=== PATIENT | male | born 1980 | race Caucasian/White ===

== ENCOUNTER 2017-06-03 19:50 | Emergency (ER) | payer OTHER ==
[~2017-06-03] VITALS: Ht 160 cm; Wt 61.2 kg
[~2017-06-03 19:50] MED LIST: ABAC300; ACET500; ACET500 PO; AMOCLA875 PO; ANUCORT HC PR; Anucort-Hc25 MG PR; BCOIRO PO; BISA10S; BISA10S PR; CARB100ER PO; CARB200 PO; CARB200ER PO; CARBAMAZEPINE200 MG PO; CHLGLU.12S MT; CHLORHEXIDINE; CHLORHEXIDINE PO; CLIN300 PO; CLON1 PO; CLON2; CLON2 PO; DIASTAT PR; DIAZ10; DIAZ10 PO; DIAZ1KIT4 PR; DIAZ2 PR; DIAZEPAM 20 MG; FAMO40 PO; FYCOMPA4 MG PO; GLYC2; GLYCOLAX; GLYCOLAX PO; GUAI600T33 PO; GUAIFENSIN; GUAPHELA; HYDACE25S PR; HYDACE5 PO; HYDCOR1TO TOP; HYDCOR2.5B TOP; HYDR.5TC TOP; IBUP400 PO; IBUP800 PO; INSLIS75I; Keppra1000 MG PO; LAMICTAL; LAMO100; LAMO100 PO; LEVE500 PO; LEVO750 PO; Lamictal200 MG PO; MINOIL PR; MOM; MOM PO; MUCUS RELIEF200 MG PO; MULVITA; MULVITMIND PO; MULVITMINF PO; MULVITSO PO; OMEP20ER PO; ONDA4 PO; ONDA4ODT MM; OXYB5 PO; PANT40 PO; PHENA100 PO; PHENA200 PO; POLY17UD; PSEU120ER PO; SACC250C PO; SULTRIDS PO; TAMS.4ER PO; TIAG4 PO; TRIA80TC TOP; ZONI100; [UNRECOGNIZED DRUG - OTHER]; [UNRECOGNIZED DRUG - OTHER]; [UNRECOGNIZED DRUG - OTHER] PO; [UNRECOGNIZED DRUG - OTHER] PO
[2017-06-03] MEDS ORDERED: HYDR25SUP PR (20:00)
== END 2017-06-03 20:50 | disposition home or self-care (01) ==
LOC: ER 19:50
DX: K64.8 Other hemorrhoids (principal)
CPT/HCPCS: 46600; 99284

== ENCOUNTER 2017-08-05 08:23 | Emergency (ER) | payer OTHER ==
[~2017-08-05] VITALS: Ht 160 cm; Wt 63.5 kg
[~2017-08-05 08:23] MED LIST changes: +HYDR25SUP PR
[2017-08-05] MEDS ORDERED: Keppra1000 MG PO (08:41)
[2017-08-05] MEDS ORDERED: GAVILAX17 GM PO (08:43)
[2017-08-05] MEDS ORDERED: Banzel400 MG PO (08:46)
[2017-08-05] MEDS ORDERED: VITAMIN D32000 UNI1 PO (08:48)
[2017-08-05] MEDS ORDERED: Miralax17 GM PO (09:11)
== END 2017-08-05 09:47 | disposition home or self-care (01) ==
LOC: ER 08:23
DX: K59.00 Constipation, unspecified (principal); G40.909 Epilepsy, unspecified, not intractable, without status epilepticus; Z88.8 Allergy status to other drugs, medicaments and biological substances; Z79.899 Other long term (current) drug therapy
CPT/HCPCS: 74019; 99283

== ENCOUNTER → 2018-02-01 | Outpatient (CLI) | payer OTHER ==
[~2018-02-01] MED LIST changes: +Banzel400 MG PO; +GAVILAX17 GM PO; +Miralax17 GM PO; +VITAMIN D32000 UNI1 PO
[2018-02-01 15:31] LABS: BASOPHILS ABSOLUTE AUTO 0.07 K/mm3 (0.00-0.23); BASOPHILS PERCENT AUTO 1 % (0-2); EOSINOPHILS ABSOLUTE AUTO 0.53 K/mm3 (0.00-0.68); EOSINOPHILS PERCENT AUTO 6 % (0-6); Hematocrit 45.1 % (37.0-53.0); Hemoglobin 14.5 g/dL (13.5-17.5); IMMATURE GRAN ABSOLUTE AUTO 0.02 K/mm3 (0.00-0.10); IMMATURE GRAN PERCENT AUTO 0 % (0-1); LYMPHOCYTES ABSOLUTE AUTO 2.07 K/mm3 (0.84-5.20); LYMPHOCYTES PERCENT AUTO 24 % (21-46); MONOCYTES ABSOLUTE AUTO 0.82 K/mm3 (0.16-1.47); MONOCYTES PERCENT AUTO 9 % (4-13); Mean Corpuscular HGB 26.9 pg (26.0-34.0); Mean Corpuscular HGB Conc 32.2 g/dL (31.5-36.5); Mean Corpuscular Volume 84 fL (80-100); Mean Platelet Volume 9.2 fL (9.1-12.4); NEUTROPHILS PERCENT AUTO 60 % (41-73); Platelet Count 326 K/mm3 (150-400); RDW Coefficient Variation 13.1 % (11.7-14.2); RDW Standard Deviation 39.3 fL (35.1-46.3); Red Blood Cell Count 5.39 M/mm3 (4.30-5.90); White Blood Cell Count 8.81 K/mm3 (4.00-11.30)
[2018-02-01 15:41] LABS: Alanine Aminotransfer (ALT/SGP 20 U/L (12-78); Alk Phos 137 U/L (40-126); Anion Gap 4 mmol/L (6-16); Aspartate Aminotrans (AST/SGOT 14 U/L (12-37); Bilirubin, Total 0.3 mg/dL (0.1-1.0); Blood Urea Nitrogen 11 mg/dL (8-24); Bun/Creatinine Ratio 12.6 (12.0-20.0); CO2, Blood 35 mmol/L (21-32); Calcium, Blood 9.2 mg/dL (8.5-10.1); Chloride, Blood 101 mmol/L (98-108); Creatinine, Blood 0.87 mg/dL (0.60-1.20); Globulin, Blood 3.9 g/dL (2.2-4.0); Glomerular Filtration Rate >60 (60-); Glucose, Blood 76 mg/dL (70-99); Sodium, Blood 140 mmol/L (136-145); Total Protein, Blood 7.9 g/dL (6.4-8.2)
== END | disposition home or self-care (01) ==
LOC: LAB SHORT 15:26 → LAB EV 15:26
PROVIDERS: General Practice
DX: R05 Cough (principal)
CPT/HCPCS: 80053; 85025

== ENCOUNTER 2018-12-14 12:24 | Emergency (ER) | payer OTHER ==
[~2018-12-14] VITALS: Ht 157.5 cm; Wt 77.1 kg
[~2018-12-14 12:24] MED LIST changes: +Hair, Skin & N1 EACH PO
[2018-12-14 13:22] LABS: BASOPHILS ABSOLUTE AUTO 0.07 K/mm3 (0.00-0.23); BASOPHILS PERCENT AUTO 1 % (0-2); EOSINOPHILS ABSOLUTE AUTO 0.09 K/mm3 (0.00-0.68); EOSINOPHILS PERCENT AUTO 1 % (0-6); Hematocrit 46.7 % (37.0-53.0); Hemoglobin 14.5 g/dL (13.5-17.5); IMMATURE GRAN ABSOLUTE AUTO 0.02 K/mm3 (0.00-0.10); IMMATURE GRAN PERCENT AUTO 0 % (0-1); LYMPHOCYTES ABSOLUTE AUTO 1.54 K/mm3 (0.84-5.20); LYMPHOCYTES PERCENT AUTO 15 % (21-46); MONOCYTES ABSOLUTE AUTO 0.72 K/mm3 (0.16-1.47); MONOCYTES PERCENT AUTO 7 % (4-13); Mean Corpuscular HGB 26.1 pg (26.0-34.0); Mean Corpuscular Volume 84 fL (80-100); NEUTROPHILS ABSOLUTE AUTO 7.85 K/mm3 (1.96-9.15); NEUTROPHILS PERCENT AUTO 76 % (41-73); RDW Standard Deviation 39.6 fL (35.1-46.3); Red Blood Cell Count 5.56 M/mm3 (4.30-5.90); White Blood Cell Count 10.29 K/mm3 (4.00-11.30)
[2018-12-14 13:33] LABS: Mean Platelet Volume 9.5 fL (9.1-12.4); Platelet Count 264 K/mm3 (150-400)
[2018-12-14 13:41] LABS: Alanine Aminotransfer (ALT/SGP 24 U/L (12-78); Albumin, Blood 3.8 g/dL (3.4-5.0); Alk Phos 119 U/L (50-136); Anion Gap 5 mmol/L (6-16); Aspartate Aminotrans (AST/SGOT 16 U/L (12-37); Bilirubin, Total 0.3 mg/dL (0.1-1.0); Blood Urea Nitrogen 10 mg/dL (8-24); Bun/Creatinine Ratio 14.6 (12.0-20.0); CO2, Blood 30 mmol/L (21-32); Calcium, Blood 9.1 mg/dL (8.5-10.1); Chloride, Blood 105 mmol/L (98-108); Creatinine, Blood 0.68 mg/dL (0.60-1.20); Globulin, Blood 3.9 g/dL (2.2-4.0); Glomerular Filtration Rate >60 (60-); Glucose, Blood 100 mg/dL (70-99); Potassium, Blood 3.8 mmol/L (3.5-5.5); Sodium, Blood 140 mmol/L (136-145); Total Protein, Blood 7.7 g/dL (6.4-8.2)
[2018-12-14] MEDS ORDERED: CLON1 PO (15:03)
[2018-12-14] MEDS ORDERED: Vibramycin100 MG PO (15:58)
== END 2018-12-14 17:22 | disposition home or self-care (01) ==
LOC: ER 12:24
PROVIDERS: Physician Assistant
DX: R56.9 Unspecified convulsions (principal); J98.8 Other specified respiratory disorders; R09.89 Other specified symptoms and signs involving the circulatory and respiratory systems; J98.11 Atelectasis; Z88.1 Allergy status to other antibiotic agents; Z88.8 Allergy status to other drugs, medicaments and biological substances; Z79.899 Other long term (current) drug therapy; Z87.01 Personal history of pneumonia (recurrent)
CPT/HCPCS: 36415; 71046; 76705; 80053; 80175; 83690; 85025; 96360; 96361; 99284-25; J7030

== ENCOUNTER → 2019-01-07 | Outpatient (CLI) | payer OTHER ==
[~2019-01-07] MED LIST changes: +EPIDIOLEX100 MG/1 M PO; +Vibramycin100 MG PO
[2019-01-07 13:49] LABS: Source, Urine Clean Catch
[2019-01-07 14:18] LABS: Amorphous Heavy ({null, 0-Heavy}); Appearance, Urine Cloudy (Clear); Bacteria Not Seen /hpf; Bilirubin, Urine Neg (Neg); Blood, Urine Neg (Neg); Color, Urine Yellow (P-Yellow); Glucose Qualitative, Urine Neg (Normal); Ketones, Urine Neg (Neg); Leukocyte Esterase, Urine Neg (Neg); Nitrite, Urine Neg (Neg); Protein, Urine Neg (Neg); Red Blood Cells, Urine Not Seen /hpf (0-2); Squamous Epithelial Cells Rare /hpf (Few); Urobilinogen, Urine NORM (Normal); White Blood Cells, Urine 0-2 /hpf (0-5)
== END | disposition home or self-care (01) ==
LOC: LAB EV 13:00
PROVIDERS: Physician Assistant
DX: G40.909 Epilepsy, unspecified, not intractable, without status epilepticus (principal)
CPT/HCPCS: 81001

== ENCOUNTER 2019-02-14 18:13 | Emergency (ER) | payer OTHER ==
[~2019-02-14] VITALS: Ht 160 cm; Wt 79.4 kg
[~2019-02-14 18:13] MED LIST changes: -EPIDIOLEX100 MG/1 M PO
[2019-02-14] MEDS ORDERED: Keppra1000 MG PO (19:25)
[2019-02-14] MEDS ORDERED: EPIDIOLEX100 MG/1 M PO (19:29)
[2019-02-14 20:10] LABS: Source, Urine Catheter
[2019-02-14 20:16] LABS: Bilirubin, Urine Neg (Neg); Blood, Urine Neg (Neg); Glucose Qualitative, Urine Neg (Neg); Ketones, Urine Neg (Neg); Leukocyte Esterase, Urine Neg (Neg); Nitrite, Urine Neg (Neg); Protein, Urine Neg (Neg); Urobilinogen, Urine NORM (Normal)
[2019-02-14 20:22] LABS: Appearance, Urine Clear (Clear); Color, Urine Yellow (P-Yellow)
== END 2019-02-15 00:18 | disposition home or self-care (01) ==
LOC: ER 18:13
PROVIDERS: Emergency Medicine
DX: R56.9 Unspecified convulsions (principal); Z88.1 Allergy status to other antibiotic agents; Z88.8 Allergy status to other drugs, medicaments and biological substances; Z79.899 Other long term (current) drug therapy
CPT/HCPCS: 51701; 81003; 96365-59; 96375-59; 99284-25; J1953; J2060; J2310

== ENCOUNTER 2019-03-16 11:46 | Emergency (ER) | payer OTHER ==
[~2019-03-16] VITALS: Ht 152.4 cm; Wt 72.6 kg
[~2019-03-16 11:46] MED LIST changes: +EPIDIOLEX100 MG/1 M PO
[2019-03-16 12:39] LABS: BASOPHILS ABSOLUTE AUTO 0.04 K/mm3 (0.00-0.23); BASOPHILS PERCENT AUTO 1 % (0-2); EOSINOPHILS ABSOLUTE AUTO 0.12 K/mm3 (0.00-0.68); EOSINOPHILS PERCENT AUTO 2 % (0-6); Hematocrit 47.6 % (37.0-53.0); IMMATURE GRAN ABSOLUTE AUTO 0.02 K/mm3 (0.00-0.10); IMMATURE GRAN PERCENT AUTO 0 % (0-1); LYMPHOCYTES ABSOLUTE AUTO 1.16 K/mm3 (0.84-5.20); LYMPHOCYTES PERCENT AUTO 17 % (21-46); MONOCYTES ABSOLUTE AUTO 0.48 K/mm3 (0.16-1.47); MONOCYTES PERCENT AUTO 7 % (4-13); Mean Corpuscular HGB 25.8 pg (26.0-34.0); Mean Corpuscular HGB Conc 31.5 g/dL (31.5-36.5); Mean Corpuscular Volume 82 fL (80-100); Mean Platelet Volume 9.7 fL (9.1-12.4); NEUTROPHILS ABSOLUTE AUTO 5.02 K/mm3 (1.96-9.15); NEUTROPHILS PERCENT AUTO 73 % (41-73); Platelet Count 321 K/mm3 (150-400); RDW Standard Deviation 38.5 fL (35.1-46.3); Red Blood Cell Count 5.81 M/mm3 (4.30-5.90); White Blood Cell Count 6.84 K/mm3 (4.00-11.30)
[2019-03-16 12:43] LABS: Alanine Aminotransfer (ALT/SGP 29 U/L (12-78); Albumin, Blood 4.1 g/dL (3.4-5.0); Albumin/Globulin Ratio 1.1 (0.8-1.8); Alk Phos 125 U/L (50-136); Anion Gap 5 mmol/L (6-16); Aspartate Aminotrans (AST/SGOT 17 U/L (12-37); Bilirubin, Total 0.4 mg/dL (0.1-1.0); Blood Urea Nitrogen 11 mg/dL (8-24); Bun/Creatinine Ratio 12.8 (12.0-20.0); CO2, Blood 31 mmol/L (21-32); Calcium, Blood 9.4 mg/dL (8.5-10.1); Chloride, Blood 106 mmol/L (98-108); Creatinine, Blood 0.86 mg/dL (0.60-1.20); Globulin, Blood 3.8 g/dL (2.2-4.0); Glomerular Filtration Rate >60 (60-); Glucose, Blood 153 mg/dL (70-99); Potassium, Blood 3.4 mmol/L (3.5-5.5); Sodium, Blood 142 mmol/L (136-145); Total Protein, Blood 7.9 g/dL (6.4-8.2)
== END 2019-03-16 14:22 | disposition home or self-care (01) ==
LOC: ER 11:46
PROVIDERS: Emergency Medicine
DX: G40.909 Epilepsy, unspecified, not intractable, without status epilepticus (principal); E87.6 Hypokalemia; Z88.1 Allergy status to other antibiotic agents; Z88.8 Allergy status to other drugs, medicaments and biological substances; Z79.899 Other long term (current) drug therapy
CPT/HCPCS: 71045; 80053; 82947; 85025; 93005; 93010; 99284-25

== ENCOUNTER 2019-05-07 12:28 | Emergency (ER) | payer OTHER ==
[~2019-05-07] VITALS: Ht 165.1 cm; Wt 86.2 kg
[2019-05-07 14:26] LABS: BASOPHILS ABSOLUTE AUTO 0.08 K/mm3 (0.00-0.23); BASOPHILS PERCENT AUTO 1 % (0-2); EOSINOPHILS ABSOLUTE AUTO 0.13 K/mm3 (0.00-0.68); EOSINOPHILS PERCENT AUTO 1 % (0-6); Hematocrit 46.3 % (37.0-53.0); Hemoglobin 14.7 g/dL (13.5-17.5); IMMATURE GRAN ABSOLUTE AUTO 0.03 K/mm3 (0.00-0.10); IMMATURE GRAN PERCENT AUTO 0 % (0-1); LYMPHOCYTES ABSOLUTE AUTO 1.91 K/mm3 (0.84-5.20); LYMPHOCYTES PERCENT AUTO 14 % (21-46); MONOCYTES ABSOLUTE AUTO 0.96 K/mm3 (0.16-1.47); MONOCYTES PERCENT AUTO 7 % (4-13); Mean Corpuscular HGB 25.4 pg (26.0-34.0); Mean Corpuscular HGB Conc 31.7 g/dL (31.5-36.5); Mean Corpuscular Volume 80 fL (80-100); Mean Platelet Volume 9.5 fL (9.1-12.4); NEUTROPHILS ABSOLUTE AUTO 10.35 K/mm3 (1.96-9.15); NEUTROPHILS PERCENT AUTO 77 % (41-73); Platelet Count 372 K/mm3 (150-400); RDW Coefficient Variation 13.2 % (11.7-14.2); RDW Standard Deviation 37.7 fL (35.1-46.3); Red Blood Cell Count 5.78 M/mm3 (4.30-5.90); White Blood Cell Count 13.46 K/mm3 (4.00-11.30)
[2019-05-07 14:46] LABS: Alanine Aminotransfer (ALT/SGP 27 U/L (12-78); Albumin, Blood 4.1 g/dL (3.4-5.0); Alk Phos 123 U/L (50-136); Anion Gap 7 mmol/L (6-16); Aspartate Aminotrans (AST/SGOT 17 U/L (12-37); Bilirubin, Total 0.3 mg/dL (0.1-1.0); Blood Urea Nitrogen 9 mg/dL (8-24); Bun/Creatinine Ratio 12.4 (12.0-20.0); CO2, Blood 27 mmol/L (21-32); Calcium, Blood 9.5 mg/dL (8.5-10.1); Chloride, Blood 105 mmol/L (98-108); Creatinine, Blood 0.72 mg/dL (0.60-1.20); Glomerular Filtration Rate >60 (60-); Glucose, Blood 106 mg/dL (70-99); Potassium, Blood 3.4 mmol/L (3.5-5.5); Sodium, Blood 139 mmol/L (136-145); Total Protein, Blood 8.1 g/dL (6.4-8.2)
[2019-05-07 15:39] LABS: Influenza A Negative (NEGATIVE); Influenza B Negative (NEGATIVE)
[2019-05-07 15:52] LABS: Source, Urine Clean Catch
[2019-05-07 16:04] LABS: Bilirubin, Urine Neg (Neg); Blood, Urine 1+ (Neg); Glucose Qualitative, Urine Neg (Neg); Ketones, Urine Neg (Neg); Leukocyte Esterase, Urine Neg (Neg); Nitrite, Urine Neg (Neg); Protein, Urine Neg (Neg); Specific Gravity, Urine 1.015 (1.003-1.022); Urobilinogen, Urine NORM (Normal)
[2019-05-07 16:11] LABS: Appearance, Urine Hazy (Clear); Color, Urine Pale Yellow (P-Yellow)
[2019-05-07 16:12] LABS: White Blood Cells, Urine 0-2 /hpf (0-5)
[2019-05-07 16:13] LABS: Amorphous Light (0-Heavy); Bacteria Few /hpf; Squamous Epithelial Cells Rare /hpf (Few)
== END 2019-05-07 17:08 | disposition home or self-care (01) ==
LOC: ER 12:28
PROVIDERS: Emergency Medicine
DX: R56.9 Unspecified convulsions (principal); Z88.1 Allergy status to other antibiotic agents; Z88.8 Allergy status to other drugs, medicaments and biological substances; Z79.899 Other long term (current) drug therapy
CPT/HCPCS: 51701; 80053; 80175; 81001; 85025; 87804; 96365; 96375; 99284-25; J1953; J2060

== ENCOUNTER 2019-06-06 19:10 | Emergency (ER) | payer OTHER ==
[~2019-06-06] VITALS: Ht 160 cm; Wt 185.0 kg
[2019-06-06 20:14] LABS: BASOPHILS ABSOLUTE AUTO 0.06 K/mm3 (0.00-0.23); BASOPHILS PERCENT AUTO 1 % (0-2); EOSINOPHILS ABSOLUTE AUTO 0.21 K/mm3 (0.00-0.68); EOSINOPHILS PERCENT AUTO 2 % (0-6); Hematocrit 42.1 % (37.0-53.0); Hemoglobin 13.1 g/dL (13.5-17.5); IMMATURE GRAN ABSOLUTE AUTO 0.02 K/mm3 (0.00-0.10); IMMATURE GRAN PERCENT AUTO 0 % (0-1); LYMPHOCYTES ABSOLUTE AUTO 1.58 K/mm3 (0.84-5.20); LYMPHOCYTES PERCENT AUTO 15 % (21-46); MONOCYTES ABSOLUTE AUTO 0.53 K/mm3 (0.16-1.47); MONOCYTES PERCENT AUTO 5 % (4-13); Mean Corpuscular HGB 25.5 pg (26.0-34.0); Mean Corpuscular HGB Conc 31.1 g/dL (31.5-36.5); Mean Corpuscular Volume 82 fL (80-100); Mean Platelet Volume 9.7 fL (9.1-12.4); NEUTROPHILS ABSOLUTE AUTO 8.02 K/mm3 (1.96-9.15); NEUTROPHILS PERCENT AUTO 77 % (41-73); Platelet Count 325 K/mm3 (150-400); RDW Coefficient Variation 13.2 % (11.7-14.2); RDW Standard Deviation 39.3 fL (35.1-46.3); Red Blood Cell Count 5.14 M/mm3 (4.30-5.90); White Blood Cell Count 10.42 K/mm3 (4.00-11.30)
[2019-06-06 20:32] LABS: Alanine Aminotransfer (ALT/SGP 48 U/L (12-78); Albumin, Blood 3.8 g/dL (3.4-5.0); Albumin/Globulin Ratio 1.1 (0.8-1.8); Alk Phos 100 U/L (50-136); Anion Gap 5 mmol/L (6-16); Aspartate Aminotrans (AST/SGOT 28 U/L (12-37); Bilirubin, Total 0.5 mg/dL (0.1-1.0); Blood Urea Nitrogen 17 mg/dL (8-24); Bun/Creatinine Ratio 20.3 (12.0-20.0); CO2, Blood 29 mmol/L (21-32); Calcium, Blood 8.9 mg/dL (8.5-10.1); Chloride, Blood 106 mmol/L (98-108); Creatinine, Blood 0.84 mg/dL (0.60-1.20); Globulin, Blood 3.5 g/dL (2.2-4.0); Glomerular Filtration Rate >60 (60-); Glucose, Blood 100 mg/dL (70-99); Sodium, Blood 140 mmol/L (136-145); Total Protein, Blood 7.3 g/dL (6.4-8.2)
[2019-06-06] MEDS ORDERED: OMEPRAZOLE20 MG (22:16)
[2019-06-06] MEDS ORDERED: BISA10S (22:17)
[2019-06-06] MEDS ORDERED: Anucort-Hc25 MG (22:18)
== END 2019-06-07 00:58 | disposition home or self-care (01) ==
LOC: ER 19:10
PROVIDERS: Emergency Medicine
DX: R19.7 Diarrhea, unspecified (principal); G40.909 Epilepsy, unspecified, not intractable, without status epilepticus; E86.0 Dehydration; Z88.1 Allergy status to other antibiotic agents; Z88.8 Allergy status to other drugs, medicaments and biological substances; Z79.899 Other long term (current) drug therapy
CPT/HCPCS: 36415; 80053; 82947; 85025; 93005; 93010; 96360; 99284-25; A9270-GY; J7030

== ENCOUNTER 2019-08-28 10:04 | Emergency (ER) | payer OTHER ==
[~2019-08-28] VITALS: Ht 160 cm; Wt 83.9 kg
[~2019-08-28 10:04] MED LIST changes: +Anucort-Hc25 MG; +OMEPRAZOLE20 MG
[2019-08-28] MEDS ORDERED: ALLEGRA ALLERGY60 MG PO (10:21)
[2019-08-28] MEDS ORDERED: LEVE500 PO ×2 (10:25→10:30)
[2019-08-28] MEDS ORDERED: LISI5 PO (10:25)
[2019-08-28] MEDS ORDERED: VITAMIN D350 MCG PO (10:28)
[2019-08-28 10:46] LABS: BASOPHILS ABSOLUTE AUTO 0.05 K/mm3 (0.00-0.23); BASOPHILS PERCENT AUTO 1 % (0-2); EOSINOPHILS ABSOLUTE AUTO 0.46 K/mm3 (0.00-0.68); EOSINOPHILS PERCENT AUTO 6 % (0-6); Hematocrit 43.9 % (37.0-53.0); Hemoglobin 13.7 g/dL (13.5-17.5); IMMATURE GRAN ABSOLUTE AUTO 0.03 K/mm3 (0.00-0.10); IMMATURE GRAN PERCENT AUTO 0 % (0-1); LYMPHOCYTES ABSOLUTE AUTO 2.23 K/mm3 (0.84-5.20); LYMPHOCYTES PERCENT AUTO 29 % (21-46); MONOCYTES ABSOLUTE AUTO 0.73 K/mm3 (0.16-1.47); MONOCYTES PERCENT AUTO 10 % (4-13); Mean Corpuscular HGB 26.2 pg (26.0-34.0); Mean Corpuscular HGB Conc 31.2 g/dL (31.5-36.5); Mean Corpuscular Volume 84 fL (80-100); Mean Platelet Volume 9.8 fL (9.1-12.4); NEUTROPHILS PERCENT AUTO 55 % (41-73); Platelet Count 340 K/mm3 (150-400); RDW Coefficient Variation 13.8 % (11.7-14.2); RDW Standard Deviation 42.3 fL (35.1-46.3); Red Blood Cell Count 5.22 M/mm3 (4.30-5.90)
[2019-08-28 10:59] LABS: Alanine Aminotransfer (ALT/SGP 36 U/L (12-78); Albumin, Blood 3.9 g/dL (3.4-5.0); Alk Phos 94 U/L (50-136); Anion Gap 6 mmol/L (6-16); Aspartate Aminotrans (AST/SGOT 18 U/L (12-37); Bilirubin, Total 0.3 mg/dL (0.1-1.0); Blood Urea Nitrogen 16 mg/dL (8-24); Bun/Creatinine Ratio 21.2 (12.0-20.0); CO2, Blood 28 mmol/L (21-32); Chloride, Blood 105 mmol/L (98-108); Creatinine, Blood 0.75 mg/dL (0.60-1.20); Glomerular Filtration Rate >60 (60-); Glucose, Blood 92 mg/dL (70-99); Potassium, Blood 4.2 mmol/L (3.5-5.5); Sodium, Blood 139 mmol/L (136-145); Total Protein, Blood 7.9 g/dL (6.4-8.2)
[2019-08-28 12:05] LABS: Source, Urine Clean Catch
[2019-08-28 12:26] LABS: Bilirubin, Urine Neg (Neg); Blood, Urine Neg (Neg); Glucose Qualitative, Urine Neg (Neg); Ketones, Urine Neg (Neg); Leukocyte Esterase, Urine 1+ (Neg); Nitrite, Urine Neg (Neg); Protein, Urine Neg (Neg); Urobilinogen, Urine NORM (Normal)
[2019-08-28 12:47] LABS: Appearance, Urine Clear (Clear); Color, Urine Yellow (P-Yellow)
[2019-08-28 12:48] LABS: Bacteria Few /hpf; Red Blood Cells, Urine 0-2 /hpf (0-2); Squamous Epithelial Cells Rare /hpf (Few)
== END 2019-08-28 13:41 | disposition home or self-care (01) ==
LOC: ER 10:04
PROVIDERS: Physician Assistant
DX: R53.1 Weakness (principal); R56.9 Unspecified convulsions; Z88.8 Allergy status to other drugs, medicaments and biological substances; Z79.899 Other long term (current) drug therapy
CPT/HCPCS: 36415; 51701; 80053; 81001; 85025; 87086; 99284-25; J7030

== ENCOUNTER 2019-10-13 07:58 | Emergency (ER) | payer OTHER ==
[~2019-10-13] VITALS: Ht 160 cm; Wt 81.7 kg
[~2019-10-13 07:58] MED LIST changes: +ALLEGRA ALLERGY60 MG PO; +LISI5 PO; +VITAMIN D350 MCG PO
[2019-10-13 08:33] LABS: BASOPHILS ABSOLUTE AUTO 0.03 K/mm3 (0.00-0.23); BASOPHILS PERCENT AUTO 0 % (0-2); EOSINOPHILS ABSOLUTE AUTO 0.16 K/mm3 (0.00-0.68); EOSINOPHILS PERCENT AUTO 2 % (0-6); Hematocrit 49.1 % (37.0-53.0); Hemoglobin 14.8 g/dL (13.5-17.5); IMMATURE GRAN ABSOLUTE AUTO 0.02 K/mm3 (0.00-0.10); IMMATURE GRAN PERCENT AUTO 0 % (0-1); LYMPHOCYTES ABSOLUTE AUTO 1.75 K/mm3 (0.84-5.20); LYMPHOCYTES PERCENT AUTO 24 % (21-46); MONOCYTES ABSOLUTE AUTO 0.59 K/mm3 (0.16-1.47); MONOCYTES PERCENT AUTO 8 % (4-13); Mean Corpuscular HGB 25.4 pg (26.0-34.0); Mean Corpuscular HGB Conc 30.1 g/dL (31.5-36.5); Mean Corpuscular Volume 84 fL (80-100); Mean Platelet Volume 9.6 fL (9.1-12.4); NEUTROPHILS ABSOLUTE AUTO 4.73 K/mm3 (1.96-9.15); NEUTROPHILS PERCENT AUTO 65 % (41-73); Platelet Count 318 K/mm3 (150-400); RDW Coefficient Variation 12.6 % (11.7-14.2); RDW Standard Deviation 38.4 fL (35.1-46.3); Red Blood Cell Count 5.83 M/mm3 (4.30-5.90); White Blood Cell Count 7.28 K/mm3 (4.00-11.30)
[2019-10-13 08:55] LABS: Alanine Aminotransfer (ALT/SGP 32 U/L (12-78); Albumin, Blood 4.3 g/dL (3.4-5.0); Albumin/Globulin Ratio 1.1 (0.8-1.8); Alk Phos 121 U/L (50-136); Anion Gap 5 mmol/L (6-16); Aspartate Aminotrans (AST/SGOT 21 U/L (12-37); Bilirubin, Total 0.4 mg/dL (0.1-1.0); Blood Urea Nitrogen 17 mg/dL (8-24); Bun/Creatinine Ratio 19.2 (12.0-20.0); CO2, Blood 29 mmol/L (21-32); Calcium, Blood 8.8 mg/dL (8.5-10.1); Carbamazepine <0.5 ug/mL (4.0-12.0); Chloride, Blood 107 mmol/L (98-108); Creatinine, Blood 0.89 mg/dL (0.60-1.20); Globulin, Blood 3.9 g/dL (2.2-4.0); Glomerular Filtration Rate >60 (60-); Glucose, Blood 94 mg/dL (70-99); Potassium, Blood 3.7 mmol/L (3.5-5.5); Sodium, Blood 141 mmol/L (136-145); Total Protein, Blood 8.2 g/dL (6.4-8.2)
[2019-10-14] MEDS ORDERED: ACET500 PO (03:08)
[2019-10-14] MEDS ORDERED: DIAZ10 PR (03:14)
[2019-10-14] MEDS ORDERED: DIAZ5I PO (03:15)
[2019-10-14] MEDS ORDERED: Bactrim Ds Tab1 EACH PO (04:11)
== END 2019-10-13 12:10 | disposition home or self-care (01) ==
LOC: ER 07:58
PROVIDERS: Emergency Medicine
DX: R56.9 Unspecified convulsions (principal); Z88.8 Allergy status to other drugs, medicaments and biological substances; Z79.899 Other long term (current) drug therapy
CPT/HCPCS: 36415; 80053; 80156; 85025; 93005; 93010; 99284-25

== ENCOUNTER 2019-10-14 02:53 | Emergency (ER) | payer OTHER ==
[~2019-10-14] VITALS: Ht 160 cm; Wt 81.7 kg
[2019-10-14] MEDS ORDERED: ACET500 PO (03:08)
[2019-10-14 03:14] LABS: BASOPHILS ABSOLUTE AUTO 0.02 K/mm3 (0.00-0.23); BASOPHILS PERCENT AUTO 0 % (0-2); EOSINOPHILS PERCENT AUTO 1 % (0-6); Hematocrit 45.8 % (37.0-53.0); Hemoglobin 14.2 g/dL (13.5-17.5); IMMATURE GRAN ABSOLUTE AUTO 0.01 K/mm3 (0.00-0.10); IMMATURE GRAN PERCENT AUTO 0 % (0-1); LYMPHOCYTES PERCENT AUTO 16 % (21-46); MONOCYTES ABSOLUTE AUTO 0.39 K/mm3 (0.16-1.47); MONOCYTES PERCENT AUTO 5 % (4-13); Mean Corpuscular HGB 25.8 pg (26.0-34.0); Mean Corpuscular Volume 83 fL (80-100); Mean Platelet Volume 9.5 fL (9.1-12.4); NEUTROPHILS ABSOLUTE AUTO 5.78 K/mm3 (1.96-9.15); NEUTROPHILS PERCENT AUTO 77 % (41-73); Platelet Count 321 K/mm3 (150-400); RDW Coefficient Variation 12.8 % (11.7-14.2)
[2019-10-14] MEDS ORDERED: DIAZ10 PR (03:14)
[2019-10-14] MEDS ORDERED: DIAZ5I PO (03:15)
[2019-10-14 03:32] LABS: Alanine Aminotransfer (ALT/SGP 23 U/L (12-78); Albumin, Blood 3.7 g/dL (3.4-5.0); Alk Phos 104 U/L (50-136); Anion Gap 4 mmol/L (6-16); Aspartate Aminotrans (AST/SGOT 15 U/L (12-37); Bilirubin, Total 0.7 mg/dL (0.1-1.0); Blood Urea Nitrogen 19 mg/dL (8-24); Bun/Creatinine Ratio 23.6 (12.0-20.0); CO2, Blood 28 mmol/L (21-32); Calcium, Blood 8.3 mg/dL (8.5-10.1); Chloride, Blood 107 mmol/L (98-108); Creatinine, Blood 0.81 mg/dL (0.60-1.20); Globulin, Blood 3.7 g/dL (2.2-4.0); Glomerular Filtration Rate >60 (60-); Glucose, Blood 118 mg/dL (70-99); Magnesium, Blood 2.1 mg/dL (1.6-2.4); Sodium, Blood 139 mmol/L (136-145); Total Protein, Blood 7.4 g/dL (6.4-8.2)
[2019-10-14 03:46] LABS: Source, Urine Clean Catch
[2019-10-14 03:48] LABS: Bilirubin, Urine Neg (Neg); Blood, Urine Neg (Neg); Glucose Qualitative, Urine Neg (Neg); Ketones, Urine Neg (Neg); Leukocyte Esterase, Urine 1+ (Neg); Nitrite, Urine Neg (Neg); Protein, Urine 2+ (Neg); Urobilinogen, Urine 1+ (Normal)
[2019-10-14 03:49] LABS: Appearance, Urine Clear (Clear); Color, Urine Yellow (P-Yellow)
[2019-10-14 03:55] LABS: Red Blood Cells, Urine 0-2 /hpf (0-2); Squamous Epithelial Cells Not Seen /hpf (Few)
[2019-10-14 03:56] LABS: Bacteria Mod /hpf; Mucus Light (0-Heavy)
[2019-10-14] MEDS ORDERED: Bactrim Ds Tab1 EACH PO (04:11)
== END 2019-10-14 04:59 | disposition home or self-care (01) ==
LOC: ER 02:53
PROVIDERS: Emergency Medicine
DX: G40.901 Epilepsy, unspecified, not intractable, with status epilepticus (principal); G40.811 Lennox-Gastaut syndrome, not intractable, with status epilepticus; N39.0 Urinary tract infection, site not specified; Z88.1 Allergy status to other antibiotic agents; Z88.8 Allergy status to other drugs, medicaments and biological substances; Z79.899 Other long term (current) drug therapy
CPT/HCPCS: 36415; 51701; 71045; 80053; 81001; 83735; 85025; 87086; 93005; 93010; 99284-25; A9270-GY

== ENCOUNTER 2019-10-25 18:54 | Emergency (ER) | payer OTHER ==
[~2019-10-25] VITALS: Ht 160 cm; Wt 81.7 kg
[~2019-10-25 18:54] MED LIST changes: +Bactrim Ds Tab1 EACH PO; +DIAZ10 PR; +DIAZ5I PO; +KEPPRA1000 MG PO
[2019-10-25 20:28] LABS: BASOPHILS ABSOLUTE AUTO 0.05 K/mm3 (0.00-0.23); BASOPHILS PERCENT AUTO 1 % (0-2); EOSINOPHILS ABSOLUTE AUTO 0.09 K/mm3 (0.00-0.68); EOSINOPHILS PERCENT AUTO 1 % (0-6); Hematocrit 43.2 % (37.0-53.0); Hemoglobin 13.5 g/dL (13.5-17.5); IMMATURE GRAN ABSOLUTE AUTO 0.02 K/mm3 (0.00-0.10); IMMATURE GRAN PERCENT AUTO 0 % (0-1); LYMPHOCYTES ABSOLUTE AUTO 1.68 K/mm3 (0.84-5.20); LYMPHOCYTES PERCENT AUTO 23 % (21-46); MONOCYTES ABSOLUTE AUTO 0.48 K/mm3 (0.16-1.47); MONOCYTES PERCENT AUTO 7 % (4-13); Mean Corpuscular HGB Conc 31.3 g/dL (31.5-36.5); Mean Corpuscular Volume 83 fL (80-100); Mean Platelet Volume 9.1 fL (9.1-12.4); NEUTROPHILS ABSOLUTE AUTO 5.01 K/mm3 (1.96-9.15); NEUTROPHILS PERCENT AUTO 68 % (41-73); Platelet Count 361 K/mm3 (150-400); RDW Coefficient Variation 12.6 % (11.7-14.2); RDW Standard Deviation 38.2 fL (35.1-46.3); White Blood Cell Count 7.33 K/mm3 (4.00-11.30)
[2019-10-25 20:47] LABS: Alanine Aminotransfer (ALT/SGP 32 U/L (12-78); Albumin, Blood 3.9 g/dL (3.4-5.0); Albumin/Globulin Ratio 1.1 (0.8-1.8); Alk Phos 90 U/L (50-136); Anion Gap 5 mmol/L (6-16); Aspartate Aminotrans (AST/SGOT 16 U/L (12-37); Bilirubin, Total 0.2 mg/dL (0.1-1.0); Blood Urea Nitrogen 17 mg/dL (8-24); Bun/Creatinine Ratio 19.5 (12.0-20.0); CO2, Blood 30 mmol/L (21-32); Calcium, Blood 9.1 mg/dL (8.5-10.1); Chloride, Blood 105 mmol/L (98-108); Creatinine, Blood 0.87 mg/dL (0.60-1.20); Globulin, Blood 3.6 g/dL (2.2-4.0); Glomerular Filtration Rate >60 (60-); Glucose, Blood 110 mg/dL (70-99); Potassium, Blood 4.1 mmol/L (3.5-5.5); Sodium, Blood 140 mmol/L (136-145); Total Protein, Blood 7.5 g/dL (6.4-8.2)
[2019-10-25 21:14] LABS: Source, Urine Catheter
[2019-10-25 21:18] LABS: Bilirubin, Urine Neg (Neg); Blood, Urine 2+ (Neg); Glucose Qualitative, Urine Neg (Neg); Ketones, Urine Neg (Neg); Leukocyte Esterase, Urine Neg (Neg); Nitrite, Urine Neg (Neg); Protein, Urine Neg (Neg); Specific Gravity, Urine 1.015 (1.003-1.022); Urobilinogen, Urine NORM (Normal)
[2019-10-25 21:23] LABS: Appearance, Urine Clear (Clear); Color, Urine Yellow (P-Yellow)
[2019-10-25 21:24] LABS: Amorphous Light (0-Heavy); Bacteria Mod /hpf; Mucus Light (0-Heavy); Squamous Epithelial Cells Rare /hpf (Few)
[2019-10-27] MEDS ORDERED: AQUAPHOR WITH N50 GM TOP (09:58)
[2019-10-27] MEDS ORDERED: Coughtab200 MG PO (10:00)
[2019-10-27] MEDS ORDERED: Vitamin D2000 UNIT PO (16:11)
[2019-10-27] MEDS ORDERED: [UNRECOGNIZED DRUG - OTHER] PR (16:12)
[2019-10-27] MEDS ORDERED: EPIDIOLEX100 MG/1 M PO (16:20)
[2019-10-27] MEDS ORDERED: KEPPRA1000 MG PO ×2 (16:21→16:22)
[2019-10-27] MEDS ORDERED: OMEP20ER PO (16:22)
== END 2019-10-25 23:21 | disposition home or self-care (01) ==
LOC: ER 18:54
PROVIDERS: Physician Assistant
DX: R56.9 Unspecified convulsions (principal); Z88.1 Allergy status to other antibiotic agents; Z88.8 Allergy status to other drugs, medicaments and biological substances; Z79.899 Other long term (current) drug therapy; Z87.01 Personal history of pneumonia (recurrent)
CPT/HCPCS: 36415; 51701; 80053; 81001; 83735; 85025; 87086; 93005; 93010; 96365; 99284-25; J1953; J2060

== ENCOUNTER 2019-12-30 06:47 | Emergency (ER) | payer OTHER ==
[~2019-12-30] VITALS: Ht 160 cm; Wt 81.7 kg
[~2019-12-30 06:47] MED LIST changes: +AQUAPHOR WITH N50 GM TOP; +Coughtab200 MG PO; -Lamictal200 MG PO; +Vitamin D2000 UNIT PO; +[UNRECOGNIZED DRUG - OTHER] PR
[2019-12-30 07:22] LABS: BASOPHILS ABSOLUTE AUTO 0.06 K/mm3 (0.00-0.23); BASOPHILS PERCENT AUTO 1 % (0-2); EOSINOPHILS ABSOLUTE AUTO 0.19 K/mm3 (0.00-0.68); EOSINOPHILS PERCENT AUTO 2 % (0-6); Hematocrit 45.5 % (37.0-53.0); Hemoglobin 14.2 g/dL (13.5-17.5); IMMATURE GRAN ABSOLUTE AUTO 0.02 K/mm3 (0.00-0.10); IMMATURE GRAN PERCENT AUTO 0 % (0-1); LYMPHOCYTES ABSOLUTE AUTO 1.96 K/mm3 (0.84-5.20); LYMPHOCYTES PERCENT AUTO 24 % (21-46); MONOCYTES ABSOLUTE AUTO 0.52 K/mm3 (0.16-1.47); MONOCYTES PERCENT AUTO 6 % (4-13); Mean Corpuscular HGB 25.6 pg (26.0-34.0); Mean Corpuscular HGB Conc 31.2 g/dL (31.5-36.5); Mean Corpuscular Volume 82 fL (80-100); Mean Platelet Volume 9.7 fL (9.1-12.4); NEUTROPHILS ABSOLUTE AUTO 5.46 K/mm3 (1.96-9.15); NEUTROPHILS PERCENT AUTO 67 % (41-73); Platelet Count 317 K/mm3 (150-400); RDW Coefficient Variation 13.3 % (11.7-14.2); RDW Standard Deviation 39.8 fL (35.1-46.3); Red Blood Cell Count 5.54 M/mm3 (4.30-5.90); White Blood Cell Count 8.21 K/mm3 (4.00-11.30)
[2019-12-30] MEDS ORDERED: ACET500 PO ×2 (07:35→07:36)
[2019-12-30] MEDS ORDERED: Anucort-Hc25 MG PR (07:38)
[2019-12-30 07:39] LABS: Alanine Aminotransfer (ALT/SGP 26 U/L (12-78); Albumin/Globulin Ratio 1.1 (0.8-1.8); Alk Phos 108 U/L (50-136); Anion Gap 5 mmol/L (6-16); Aspartate Aminotrans (AST/SGOT 11 U/L (12-37); Bilirubin, Total 0.3 mg/dL (0.1-1.0); Blood Urea Nitrogen 13 mg/dL (8-24); CO2, Blood 29 mmol/L (21-32); Chloride, Blood 108 mmol/L (98-108); Creatinine, Blood 0.87 mg/dL (0.60-1.20); Globulin, Blood 3.6 g/dL (2.2-4.0); Glomerular Filtration Rate >60 (60-); Glucose, Blood 92 mg/dL (70-99); Potassium, Blood 3.8 mmol/L (3.5-5.5); Sodium, Blood 142 mmol/L (136-145); Total Protein, Blood 7.6 g/dL (6.4-8.2)
[2019-12-30 08:14] LABS: Source, Urine Clean Catch
[2019-12-30 08:26] LABS: Appearance, Urine Hazy (Clear); Bilirubin, Urine Neg (Neg); Blood, Urine Neg (Neg); Color, Urine Yellow (P-Yellow); Glucose Qualitative, Urine Neg (Neg); Ketones, Urine Neg (Neg); Leukocyte Esterase, Urine Neg (Neg); Nitrite, Urine Neg (Neg); Protein, Urine Neg (Neg); Specific Gravity, Urine 1.015 (1.003-1.022); Urobilinogen, Urine NORM (Normal)
[2019-12-30 08:41] LABS: Amorphous Mod (0-Heavy); Bacteria Rare /hpf; Red Blood Cells, Urine 0-2 /hpf (0-2); Squamous Epithelial Cells Rare /hpf (Few)
== END 2019-12-30 10:11 | disposition home or self-care (01) ==
LOC: ER 06:47
PROVIDERS: Emergency Medicine
DX: G40.909 Epilepsy, unspecified, not intractable, without status epilepticus (principal); K21.9 Gastro-esophageal reflux disease without esophagitis; Z88.8 Allergy status to other drugs, medicaments and biological substances; Z79.899 Other long term (current) drug therapy; Z87.01 Personal history of pneumonia (recurrent); Z87.440 Personal history of urinary (tract) infections
CPT/HCPCS: 51701; 80053; 81001; 85025; 99284-25

== ENCOUNTER 2020-01-16 08:34 | Emergency (ER) | payer OTHER ==
[~2020-01-16] VITALS: Ht 162.6 cm; Wt 81.7 kg
[2020-01-16] MEDS ORDERED: LISI5 PO (08:49)
[2020-01-16] MEDS ORDERED: EPIDIOLEX100 MG/1 M PO (08:49)
== END 2020-01-16 11:26 | disposition home or self-care (01) ==
LOC: ER 08:34
DX: G40.919 Epilepsy, unspecified, intractable, without status epilepticus (principal); Z88.8 Allergy status to other drugs, medicaments and biological substances; Z79.899 Other long term (current) drug therapy
CPT/HCPCS: 99284

== ENCOUNTER 2020-02-07 03:04 | Emergency (ER) | payer OTHER ==
[~2020-02-07] VITALS: Ht 160 cm; Wt 83.9 kg
[~2020-02-07 03:04] MED LIST changes: +LIDO700A20 TOP
[2020-02-07 03:41] LABS: BASOPHILS ABSOLUTE AUTO 0.06 K/mm3 (0.00-0.23); BASOPHILS PERCENT AUTO 1 % (0-2); EOSINOPHILS ABSOLUTE AUTO 0.36 K/mm3 (0.00-0.68); EOSINOPHILS PERCENT AUTO 4 % (0-6); Hematocrit 43.3 % (37.0-53.0); Hemoglobin 13.4 g/dL (13.5-17.5); IMMATURE GRAN ABSOLUTE AUTO 0.02 K/mm3 (0.00-0.10); IMMATURE GRAN PERCENT AUTO 0 % (0-1); LYMPHOCYTES ABSOLUTE AUTO 2.54 K/mm3 (0.84-5.20); LYMPHOCYTES PERCENT AUTO 31 % (21-46); MONOCYTES ABSOLUTE AUTO 0.61 K/mm3 (0.16-1.47); MONOCYTES PERCENT AUTO 8 % (4-13); Mean Corpuscular HGB 25.5 pg (26.0-34.0); Mean Corpuscular HGB Conc 30.9 g/dL (31.5-36.5); Mean Corpuscular Volume 83 fL (80-100); Mean Platelet Volume 9.5 fL (9.1-12.4); NEUTROPHILS ABSOLUTE AUTO 4.51 K/mm3 (1.96-9.15); NEUTROPHILS PERCENT AUTO 56 % (41-73); Platelet Count 322 K/mm3 (150-400); RDW Coefficient Variation 12.8 % (11.7-14.2); Red Blood Cell Count 5.25 M/mm3 (4.30-5.90)
[2020-02-07 04:04] LABS: Alanine Aminotransfer (ALT/SGP 38 U/L (12-78); Albumin, Blood 3.9 g/dL (3.4-5.0); Albumin/Globulin Ratio 1.1 (0.8-1.8); Alk Phos 102 U/L (50-136); Anion Gap 1 mmol/L (6-16); Aspartate Aminotrans (AST/SGOT 17 U/L (12-37); Bilirubin, Total 0.3 mg/dL (0.1-1.0); Blood Urea Nitrogen 18 mg/dL (8-24); CO2, Blood 32 mmol/L (21-32); Calcium, Blood 8.9 mg/dL (8.5-10.1); Chloride, Blood 108 mmol/L (98-108); Creatinine, Blood 0.82 mg/dL (0.60-1.20); Globulin, Blood 3.7 g/dL (2.2-4.0); Glomerular Filtration Rate >60 (60-); Glucose, Blood 98 mg/dL (70-99); Potassium, Blood 3.5 mmol/L (3.5-5.5); Sodium, Blood 141 mmol/L (136-145); Total Protein, Blood 7.6 g/dL (6.4-8.2)
[2020-02-07] MEDS ORDERED: EPIDIOLEX100 MG/1 M PO ×2 (10:26→10:27)
[2020-02-07] MEDS ORDERED: VITAMIN D310 MC4 PO (10:30)
[2020-02-07] MEDS ORDERED: DIAZ5I MT (10:33)
[2020-02-07] MEDS ORDERED: VALTOCO15 MG/0.2 (10:35)
[2020-02-07] MEDS ORDERED: Diastat2.5 MG PR (11:02)
[2020-02-07] MEDS ORDERED: CEFP200 PO (11:08)
== END 2020-02-07 05:50 | disposition home or self-care (01) ==
LOC: ER 03:04
PROVIDERS: Emergency Medicine
DX: G40.409 Other generalized epilepsy and epileptic syndromes, not intractable, without status epilepticus (principal); K21.9 Gastro-esophageal reflux disease without esophagitis; Z88.8 Allergy status to other drugs, medicaments and biological substances; Z87.442 Personal history of urinary calculi; Z79.899 Other long term (current) drug therapy
CPT/HCPCS: 36415; 80053; 85025; 96374; 96375; 99284-25; J1953; J2060

== ENCOUNTER 2020-02-07 07:13 | Emergency (ER) | payer OTHER ==
[~2020-02-07] VITALS: Ht 160 cm; Wt 83.9 kg
[2020-02-07] MEDS ORDERED: EPIDIOLEX100 MG/1 M PO ×2 (10:26→10:27)
[2020-02-07] MEDS ORDERED: VITAMIN D310 MC4 PO (10:30)
[2020-02-07] MEDS ORDERED: DIAZ5I MT (10:33)
[2020-02-07] MEDS ORDERED: VALTOCO15 MG/0.2 (10:35)
[2020-02-07] MEDS ORDERED: Diastat2.5 MG PR (11:02)
[2020-02-07] MEDS ORDERED: CEFP200 PO (11:08)
== END 2020-02-07 13:00 | disposition home or self-care (01) ==
LOC: ER 07:13
DX: G40.409 Other generalized epilepsy and epileptic syndromes, not intractable, without status epilepticus (principal); H66.92 Otitis media, unspecified, left ear; K21.9 Gastro-esophageal reflux disease without esophagitis; Z87.442 Personal history of urinary calculi; Z88.8 Allergy status to other drugs, medicaments and biological substances; Z79.899 Other long term (current) drug therapy
CPT/HCPCS: 96365; 96375; 99283-25; J0696; J3010; J3360

== ENCOUNTER 2020-02-11 15:33 | Emergency (ER) | payer OTHER ==
[~2020-02-11] VITALS: Ht 160 cm; Wt 79.8 kg
[~2020-02-11 15:33] MED LIST changes: +CEFP200 PO; +DIAZ5I BC; +Diastat2.5 MG PR; +Lamictal200 MG PO; +Prilosec10 M1 PO; +VALTOCO15 MG/0.2; +VITAMIN D310 MC4 PO
[2020-02-11] MEDS ORDERED: Fluocinonide60 ML TOP (16:08)
[2020-02-11] MEDS ORDERED: GUAI200 PO (16:09)
[2020-02-11 16:12] LABS: BASOPHILS ABSOLUTE AUTO 0.07 K/mm3 (0.00-0.23); BASOPHILS PERCENT AUTO 1 % (0-2); EOSINOPHILS ABSOLUTE AUTO 0.23 K/mm3 (0.00-0.68); EOSINOPHILS PERCENT AUTO 2 % (0-6); Hematocrit 43.9 % (37.0-53.0); Hemoglobin 13.4 g/dL (13.5-17.5); IMMATURE GRAN ABSOLUTE AUTO 0.04 K/mm3 (0.00-0.10); IMMATURE GRAN PERCENT AUTO 0 % (0-1); LYMPHOCYTES ABSOLUTE AUTO 1.68 K/mm3 (0.84-5.20); LYMPHOCYTES PERCENT AUTO 16 % (21-46); MONOCYTES PERCENT AUTO 6 % (4-13); Mean Corpuscular HGB 25.3 pg (26.0-34.0); Mean Corpuscular HGB Conc 30.5 g/dL (31.5-36.5); Mean Corpuscular Volume 83 fL (80-100); Mean Platelet Volume 9.7 fL (9.1-12.4); NEUTROPHILS ABSOLUTE AUTO 7.99 K/mm3 (1.96-9.15); NEUTROPHILS PERCENT AUTO 75 % (41-73); Platelet Count 336 K/mm3 (150-400); RDW Coefficient Variation 13.2 % (11.7-14.2); RDW Standard Deviation 39.5 fL (35.1-46.3); White Blood Cell Count 10.61 K/mm3 (4.00-11.30)
[2020-02-11 16:49] LABS: Alanine Aminotransfer (ALT/SGP 54 U/L (12-78); Albumin/Globulin Ratio 1.1 (0.8-1.8); Alk Phos 115 U/L (50-136); Anion Gap 5 mmol/L (6-16); Aspartate Aminotrans (AST/SGOT 33 U/L (12-37); Bilirubin, Total 0.2 mg/dL (0.1-1.0); Blood Urea Nitrogen 15 mg/dL (8-24); Bun/Creatinine Ratio 20.8 (12.0-20.0); CO2, Blood 30 mmol/L (21-32); Calcium, Blood 9.1 mg/dL (8.5-10.1); Chloride, Blood 105 mmol/L (98-108); Creatinine, Blood 0.72 mg/dL (0.60-1.20); Globulin, Blood 3.7 g/dL (2.2-4.0); Glomerular Filtration Rate >60 (60-); Glucose, Blood 103 mg/dL (70-99); Sodium, Blood 140 mmol/L (136-145); Total Protein, Blood 7.7 g/dL (6.4-8.2)
== END 2020-02-11 20:45 | disposition short-term general hospital (02) ==
LOC: ER 15:33
PROVIDERS: Emergency Medicine
DX: G40.409 Other generalized epilepsy and epileptic syndromes, not intractable, without status epilepticus (principal); K21.9 Gastro-esophageal reflux disease without esophagitis; Z88.8 Allergy status to other drugs, medicaments and biological substances; Z87.442 Personal history of urinary calculi; Z79.899 Other long term (current) drug therapy; Z20.828 Contact with and (suspected) exposure to other viral communicable diseases
CPT/HCPCS: 80053; 85025; 96365; 96375; 99285-25; J1953; J2060; J2250; U0003

== ENCOUNTER 2020-02-13 17:44 | Inpatient (IN) | payer OTHER ==
[~2020-02-13] VITALS: Ht 160 cm; Wt 75.6 kg
[~2020-02-13 17:44] MED LIST changes: +Fluocinonide60 ML TOP; +GUAI200 PO
[2020-02-13 18:33] LABS: BASOPHILS ABSOLUTE AUTO 0.06 K/mm3 (0.00-0.23); BASOPHILS PERCENT AUTO 1 % (0-2); EOSINOPHILS ABSOLUTE AUTO 0.32 K/mm3 (0.00-0.68); EOSINOPHILS PERCENT AUTO 3 % (0-6); Hematocrit 44.5 % (37.0-53.0); Hemoglobin 13.8 g/dL (13.5-17.5); IMMATURE GRAN ABSOLUTE AUTO 0.02 K/mm3 (0.00-0.10); IMMATURE GRAN PERCENT AUTO 0 % (0-1); LYMPHOCYTES ABSOLUTE AUTO 2.11 K/mm3 (0.84-5.20); LYMPHOCYTES PERCENT AUTO 19 % (21-46); MONOCYTES ABSOLUTE AUTO 0.73 K/mm3 (0.16-1.47); MONOCYTES PERCENT AUTO 7 % (4-13); Mean Corpuscular HGB 25.8 pg (26.0-34.0); Mean Corpuscular Volume 83 fL (80-100); Mean Platelet Volume 9.6 fL (9.1-12.4); NEUTROPHILS ABSOLUTE AUTO 7.99 K/mm3 (1.96-9.15); NEUTROPHILS PERCENT AUTO 71 % (41-73); Platelet Count 346 K/mm3 (150-400); RDW Coefficient Variation 13.3 % (11.7-14.2); RDW Standard Deviation 40.4 fL (35.1-46.3); Red Blood Cell Count 5.34 M/mm3 (4.30-5.90); White Blood Cell Count 11.23 K/mm3 (4.00-11.30)
[2020-02-13 18:46] LABS: Alanine Aminotransfer (ALT/SGP 140 U/L (12-78); Albumin/Globulin Ratio 1.1 (0.8-1.8); Alk Phos 112 U/L (50-136); Anion Gap 4 mmol/L (6-16); Aspartate Aminotrans (AST/SGOT 76 U/L (12-37); Bilirubin, Total 0.4 mg/dL (0.1-1.0); Blood Urea Nitrogen 16 mg/dL (8-24); Bun/Creatinine Ratio 19.7 (12.0-20.0); CO2, Blood 30 mmol/L (21-32); Calcium, Blood 9.1 mg/dL (8.5-10.1); Chloride, Blood 108 mmol/L (98-108); Creatinine, Blood 0.81 mg/dL (0.60-1.20); Globulin, Blood 3.7 g/dL (2.2-4.0); Glomerular Filtration Rate >60 (60-); Glucose, Blood 94 mg/dL (70-99); Sodium, Blood 142 mmol/L (136-145); Total Protein, Blood 7.7 g/dL (6.4-8.2)
[2020-02-13] MEDS ORDERED: ALLEGRA ALLERG180 MG PO (19:58)
[2020-02-13] MEDS ORDERED: CLON1 PO ×2 (19:59→20:00)
[2020-02-13] MEDS ORDERED: LAMO100 PO (20:07)
[2020-02-13] MEDS ORDERED: VALTOCO15 MG/0.2 (20:12)
[2020-02-13] MEDS ORDERED: Vitamin D2000 UNIT PO (20:13)
--- NOTE | 2020-02-13 23:30 | NUR ---
ARRIVAL TO ICU 2229 - PT ARRIVES FROM ED AT THIS TIME. PT HAVING 5-10 SECOND TONIC CLONIC SEIZURES. ATIVAN 2 MG IVP GIVEN SHORTLY AFTER ARRIVAL ALONG WITH KEPPRA INFUSION. PT NOW TURNED ONTO L SIDE AND IS SLEEPING. MAINTAINING ADEQUATE OXYGEN. MOTHER STATES PT DOES WEAR 2L NC WHEN SLEEPING. 2L NC APPLIED AND PT TOLERATING. BP WNL. NSR, HR 80S. LUNG SOUNDS ARE COARSE THROUGHOUT ALL AUGUSTINE. AFEBRILE. WILL CONTINUE TO MONITOR.
--- NOTE | 2020-02-14 03:42 | NUR ---
REASSESSMENT PT REMAINS IN BED, LAYING ON LEFT SIDE. VSS. REMAINS IN NSR, HR 70S WITH STABLE BP. AFEBRILE. BRIEF CHANGED AFTER PT SOILED IT. IV SALINE LOCKED. REMAINS IN SEIZURE PRECAUTIONS. HAS HAD 1 EPISODE OF 5 SECOND SEIZURE WHERE HE CLAMPED DOWN. SPO2 RAPIDLY BACK TO BASELINE AFTER FEW SECONDS. WILL CONTINUE TO MONITOR.
[2020-02-14 03:55] LABS: BASOPHILS ABSOLUTE AUTO 0.05 K/mm3 (0.00-0.23); BASOPHILS PERCENT AUTO 1 % (0-2); EOSINOPHILS ABSOLUTE AUTO 0.32 K/mm3 (0.00-0.68); EOSINOPHILS PERCENT AUTO 4 % (0-6); Hematocrit 45.9 % (37.0-53.0); Hemoglobin 14.4 g/dL (13.5-17.5); IMMATURE GRAN ABSOLUTE AUTO 0.02 K/mm3 (0.00-0.10); IMMATURE GRAN PERCENT AUTO 0 % (0-1); LYMPHOCYTES ABSOLUTE AUTO 2.46 K/mm3 (0.84-5.20); LYMPHOCYTES PERCENT AUTO 27 % (21-46); MONOCYTES ABSOLUTE AUTO 0.72 K/mm3 (0.16-1.47); MONOCYTES PERCENT AUTO 8 % (4-13); Mean Corpuscular HGB 25.6 pg (26.0-34.0); Mean Corpuscular HGB Conc 31.4 g/dL (31.5-36.5); Mean Corpuscular Volume 82 fL (80-100); Mean Platelet Volume 9.6 fL (9.1-12.4); NEUTROPHILS ABSOLUTE AUTO 5.53 K/mm3 (1.96-9.15); NEUTROPHILS PERCENT AUTO 61 % (41-73); Platelet Count 314 K/mm3 (150-400); RDW Coefficient Variation 13.2 % (11.7-14.2); RDW Standard Deviation 38.7 fL (35.1-46.3); Red Blood Cell Count 5.62 M/mm3 (4.30-5.90)
[2020-02-14 04:11] LABS: Anion Gap 7 mmol/L (6-16); Blood Urea Nitrogen 16 mg/dL (8-24); Bun/Creatinine Ratio 22.9 (12.0-20.0); CO2, Blood 28 mmol/L (21-32); Calcium, Blood 9.4 mg/dL (8.5-10.1); Chloride, Blood 106 mmol/L (98-108); Glomerular Filtration Rate >60 (60-); Glucose, Blood 90 mg/dL (70-99); Potassium, Blood 3.9 mmol/L (3.5-5.5); Sodium, Blood 141 mmol/L (136-145)
--- NOTE | 2020-02-14 06:15 | NUR ---
SHIFT SUMMARY PT ARRIVED FROM ED AT 2230 LAST EVENING. HE WAS GIVEN ATIVAN 2 MG IVP SHORTLY AFTER ARRIVAL. MOTHER ASSISTED WITH ADMISSION INTAKE AT BEDSIDE. STATED THAT PT IS NONVERBAL AT BASELINE AND DOES HAVE SMALL, SPORADIC TWITCHES AT BASELINE. PT DID NOT TOELRATE WEARING 2L NC DURING THE NIGHT AND REMOVED MULTIPLE TIMES. WAS GIVEN KEPPRA IV AT ARRIVAL TO ICU. WAS ABLE TO TAKE HIS PILLS ORALLY WITH APPLESAUCE WITH NO SIGNS OF ASPIRATION OR CHOKING. VSS ENTIRE SHIFT. BP WNL. AFEBRILE. NSR, HR 60-80S. BREIF CHANGED 2X DURING SHIFT. WILL GIVE BEDSIDE, HANDOFF REPORT TO DAY RN.
--- NOTE | 2020-02-14 09:01 | NUR ---
PT RESTING IN BED. NO SIGN OF SEIZURE ACTIVITY THIS AM. PT IS NON VERBAL AT BASELINE. PT IS ABLE TO TAKE MEDS CRUSHED IN APPLESAUCE WITHOUT DIFFICULTY. PT SITS UP IN BED. RECOGNIZES MOM WHEN SHE ENTERS THE ROOM AND LIGHTS UP WITH A SMILE. WILL MOVE EXTREMITIES SPONTANEOUSLY. MOM STATES AT BASELINE PT IS ABLE TO WALK AND WILL USE BATHROOM. PT LIVES AT [facility], MOM IS VERY SUPPORTIVE AND INVOLVED WITH CARE. NO SIGN OF DISTRESS THIS AM.
--- NOTE | 2020-02-14 10:51 | NUR ---
MOM AT BEDSIDE THINKS PT IS IN PAIN FROM GRIMACE ON FACE. TYLENOL GIVEN. DR. BARRON AT BEDSIDE TO SEE PT AND JEANINE CUNHA RN FOR PALLIATIVE CARE HERE TO TALK TO MOM.
[2020-02-14 15:58] LABS: Source, Urine Catheter
[2020-02-14 16:03] LABS: Appearance, Urine Clear (Clear); Bilirubin, Urine Neg (Neg); Blood, Urine Neg (Neg); Color, Urine Yellow (P-Yellow); Glucose Qualitative, Urine Neg (Neg); Ketones, Urine Neg (Neg); Leukocyte Esterase, Urine 1+ (Neg); Nitrite, Urine Neg (Neg); Protein, Urine Neg (Neg); Specific Gravity, Urine 1.015 (1.003-1.022); Urobilinogen, Urine NORM (Normal)
[2020-02-14 16:25] LABS: Bacteria Rare /hpf; Red Blood Cells, Urine 0-2 /hpf (0-2); Squamous Epithelial Cells Not Seen /hpf (Few)
--- NOTE | 2020-02-14 17:20 | NUR ---
Met with mother a few times today. She relayed history of past few months of increased frequency of seizures and more difficulty in stopping them. Pt mother is well versed in his care and treatment and sees [facility]. He was rectly hospitaized and saw his neurologist. She relays that he advised Don has lived much longer than most with his form of epilepsy. He states that they have reached thir limit on medications and treamtments and reccomends hospice. Pt appears painfull and is frowning and holding muscles tight mother states he does not usually look like this. We reviewed the past fes motns and he has declined in activity he normally walks he does have drop seizures but the [facility] has trained him to sit down or avoid trips. We reviewd hospice care and support. We reviewed recue medications for seizures and variable routes. She displayed understanding. She will speak with [facility]. She states if she chooses hospice she would want [facility] and possible some physical therapy visits for comfort so he does not contract up. He is full code on admission she states he is not but cont remember what new document states and will bring it in tomorrow. will continue to follow for support.
--- NOTE | 2020-02-14 17:31 | NUR ---
SUMMARY PT HAS BEEN SLEEPING MOST OF THE DAY. WAS ABLE TO WAKE ENOUGH THIS AFTERNOON TO AMBULATE WITH MOM TO BATHROOM THEN BACK TO BED. PT KEEPS EYE'S MAINLY CLOSED. TOOK AFTERNOON KLONOPIN THEN RIGHT BACK TO SLEEP. UNABLE TO GET PT TO SAFELY TAKE MEDS TONIGHT HE IS TOO DROWSY. WILL TRY AGAIN WHEN MOM COMES BACK TO TRY TO FEED HIM DINNER. NO SEIZURE ACTIVITY TODAY.
--- NOTE | 2020-02-14 18:29 | NUR ---
MOM CAME IN AND WAS ABLE TO GET PT TO EAT DINNER AND TAKE 1800 MEDS.
--- NOTE | 2020-02-14 21:52 | NUR ---
CARE ASSUMED CARE AND REPORT ASSUMED FROM JHONY PRICE RN. PT CURRENTLY SITTING UPRIGHT IN BED WITH HIS LEGS CROSSED. NONVERBAL AND MOSTLY NON COOPERATIVE. VSS. NSR, HR 70S. BUSINESS OFFICE TECHNICIAN WNL. LUNG SOUNDS CLEAR. AFEBRILE. PT PULLED ONE PERIPHERAL IV OUT. MIV NS INFUSING AT 100 ML/HR PER ORDER. WILL CONTINUE TO MONITOR.
--- NOTE | 2020-02-14 23:10 | NUR ---
REASSESSMENT PT SLEEPING AT THIS TIME. VSS. NO CHANGE IN ASSESSMENT. MIV INFUSING AT 100 ML/HR. WILL CONTINUE TO MONITOR.
[2020-02-15 03:28] LABS: BASOPHILS ABSOLUTE AUTO 0.06 K/mm3 (0.00-0.23); BASOPHILS PERCENT AUTO 1 % (0-2); EOSINOPHILS ABSOLUTE AUTO 0.31 K/mm3 (0.00-0.68); EOSINOPHILS PERCENT AUTO 4 % (0-6); Hematocrit 45.2 % (37.0-53.0); Hemoglobin 13.7 g/dL (13.5-17.5); IMMATURE GRAN ABSOLUTE AUTO 0.02 K/mm3 (0.00-0.10); IMMATURE GRAN PERCENT AUTO 0 % (0-1); LYMPHOCYTES ABSOLUTE AUTO 2.76 K/mm3 (0.84-5.20); LYMPHOCYTES PERCENT AUTO 32 % (21-46); MONOCYTES ABSOLUTE AUTO 0.74 K/mm3 (0.16-1.47); MONOCYTES PERCENT AUTO 9 % (4-13); Mean Corpuscular HGB 25.4 pg (26.0-34.0); Mean Corpuscular HGB Conc 30.3 g/dL (31.5-36.5); Mean Corpuscular Volume 84 fL (80-100); Mean Platelet Volume 9.6 fL (9.1-12.4); NEUTROPHILS ABSOLUTE AUTO 4.72 K/mm3 (1.96-9.15); NEUTROPHILS PERCENT AUTO 55 % (41-73); Platelet Count 302 K/mm3 (150-400); RDW Coefficient Variation 13.3 % (11.7-14.2); RDW Standard Deviation 40.6 fL (35.1-46.3); White Blood Cell Count 8.61 K/mm3 (4.00-11.30)
[2020-02-15 03:52] LABS: Alanine Aminotransfer (ALT/SGP 111 U/L (12-78); Albumin, Blood 3.8 g/dL (3.4-5.0); Albumin/Globulin Ratio 1.1 (0.8-1.8); Alk Phos 113 U/L (50-136); Anion Gap 5 mmol/L (6-16); Aspartate Aminotrans (AST/SGOT 44 U/L (12-37); Bilirubin, Total 0.5 mg/dL (0.1-1.0); Blood Urea Nitrogen 18 mg/dL (8-24); Bun/Creatinine Ratio 22.5 (12.0-20.0); CO2, Blood 28 mmol/L (21-32); Calcium, Blood 9.1 mg/dL (8.5-10.1); Chloride, Blood 107 mmol/L (98-108); Globulin, Blood 3.5 g/dL (2.2-4.0); Glomerular Filtration Rate >60 (60-); Glucose, Blood 84 mg/dL (70-99); Magnesium, Blood 2.1 mg/dL (1.6-2.4); Potassium, Blood 4.2 mmol/L (3.5-5.5); Sodium, Blood 140 mmol/L (136-145); Total Protein, Blood 7.3 g/dL (6.4-8.2)
--- NOTE | 2020-02-15 05:20 | NUR ---
SHIFT SUMMARY NO SIGNIFICANT EVENTS DURING SHIFT. PT REMAINED IN BED ENTIRE SHIFT. WHEN AWAKE, PT DOES SIT UP IN BED, LEANING OVER WITH LEGS CROSSED. REMAINS NONVERBAL. WAS ABLE TO EAT APPLESAUCE WITH CRUSHED MEDS WITH NO SIGNS OF CHOKING OR ASPIRATION. VSS ENTIRE SHIFT. DID PULL OUT ONE OF HIS PERIPHERAL IVS. LR MIV INFUSED AT 100 ML/HR PER ORDER. WILL GIVE BEDSIDE, HANDOFF REPORT TO DAY RN.
--- NOTE | 2020-02-15 11:03 | NUR ---
DR COTTON INTO ASSESS PT. UPDATED WITH PT'S STATUS. DISCUSSED POSSIBLE STATUS CHANGE AND INFORMED DR THAT PT'S MOM, WHOM IS CURRENTLY IN THE WAITING ROOM WOULD LIKE TO SPEAK WITH HIM.
--- NOTE | 2020-02-15 11:24 | NUR ---
GAVE DR AIKEN (NEUROLOGIST) DR COTTON'S NUMBER FOR HIM TO CALL AND DISCUSS PT'S CASE/MEDICATIONS, DR COTTON IS NO LONGER IN ICU ROUNDING.
--- NOTE | 2020-02-15 17:04 | NUR ---
Summary of three phone conversations and multiple case conferences through out the day. I spoke with mom, Lizzie this am and we reviewed her wishes for her son as his guardian and completed a new POLST form to reflect that family does NOT want CPR, rescusitation or advanced airway interventions for Lew. Two other guardians were not available this afternoon for a family conference and after much conversation re: Hospice, goals of care, family wishes the plan was made for Hospice to meet with the family at Lew's home. They request [facility]. I also placed a call to Hiwot Morales of [phone]. Mom understood Hiwot to say that pt would not need to relocate if he were placed on hospice and mom wanted me to confirm that. I am awaiting a return call. I visitied pt just before lunch. He was in a side lying position. He did not wake to voice or touch. He had furrowed brow but was not exhibiting any nonverbal indicators of severe pain, distress, anxiety or dyspnea. Mom returned to room later to feed him lunch and it appears she is here off and on throughout the day and for meals most of the time. Her other son works nights and is only available in the late afternoons. I asked that she coordinate a time when the three (or at least two) guardians could meet with Hospice once hospice made contact for a consult after release from the hospital. Mom feels Lew would be best served in his home where he has all his favorite people and things. She understands from his neurologist in [place] that hospice is "recommended sooner rather than later". She understands that pt's tx options for controling his status epilepticus are growing extremely limited. Mom confirms a number of times that their top priority and goal for Lew's ongoing care is his comfort at this time. Update on conversations I had with mom given to pt's , RN, [facility] direct care staffer and application development liaison. Also left message with an update and request for call back with Hiwot mccall.
--- NOTE | 2020-02-15 18:43 | NUR ---
SHIFT SUMMARY: PT INITIALLY ALERT AND VERY INTERACTIVE WITH MOM. PT VERY SMILEY AND ONLY MAKES SOUNDS, OTHERWISE NON-VERBAL AT MOST TIMES. MIDDAY AT LUNCH PT WAS VERY DROWSY AT LUNCH AND DIFFICULT TO WAKE UP, THEN AT DINNER TIME, PT IS ALERT AND INTERACTIVE WITH MOM. PT HAS A VERY GOOD APPETITE WITH MEALS. PT IS A FULL ASSIST FEEDER FOR ALL INTAKE. NO SEIZURE ACTIVITY SEEN THIS SHIFT. SEIZURE PADS REMAIN ON BED. LUNGS ARE COARSE IN THE BILATERAL BASES. PT DOES HAVE OCCASIONAL, WET, NON-PRODUCTIVE COUGH. HR REGULAR, SR- 70'S RANGE. PT HAS LR @ 100ML/HR. PT ABLE TO GET OOB WITH 1-2 PERSON SBA WITH SLIGHTLY UNSTEADY GAIT. PT NEEDS PROMPTING ON WHAT TO DO/WHERE TO GO, BUT ABLE TO GET TO TOILET WITH ASSIST. OTHERWISE PT IS INCONTINENT. ATTENDS IN PLACE.
--- NOTE | 2020-02-15 19:32 | NUR ---
REPORTED OFF TO MARTIR FORD AND SHE IS NOW ASSUMING CARE OF THIS PATIENT.
--- NOTE | 2020-02-15 20:15 | NUR ---
ASSESSMENT/ASSUMED CARE PT SLEEPING, AWAKENS WITH ATTENDS CHANGE AND NANDA CARE. PT CHILD LIKE. NONVERBAL. LUNGS COARSE. RESP EVEN AND NONLABORED. HEART RATE REGULAR, BP STABLE. BT+ ABD SOFT AND NONTENDER. ATTENDS WET, ATTENDS AND BOURGEOIS PAD CHANGED. NANDA CARE DONE. PT REPOSITIONED TO RIGHT WITH HOB UP. HS MEDS GIVEN WITH APPLE SAUCE. PT TOOK WITHOUT DIFFICULTY. IV TO RIGHT AC WITH ARM BOARD ON. LR AT 100 ML/HR. PT BACK TO SLEEP QUICKLY WHEN UNDISTURBED.
--- NOTE | 2020-02-16 05:30 | NUR ---
SHIFT SUMMARY PT NONVERBAL. REMAINED IN BED THROUGHOUT THE NIGHT. SITTING UP WITH LEGS CROSSED AT TIMES. PT HAD SNACK OF APPLE SAUCE DURING THE NIGHT AND HAD YOGURT WITH MEDS. INCONT OF URINE. VSS. TURNED Q2HRS. RESTING QUIETLY. NO SEIZURE ACTIVITY DURING THE NIGHT. REPORT TO ON COMING NURSE.
[2020-02-16] MEDS ORDERED: LIDOCAINE PO (12:54)
[2020-02-16] MEDS ORDERED: NYSTATIN PO (12:56)
--- NOTE | 2020-02-16 13:10 | NUR ---
Summary of multiple visits with mom and case conferences with community liaison officer, [facility] Camilo & , [facility] biofuels manager, Dee. Pt to be d/c'd back to today. Pt's family has decided that they would like to have hospice admit when that can be scheduled. [facility] was chosen and is screening pt for hospice now. and mom confirm that pt has all medications and equipment, as well as care needed in place for d/c and want him home where he is happiest as soon as possible.[facility] states that they can support his care with hospice involvement at his current home and he would not need to be transferred to a higher level of care. WE discussed new POLST and DNR order as requested by family. Even with DNR, UNTIL pt is placed on hospice, if pt seizes for more than 40 minutes and they cannot stop seizures with medications/orders on hand, [facility] staff are required to call 911 for support and transport if needed. Pt's mom and hospice made aware of this also. Spoke with pt's RN to update on all of above and d/c plan in process. Pt d/c anticipated this afternoon. Mom in to help with care and feeding as is her norm. We had a long talk this am in ICU waiting room. Time spent with therapeutic listening and support of her attentive care to her son for his lifetime. Info re: family availability and contact to coordinate hospice admission communicated to hospice and [facility].
--- NOTE | 2020-02-16 14:36 | NUR ---
DISCHARGE PT DISCHARGING BACK TO [facility] FOR THE HANDICAP WHERE [facility] WILL DO THE REVIEW AND EVALUATE FOR HOSPICE. PT'S MOTHER TRANSPORTING PT VIA HER PRIVATE VEHICLE. I/O, MED LIST AND DISCHARGE ORDERS FAXED TO [facility]. PT'S HOME CALLED WELL AND SPOKE TO PT'S CAREGIVERS TO INFORM OF PT'S RETURN TODAY AND PROVIDE REPORT. MEDICATIONS FAXED TO [facility], WELL ORIGINAL POLST GIVEN TO PT'S MOTHER. CARE MANAGEMENT COORDINATING HOME HOSPICE AT [facility]. PT STOOD WITH 1 PERSON TRANSFER TO HIS MOTHER'S CAR. ALL BELONGINGS SENT HOME WITH HIM.
== END 2020-02-16 15:05 | disposition home or self-care (01) | DRG 101 ==
LOC: ER 17:44 → ICUE 17:45 → ICUW 17:45 → ICUE 22:31
PROVIDERS: Emergency Medicine; Family Medicine; ADMIT Internal Medicine
DX: G40.813 Lennox-Gastaut syndrome, intractable, with status epilepticus (principal); E23.0 Hypopituitarism; B37.0 Candidal stomatitis; K21.9 Gastro-esophageal reflux disease without esophagitis; R32 Unspecified urinary incontinence; N20.0 Calculus of kidney; Z66 Do not resuscitate
CPT/HCPCS: 36415; 71045; 74176; 80048; 80053; 81001; 82947; 83735; 84145; 85025; 87086; 96365; 96366; 96374; 96375; 96376; 99285-25; A9270; A9270-GY; C9113; G0378; J1953; J2060; J7120

== ENCOUNTER 2020-02-20 21:25 | Emergency (ER) | payer OTHER ==
[~2020-02-20] VITALS: Ht 170.2 cm; Wt 86.2 kg
[~2020-02-20 21:25] MED LIST changes: +ALLEGRA ALLERG180 MG PO; +LIDOCAINE PO; +NYSTATIN PO
== END 2020-02-21 00:21 | disposition home or self-care (01) ==
LOC: ER 21:25
DX: G40.409 Other generalized epilepsy and epileptic syndromes, not intractable, without status epilepticus (principal); K21.9 Gastro-esophageal reflux disease without esophagitis; Z88.8 Allergy status to other drugs, medicaments and biological substances; Z79.899 Other long term (current) drug therapy
CPT/HCPCS: 36415; 96374; 99284-25; J2560

== ENCOUNTER → 2020-04-07 | Outpatient (CLI) | payer OTHER ==
[2020-04-09 13:35] LABS: CORONAVIRUS (COVID19) CSH-NRL Negative (Negative)
== END | disposition home or self-care (01) ==
LOC: LAB 18:35 → LAB SHORT 18:35
PROVIDERS: Physician Assistant
DX: Z20.828 Contact with and (suspected) exposure to other viral communicable diseases (principal)
CPT/HCPCS: U0003

== ENCOUNTER 2020-12-11 10:43 | Emergency (ER) | payer OTHER ==
[~2020-12-11] VITALS: Ht 160 cm; Wt 81.7 kg
[2020-12-11 11:29] LABS: BASOPHILS ABSOLUTE AUTO 0.04 K/mm3 (0.00-0.23); BASOPHILS PERCENT AUTO 1 % (0-2); EOSINOPHILS ABSOLUTE AUTO 0.13 K/mm3 (0.00-0.68); EOSINOPHILS PERCENT AUTO 2 % (0-6); Hematocrit 48.8 % (37.0-53.0); Hemoglobin 15.2 g/dL (13.5-17.5); IMMATURE GRAN ABSOLUTE AUTO 0.02 K/mm3 (0.00-0.10); IMMATURE GRAN PERCENT AUTO 0 % (0-1); LYMPHOCYTES ABSOLUTE AUTO 2.06 K/mm3 (0.84-5.20); LYMPHOCYTES PERCENT AUTO 26 % (21-46); MONOCYTES ABSOLUTE AUTO 0.52 K/mm3 (0.16-1.47); MONOCYTES PERCENT AUTO 7 % (4-13); Mean Corpuscular HGB 25.9 pg (26.0-34.0); Mean Corpuscular HGB Conc 31.1 g/dL (31.5-36.5); Mean Corpuscular Volume 83 fL (80-100); Mean Platelet Volume 9.5 fL (9.1-12.4); NEUTROPHILS ABSOLUTE AUTO 5.12 K/mm3 (1.96-9.15); NEUTROPHILS PERCENT AUTO 65 % (41-73); Platelet Count 420 K/mm3 (150-400); RDW Coefficient Variation 13.4 % (11.7-14.2); RDW Standard Deviation 40.8 fL (35.1-46.3); Red Blood Cell Count 5.87 M/mm3 (4.30-5.90); White Blood Cell Count 7.89 K/mm3 (4.00-11.30)
[2020-12-11 11:41] LABS: Anion Gap 3 mmol/L (6-16); Blood Urea Nitrogen 15 mg/dL (8-24); Bun/Creatinine Ratio 19.2 (12.0-20.0); CO2, Blood 31 mmol/L (21-32); Calcium, Blood 9.3 mg/dL (8.5-10.1); Chloride, Blood 105 mmol/L (98-108); Creatinine, Blood 0.78 mg/dL (0.60-1.20); Glomerular Filtration Rate >60 (60-); Glucose, Blood 90 mg/dL (70-99); Potassium, Blood 3.8 mmol/L (3.5-5.5); Sodium, Blood 139 mmol/L (136-145)
[2020-12-11] MEDS ORDERED: CLON2 PO (11:55)
== END 2020-12-11 15:35 | disposition home or self-care (01) ==
LOC: ER 10:43
PROVIDERS: Emergency Medicine
DX: G40.909 Epilepsy, unspecified, not intractable, without status epilepticus (principal); Z76.0 Encounter for issue of repeat prescription; Z88.8 Allergy status to other drugs, medicaments and biological substances
CPT/HCPCS: 80048; 85025; 99284; A9270

== ENCOUNTER 2021-02-06 10:31 | Inpatient (IN) | payer OTHER ==
[~2021-02-06] VITALS: Ht 160 cm; Wt 81.7 kg
[~2021-02-06 10:31] MED LIST changes: +DIAZ5EL PR; -DIAZ5I BC
[2021-02-06 11:09] LABS: BASOPHILS ABSOLUTE AUTO 0.05 K/mm3 (0.00-0.23); BASOPHILS PERCENT AUTO 0 % (0-2); EOSINOPHILS ABSOLUTE AUTO 0.22 K/mm3 (0.00-0.68); EOSINOPHILS PERCENT AUTO 2 % (0-6); Hematocrit 47.5 % (37.0-53.0); Hemoglobin 14.8 g/dL (13.5-17.5); IMMATURE GRAN ABSOLUTE AUTO 0.03 K/mm3 (0.00-0.10); IMMATURE GRAN PERCENT AUTO 0 % (0-1); LYMPHOCYTES ABSOLUTE AUTO 2.69 K/mm3 (0.84-5.20); LYMPHOCYTES PERCENT AUTO 23 % (21-46); MONOCYTES ABSOLUTE AUTO 0.51 K/mm3 (0.16-1.47); MONOCYTES PERCENT AUTO 4 % (4-13); Mean Corpuscular HGB 25.8 pg (26.0-34.0); Mean Corpuscular HGB Conc 31.2 g/dL (31.5-36.5); Mean Corpuscular Volume 83 fL (80-100); Mean Platelet Volume 9.3 fL (9.1-12.4); NEUTROPHILS PERCENT AUTO 70 % (41-73); Platelet Count 409 K/mm3 (150-400); RDW Coefficient Variation 13.9 % (11.7-14.2); RDW Standard Deviation 41.9 fL (35.1-46.3); Red Blood Cell Count 5.73 M/mm3 (4.30-5.90)
[2021-02-06 11:25] LABS: Alanine Aminotransfer (ALT/SGP 22 U/L (12-78); Albumin, Blood 3.5 g/dL (3.4-5.0); Albumin/Globulin Ratio 0.9 (0.8-1.8); Alk Phos 96 U/L (50-136); Anion Gap 5 mmol/L (6-16); Aspartate Aminotrans (AST/SGOT 21 U/L (12-37); Bilirubin, Total 0.3 mg/dL (0.1-1.0); Blood Urea Nitrogen 18 mg/dL (8-24); Bun/Creatinine Ratio 21.7 (12.0-20.0); CO2, Blood 28 mmol/L (21-32); Calcium, Blood 9.2 mg/dL (8.5-10.1); Chloride, Blood 109 mmol/L (98-108); Creatinine, Blood 0.83 mg/dL (0.60-1.20); Glomerular Filtration Rate >60 (60-); Glucose, Blood 93 mg/dL (70-99); Potassium, Blood 4.6 mmol/L (3.5-5.5); Sodium, Blood 142 mmol/L (136-145); Total Protein, Blood 7.5 g/dL (6.4-8.2)
[2021-02-06] MEDS ORDERED: PHENO60 PO (11:59)
[2021-02-06] MEDS ORDERED: CLONAZEPAM1 MG PO (12:00)
[2021-02-06 12:01] LABS: SARS-Cov-2 (COVID-19) PCR, MMC NEGATIVE (NEGATIVE)
[2021-02-06] MEDS ORDERED: EPIDIOLEX 100 MG/ML PO (12:01)
[2021-02-06] MEDS ORDERED: PHENOBARBITAL PR (12:21)
[2021-02-06] MEDS ORDERED: PROC25S PR (12:22)
[2021-02-06] MEDS ORDERED: IPRAT-ALBUT 0.5-3 ML NEB (12:23)
[2021-02-06] MEDS ORDERED: LACT10SY PO (12:24)
[2021-02-06] MEDS ORDERED: LORA2L PO (12:27)
[2021-02-06] MEDS ORDERED: MORP20L PO (12:30)
[2021-02-06] MEDS ORDERED: MIRALAX17 GM PO (12:30)
--- NOTE | 2021-02-06 16:59 | NUR ---
SHIFT SUMMARY PATIENT WAS ADMITTED AROUND 1600. PATIENT HAS BEEN RESTING SINCE ARRIVAL. PATIENTS MOM IS IN ROOM WITH PATIENT. PATIENT IS ON AIRVO WITH SETTINGS AT 45L 50 FIO2. VITAL SIGNS REVIEWED. WILL CONTINUE TO MONITOR UNTIL END OF SHIFT.
--- NOTE | 2021-02-07 03:49 | NUR ---
RECEIVED PATIENT IN BED WITH MOM BY BEDSIDE. PATIENT HAS ALTERED MENTAL STATUS, NON VERBAL. PATIENT IS ON 40L 50% FI O2. PATIENT IS MED COMPLIANT, TAKES MEDS WHOLE IN APPLE SAUCE. ADLS PROVIDE, SAFETY MEASURES IN PLACE. WILL CONTINUE TO MONITOR PATIENT.
[2021-02-07 05:00] LABS: BASOPHILS ABSOLUTE AUTO 0.07 K/mm3 (0.00-0.23); BASOPHILS PERCENT AUTO 1 % (0-2); EOSINOPHILS ABSOLUTE AUTO 0.13 K/mm3 (0.00-0.68); EOSINOPHILS PERCENT AUTO 1 % (0-6); Hematocrit 44.4 % (37.0-53.0); IMMATURE GRAN ABSOLUTE AUTO 0.03 K/mm3 (0.00-0.10); IMMATURE GRAN PERCENT AUTO 0 % (0-1); LYMPHOCYTES ABSOLUTE AUTO 2.79 K/mm3 (0.84-5.20); LYMPHOCYTES PERCENT AUTO 22 % (21-46); MONOCYTES ABSOLUTE AUTO 0.62 K/mm3 (0.16-1.47); MONOCYTES PERCENT AUTO 5 % (4-13); Mean Corpuscular HGB Conc 31.5 g/dL (31.5-36.5); Mean Corpuscular Volume 83 fL (80-100); Mean Platelet Volume 9.6 fL (9.1-12.4); NEUTROPHILS ABSOLUTE AUTO 8.96 K/mm3 (1.96-9.15); NEUTROPHILS PERCENT AUTO 71 % (41-73); Platelet Count 378 K/mm3 (150-400); RDW Standard Deviation 42.1 fL (35.1-46.3); Red Blood Cell Count 5.38 M/mm3 (4.30-5.90)
[2021-02-07 05:31] LABS: Alanine Aminotransfer (ALT/SGP 15 U/L (12-78); Albumin, Blood 3.4 g/dL (3.4-5.0); Albumin/Globulin Ratio 0.8 (0.8-1.8); Alk Phos 86 U/L (50-136); Anion Gap 5 mmol/L (6-16); Aspartate Aminotrans (AST/SGOT 12 U/L (12-37); Bilirubin, Total 0.5 mg/dL (0.1-1.0); Blood Urea Nitrogen 23 mg/dL (8-24); Bun/Creatinine Ratio 26.5 (12.0-20.0); CO2, Blood 29 mmol/L (21-32); Chloride, Blood 106 mmol/L (98-108); Creatinine, Blood 0.87 mg/dL (0.60-1.20); Glomerular Filtration Rate >60 (60-); Glucose, Blood 87 mg/dL (70-99); Magnesium, Blood 2.5 mg/dL (1.6-2.4); Phosphorus, Blood 3.5 mg/dL (2.5-4.9); Potassium, Blood 4.1 mmol/L (3.5-5.5); Sodium, Blood 140 mmol/L (136-145); Total Protein, Blood 7.4 g/dL (6.4-8.2)
--- NOTE | 2021-02-07 12:19 | NUR ---
ADMIT: 02/06/21 DISCHARGE: DX: Pneumonia CC: adam REICH CALL: [facility] - [phone] RESIDENCE: [address] [place] [address] ([facility]) EMERGENCY CONTACT: Hiwot Morales, Other / Not Listed, Lizzie Mart, Parent, DX: constipation, HTN, COVID-exposure, epilepsy, GERD, Seizure disorder, see list DME: O2 and equipment, shower chair, wheelchair, safety helmet, chest harness, blood pressure monitor, briefs, see list CCM: none HOME HEALTH: [facility] - 2020 SUMMARY: Admit: 02/06/21 02/07/21- Per chart review with Dr. Whyte, pt was started on IV antibiotics. Plan is to keep the pt for a couple of days. -yonatan
--- NOTE | 2021-02-07 17:45 | NUR ---
SHIFT SUMMARY PATIENT IS ALERT AND ORIENTED X1. PATIENT HAS BEEN RESTING MOST OF SHIFT. SMOM HAS BEEN WITH PATIENT MOST OF SHIFT AND HELPING WITH COMFORT AND FEEDING PATIENT. PATIENT HAS ALTERED MENTAL STATUS AT BASELINE. PATIENT IS NON VERBAL AT BASELINE. PATIENT HAS HAD DECREASED O2 NEEDS THIS SHIFT. PATIENT IS CURRENTLY ON 5L HIGH FLOW NASAL CANNULA. PATIENT HAS NOT BEEN ABLE TO TAKE PO MEDICATIONS AND WAS SWITCHED TO IV MEDICATIONS PER CONVERSATION WITH . VITAL SIGNS REVIEWED. WILL CONTINUE TO MONITOR UNTIL END OF SHIFT.
--- NOTE | 2021-02-08 07:29 | NUR ---
CRITICAL RESULTS NOTIFIED FOR POSTIVE BLOOD CULTURES CALLED AT 0657. NOTIFIED RN ON DAYSHIFT TO NOTIFY .
--- NOTE | 2021-02-08 11:42 | NUR ---
PT ALERT AND ORIENTED TO SELF,PT HAVE ALETERED MENTAL STATUS AT BASELINE,PT IS NO LONGER NEEDED OXYGEN,PT ON ROOM AIR,PT IS NON VERBAL,MOM AT BEDSIDE HELP FEED AND COMFORT PT.PT MED SWITCH FROM IV TO PO PER DR ORDER,PT IS ON SIEZURE PRECAUTIONS,PT IN BED,BED IN LOW POSITION TOMMY CONTINUE TO MONITOR.
--- NOTE | 2021-02-08 12:09 | NUR ---
02/08/21- per chart review with Dr. Whyte, pt's IV meds are being switched to PO with the hope that the pt can d/c back to care facility tomorrow. -yonatan
[2021-02-09 08:15] LABS: BASOPHILS ABSOLUTE AUTO 0.05 K/mm3 (0.00-0.23); BASOPHILS PERCENT AUTO 1 % (0-2); EOSINOPHILS ABSOLUTE AUTO 0.34 K/mm3 (0.00-0.68); EOSINOPHILS PERCENT AUTO 6 % (0-6); Hematocrit 42.1 % (37.0-53.0); Hemoglobin 13.3 g/dL (13.5-17.5); IMMATURE GRAN ABSOLUTE AUTO 0.02 K/mm3 (0.00-0.10); IMMATURE GRAN PERCENT AUTO 0 % (0-1); LYMPHOCYTES ABSOLUTE AUTO 1.86 K/mm3 (0.84-5.20); LYMPHOCYTES PERCENT AUTO 31 % (21-46); MONOCYTES ABSOLUTE AUTO 0.47 K/mm3 (0.16-1.47); MONOCYTES PERCENT AUTO 8 % (4-13); Mean Corpuscular HGB Conc 31.6 g/dL (31.5-36.5); Mean Corpuscular Volume 82 fL (80-100); Mean Platelet Volume 9.6 fL (9.1-12.4); NEUTROPHILS ABSOLUTE AUTO 3.18 K/mm3 (1.96-9.15); NEUTROPHILS PERCENT AUTO 54 % (41-73); Platelet Count 338 K/mm3 (150-400); RDW Coefficient Variation 13.6 % (11.7-14.2); RDW Standard Deviation 40.4 fL (35.1-46.3); Red Blood Cell Count 5.12 M/mm3 (4.30-5.90); White Blood Cell Count 5.92 K/mm3 (4.00-11.30)
--- NOTE | 2021-02-09 10:45 | NUR ---
02/09/21- PER CHART REVIEW WITH DR. ROJO, PT IS MEDIALLY STABLE FOR D/C. HE WILL BE GOING BACK TO [facility]. SPOKE WITH FACILITY, THEY ARE AWARE THAT PT WILL BE COMING BACK TODAY, PT WILL NEED A RIDE BACK HOME SET UP. WILL UPDATE THEM ON D/C PLANS THEY FORMULATE. SPOKE WITH THE MOM WHO WAS IN THE PT'S ROOM. SHE REPORTS THAT SHE CAN TAKE THE RX TO [place] TO FILL. TRANSPORTATION HAS BEEN SET UP THROUGH [facility] AT 1130. HAVE NOTIFIED PT'S HOME, DOCTOR, MOM AND FLOOR NURSE. -MICKIE
[2021-02-09] MEDS ORDERED: AMOCLA875 PO (11:21)
[2021-02-09] MEDS ORDERED: LEVO750 PO (11:22)
--- NOTE | 2021-02-09 13:07 | NUR ---
PT ALERT THIS AM, MOM AT BEDSIDE FEED PT BREAKFAST,PT TOOK ALL MORNING MEDS.PT HAVE A BM AROUND MID MORNING.PT IS IN BED SLEEPING,PT IS A LITTLE DROWSY,PER MOM IT'S NORMALPT IS DISCHARGE BACK TO [facility], DISCHARGE SUMMARY EXPLAIN TO PT MOM,AND PT MOM VERBALIZE UNDERSTANDING OF THE DISCHARGE SUMMARY.PT IN BED WITH MOM AT THE BEDSIDE WAITING FOR TRANSPORT FOR [employer]IPMENT [employer]PA[employer].
--- NOTE | 2021-02-09 13:22 | NUR ---
02/09/21- Received call from floor nurse, when transport came to get the pt, he was "unresponsive," mom was in the room and she reports that this is something he does. Floor nurse reports that he is doing better and is ready to go. She asked that we set up gurney transport home. Called [facility] and they will come get the pt at 2pm. Notified floor nurse. She will fill out blue form needed for gurney transport. -hollandb
== END 2021-02-09 14:41 | disposition home or self-care (01) | DRG 177 ==
LOC: ER 10:31 → MEDS 13:41
PROVIDERS: Emergency Medicine; ADMIT Family Medicine
DX: J69.0 Pneumonitis due to inhalation of food and vomit (principal); G93.7 Reye's syndrome; J96.01 Acute respiratory failure with hypoxia; Z20.822 Contact with and (suspected) exposure to COVID-19; Z66 Do not resuscitate; K21.9 Gastro-esophageal reflux disease without esophagitis; G40.909 Epilepsy, unspecified, not intractable, without status epilepticus; Z87.440 Personal history of urinary (tract) infections; Z87.442 Personal history of urinary calculi; Z88.8 Allergy status to other drugs, medicaments and biological substances; Z98.890 Other specified postprocedural states; Z79.51 Long term (current) use of inhaled steroids; Z79.899 Other long term (current) drug therapy
CPT/HCPCS: 0031A; 36415; 71045; 80053; 83605; 83735; 84100; 85025; 87040; 93005; 93010; 94660; 94667; 94762; 96374; 99284-25; A9270; J1100; J1650; J1953; J1956; J2543; J2560; J7042; J7050; U0004

== ENCOUNTER → 2021-02-14 | Outpatient (CLI) | payer OTHER ==
[~2021-02-14] MED LIST changes: +CLONAZEPAM1 MG PO; +EPIDIOLEX 100 MG/ML PO; +IPRAT-ALBUT 0.5-3 ML NEB; +LACT10SY PO; +LORA2L PO; +MIRALAX17 GM PO; +MORP20L PO; +PHENO60 PO; +PHENOBARBITAL PR; +PROC25S PR
[2021-02-15 15:24] LABS: Adenovirus F 40/41 Not Detected (NOT DETECT); Astrovirus Not Detected (NOT DETECT); Campylobacter Sp Not Detected (NOT DETECT); Cryptosporidium Not Detected (NOT DETECT); Cyclospora Cayetanensis Not Detected (NOT DETECT); E. Coli O157 Not Detected (NOT DETECT); Entamoeba Histolytica Not Detected (NOT DETECT); Enteroaggregative E. coli-EAEC Not Detected (NOT DETECT); Enteropathogenic E. coli-EPEC Not Detected (NOT DETECT); Enterotoxigenic E. coli-ETEC Not Detected (NOT DETECT); Giardia Lamblia Not Detected (NOT DETECT); Norovirus GI/GII Not Detected (NOT DETECT); Plesiomonas Shigelloides Not Detected (NOT DETECT); Rotavirus A Not Detected (NOT DETECT); Salmonella Sp Not Detected (NOT DETECT); Sapovirus Not Detected (NOT DETECT); Shiga Toxin-prod E. coli-STEC Not Detected (NOT DETECT); Shigella/Enteroin E. coli-EIEC Not Detected (NOT DETECT); Vibrio Cholerae Not Detected (NOT DETECT); Vibrio Sp Not Detected (NOT DETECT); Yersinia Enterocolitica Not Detected (NOT DETECT)
== END ==
LOC: LAB SHORT 11:00 → LAB 11:00
PROVIDERS: Physician Assistant Medical
DX: R19.7 Diarrhea, unspecified (principal)
CPT/HCPCS: 0097U

== ENCOUNTER 2021-06-01 11:45 | Emergency (ER) | payer OTHER ==
[~2021-06-01] VITALS: Ht 160 cm; Wt 71.7 kg
[2021-06-01 12:29] LABS: BASOPHILS ABSOLUTE AUTO 0.06 K/mm3 (0.00-0.23); BASOPHILS PERCENT AUTO 1 % (0-2); EOSINOPHILS PERCENT AUTO 3 % (0-6); Hematocrit 48.8 % (37.0-53.0); Hemoglobin 14.9 g/dL (13.5-17.5); IMMATURE GRAN ABSOLUTE AUTO 0.02 K/mm3 (0.00-0.10); IMMATURE GRAN PERCENT AUTO 0 % (0-1); LYMPHOCYTES ABSOLUTE AUTO 2.29 K/mm3 (0.84-5.20); LYMPHOCYTES PERCENT AUTO 29 % (21-46); MONOCYTES ABSOLUTE AUTO 0.49 K/mm3 (0.16-1.47); MONOCYTES PERCENT AUTO 6 % (4-13); Mean Corpuscular HGB 25.8 pg (26.0-34.0); Mean Corpuscular HGB Conc 30.5 g/dL (31.5-36.5); Mean Corpuscular Volume 85 fL (80-100); Mean Platelet Volume 9.1 fL (9.1-12.4); NEUTROPHILS ABSOLUTE AUTO 4.75 K/mm3 (1.96-9.15); NEUTROPHILS PERCENT AUTO 61 % (41-73); Platelet Count 353 K/mm3 (150-400); RDW Coefficient Variation 14.2 % (11.7-14.2); RDW Standard Deviation 43.7 fL (35.1-46.3); Red Blood Cell Count 5.77 M/mm3 (4.30-5.90); White Blood Cell Count 7.81 K/mm3 (4.00-11.30)
[2021-06-01 12:54] LABS: Alanine Aminotransfer (ALT/SGP 17 U/L (12-78); Albumin, Blood 3.9 g/dL (3.4-5.0); Albumin/Globulin Ratio 1.1 (0.8-1.8); Alk Phos 94 U/L (50-136); Anion Gap 4 mmol/L (6-16); Aspartate Aminotrans (AST/SGOT 18 U/L (12-37); Bilirubin, Total 0.6 mg/dL (0.1-1.0); Blood Urea Nitrogen 16 mg/dL (8-24); Bun/Creatinine Ratio 17.4 (12.0-20.0); CO2, Blood 31 mmol/L (21-32); Calcium, Blood 9.6 mg/dL (8.5-10.1); Chloride, Blood 106 mmol/L (98-108); Creatinine, Blood 0.92 mg/dL (0.60-1.20); Globulin, Blood 3.6 g/dL (2.2-4.0); Glomerular Filtration Rate >60 (60-); Glucose, Blood 89 mg/dL (70-99); Potassium, Blood 4.1 mmol/L (3.5-5.5); Sodium, Blood 141 mmol/L (136-145); Total Protein, Blood 7.5 g/dL (6.4-8.2)
[2021-06-01 13:22] LABS: Source, Urine Straight Cath
[2021-06-01 13:28] LABS: Appearance, Urine Hazy (Clear); Bilirubin, Urine Neg (Neg); Blood, Urine 1+ (Neg); Color, Urine Yellow (P-Yellow); Glucose Qualitative, Urine Neg (Neg); Ketones, Urine Neg (Neg); Leukocyte Esterase, Urine 1+ (Neg); Nitrite, Urine Neg (Neg); Protein, Urine 1+ (Neg); Urobilinogen, Urine NORM (Normal)
[2021-06-01 13:41] LABS: Influenza A, PCR NEGATIVE (NEGATIVE); Influenza B, PCR NEGATIVE (NEGATIVE); Resp Syncytial Virus, PCR NEGATIVE (NEGATIVE); SARS-Cov-2 (COVID-19) PCR, MMC NEGATIVE (NEGATIVE)
[2021-06-01 13:47] LABS: Amorphous Light (0-Heavy); Bacteria Mod /hpf; Calcium Oxalate Crystals Rare /hpf; Hyaline Casts 0-2 /lpf (0-2); Squamous Epithelial Cells Not Seen /hpf (Few)
[2021-06-01] MEDS ORDERED: Cipro500 MG PO (14:07)
== END 2021-06-01 15:19 | disposition home or self-care (01) ==
LOC: ER 11:45
PROVIDERS: Emergency Medicine; Physician Assistant
DX: J40 Bronchitis, not specified as acute or chronic (principal); N39.0 Urinary tract infection, site not specified; Z20.822 Contact with and (suspected) exposure to COVID-19; K21.9 Gastro-esophageal reflux disease without esophagitis; Z79.899 Other long term (current) drug therapy
CPT/HCPCS: 0241U; 51701; 71045; 80053; 81001; 85025; 87086; 99283-25

== ENCOUNTER 2021-06-14 20:03 | Emergency (ER) | payer OTHER ==
[~2021-06-14] VITALS: Ht 160 cm; Wt 71.7 kg
[~2021-06-14 20:03] MED LIST changes: +Cipro500 MG PO
== END 2021-06-14 21:23 | disposition home or self-care (01) ==
LOC: ER 20:03
DX: G40.909 Epilepsy, unspecified, not intractable, without status epilepticus (principal); Z88.8 Allergy status to other drugs, medicaments and biological substances; Z79.899 Other long term (current) drug therapy
CPT/HCPCS: 99284

== ENCOUNTER → 2021-11-02 | Outpatient (CLI) | payer OTHER ==
[2021-11-02 15:51] LABS: Source, Urine Clean Catch
[2021-11-02 16:17] LABS: Bacteria Mod /hpf; Red Blood Cells, Urine TNTC /hpf (0-2); Squamous Epithelial Cells Few /hpf (Few); White Blood Cells, Urine TNTC /hpf (0-5)
[2021-11-02 16:18] LABS: Calcium Oxalate Crystals Many /hpf
[2021-11-02 16:21] LABS: BASOPHILS ABSOLUTE AUTO 0.04 K/mm3 (0.00-0.23); BASOPHILS PERCENT AUTO 1 % (0-2); EOSINOPHILS ABSOLUTE AUTO 0.22 K/mm3 (0.00-0.68); EOSINOPHILS PERCENT AUTO 3 % (0-6); Hematocrit 43.1 % (37.0-53.0); Hemoglobin 13.5 g/dL (13.5-17.5); IMMATURE GRAN ABSOLUTE AUTO 0.01 K/mm3 (0.00-0.10); IMMATURE GRAN PERCENT AUTO 0 % (0-1); LYMPHOCYTES ABSOLUTE AUTO 2.23 K/mm3 (0.84-5.20); LYMPHOCYTES PERCENT AUTO 31 % (21-46); MONOCYTES ABSOLUTE AUTO 0.42 K/mm3 (0.16-1.47); MONOCYTES PERCENT AUTO 6 % (4-13); Mean Corpuscular HGB 26.3 pg (26.0-34.0); Mean Corpuscular HGB Conc 31.3 g/dL (31.5-36.5); Mean Corpuscular Volume 84 fL (80-100); Mean Platelet Volume 9.4 fL (9.1-12.4); NEUTROPHILS PERCENT AUTO 60 % (41-73); Platelet Count 323 K/mm3 (150-400); RDW Coefficient Variation 13.6 % (11.7-14.2); RDW Standard Deviation 41.7 fL (35.1-46.3); Red Blood Cell Count 5.14 M/mm3 (4.30-5.90); White Blood Cell Count 7.32 K/mm3 (4.00-11.30)
[2021-11-02 16:30] LABS: Albumin, Blood 3.7 g/dL (3.4-5.0); Albumin/Globulin Ratio 1.2 (0.8-1.8); Bilirubin, Total 0.2 mg/dL (0.1-1.0); Bun/Creatinine Ratio 13.2 (12.0-20.0); Calcium, Blood 8.7 mg/dL (8.5-10.1); Creatinine, Blood 0.76 mg/dL (0.60-1.20); Globulin, Blood 3.1 g/dL (2.2-4.0); Potassium, Blood 3.9 mmol/L (3.5-5.5); Total Protein, Blood 6.8 g/dL (6.4-8.2)
== END | disposition home or self-care (01) ==
LOC: LAB 15:49 → LAB SHORT 15:49
PROVIDERS: Chiropractor
DX: R82.90 Unspecified abnormal findings in urine (principal); R31.9 Hematuria, unspecified
CPT/HCPCS: 80053; 81015; 85025; 87086

== ENCOUNTER 2022-01-20 12:54 | Inpatient (IN) | payer OTHER ==
[~2022-01-20] VITALS: Ht 160 cm; Wt 94.0 kg
[~2022-01-20 12:54] MED LIST changes: -DIAZ5EL PR; -PHENOBARBITAL PR; +THERA-D2000 UNIT PO
[2022-01-20 14:02] LABS: Source, Urine Foley catheter
[2022-01-20 14:16] LABS: Appearance, Urine Hazy (Clear); Bilirubin, Urine Neg (Neg); Blood, Urine 5+ (Neg); Color, Urine Amber (P-Yellow); Glucose Qualitative, Urine Neg (Neg); Ketones, Urine Neg (Neg); Leukocyte Esterase, Urine 3+ (Neg); Nitrite, Urine Pos (Neg); Protein, Urine 3+ (Neg); Urobilinogen, Urine NORM (Normal)
[2022-01-20 14:23] LABS: Bacteria Many /hpf; Red Blood Cells, Urine TNTC /hpf (0-2); Squamous Epithelial Cells Few /hpf (Few); WBC Cast 0-2 /lpf (0); White Blood Cells, Urine TNTC /hpf (0-5)
[2022-01-20] MEDS ORDERED: TAMS.4ER PO (18:08)
[2022-01-20] MEDS ORDERED: HYDCOR2.5C PR (18:09)
[2022-01-20] MEDS ORDERED: IBUP400 PO (18:10)
[2022-01-20] MEDS ORDERED: ANUCORT-HC25 M6 PR (18:10)
[2022-01-20] MEDS ORDERED: FLUO.01TC TOP (18:11)
[2022-01-20] MEDS ORDERED: BISA10S (18:12)
[2022-01-20] MEDS ORDERED: ACET500 PO (18:12)
[2022-01-20] MEDS ORDERED: DULCOLAX400 MG/5 M PO (18:14)
[2022-01-20] MEDS ORDERED: LOPE2C PO (18:15)
--- NOTE | 2022-01-20 22:09 | NUR ---
JOSHUAAILS THIS ARTIST AND REPERTOIRE MANAGER TO ROOM AND PT'S MOM IS PRESENT AT THE BEDSIDE AND REQUESTING THAT ALL 4 SIDE RAILS ARE RAISED FOR PT SAFETY. SHE PLANS TO GO HOME SHORTLY AND IS CONCERNED THAT HE MAY TRY TO GET UP AND HAS SIGNIFICANT WEAKNESS. HIS DEVELOPMENTAL DELAY PREVENTS PT EDUCATION FOR HIGH FALL RISK. SIDE RAILS X 4 UP AND BED ALARM IN PLACE, PT WILL BE CLOSELY MONITORED BY STAFF.
[2022-01-21 04:20] LABS: BASOPHILS ABSOLUTE AUTO 0.01 K/mm3 (0.00-0.23); BASOPHILS PERCENT AUTO 0 % (0-2); EOSINOPHILS ABSOLUTE AUTO 0.01 K/mm3 (0.00-0.68); EOSINOPHILS PERCENT AUTO 0 % (0-6); Hemoglobin 10.8 g/dL (13.5-17.5); IMMATURE GRAN ABSOLUTE AUTO 0.02 K/mm3 (0.00-0.10); IMMATURE GRAN PERCENT AUTO 1 % (0-1); LYMPHOCYTES ABSOLUTE AUTO 0.73 K/mm3 (0.84-5.20); LYMPHOCYTES PERCENT AUTO 17 % (21-46); MONOCYTES ABSOLUTE AUTO 0.42 K/mm3 (0.16-1.47); MONOCYTES PERCENT AUTO 10 % (4-13); Mean Corpuscular HGB 26.6 pg (26.0-34.0); Mean Corpuscular HGB Conc 31.8 g/dL (31.5-36.5); Mean Corpuscular Volume 84 fL (80-100); Mean Platelet Volume 10.9 fL (9.1-12.4); NEUTROPHILS ABSOLUTE AUTO 3.03 K/mm3 (1.96-9.15); NEUTROPHILS PERCENT AUTO 72 % (41-73); Platelet Count 140 K/mm3 (150-400); RDW Coefficient Variation 14.1 % (11.7-14.2); RDW Standard Deviation 43.2 fL (35.1-46.3); Red Blood Cell Count 4.06 M/mm3 (4.30-5.90); White Blood Cell Count 4.22 K/mm3 (4.00-11.30)
[2022-01-21 04:45] LABS: Albumin, Blood 2.3 g/dL (3.4-5.0); Albumin/Globulin Ratio 0.6 (0.8-1.8); Bilirubin, Total 0.3 mg/dL (0.1-1.0); Bun/Creatinine Ratio 18.5 (12.0-20.0); Calcium, Blood 8.1 mg/dL (8.5-10.1); Creatinine, Blood 0.92 mg/dL (0.60-1.20); Globulin, Blood 3.6 g/dL (2.2-4.0); Magnesium, Blood 2.2 mg/dL (1.6-2.4); Total Protein, Blood 5.9 g/dL (6.4-8.2)
--- NOTE | 2022-01-21 04:57 | NUR ---
UPDATE: PATIENT UNABLE TO TAKE PO STILL VERY SOMNOLENT. DID NOT RECEIVE EVENING SEIZURE MEDICATIONS. CALLED HOSPITALIST FOR IV MEDICATIONS. MD SAID "WE'LL HAVE TO WAIT UNTIL HE WAKE UP AND CAN TAKE PILLS." NO NEW ORDERS.
--- NOTE | 2022-01-21 06:13 | NUR ---
SHIFT SUMMARY: PATIENT VS WNL. ADMISSION FORMS COMPLETED WITH PATIENT'S MOTHER'S ASSISTANCE. MEDS RECONCILED. PATIENT WAS SOMNOLENT ON ADMIT UNTIL 0600. PATIENT IS NONVERBAL AND DELAYED AT BASELINE. MAX DRAINING DARK URINE TO GRAVITY. PATIENT IS CURRENTLY SITTING IN BED PLAYING WITH HIS FOOT. LR RUNNING PER EMAR. BED RAILS RAISED X4 AT MOTHER'S REQUEST FOR SAFETY. MOTHER WILL RETURN THIS AM TO HELP WITH CARES. MEDICATED PER EMAR. BED ALARM SET AND CALL LIGHT IN REACH. WILL CONTINUE TO MONITOR AND REPORT TO ONCOMING RN.
--- NOTE | 2022-01-21 18:06 | NUR ---
PT ALERT, DOES WAKEN TO VERBAL STIMULI, PER MOTHER HE IS MORE SLEEPY THAN USUAL. PT DOES TAKE ORAL MEDICATIONS WELL CRUSHED WITH YOGURT WITHOUT DIFFICULTY, HE DOES NEED COACHING TO OPEN MOUTH FOR BITES. PT HAD 3 SZ PER THE MOTHER AT THE BEDSIDE, THIS RN NOTED PT TO HAVE A SHORT JERKING MOVEMENT. VSS. BLOOD CULTURES DID COME BACK POSITIVE, ANTIBIOTICS WERE CHANGED TO ACCOMIDATE. MOTHER IS AT BEDSIDE AND IS QUITE HELPFUL IN PROVIDING CARE.
[2022-01-22 04:58] LABS: BASOPHILS ABSOLUTE AUTO 0.02 K/mm3 (0.00-0.23); BASOPHILS PERCENT AUTO 1 % (0-2); EOSINOPHILS ABSOLUTE AUTO 0.08 K/mm3 (0.00-0.68); EOSINOPHILS PERCENT AUTO 2 % (0-6); Hematocrit 31.9 % (37.0-53.0); Hemoglobin 9.9 g/dL (13.5-17.5); IMMATURE GRAN ABSOLUTE AUTO 0.01 K/mm3 (0.00-0.10); IMMATURE GRAN PERCENT AUTO 0 % (0-1); LYMPHOCYTES ABSOLUTE AUTO 0.85 K/mm3 (0.84-5.20); LYMPHOCYTES PERCENT AUTO 26 % (21-46); MONOCYTES ABSOLUTE AUTO 0.41 K/mm3 (0.16-1.47); MONOCYTES PERCENT AUTO 12 % (4-13); Mean Corpuscular HGB 25.9 pg (26.0-34.0); Mean Corpuscular Volume 84 fL (80-100); Mean Platelet Volume 10.6 fL (9.1-12.4); NEUTROPHILS ABSOLUTE AUTO 1.93 K/mm3 (1.96-9.15); NEUTROPHILS PERCENT AUTO 59 % (41-73); Platelet Count 144 K/mm3 (150-400); RDW Coefficient Variation 14.2 % (11.7-14.2); RDW Standard Deviation 42.9 fL (35.1-46.3); Red Blood Cell Count 3.82 M/mm3 (4.30-5.90)
[2022-01-22 05:19] LABS: Bun/Creatinine Ratio 11.4 (12.0-20.0); Calcium, Blood 8.1 mg/dL (8.5-10.1); Creatinine, Blood 0.79 mg/dL (0.60-1.20); Potassium, Blood 3.3 mmol/L (3.5-5.5)
[2022-01-22 05:30] LABS: Source, Urine Foley catheter
[2022-01-22 05:45] LABS: Bilirubin, Urine Neg (Neg); Blood, Urine 3+ (Neg); Glucose Qualitative, Urine Neg (Neg); Leukocyte Esterase, Urine 1+ (Neg); Nitrite, Urine Neg (Neg); Protein, Urine 2+ (Neg); Urobilinogen, Urine NORM (Normal)
[2022-01-22 05:47] LABS: Ketones, Urine 2+ (Neg)
--- NOTE | 2022-01-22 06:02 | NUR ---
SHIFT SUMMARY: PT ALERT AND RESPONDS TO VERBAL STIMULI, BP AND HR STABLE, ON RA SATING >94%, PT FEBRILE THIS MORNING. MEDICATED PER EMAR. CHRONIC CATH REPLACED, HAD APPROX 2000 ML OF OUTPUT THIS SHIFT. ONE BM. LR GTT IN L FOREARM. SEIZURE PADS IN PLACE, BED IN LOW, ALARM ON, CALL LIGHT IN REACH. WILL REPORT TO ONCOMING RN.
[2022-01-22 06:18] LABS: Appearance, Urine Hazy (Clear); Bacteria Few /hpf; Color, Urine Pale Yellow (P-Yellow); Squamous Epithelial Cells Not Seen /hpf (Few); White Blood Cells, Urine 0-2 /hpf (0-5)
[2022-01-22 13:33] LABS: Vancomycin, Trough 16.7 ug/mL (5.0-10.0)
--- NOTE | 2022-01-22 18:23 | NUR ---
PT SUMMARY: PT RESPONDS TO VERBAL/PAINSTIMULI, NON VERBAL AHS DEV DELAY MOM AT BEDSIDE HELPING WITH CARE ALL SHIFT. VITALS HRR REMAINED SINUS AT 80'S, BP SYSTOLIC 115'S, SATS ABOVE 95% ON RA, AFEBRILE FOR THE SHIFT. PT HAS BEEN GETTING UP IN THE WHEELCHAIR MOSTLY THE MOTHER DOES IT VIA STAND AND PIVOT. TOLERATES SOFT BITE SIZE DIET, HAS INCREASED DROOLS WHEN SLEEPING SUCTIONED PRN. PT ALSO NOTICED HAS SOME EPISODES OF JERKY MOVEMENTS WHICH MOM CLARIFIED THAT IT WAS SMALL CHRONIC SEIZURE ACTIVITY. PT REMAINS ON IV ABO AND SEIZUR MEDS ABLE TO TAKE MEDS CRUSHED IN YOGURT. PT HAD 2 SOFT LOOSE BM FOR THE SHIFT, PT ALSO HAD BLOODY DISCHARGE ON THE TIP OF THE PENIS PT WAS PULLING ON THE CATHETER, URINE JOSE IN COLOR, NO OTHER ISSUES OTHER WALTON, PT STILL PLANNED ON GETTING TRANSFERRED TO [facility] TO GET SURGERY DONE ON SATURDAY. NO OTHER COMPLAINS AT THIS TIME, WILL REPORT TO ONCOMING SHIFT
[2022-01-23 04:22] LABS: BASOPHILS ABSOLUTE AUTO 0.02 K/mm3 (0.00-0.23); BASOPHILS PERCENT AUTO 1 % (0-2); EOSINOPHILS ABSOLUTE AUTO 0.06 K/mm3 (0.00-0.68); EOSINOPHILS PERCENT AUTO 2 % (0-6); Hematocrit 31.2 % (37.0-53.0); IMMATURE GRAN ABSOLUTE AUTO 0.01 K/mm3 (0.00-0.10); IMMATURE GRAN PERCENT AUTO 0 % (0-1); LYMPHOCYTES ABSOLUTE AUTO 1.07 K/mm3 (0.84-5.20); LYMPHOCYTES PERCENT AUTO 28 % (21-46); MONOCYTES PERCENT AUTO 16 % (4-13); Mean Corpuscular HGB Conc 32.1 g/dL (31.5-36.5); Mean Corpuscular Volume 81 fL (80-100); Mean Platelet Volume 10.1 fL (9.1-12.4); NEUTROPHILS ABSOLUTE AUTO 2.07 K/mm3 (1.96-9.15); NEUTROPHILS PERCENT AUTO 54 % (41-73); Platelet Count 161 K/mm3 (150-400); RDW Coefficient Variation 13.7 % (11.7-14.2); RDW Standard Deviation 40.4 fL (35.1-46.3); Red Blood Cell Count 3.84 M/mm3 (4.30-5.90); White Blood Cell Count 3.83 K/mm3 (4.00-11.30)
[2022-01-23 04:37] LABS: Bun/Creatinine Ratio 5.1 (12.0-20.0); Calcium, Blood 8.2 mg/dL (8.5-10.1); Creatinine, Blood 0.79 mg/dL (0.60-1.20); Potassium, Blood 2.7 mmol/L (3.5-5.5)
--- NOTE | 2022-01-23 05:54 | NUR ---
SHIFT SUMMARY: NO ACUTE EVENTS OVER NIGHT. VSS. PT ON 2L NC SATING >95%. LR GTT @15 ML/HR. MAX CATH IN PLACE DRAINING YELLOW URINE TO GRAVITY. NO BM THIS SHIFT. PT HAD ONE EPISODE OF SEIZURE LIKE ACTIVITY THIS AM, RESOLVE WITH NO INTERVENTION. SEIZURE PRECAUTIONS IN PLACE, BED IN LOW, ALARM ON. WILL REPORT TO ONCOMING RN.
[2022-01-23 11:33] LABS: SARS-Cov-2 (COVID-19) PCR, MMC NEGATIVE (NEGATIVE)
--- NOTE | 2022-01-23 17:53 | NUR ---
PT SUMMARY: NO ACUTE CHANGE FOR THE SHIFT PT KEPT NPO ALL SHIFT FOR THE NEPHROSTOMY PROCEDURE FOR TODAY, PT CURRENTLY IN THE PROCEDURE AT THIS TIME. VITALS HAS BEEN STABLE PT RECEIVED A BED BATH TODAY. MOM AT BEDSIDE HELPS WITH MOST OF THE CARE. POTASSIUM WAS REPLACED TODAY 2.[address] GONZALEZ CLARIFIED TO GIVE ADDITIONAL 40MEQ PO ON TOP OF THE 60MEQ IV DOSE. NO SEIZURE ACTIVITY NOTED FOR THE SHIFT, SEIZURE PADS REMAINED IN PLACE FOR PRECAUTION. LR RUNNING AT 100MLS/HR, PT CONTINUES TO RECEIVE IV ABO. MAX DRAINING PATENT VIA GRAVITY. NO OTHER ISSUES REPORTED, CALL LIGHTS IN REACH WILL REPORT TO ONCOMING SHIFT
--- NOTE | 2022-01-23 19:20 | NUR ---
This RN assumes care following report from Shirin MCMAHAN. Pt appears to sleep in bed on L side at this time.
--- NOTE | 2022-01-24 02:01 | NUR ---
SEIZURE ACTIVITY PT APPEARS TO HAVE 3 MIN LONG SEIZURE ACTIVITY AFTER REPOSITIONING AND RECTAL TYLENOL BY THIS RN AND STAFF AFTER AWAKENING A LITTLE MORE THAN HE HAS BEEN T/O SHIFT,PT HAD OPENED EYES AND SMILED A LITTLE AT STAFF BEFORE BEGINNING TO HAVE SMALL REPETETIVE TWITCHING MOTIONS TO FACE AND BODY. MOVEMENTS INCREASED IN INTENSITY, PT HAD SOME COUGHING, SUPPORTED WITH SUCTIONING, MAGNET ATTEMPTED TO STIMULATOR, NO EFFECT NOTICED. INSULATION BLANKET MAKER SABRINA TO BEDSIDE WHILE THIS RN ADMINS VALIUM, ATTEMPTS MAGNET TO NO EFFECT. MOVEMENTS SLOWLY CEASE FOLLOWING ADMIN OF 5 MG VALIUM PER PRN ORDER. SATS MAINTAIN 95-96% ON 2 l VIA NC.
--- NOTE | 2022-01-24 02:09 | NUR ---
PT UPDATE PT APPEARS SOMNOLENT WITH EYES CLOSED, BITES AT SUCTION WAND WHEN THIS RN SUCTIONS MOUTH. RUBS AT NASAL CANNULA AND BACK OF HEAD. SATS 96% ON 2 L VIA NC.
[2022-01-24 04:36] LABS: BASOPHILS ABSOLUTE AUTO 0.03 K/mm3 (0.00-0.23); BASOPHILS PERCENT AUTO 1 % (0-2); EOSINOPHILS ABSOLUTE AUTO 0.24 K/mm3 (0.00-0.68); EOSINOPHILS PERCENT AUTO 4 % (0-6); Hematocrit 32.4 % (37.0-53.0); Hemoglobin 10.6 g/dL (13.5-17.5); IMMATURE GRAN ABSOLUTE AUTO 0.02 K/mm3 (0.00-0.10); IMMATURE GRAN PERCENT AUTO 0 % (0-1); LYMPHOCYTES ABSOLUTE AUTO 1.78 K/mm3 (0.84-5.20); LYMPHOCYTES PERCENT AUTO 29 % (21-46); MONOCYTES ABSOLUTE AUTO 0.61 K/mm3 (0.16-1.47); MONOCYTES PERCENT AUTO 10 % (4-13); Mean Corpuscular HGB 26.8 pg (26.0-34.0); Mean Corpuscular HGB Conc 32.7 g/dL (31.5-36.5); Mean Corpuscular Volume 82 fL (80-100); Mean Platelet Volume 9.7 fL (9.1-12.4); NEUTROPHILS ABSOLUTE AUTO 3.51 K/mm3 (1.96-9.15); NEUTROPHILS PERCENT AUTO 57 % (41-73); Platelet Count 204 K/mm3 (150-400); RDW Coefficient Variation 13.4 % (11.7-14.2); RDW Standard Deviation 40.5 fL (35.1-46.3); Red Blood Cell Count 3.95 M/mm3 (4.30-5.90); White Blood Cell Count 6.19 K/mm3 (4.00-11.30)
[2022-01-24 05:04] LABS: Bun/Creatinine Ratio 7.5 (12.0-20.0); Calcium, Blood 8.7 mg/dL (8.5-10.1); Creatinine, Blood 0.67 mg/dL (0.60-1.20); Potassium, Blood 3.3 mmol/L (3.5-5.5)
--- NOTE | 2022-01-24 06:02 | NUR ---
PT UPDATE THIS RN ATTEMPTS TO ADMIN PO MEDS PER ORDERS, PT APPEARS TO RESPOND WHEN THIS RN TELLS HIM TO "BITE", OPENS MOUTH AND TAKES SPOONFUL OF MED. PT DOES NOT APPEAR TO FULLY SWALLOW, APPEARS TO COUGH A LITTLE FOLLOWING MED. THIS RN ATTEMPTS TO GIVE SMALL SIP OF WATER FROM SPECIAL CUP FROM HOME, PT LETS IT SIT AT HIS LIPS, THIS RN SUCTIONS WATER OUT OF MOUTH. CONCERN FOR ASPIRATION. HOLDING MEDS IN APPLESAUCE AT THIS TIME UNTIL PT AWAKENS MORE AND CAN TOLERATE PO. MOUTH SUCTIONED, NO FURTHER COUGHING AT THIS TIME. LSCTA. PT APPEARS TO OPEN EYES AND BLINK. KEPT IN UPRIGHT SITTING POSITION AT THIS TIME TO HOPEFULLY WAKE HIM UP MORE FOR ELECTROLESS PLATER.
--- NOTE | 2022-01-24 18:23 | NUR ---
PT SUMMARY: NO ACUTE CHANGE FOR THE SHIFT, PT IS ON AND OFF ALERT AND AWAKE MOSTLY SOMNOLENT AFTER TAKING KLONOPIN. VITALS HAS BEEN STABLE. MOTHER AT BEDSIDE ALLSHIFT HELPING WITH CARE. RIGHT NEPHROSTOMY DRAINING RED URINE VIA GRAVITY 275MLS OUTPUT FOR THE SHIFT, DRESSING CDI, BINDER IN PLACE TO PROTECT FROM BEING BY PT. PT HAD SOME SMALL SEIZURE EPISODES PER MOTHER AT BEDSIDE WHILE ASLEEP. POTASSIUM WAS REPLACED AND REDRAWN NOW WNL AT 3.5. PT PLAN TO DISCHARGE TOMORROW SO HE CAN GET TO HIS SURGERY SCHEDULE ON SATURDAY AT [facility]. VERIFIED WITH DR GONZALEZ ON THE PHONE, MOTHER AT BEDSIDE WAS UPDATED ABOUT THE PLAN AND WAS AGREEABLE. PT WAS UP IN THE WHEELCHAIR AT DINNER TIME, SISTER IN LAW AT BEDSIDE TO VISIT. PT ALSO WAS ABLE TO INTERACT WITH THE THERAPY DOG TODAY NO OTHER ISSUES ENCOUNTERED WILL REPORT TO ONCOMING SHIFT
--- NOTE | 2022-01-24 20:00 | NUR ---
ASSUMED CARE OF PT AT 1915. REPORT RECEIVED AT BEDSIDE. PT PRESENTS IN BED. PT'S FAMILY AT BEDSIDE. VERY ATTENTIVE TO PT'S NEEDS. PT IN NO APPARENT DISTRESS AT THIS TIME. WILL OPEN EYES TO CONTACT. NON-VERBAL. WILL REVIEW CHART AND PLAN OF CARE FOR THIS PT.
--- NOTE | 2022-01-25 03:00 | NUR ---
NEPHROSTOMY TUBE REMAINS PATENT TO DRAINAGE OF JOSE COLOR LIQUID. PT WAS ABLE TO TAKE HIS HS MEDICATIONS. WITH ORAL CARE, PT WOULD BITE DOWN ON SWABS. WAS ABLE TO COMPLETE TASK. HAVE BEEN TURNING PT Q 2 HOURS. WILL CONTINUE TO MONITOR. NO OBSERVED SEIZURES BY PT.
--- NOTE | 2022-01-25 06:56 | NUR ---
NEPHROSTOMY TUBE OUTPUT 490. NO S/S PAIN OR DISTRESS FROM PT. IS ABLE TO TAKE HIS MEDICATION THIS MORNING CRUSHED IN PUDDING. NEEDS SOME PROMPTING. NO OBSERVED SEIZURE ACTIVITIES FOR THIS SHIFT. TOLERATES Q 2 HOUR TURNS IN BED. WILL CONTINUE TO MONITOR PT, AND WILL REPORT OFF TO ONCOMING RN.
[2022-01-25] MEDS ORDERED: AMOCLA875 PO (12:10)
[2022-01-25] MEDS ORDERED: POTCHL20ER PO (12:11)
[2022-01-25] MEDS ORDERED: DIAZ5EL PR (12:31)
[2022-01-25] MEDS ORDERED: PHENOBARBITAL PR (12:32)
--- NOTE | 2022-01-25 13:03 | NUR ---
DISCHARGE NOTE NO ACUTE EVENTS THIS SHIFT, VSS. PTS O2 TITRATED DOWN TO ROOM AIR, WHICH IS THE PATIENT'S BASELINE, TOLERATED WELL. PT RESPONDS TO VERBAL STIMULUS. PT ASSISTED WITH BREAKFAST, TOLERATED WELL. REPOSITIONED BY STAFF THROUGHOUT SHIFT. PT NEPHROSTOMY PATENT AND DRAINING TO GRAVITY, MAX PATENT AND DRAINING TO GRAVITY. DISCHARGED WITH MAX CATHETER FOR APPOINTMENT REGARDING LITHOTRIPSY SCHEDULED FOR TOMORROW. DISCHARGE INFO REGARDING FOLLOW UP PLANS AND MEDICATION INFORMATION PROVIDED TO PTs MOM AND CAREGIVER, QUESTIONS ANSWERED TO SATISFACTION. PT ASSISTED TO HOME WHEELCHAIR, NO SIGNS OF ACUTE DISTRESS, RIDE PROVIDED IN PRIVATE VEHICLE TO PTs FDC.
== END 2022-01-25 12:50 | disposition home health service (06) | DRG 871 ==
LOC: ER 12:54 → PCU 16:28
PROVIDERS: Emergency Medicine; Internal Medicine; Radiology Diagnostic Radiology; ADMIT Hospitalist
PROC: 3E03329 Introduction of Other Anti-infective into Peripheral Vein, Percutaneous Approach (ICD-10-PCS; 2022-01-20)
PROC: 0T9330Z Drainage of Right Kidney Pelvis with Drainage Device, Percutaneous Approach (ICD-10-PCS; principal; 2022-01-23)
DX: A41.81 Sepsis due to Enterococcus (principal); G93.41 Metabolic encephalopathy; N13.6 Pyonephrosis; G40.812 Lennox-Gastaut syndrome, not intractable, without status epilepticus; F79 Unspecified intellectual disabilities; E87.6 Hypokalemia; Z20.822 Contact with and (suspected) exposure to COVID-19; Z88.8 Allergy status to other drugs, medicaments and biological substances; K59.09 Other constipation; Z98.890 Other specified postprocedural states; Z79.899 Other long term (current) drug therapy; Z66 Do not resuscitate; Z88.1 Allergy status to other antibiotic agents
CPT/HCPCS: 36415; 50432; 50693; 51703; 74178; 76937; 80048; 80053; 80175; 80177; 80202; 81001; 82947; 83605; 83735; 84100; 84132; 85025; 87040; 87077; 87086; 87186; 94640; 94664; 94760; 94762; 96361; 96365; 96375; 99152; 99153; 99285-25; A9270; C1729; C1751; C1769; C1887; C1894; J0696; J1650; J1956; J2250; J2405; J2543; J3010; J3360; J3370; J3480; J7030; J7040; J7050; J7120; Q9967; U0004

== ENCOUNTER → 2022-02-13 | Outpatient (CLI) | payer OTHER ==
[~2022-02-13] MED LIST changes: +ANUCORT-HC25 M6 PR; +DIAZ5EL PR; +DULCOLAX400 MG/5 M PO; +FLUO.01TC TOP; +Fluocinonide-E15 GM; +HYDCOR2.5C PR; +LOPE2C PO; +MULVITA PO; +PHENOBARBITAL PR; +POTCHL20ER PO; +RISA-BID CAPLE1 EAC1 PO
[2022-02-13 19:21] LABS: BASOPHILS ABSOLUTE AUTO 0.04 K/mm3 (0.00-0.23); BASOPHILS PERCENT AUTO 1 % (0-2); EOSINOPHILS ABSOLUTE AUTO 0.23 K/mm3 (0.00-0.68); EOSINOPHILS PERCENT AUTO 3 % (0-6); Hematocrit 38.9 % (37.0-53.0); Hemoglobin 12.3 g/dL (13.5-17.5); IMMATURE GRAN ABSOLUTE AUTO 0.02 K/mm3 (0.00-0.10); IMMATURE GRAN PERCENT AUTO 0 % (0-1); LYMPHOCYTES ABSOLUTE AUTO 1.69 K/mm3 (0.84-5.20); LYMPHOCYTES PERCENT AUTO 23 % (21-46); MONOCYTES ABSOLUTE AUTO 0.59 K/mm3 (0.16-1.47); MONOCYTES PERCENT AUTO 8 % (4-13); Mean Corpuscular HGB 26.5 pg (26.0-34.0); Mean Corpuscular HGB Conc 31.6 g/dL (31.5-36.5); Mean Corpuscular Volume 84 fL (80-100); NEUTROPHILS ABSOLUTE AUTO 4.81 K/mm3 (1.96-9.15); NEUTROPHILS PERCENT AUTO 65 % (41-73); Platelet Count 432 K/mm3 (150-400); RDW Coefficient Variation 13.2 % (11.7-14.2); RDW Standard Deviation 40.5 fL (35.1-46.3); Red Blood Cell Count 4.65 M/mm3 (4.30-5.90); White Blood Cell Count 7.38 K/mm3 (4.00-11.30)
[2022-02-13 19:30] LABS: Calcium, Blood 9.1 mg/dL (8.5-10.1); Creatinine, Blood 0.65 mg/dL (0.60-1.20); Potassium, Blood 4.3 mmol/L (3.5-5.5)
== END | disposition home or self-care (01) ==
LOC: LAB 14:11 → LAB SHORT 14:11
PROVIDERS: Physician Assistant
DX: T83.092A Other mechanical complication of nephrostomy catheter, initial encounter (principal)
CPT/HCPCS: 80048; 85025

== ENCOUNTER 2022-02-14 07:23 | Day surgery (SDC) | payer OTHER ==
[~2022-02-14] VITALS: Ht 160 cm; Wt 67.7 kg
[~2022-02-14 07:23] MED LIST changes: -Fluocinonide-E15 GM; -MULVITA PO; -RISA-BID CAPLE1 EAC1 PO
[2022-02-14] MEDS ORDERED: RISA-BID CAPLE1 EAC1 PO (08:05)
[2022-02-14] MEDS ORDERED: MULVITA PO (08:05)
[2022-02-14] MEDS ORDERED: Fluocinonide-E15 GM (08:06)
[2022-02-14] MEDS ORDERED: BISA10S PR (08:07)
[2022-02-14] MEDS ORDERED: LOPE2C PO (08:08)
--- NOTE | 2022-02-14 10:45 | NUR ---
PATIENT RETURNED TO [facility]. DRESSING TO RIGHT ABDOMINAL SITE D&I. DR MCELROY HERE TO SPEAK TO PATIENT'S MOTHER.
--- NOTE | 2022-02-14 11:32 | NUR ---
reviewed right abdominal site with mother. assisted with patient transfer to [facility]. no further questions. patient discharged to [facility].
== END 2022-02-14 11:30 | disposition home or self-care (01) ==
LOC: MHTC 07:23
DX: T83.092A Other mechanical complication of nephrostomy catheter, initial encounter (principal); Z88.8 Allergy status to other drugs, medicaments and biological substances
CPT/HCPCS: 50431; J7050; Q9967

== ENCOUNTER → 2022-02-16 | Outpatient (CLI) | payer OTHER ==
[~2022-02-16] MED LIST changes: +Fluocinonide-E15 GM; +MULVITA PO; +RISA-BID CAPLE1 EAC1 PO
[2022-02-16 15:26] LABS: BASOPHILS ABSOLUTE AUTO 0.04 K/mm3 (0.00-0.23); BASOPHILS PERCENT AUTO 0 % (0-2); EOSINOPHILS ABSOLUTE AUTO 0.02 K/mm3 (0.00-0.68); EOSINOPHILS PERCENT AUTO 0 % (0-6); Hematocrit 42.8 % (37.0-53.0); Hemoglobin 13.5 g/dL (13.5-17.5); IMMATURE GRAN ABSOLUTE AUTO 0.05 K/mm3 (0.00-0.10); IMMATURE GRAN PERCENT AUTO 0 % (0-1); LYMPHOCYTES ABSOLUTE AUTO 0.62 K/mm3 (0.84-5.20); LYMPHOCYTES PERCENT AUTO 4 % (21-46); MONOCYTES PERCENT AUTO 4 % (4-13); Mean Corpuscular HGB 26.2 pg (26.0-34.0); Mean Corpuscular HGB Conc 31.5 g/dL (31.5-36.5); Mean Corpuscular Volume 83 fL (80-100); NEUTROPHILS ABSOLUTE AUTO 13.89 K/mm3 (1.96-9.15); NEUTROPHILS PERCENT AUTO 91 % (41-73); Platelet Count 343 K/mm3 (150-400); RDW Coefficient Variation 13.6 % (11.7-14.2); RDW Standard Deviation 40.9 fL (35.1-46.3); Red Blood Cell Count 5.16 M/mm3 (4.30-5.90); White Blood Cell Count 15.22 K/mm3 (4.00-11.30)
[2022-02-16 15:41] LABS: Albumin, Blood 3.2 g/dL (3.4-5.0); Albumin/Globulin Ratio 0.7 (0.8-1.8); Bilirubin, Total 0.3 mg/dL (0.1-1.0); Bun/Creatinine Ratio 18.8 (12.0-20.0); Calcium, Blood 9.3 mg/dL (8.5-10.1); Creatinine, Blood 0.85 mg/dL (0.60-1.20); Globulin, Blood 4.8 g/dL (2.2-4.0); Potassium, Blood 4.1 mmol/L (3.5-5.5)
== END | disposition home or self-care (01) ==
LOC: LAB SHORT 15:20 → LAB 15:20
PROVIDERS: Family Medicine
DX: R50.9 Fever, unspecified (principal)
CPT/HCPCS: 80053; 85025; 87086

== ENCOUNTER 2022-03-02 10:45 | Day surgery (SDC) | payer OTHER | END 2022-03-02 16:59 | disposition home or self-care (01) | LOC: ATC 10:45 | DX: N39.0 Urinary tract infection, site not specified (principal); K21.9 Gastro-esophageal reflux disease without esophagitis; N31.9 Neuromuscular dysfunction of bladder, unspecified; G40.802 Other epilepsy, not intractable, without status epilepticus; R62.50 Unspecified lack of expected normal physiological development in childhood; Z88.8 Allergy status to other drugs, medicaments and biological substances; Z88.1 Allergy status to other antibiotic agents; Z96.0 Presence of urogenital implants | CPT/HCPCS: J3370; J7050 ==

== ENCOUNTER 2022-03-03 00:28 | Day surgery (SDC) | payer OTHER | END 2022-03-03 16:15 | disposition home or self-care (01) | LOC: ATC 00:28 | DX: N39.0 Urinary tract infection, site not specified (principal); N31.9 Neuromuscular dysfunction of bladder, unspecified; R62.50 Unspecified lack of expected normal physiological development in childhood; K21.9 Gastro-esophageal reflux disease without esophagitis; G40.802 Other epilepsy, not intractable, without status epilepticus; Z88.8 Allergy status to other drugs, medicaments and biological substances; Z88.1 Allergy status to other antibiotic agents | CPT/HCPCS: J3370; J7050 ==

== ENCOUNTER 2022-03-04 02:51 | Day surgery (SDC) | payer OTHER ==
[2022-03-04 07:58] LABS: Creatinine, Blood 0.65 mg/dL (0.60-1.20); Vancomycin, Trough 13.5 ug/mL (5.0-10.0)
== END 2022-03-04 17:22 | disposition home or self-care (01) ==
LOC: ATC 02:51
PROVIDERS: Physician Assistant
DX: N39.0 Urinary tract infection, site not specified (principal); N31.9 Neuromuscular dysfunction of bladder, unspecified; R62.50 Unspecified lack of expected normal physiological development in childhood; K21.9 Gastro-esophageal reflux disease without esophagitis; G40.802 Other epilepsy, not intractable, without status epilepticus; Z88.8 Allergy status to other drugs, medicaments and biological substances; Z88.1 Allergy status to other antibiotic agents
CPT/HCPCS: 80202; 82565; J3370; J7050

== ENCOUNTER 2022-03-05 07:33 | Day surgery (SDC) | payer OTHER ==
[2022-03-06] MEDS ORDERED: Vancomycin1 GM/2501 IV (08:09)
== END 2022-03-05 16:38 | disposition home or self-care (01) ==
LOC: ATC 07:33
DX: N39.0 Urinary tract infection, site not specified (principal); N31.9 Neuromuscular dysfunction of bladder, unspecified; R62.50 Unspecified lack of expected normal physiological development in childhood; K21.9 Gastro-esophageal reflux disease without esophagitis; G40.802 Other epilepsy, not intractable, without status epilepticus; Z88.8 Allergy status to other drugs, medicaments and biological substances; Z88.1 Allergy status to other antibiotic agents
CPT/HCPCS: J3370; J7050

== ENCOUNTER 2022-03-07 02:33 | Day surgery (SDC) | payer OTHER ==
[~2022-03-07 02:33] MED LIST changes: +Vancomycin1 GM/2501 IV
--- NOTE | 2022-03-07 17:22 | NUR ---
AM DISCHARGE TIME WAS 0920
== END 2022-03-07 17:12 | disposition home or self-care (01) ==
LOC: ATC 02:33
DX: N39.0 Urinary tract infection, site not specified (principal); K21.9 Gastro-esophageal reflux disease without esophagitis; G40.909 Epilepsy, unspecified, not intractable, without status epilepticus; Z88.8 Allergy status to other drugs, medicaments and biological substances
CPT/HCPCS: J3370; J7050

== ENCOUNTER 2022-03-08 03:49 | Day surgery (SDC) | payer OTHER | END 2022-03-08 17:06 | disposition home or self-care (01) | LOC: ATC 03:49 | DX: N39.0 Urinary tract infection, site not specified (principal); Z88.8 Allergy status to other drugs, medicaments and biological substances; K21.9 Gastro-esophageal reflux disease without esophagitis; G40.909 Epilepsy, unspecified, not intractable, without status epilepticus | CPT/HCPCS: 96365; 96366; J3370; J7050 ==

== ENCOUNTER 2022-03-09 02:22 | Day surgery (SDC) | payer OTHER | END 2022-03-09 09:03 | disposition home or self-care (01) | LOC: ATC 02:22 | DX: N39.0 Urinary tract infection, site not specified (principal); K21.9 Gastro-esophageal reflux disease without esophagitis; G40.909 Epilepsy, unspecified, not intractable, without status epilepticus; N31.0 Uninhibited neuropathic bladder, not elsewhere classified | CPT/HCPCS: 96365; J3370; J7050 ==

== ENCOUNTER → 2022-09-05 | Outpatient (CLI) | payer OTHER | END | disposition home or self-care (01) | LOC: LAB 18:34 → LAB SHORT 18:34 | DX: N39.0 Urinary tract infection, site not specified (principal) | CPT/HCPCS: 87077; 87086; 87186 ==

== ENCOUNTER → 2023-01-21 | Outpatient (CLI) | payer OTHER ==
[2023-01-22 10:03] LABS: Appearance, Urine Hazy (Clear); Bilirubin, Urine Neg (Neg); Blood, Urine 4+ (Neg); Color, Urine Yellow (P-Yellow); Glucose Qualitative, Urine Neg (Neg); Ketones, Urine Neg (Neg); Leukocyte Esterase, Urine 3+ (Neg); Nitrite, Urine Neg (Neg); Protein, Urine 2+ (Neg); Specific Gravity, Urine 1.025 (1.003-1.022); Urobilinogen, Urine NORM (Normal)
[2023-01-22 10:38] LABS: Bacteria Few /hpf; Squamous Epithelial Cells Not Seen /hpf (Few); Yeast/Fungi Urine Few /hpf
== END ==
LOC: LAB SHORT 16:15 → LAB 16:15
PROVIDERS: Family Medicine
DX: R30.0 Dysuria (principal)
CPT/HCPCS: 81001; 87077; 87086; 87186

== ENCOUNTER → 2023-04-22 | Outpatient (CLI) | payer OTHER ==
[2023-04-22 17:28] LABS: Source, Urine Voided
[2023-04-22 18:47] LABS: Appearance, Urine Turbid (Clear); Bilirubin, Urine Neg (Neg); Blood, Urine 1+ (Neg); Color, Urine Yellow (P-Yellow); Glucose Qualitative, Urine Neg (Neg); Ketones, Urine Neg (Neg); Leukocyte Esterase, Urine 2+ (Neg); Nitrite, Urine Neg (Neg); Protein, Urine 1+ (Neg); Specific Gravity, Urine 1.015 (1.003-1.022); Urobilinogen, Urine NORM (Normal)
[2023-04-22 19:03] LABS: Amorphous Heavy (0-Heavy)
[2023-04-22 19:04] LABS: Bacteria Few /hpf; Squamous Epithelial Cells Not Seen /hpf (Few); White Blood Cells, Urine 25-50 /hpf (0-5)
== END ==
LOC: LAB 11:36 → LAB SHORT 11:36
PROVIDERS: Family Medicine
DX: R30.0 Dysuria (principal)
CPT/HCPCS: 81001; 87077; 87086; 87186

== ENCOUNTER → 2023-07-01 | Outpatient (CLI) | payer OTHER | END | disposition home or self-care (01) | LOC: LAB SHORT 14:56 → LAB 14:56 | DX: R33.9 Retention of urine, unspecified (principal) | CPT/HCPCS: 87077; 87086; 87186 ==

== ENCOUNTER → 2023-08-19 | Outpatient (CLI) | payer OTHER ==
[2023-08-19 11:09] LABS: Source, Urine Voided
[2023-08-19 11:44] LABS: Appearance, Urine Hazy (Clear); Bilirubin, Urine Neg (Neg); Blood, Urine 2+ (Neg); Color, Urine Yellow (P-Yellow); Glucose Qualitative, Urine Neg (Neg); Ketones, Urine Neg (Neg); Leukocyte Esterase, Urine 3+ (Neg); Nitrite, Urine Pos (Neg); Protein, Urine 2+ (Neg); Urobilinogen, Urine NORM (Normal)
[2023-08-19 12:02] LABS: Amorphous Heavy (0-Heavy); Bacteria Many /hpf; Squamous Epithelial Cells Rare /hpf (Few); White Blood Cells, Urine 50-100 /hpf (0-5)
== END ==
LOC: LAB SHORT 11:05 → LAB 11:05
PROVIDERS: Family Medicine
DX: R50.9 Fever, unspecified (principal)
CPT/HCPCS: 81001; 87077; 87086; 87186

== ENCOUNTER → 2023-09-04 | Outpatient (CLI) | payer OTHER | LOC: LAB 18:20 → LAB SHORT 18:20 | DX: R33.9 Retention of urine, unspecified (principal) | CPT/HCPCS: 87077; 87086; 87186 ==

== ENCOUNTER 2023-09-14 03:38 | Day surgery (SDC) | payer OTHER ==
[2023-09-14 15:22] VITALS: BP 95/46
== END 2023-09-14 15:52 | disposition home or self-care (01) ==
LOC: ATC 03:38
DX: N39.0 Urinary tract infection, site not specified (principal); B96.5 Pseudomonas (aeruginosa) (mallei) (pseudomallei) as the cause of diseases classified elsewhere; K21.9 Gastro-esophageal reflux disease without esophagitis; G40.219 Localization-related (focal) (partial) symptomatic epilepsy and epileptic syndromes with complex partial seizures, intractable, without status epilepticus; G40.813 Lennox-Gastaut syndrome, intractable, with status epilepticus; G80.8 Other cerebral palsy; R53.2 Functional quadriplegia; Z88.8 Allergy status to other drugs, medicaments and biological substances; Z79.899 Other long term (current) drug therapy

== ENCOUNTER 2023-09-15 03:13 | Day surgery (SDC) | payer OTHER ==
[2023-09-15 15:59] VITALS: BP 91/54
== END 2023-09-15 16:00 | disposition home or self-care (01) ==
LOC: ATC 03:13
DX: N39.0 Urinary tract infection, site not specified (principal); G80.9 Cerebral palsy, unspecified; G40.219 Localization-related (focal) (partial) symptomatic epilepsy and epileptic syndromes with complex partial seizures, intractable, without status epilepticus; Z99.81 Dependence on supplemental oxygen; Z88.8 Allergy status to other drugs, medicaments and biological substances; Z91.011 Allergy to milk products; Z79.899 Other long term (current) drug therapy

== ENCOUNTER 2023-09-16 04:27 | Day surgery (SDC) | payer OTHER ==
[2023-09-16 15:43] VITALS: BP 112/68
== END 2023-09-16 16:12 | disposition home or self-care (01) ==
LOC: ATC 04:27
DX: N39.0 Urinary tract infection, site not specified (principal); B96.5 Pseudomonas (aeruginosa) (mallei) (pseudomallei) as the cause of diseases classified elsewhere; K21.9 Gastro-esophageal reflux disease without esophagitis; G40.219 Localization-related (focal) (partial) symptomatic epilepsy and epileptic syndromes with complex partial seizures, intractable, without status epilepticus; G40.813 Lennox-Gastaut syndrome, intractable, with status epilepticus; G80.8 Other cerebral palsy; R53.2 Functional quadriplegia; Z88.8 Allergy status to other drugs, medicaments and biological substances; Z79.899 Other long term (current) drug therapy

== ENCOUNTER 2023-10-22 15:36 | Inpatient (IN) | payer OTHER ==
[~2023-10-22] VITALS: Ht 160 cm; Wt 63.5 kg
[~2023-10-22 15:36] MED LIST changes: +ACET325 PO; -HYDCOR2.5C PR; +HYDROCORTISONE30 GM TOP; -Prilosec10 M1 PO
[2023-10-22 16:59] LABS: BASOPHILS ABSOLUTE AUTO 0.04 K/mm3 (0.00-0.23); BASOPHILS PERCENT AUTO 0 % (0-2); EOSINOPHILS ABSOLUTE AUTO 0.11 K/mm3 (0.00-0.68); EOSINOPHILS PERCENT AUTO 1 % (0-6); Hematocrit 43.3 % (37.0-53.0); Hemoglobin 13.9 g/dL (13.5-17.5); IMMATURE GRAN ABSOLUTE AUTO 0.02 K/mm3 (0.00-0.10); IMMATURE GRAN PERCENT AUTO 0 % (0-1); LYMPHOCYTES ABSOLUTE AUTO 2.14 K/mm3 (0.84-5.20); LYMPHOCYTES PERCENT AUTO 16 % (21-46); MONOCYTES ABSOLUTE AUTO 0.63 K/mm3 (0.16-1.47); MONOCYTES PERCENT AUTO 5 % (4-13); Mean Corpuscular HGB 26.7 pg (26.0-34.0); Mean Corpuscular HGB Conc 32.1 g/dL (31.5-36.5); Mean Corpuscular Volume 83 fL (80-100); Mean Platelet Volume 9.6 fL (9.1-12.4); NEUTROPHILS ABSOLUTE AUTO 10.09 K/mm3 (1.96-9.15); NEUTROPHILS PERCENT AUTO 78 % (41-73); Platelet Count 307 K/mm3 (150-400); RDW Coefficient Variation 13.7 % (11.7-14.2); RDW Standard Deviation 42.1 fL (35.1-46.3); Red Blood Cell Count 5.21 M/mm3 (4.30-5.90); White Blood Cell Count 13.03 K/mm3 (4.00-11.30)
[2023-10-22] MEDS ORDERED: NS 1,000 ML IV SCH ×2 (17:05→17:10)
[2023-10-22] MEDS ORDERED: LevoFLOXacin 750 MG/D5W 150ML 150 ML IV ONE (17:10)
[2023-10-22 17:17] LABS: Albumin, Blood 3.8 g/dL (3.4-5.0); Albumin/Globulin Ratio 1.1 (0.8-1.8); Bilirubin, Total 0.5 mg/dL (0.1-1.0); Bun/Creatinine Ratio 12.4 (12.0-20.0); Calcium, Blood 9.1 mg/dL (8.5-10.1); Creatinine, Blood 0.8 mg/dL (0.60-1.20); Globulin, Blood 3.6 g/dL (2.2-4.0); Potassium, Blood 4.1 mmol/L (3.5-5.5); Total Protein, Blood 7.4 g/dL (6.4-8.2)
[2023-10-22 18:31] LABS: Influenza A, PCR NEGATIVE (NEGATIVE); Influenza B, PCR NEGATIVE (NEGATIVE); Resp Syncytial Virus, PCR NEGATIVE (NEGATIVE); SARS-Cov-2 (COVID-19) PCR, MMC NEGATIVE (NEGATIVE)
[2023-10-22] MEDS ORDERED: [UNRECOGNIZED DRUG - OTHER] PO (20:27)
[2023-10-22] MEDS ORDERED: CLINDAGEL75 ML TOP (20:30)
[2023-10-22] MEDS ORDERED: ATHLETE'S FOO35.4 GM TOP (20:32)
[2023-10-22] MEDS ORDERED: ALBU2.5V5 INH (20:33)
[2023-10-22 20:58] LABS: Adenovirus Not Detected (NOT DETECT); Coronavirus 229E Not Detected (NOT DETECT); Coronavirus HKU1 Not Detected (NOT DETECT); Coronavirus NL63 Not Detected (NOT DETECT)
[2023-10-22 20:59] LABS: Bordetella pertussis Not Detected (NOT DETECT); Chlamydophila pneumoniae Not Detected (NOT DETECT); Coronavirus OC43 Not Detected (NOT DETECT); Human Metapneumovirus Not Detected (NOT DETECT); Human Rhinovirus/Enterovirus Not Detected (NOT DETECT); Influenza A/2009-H1 Not Detected (NOT DETECT); Influenza A/H1 Not Detected (NOT DETECT); Influenza A/H3 Not Detected (NOT DETECT); Influenza B Not Detected (NOT DETECT); Mycoplasma pneumoniae Not Detected (NOT DETECT); Parainfluenza Virus 1 Not Detected (NOT DETECT); Parainfluenza Virus 2 Not Detected (NOT DETECT); Parainfluenza Virus 3 Not Detected (NOT DETECT); Parainfluenza Virus 4 Not Detected (NOT DETECT); Respiratory Syncytial Virus Not Detected (NOT DETECT); SARS-Cov-2 (COVID-19), BioFire Not Detected (NOT DETECT)
[2023-10-22] MEDS ORDERED: ClonazePAM 1 MG Tab PO ONE (21:25)
[2023-10-22] MEDS ORDERED: PHENobarbital 64.8 MG Tab PO ONE (21:25)
[2023-10-22] MEDS ORDERED: LevETIRAcetam 500 MG Tab PO ONE ×2 (21:25→21:30)
[2023-10-22] MEDS ORDERED: LamoTRIgine 25 MG Tab PO ONE (21:30)
[2023-10-22] MEDS ORDERED: LamoTRIgine 100 MG Tab PO ONE (21:45)
[2023-10-22] MEDS ORDERED: Hydrocortisone Acetate 25 MG Supp PR PRN (22:40)
[2023-10-22] MEDS ORDERED: Loperamide HCl 2 MG Cap PO PRN (22:40)
[2023-10-22] MEDS ORDERED: Ipratropium/Albuterol SulF 2.5-0.5MG/3 ML Amp INH PRN (22:40)
[2023-10-22] MEDS ORDERED: Bisacodyl 10 MG Supp PR PRN (22:40)
[2023-10-22] MEDS ORDERED: Magnesium Hydroxide Conc 10 ML UDC PO PRN (22:40)
[2023-10-22] MEDS ORDERED: Albuterol 2.5 MG/3 ML VIAL INH PRN (22:45)
[2023-10-22] MEDS ORDERED: Acetaminophen 325 MG TABLET PO PRN ×2 (22:45→23:05)
[2023-10-22] MEDS ORDERED: Ondansetron HCl 2 MG / ML 2ML Vial IV PRN (23:00)
[2023-10-22] MEDS ORDERED: Acetaminophen 650 MG Supp PR PRN (23:05)
--- NOTE | 2023-10-23 | NUR ---
ARRIVAL TO PCU NOTE RECEIVED REPORT FROM PATIENT INFORMATION COORDINATOR BERNA PEÑALOZA AT 2337, PT SHORTLY ARRIVED TO PCU 1 AT 2345 ACCOMPANIED BY PT'S MOTHER BARBARA BILLY. TRANSFERRED FROM [facility] TO PCU BED VIA SLIDE SHEET. PT IS NON-VERBAL AT [facility] PER ER REPORT AND FROM PT'S MOTHER. EYES OPEN SPONTANEOUSLY AND ARE EQUAL AND REACTIVE TO LIGHT. GROSS MOVEMENTS EQUAL BILAT. WHEELCHAIR BOUND AT BASELINE, BUT IS ABLE TO STAND BRIEFLY. PT'S MOTHER ENDORSES FREQUENT SEIZURES AT HOME. HX OF TEX GASTAUT SYNDROME. CARDIAC, TELEMETRY SHOWS SR 90'S WITH SBP RANGING 130'S. PT UNABLE TO VERBALIZE CP OR PRESSURE, BUT DOES NOT APPEAR IN DISTRESS. RESPIRATORY, MAINTAINS SPO2 >90% ON RA. RR EVEN AND UNLABORED. PT'S MOTHER REPORTS PT HAS DIFFICULTY CLEARING SECREATIONS WHEN LAYING ON HIS BACK. PT LAYS ON SIDE WHEN SLEEPING WELL USES 2LNC. GI/, INCONTINENT OF URINE AND STOOL AT BASELINE WITH HX OF CHRONIC CONSTIPATION REPORTED. BS PRESENT IN ALL QUADRANTS. PT'S MOTHER/POA SPOKE AT LENGTH WITH THIS RN ABOUT PT'S CODE STATUS STATING HER WISHES FOR PT TO BE MADE A DNR. THIS RN CONFIRMED STATUS CHANGE WITH PT'S MOTHER WELL DR. HANSEN. WILL CONTINUE TO PROCESS MD ORDERS. GUERITA WILLIS UPON ARRIVAL TO PCU.
[2023-10-23] MEDS ORDERED: Hydrocortisone 2.5% Cream 30 GM Tube TOP PRN (00:05)
[2023-10-23 00:09] VITALS: BP 138/68
[2023-10-23] MEDS ORDERED: Diazepam 5 MG / ML 2ML SYR IV PRN (00:15)
--- NOTE | 2023-10-23 00:30 | NUR ---
UPDATE PT'S MOTHER (BARBARA BILLY) GIVES OK TO HAVE ALL FOUR BEDRAILS UP DUE TO PT BEING AN EXTREME FALL RISK. BED ALARM ON, BED IN LOWEST POSITION, SEIZURE PRECAUTIONS IN PLACE.
[2023-10-23] MEDS ORDERED: KETO15TC TOP (03:11)
[2023-10-23 03:23] VITALS: BP 124/66
[2023-10-23 04:59] LABS: BASOPHILS ABSOLUTE AUTO 0.05 K/mm3 (0.00-0.23); BASOPHILS PERCENT AUTO 1 % (0-2); EOSINOPHILS ABSOLUTE AUTO 0.27 K/mm3 (0.00-0.68); EOSINOPHILS PERCENT AUTO 3 % (0-6); Hematocrit 38.2 % (37.0-53.0); Hemoglobin 12.3 g/dL (13.5-17.5); IMMATURE GRAN ABSOLUTE AUTO 0.02 K/mm3 (0.00-0.10); IMMATURE GRAN PERCENT AUTO 0 % (0-1); LYMPHOCYTES ABSOLUTE AUTO 1.87 K/mm3 (0.84-5.20); LYMPHOCYTES PERCENT AUTO 19 % (21-46); MONOCYTES PERCENT AUTO 5 % (4-13); Mean Corpuscular HGB 27.1 pg (26.0-34.0); Mean Corpuscular HGB Conc 32.2 g/dL (31.5-36.5); Mean Corpuscular Volume 84 fL (80-100); Mean Platelet Volume 9.9 fL (9.1-12.4); NEUTROPHILS ABSOLUTE AUTO 7.26 K/mm3 (1.96-9.15); NEUTROPHILS PERCENT AUTO 73 % (41-73); Platelet Count 261 K/mm3 (150-400); RDW Coefficient Variation 13.7 % (11.7-14.2); RDW Standard Deviation 42.1 fL (35.1-46.3); Red Blood Cell Count 4.54 M/mm3 (4.30-5.90); White Blood Cell Count 9.97 K/mm3 (4.00-11.30)
[2023-10-23 05:18] LABS: Bun/Creatinine Ratio 18.2 (12.0-20.0); Calcium, Blood 8.7 mg/dL (8.5-10.1); Creatinine, Blood 0.61 mg/dL (0.60-1.20); Potassium, Blood 4.2 mmol/L (3.5-5.5)
[2023-10-23] MEDS ORDERED: LevETIRAcetam 500 MG Tab PO SCH ×2 (06:00→18:00)
[2023-10-23] MEDS ORDERED: LamoTRIgine 100 MG Tab PO SCH (06:00)
[2023-10-23] MEDS ORDERED: Omeprazole 20 MG CapCR PO SCH (06:00)
--- NOTE | 2023-10-23 06:10 | NUR ---
SHIFT SUMMARY NO ACUTE CHANGES SINCE ARRIVAL TO PCU NOTE. SEE NOTE FOR DETAILS. NO NEW ORDERS AT THIS TIME, WILL REPORT TO ONCOMING RN. VSS, ALEXN OF THIS NOTE.
[2023-10-23 07:48] VITALS: BP 97/83
[2023-10-23] MEDS ORDERED: Lactobacil 2-S.Thermo-Bifido 1 1 Cap PO SCH (09:00)
[2023-10-23] MEDS ORDERED: PHENobarbital 64.8 MG Tab PO SCH ×2 (09:00)
[2023-10-23] MEDS ORDERED: Enoxaparin 40 MG/0.4 ML SYR SC SCH (09:00)
[2023-10-23] MEDS ORDERED: Polyethylene Glycol 3350 17 gm PO SCH (09:00)
[2023-10-23] MEDS ORDERED: Cholecalciferol 1000 Unit Tablet (=25MCG) PO SCH (09:00)
[2023-10-23] MEDS ORDERED: Multivitamins 1 Tab PO SCH (09:00)
[2023-10-23] MEDS ORDERED: Tamsulosin HCl 0.4 MG Cap PO SCH (09:00)
[2023-10-23] MEDS ORDERED: Clindamycin Phosphate 60 GM Tube TOP SCH (09:00)
[2023-10-23] MEDS ORDERED: Clotrimazole 1% Cream 15 GM Tube TOP SCH (09:00)
[2023-10-23] MEDS ORDERED: GuaiFENesin 200 MG IR Tab PO SCH (09:00)
[2023-10-23] MEDS ORDERED: ClonazePAM 1 MG Tab PO SCH (09:00)
[2023-10-23] MEDS ORDERED: Misc. Oral Solution PO SCH (09:00)
[2023-10-23 11:48] VITALS: BP 111/63
--- NOTE | 2023-10-23 13:32 | NUR ---
Upon receiving a referral for spiritual care, I visited the patient. Patient is sleeping so I visit with his mother, Lizzie. She does a brief life review of patient and how it has effected her life. I provided therapeutic listening and prayer. Lizzie responded well and showed signs of being encourged and voiced appreciation for the visit.
[2023-10-23 16:35] VITALS: BP 103/67
[2023-10-23] MEDS ORDERED: LevoFLOXacin 750 MG/D5W 150ML 150 ML IV SCH (17:00)
[2023-10-23] MEDS ORDERED: LevoFLOXacin 750 MG Tab PO SCH (17:00)
--- NOTE | 2023-10-23 17:48 | NUR ---
SHIFT SUMMARY PT HAS BEEN VERY DROWSY TODAY BUT HAS BEEN ALERT TO PHYSICAL STIMULI. HE IS NONVERBAL AND HAS HAD HIS MOTHER AT BEDSIDE ASSISTING WITH CARE. THE PT IS A 2P TRANSFER AND HE FIDGETS IN BED AND MOVES AROUND. A FEW TIMES THE PT'S MOM ASKED US NOT TO REPOSITION HIM BECAUSE HE WAS COMFORTABLE WHERE HE WAS LAYING. 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 THE PILLS THAT CAN NOT BE CRUSHED HE DOES WELL WITH IN PUREED FOOD (ONE AT A TIME). HIS MOTHER REPORTS THAT THE PT HAS HAD A FEW SHORT CLONIC SEIZURES BUT THEY DO NOT LAST LONG. SHE STATED THEY GIVE HIM VALIUM WHEN THEY LAST OVER THREE MINUTES. THE PT HAS NOT HAD ANY WITNESSED BY STAFF TODAY. WE STILL NEED A UA ON THE PT. WE PLACED A CONDOM CATH ON THE PT TO HELP OBTAIN THIS SAMPLE. SEE NOTES FOR ANY UPDATES.
[2023-10-23 19:49] LABS: Source, Urine Straight Cath
[2023-10-23 19:55] LABS: Appearance, Urine Clear (Clear); Bilirubin, Urine Neg (Neg); Blood, Urine 2+ (Neg); Color, Urine Yellow (P-Yellow); Glucose Qualitative, Urine Neg (Neg); Ketones, Urine Neg (Neg); Leukocyte Esterase, Urine 2+ (Neg); Nitrite, Urine Neg (Neg); Protein, Urine Neg (Neg); Urobilinogen, Urine NORM (Normal); pH, Urine 6.5 (5.0-8.0)
[2023-10-23 20:03] LABS: Bacteria Few /hpf; Squamous Epithelial Cells Not Seen /hpf (Few)
[2023-10-23 20:12] VITALS: BP 108/75
[2023-10-24] VITALS (8 sets, daily range): BP systolic 88–104; BP diastolic 59–80
[2023-10-24 04:36] LABS: BASOPHILS ABSOLUTE AUTO 0.05 K/mm3 (0.00-0.23); BASOPHILS PERCENT AUTO 1 % (0-2); EOSINOPHILS ABSOLUTE AUTO 0.45 K/mm3 (0.00-0.68); EOSINOPHILS PERCENT AUTO 8 % (0-6); Hematocrit 38.7 % (37.0-53.0); Hemoglobin 12.3 g/dL (13.5-17.5); IMMATURE GRAN ABSOLUTE AUTO 0.01 K/mm3 (0.00-0.10); IMMATURE GRAN PERCENT AUTO 0 % (0-1); LYMPHOCYTES ABSOLUTE AUTO 2.03 K/mm3 (0.84-5.20); LYMPHOCYTES PERCENT AUTO 38 % (21-46); MONOCYTES ABSOLUTE AUTO 0.37 K/mm3 (0.16-1.47); MONOCYTES PERCENT AUTO 7 % (4-13); Mean Corpuscular HGB 26.5 pg (26.0-34.0); Mean Corpuscular HGB Conc 31.8 g/dL (31.5-36.5); Mean Corpuscular Volume 83 fL (80-100); Mean Platelet Volume 9.8 fL (9.1-12.4); NEUTROPHILS ABSOLUTE AUTO 2.47 K/mm3 (1.96-9.15); NEUTROPHILS PERCENT AUTO 46 % (41-73); Platelet Count 270 K/mm3 (150-400); RDW Coefficient Variation 13.6 % (11.7-14.2); RDW Standard Deviation 41.5 fL (35.1-46.3); Red Blood Cell Count 4.64 M/mm3 (4.30-5.90); White Blood Cell Count 5.38 K/mm3 (4.00-11.30)
[2023-10-24 04:59] LABS: Albumin, Blood 3.3 g/dL (3.4-5.0); Bilirubin, Total 0.4 mg/dL (0.1-1.0); Bun/Creatinine Ratio 17.5 (12.0-20.0); Calcium, Blood 8.8 mg/dL (8.5-10.1); Creatinine, Blood 0.57 mg/dL (0.60-1.20); Globulin, Blood 3.4 g/dL (2.2-4.0); Potassium, Blood 3.8 mmol/L (3.5-5.5); Total Protein, Blood 6.7 g/dL (6.4-8.2)
--- NOTE | 2023-10-24 05:31 | NUR ---
1915 Assumed care of pt, bedside report completed. Shift plan of care reviewed with mother at bedside as pt is developmentally delayed. 0015 Bladder scanned for over 500ml. Straight cathed for 525mls. Pt tolerated well. 0530 Bladder scanned for 375ml. Straight cath for over 400ml per Bladder Managment Protocol. Pt has been straight cathed x2 thus far in the last 12 hours. Will contiue to moniotr for urine output and report to day shift for potential need for further intervention. Pt does not normally need to be straight cathed for urine output at baseline though is incontinent and due to non verbal status and cognitive delay pt is unable to particiapte in "bladder training." UA sent on prior shift was positive, will report to oncoming shift as well. Urine culture pending. Please see full assessment for additional details. No further complaints or concerns at this time, will continue to monitor.
[2023-10-24] MEDS ORDERED: Piperacillin/Tazobactam Sod 4.5 GM in NS 100 ML IV SCH (08:00)
--- NOTE | 2023-10-24 16:16 | NUR ---
SHIFT SUMMARY PT IS NONVERBAL, HAS DEVELOPMENTAL DELAY, AND IS A Q2 REPOSITION IF TOLERATING IT WELL. THE PT'S MOTHER STATES THAT THE PT CONTINUES TO HAVE HIS EPISODES OF SMALL SEIZURES THAT LAST A FEW SECONDS. HE IS STILL A FEEDER, TAKES HIS PILLS CRUSH IN APPLE SAUCE, BUT CAN DO THE NON CRUSHABLE ONES ONE AT A TIME IN PUREED FOOD, AND THE PT WAS PLACED ON NECTAR THICK LIQUIDS. HE HAD A MAX PLACED TODAY D/T URINARY RETENTION PER DR. FOFANA. VS REMAIN STABLE. THE PT REQUIRES 2L NC WHILE ASLEEP TO MAINTAIN SP02 >90%. NO ACUTE EVENTS THIS SHIFT. SEE NOTES FOR ANY UPDATES.
[2023-10-25] VITALS (7 sets, daily range): BP systolic 83–112; BP diastolic 56–85
[2023-10-25 04:12] LABS: BASOPHILS ABSOLUTE AUTO 0.04 K/mm3 (0.00-0.23); BASOPHILS PERCENT AUTO 1 % (0-2); EOSINOPHILS ABSOLUTE AUTO 0.38 K/mm3 (0.00-0.68); EOSINOPHILS PERCENT AUTO 6 % (0-6); Hematocrit 38.6 % (37.0-53.0); Hemoglobin 12.5 g/dL (13.5-17.5); IMMATURE GRAN ABSOLUTE AUTO 0.01 K/mm3 (0.00-0.10); IMMATURE GRAN PERCENT AUTO 0 % (0-1); LYMPHOCYTES ABSOLUTE AUTO 2.06 K/mm3 (0.84-5.20); LYMPHOCYTES PERCENT AUTO 34 % (21-46); MONOCYTES ABSOLUTE AUTO 0.44 K/mm3 (0.16-1.47); MONOCYTES PERCENT AUTO 7 % (4-13); Mean Corpuscular HGB 27.1 pg (26.0-34.0); Mean Corpuscular HGB Conc 32.4 g/dL (31.5-36.5); Mean Corpuscular Volume 84 fL (80-100); Mean Platelet Volume 10.1 fL (9.1-12.4); NEUTROPHILS ABSOLUTE AUTO 3.08 K/mm3 (1.96-9.15); NEUTROPHILS PERCENT AUTO 51 % (41-73); Platelet Count 265 K/mm3 (150-400); RDW Coefficient Variation 13.5 % (11.7-14.2); RDW Standard Deviation 41.6 fL (35.1-46.3); Red Blood Cell Count 4.61 M/mm3 (4.30-5.90); White Blood Cell Count 6.01 K/mm3 (4.00-11.30)
[2023-10-25 04:27] LABS: Bun/Creatinine Ratio 15.5 (12.0-20.0); Calcium, Blood 8.8 mg/dL (8.5-10.1); Creatinine, Blood 0.71 mg/dL (0.60-1.20); Potassium, Blood 3.6 mmol/L (3.5-5.5)
--- NOTE | 2023-10-25 05:32 | NUR ---
1915 Assumed care of pt, bedside report completed. Pt with uneventful shift, no obvious seizures witness by this RN. BP soft, though stable and MAP above 65 and is consitent with recent BP on DAY shift and NOC shift prior. Pt appears to be at baseline neuro status and has slept well. Gamboa in place for acute retention, draining clear yellow urine, QS. Please see full assessment for additional details. No further complaints or concerns at this time, will continue to monitor.
[2023-10-25] MEDS ORDERED: LevETIRAcetam 100 MG/ML 5ML ORAL SYR PO SCH ×2 (12:00→18:00)
--- NOTE | 2023-10-25 18:12 | NUR ---
PT WAS SLEEPY THIS AM, MORNING MEDICATIONS WERE DIFFICULT TO ADMINISTER PT WOULD NOT STAY AWAKE FOR ADMINISTRATION. MOTHER REPORTS THAT THIS HAS BEEN AN ONGOING ISSUE FOR HIM AT HIS CARE FACILITY WELL THAT HE IS NOT ABLE TO STAY AWAKE FOR MEDICATION ADMINISTRATION. SPEECH THERAPY SAW PT THIS AM AND AGREED THAT PT SHOULD NO LONGER BE HAVING ANY PILLS WHOLE, DR GARCIA WAS CALLED AND KEPPRA THAT IS NOT ABLE TO BE CRUSHED WAS CHANGED TO AN ORAL SUSPENSION. THE SHIFT WENT ON PT BECAME LESS TIRED, AFTERNOON AND EVENING MEDCIATION PASS WAS MORE EASY PT WAS MORE AWAKE AND WOULD STAY AWAKE. PER MOTHER PT IS CLOSE TO OR AT BASELINE. MAX DRAINING WELL TO GRAVITY
[2023-10-26 02:53] VITALS: BP 98/59
[2023-10-26 06:18] LABS: BASOPHILS ABSOLUTE AUTO 0.06 K/mm3 (0.00-0.23); BASOPHILS PERCENT AUTO 1 % (0-2); EOSINOPHILS ABSOLUTE AUTO 0.34 K/mm3 (0.00-0.68); EOSINOPHILS PERCENT AUTO 6 % (0-6); Hematocrit 41.5 % (37.0-53.0); Hemoglobin 13.2 g/dL (13.5-17.5); IMMATURE GRAN ABSOLUTE AUTO 0.01 K/mm3 (0.00-0.10); IMMATURE GRAN PERCENT AUTO 0 % (0-1); LYMPHOCYTES ABSOLUTE AUTO 2.41 K/mm3 (0.84-5.20); LYMPHOCYTES PERCENT AUTO 43 % (21-46); MONOCYTES PERCENT AUTO 7 % (4-13); Mean Corpuscular HGB 26.6 pg (26.0-34.0); Mean Corpuscular HGB Conc 31.8 g/dL (31.5-36.5); Mean Corpuscular Volume 84 fL (80-100); Mean Platelet Volume 9.5 fL (9.1-12.4); NEUTROPHILS ABSOLUTE AUTO 2.39 K/mm3 (1.96-9.15); NEUTROPHILS PERCENT AUTO 43 % (41-73); Platelet Count 279 K/mm3 (150-400); RDW Coefficient Variation 13.4 % (11.7-14.2); RDW Standard Deviation 40.9 fL (35.1-46.3); Red Blood Cell Count 4.96 M/mm3 (4.30-5.90); White Blood Cell Count 5.61 K/mm3 (4.00-11.30)
--- NOTE | 2023-10-26 06:25 | NUR ---
SHIFT SUMMARY: Pt is admitted for PNA and is a DNR. is alert but not able to make needs known. Was transferred from PCU about 2300. ADLs have been 1p but has not gotten out of bed. No noted signs of pain or discomfort. Folly in place and draining clear yellow urine.
[2023-10-26 06:47] LABS: Bun/Creatinine Ratio 13.2 (12.0-20.0); Calcium, Blood 8.6 mg/dL (8.5-10.1); Creatinine, Blood 0.76 mg/dL (0.60-1.20); Potassium, Blood 3.8 mmol/L (3.5-5.5)
[2023-10-26 07:38] VITALS: BP 115/68
[2023-10-26 15:14] VITALS: BP 104/94
--- NOTE | 2023-10-26 18:42 | NUR ---
pt had an uneventful day, mom at bedside all day, she is assisting with care, no further changes this shift. call light in reach.
[2023-10-26 19:31] VITALS: BP 104/76
[2023-10-27 03:38] VITALS: BP 113/74
[2023-10-27 05:33] LABS: BASOPHILS ABSOLUTE AUTO 0.06 K/mm3 (0.00-0.23); BASOPHILS PERCENT AUTO 1 % (0-2); EOSINOPHILS ABSOLUTE AUTO 0.36 K/mm3 (0.00-0.68); EOSINOPHILS PERCENT AUTO 4 % (0-6); Hematocrit 42.4 % (37.0-53.0); Hemoglobin 13.6 g/dL (13.5-17.5); IMMATURE GRAN ABSOLUTE AUTO 0.02 K/mm3 (0.00-0.10); IMMATURE GRAN PERCENT AUTO 0 % (0-1); LYMPHOCYTES PERCENT AUTO 31 % (21-46); MONOCYTES ABSOLUTE AUTO 0.54 K/mm3 (0.16-1.47); MONOCYTES PERCENT AUTO 7 % (4-13); Mean Corpuscular HGB 26.7 pg (26.0-34.0); Mean Corpuscular HGB Conc 32.1 g/dL (31.5-36.5); Mean Corpuscular Volume 83 fL (80-100); Mean Platelet Volume 9.6 fL (9.1-12.4); NEUTROPHILS ABSOLUTE AUTO 4.69 K/mm3 (1.96-9.15); NEUTROPHILS PERCENT AUTO 57 % (41-73); Platelet Count 278 K/mm3 (150-400); RDW Coefficient Variation 13.2 % (11.7-14.2); RDW Standard Deviation 40.2 fL (35.1-46.3); Red Blood Cell Count 5.09 M/mm3 (4.30-5.90); White Blood Cell Count 8.27 K/mm3 (4.00-11.30)
[2023-10-27 05:54] LABS: Bun/Creatinine Ratio 18.6 (12.0-20.0); Calcium, Blood 9.3 mg/dL (8.5-10.1); Creatinine, Blood 0.59 mg/dL (0.60-1.20); Potassium, Blood 3.7 mmol/L (3.5-5.5)
--- NOTE | 2023-10-27 06:04 | NUR ---
SHIFT SUMMARY: Pt is admitted for PNA and is a DNR. is alert but not able to make needs known. Is non verbal. ADLs have been 2p but has not gotten out of bed. Not pain noted during shift. Folly is flowing clear yellow urine.
[2023-10-27 07:17] VITALS: BP 114/76
[2023-10-27 15:13] VITALS: BP 105/71
[2023-10-27 19:35] VITALS: BP 93/52
--- NOTE | 2023-10-27 20:01 | NUR ---
SHIFT SUMMARY: PT IS ALERT BUT UNABLE TO ASSESS ORIENTATION HE IS NON VERBAL. THIS MORNING PT WAS HAVING MULTIPLE SMALL SEIZURES. DR. GARCIA IN ROOM AND AWARE. PT GIVEN VALIUM 5 MG PER HIS REQUEST AND PT STOPPED HAVING SEIZURES BUT SLEPT MOST OF THE MORNING. AT LUNCH PT AWOKE TO EAT LUNCH AND WAS ABLE TO TAKE HIS MEDICATIONS. CONSULTED WITH PHARMACIST BERNA AND WILL TO GIVE KLONAZAPAM TID JUST GIVE 1400 DOSE CLOSER TO 1700 TO PREVENT FURTHER SEIZURE ACTIVITY. PT APPEARED TO NOT HAVE ANY FURTHER SEIZURES THE REST OF THE DAY. HE WAS ABLE TO TAKE MEDICATIONS CRUSHED IN APPLE SAUCE WITHOUT DIFFICULTY. CATHETER IN FOR RETENTION PATENT AND DRAINING CLEAR YELLOW URINE. PT TOLERATING IV ABX AT THIS TIME.
[2023-10-28 03:39] VITALS: BP 117/69
[2023-10-28 05:06] LABS: BASOPHILS ABSOLUTE AUTO 0.08 K/mm3 (0.00-0.23); BASOPHILS PERCENT AUTO 1 % (0-2); EOSINOPHILS ABSOLUTE AUTO 0.33 K/mm3 (0.00-0.68); EOSINOPHILS PERCENT AUTO 3 % (0-6); Hematocrit 42.3 % (37.0-53.0); Hemoglobin 13.6 g/dL (13.5-17.5); IMMATURE GRAN ABSOLUTE AUTO 0.03 K/mm3 (0.00-0.10); IMMATURE GRAN PERCENT AUTO 0 % (0-1); LYMPHOCYTES PERCENT AUTO 21 % (21-46); MONOCYTES ABSOLUTE AUTO 0.71 K/mm3 (0.16-1.47); MONOCYTES PERCENT AUTO 6 % (4-13); Mean Corpuscular HGB 26.8 pg (26.0-34.0); Mean Corpuscular HGB Conc 32.2 g/dL (31.5-36.5); Mean Corpuscular Volume 83 fL (80-100); Mean Platelet Volume 9.6 fL (9.1-12.4); NEUTROPHILS ABSOLUTE AUTO 7.79 K/mm3 (1.96-9.15); NEUTROPHILS PERCENT AUTO 69 % (41-73); Platelet Count 284 K/mm3 (150-400); RDW Coefficient Variation 13.3 % (11.7-14.2); RDW Standard Deviation 40.8 fL (35.1-46.3); Red Blood Cell Count 5.07 M/mm3 (4.30-5.90); White Blood Cell Count 11.24 K/mm3 (4.00-11.30)
[2023-10-28 05:32] LABS: Bun/Creatinine Ratio 17.2 (12.0-20.0); Calcium, Blood 8.9 mg/dL (8.5-10.1); Creatinine, Blood 0.64 mg/dL (0.60-1.20); Potassium, Blood 3.4 mmol/L (3.5-5.5)
--- NOTE | 2023-10-28 06:16 | NUR ---
Patient alert and nonverbal, tracking movement with eyes and responding to stimuli. 2L oxygen via nasal cannula continued, tolerated well. Suction setup installed in room, patient requiring suctioning PRN for secretions. Zosyn infused through left AC PIV, tolerated well. Gamboa catheter in place and draining appropriately. Patient repositioned with two person assistance Q2 hours overnight for pressure sore prevention.
[2023-10-28 07:25] VITALS: BP 115/84
[2023-10-28] MEDS ORDERED: LORazepam 2 MG/ML 1ML Injection IV PRN (11:10)
[2023-10-28] MEDS ORDERED: Potassium Chl 20MEQ/Water100ML 100 ML IV SCH (13:00)
[2023-10-28 13:24] VITALS: BP 100/64
[2023-10-28] MEDS ORDERED: NS 250 ML IV PRN (13:30)
[2023-10-28 15:08] VITALS: BP 97/62
[2023-10-28] MEDS ORDERED: levETIRAcetam 2,000 MG in NS 100 ML IV ONE ×2 (18:20→18:35)
--- NOTE | 2023-10-28 18:24 | NUR ---
SHIFT SUMMARY PATIENT NONVERBAL AT BASELINE. PATIENT WITH MOTHER AT BEDSIDE. PATIENT HAVING SEIZURES THIS AM LASTING 3-5 SECONDS EVRY TWO MINUTES. MOTHER STATES THAT PATIENT HAS EXTENSIVE HISTORY OF SEIZURES AND WHEN HE IS ILL, SEIZURES ARE MORE FREQUENT. PATIENT HAVING SLEEP TRANSITION SEIZURES AND UNABLE TO FALL ASLEEP UNTIL AROUND 1300 TODAY AND HAS BEEN SLEEPING HEAVILY SINCE. PATIENT UNABLE TO BE WOKEN UP TO GIVE ORAL MEDICATIONS SAFELY. NATUROPATHIC DOCTOR MD TAYLOR AND SHANT ORDER FOR 1800 CHANGED TO IV. TWO OTHER MEDICATIONS ARE UNABLE TO BE GIVEN AT THIS TIME. PATIENT WITH ACUTE MAX CATHTER PLACED DURING THIS HOSPITALIZATION AND WILL STAY IN PLACE UNTIL HIS UROLOGY APPOINTMENT ON TUESDAY 10/31. MAX DRAINING YELLOW CLEAR URINE, NO CONCERNS WITH MAX. PATIENT WITH HISTROY FO MULTIPLE BLADDER INFECTIONS AND STRAIGHT CATHS NEEDED FOR RETENTION. CURRENTLY LIVING IN A GROUP ADULT HOME. PATIENT RESPONDS TO VERBAL STIMULI AND FOLLOWS MOVEMENT WITH HIS EYES WHEN AWAKE. PATIENT WITH LEFT SIDED GAZE. AT THIS TIME PATIENT SLEEPING VERY HEAVILIY, PUPILS REACTIVE TO LIGHT AND EQUAL. PATIENT UNABLE TO WAKE UP. MOTHER STATES THIS IS HIS NORMAL WHEN HE IS HAVING A LOT OF SEIZURES. MOTHER DECLINED ALL PRNS FOR SEIZURE ACTIVITY SHE STATES THEY "KNOCK HIM OUT" AND HE IS UNABLE TO TAKE HIS ORAL MEDICATIONS, WHICH IN TURN INCREASES HIS SEIZURE ACTIVITY. PER MOTHER PRN VALIUM WAS GIVEN YESTERDAY MORNING AND WAS INEFFECTIVE IN STOPPING SEIZURES. NO OTHER CONCERNS AT THIS TIME.
[2023-10-28 19:29] VITALS: BP 94/58
[2023-10-29] MEDS ORDERED: Piperacillin/Tazobactam Sod 4.5 GM in NS 100 ML IV SCH
--- NOTE | 2023-10-29 06:15 | NUR ---
SHIFT SUMMARY PT IS NONVERBAL AT BASELINE. PT WAS ASLEEP AT START OF SHIFT. PT MOTHER ARRIVED ATOUND 2030 AND ASSISTED IN WAKING AND FEEDING PT. PT RECEIVED HS MEDICATIONS. PT FELL BACK TO SLEEP AFTER EATING AND SPENT MOST OF THE SHIFT IN BED WITH EYES CLOSED AND RESPIRATIONS EVEN AND UNLABORED. PT ON 2LO2 DURING NOC AND MAINTAINING O2 SATS OVER 90%. PT LEFT ON ONE OF HIS SIDES DURING REPOSITIONING PER MOTHER'S SUGGESTION TO PREVENT ASPIRATION. VSS, NO COMPLAINTS OF CP/PRESSURE OR SOB. PT RECEIVED IV MEDICATIONS. NO ACUTE EVENTS AT THIS TIME. PT LEFT IN A POSITION OF SAFETY WITH FALL PRECAUTIONS IN PLACE AND CALL LIGHT IN REACH.
[2023-10-29 07:19] VITALS: BP 96/58
--- NOTE | 2023-10-29 10:46 | NUR ---
1005-DC PT LEFT WITH CAREGIVER FROM [facility] AND MOTHER. DR. GONZALEZ WALKED INTO ROOM AT THE TIME OF DC AND IT WAS CLARIFIED THAT DR. GONZALEZ DID NOT WANT PT TO GO HOME ON ANY ORAL ANTIBIOTICS. THIS RN AND PT'S MOTHER BOTH ASKED DR. GONZALEZ AND STATED, "NO NEW MEDICATIONS. PT HAS BEEN ON ANTIBIOTICS FOR A WEEK." PT LEFT WITH ALL BELONGINGS IN STABLE CONDITION.
--- NOTE | 2023-10-29 11:19 | NUR ---
1005-DC EDUCATION UPON DC THIS RN EDUCATED CAREGIVER AND MOTHER HOW TO PROPERLY CLEAN AND CARE FOR A MAX CATHETER. THIS RN RECEIVED A VERBAL FROM CARLOS TO LEAVE THE MAX CATHETER IN FOR DC. PT HAS A UROLOGIST MD APPT ON SATURDAY FOR FOLLOW UP. RN EMPHASIZED PT'S MAX NEEDED TO BE CLEANED A MINIMUM OF EVERY 12 HOURS. BOTH PARITES VERBALIZED UNDERSTANDING OF EDUCATION.
== END 2023-10-29 10:05 | disposition home or self-care (01) | DRG 871 ==
LOC: ER 15:36 → PCU 22:42 → MEDS 22:42 → PCU 23:46 → MEDS 10-25 22:40
PROVIDERS: Emergency Medicine; Family Medicine; Internal Medicine; Nurse Practitioner Acute Care; Physician Assistant; ADMIT Student in an Organized Health Care Education/Training Program
PROC: 0T9B70Z Drainage of Bladder with Drainage Device, Via Natural or Artificial Opening (ICD-10-PCS; principal; 2023-10-22)
PROC: 3E03329 Introduction of Other Anti-infective into Peripheral Vein, Percutaneous Approach (ICD-10-PCS; 2023-10-22)
DX: A41.52 Sepsis due to Pseudomonas (principal); G93.41 Metabolic encephalopathy; S72.91XA Unspecified fracture of right femur, initial encounter for closed fracture; J96.01 Acute respiratory failure with hypoxia; J69.0 Pneumonitis due to inhalation of food and vomit; G40.812 Lennox-Gastaut syndrome, not intractable, without status epilepticus; G40.219 Localization-related (focal) (partial) symptomatic epilepsy and epileptic syndromes with complex partial seizures, intractable, without status epilepticus; N39.0 Urinary tract infection, site not specified; Z16.29 Resistance to other single specified antibiotic; Z66 Do not resuscitate; K21.9 Gastro-esophageal reflux disease without esophagitis; R32 Unspecified urinary incontinence; Z87.442 Personal history of urinary calculi; Z98.890 Other specified postprocedural states; Z88.8 Allergy status to other drugs, medicaments and biological substances; Z79.2 Long term (current) use of antibiotics; Z79.899 Other long term (current) drug therapy; Z99.3 Dependence on wheelchair; E73.8 Other lactose intolerance; Z96.82 Presence of neurostimulator; X58.XXXA Exposure to other specified factors, initial encounter
CPT/HCPCS: 0202U; 0241U; 36415; 71045; 80048; 80053; 81001; 83605; 84145; 85025; 87040; 87077; 87086; 87186; 92610; 94760; 94762; 96365; 96366; 97165; 99285-25; A9270; J1650; J1953; J1956; J2543; J3360; J3480; J7030

== ENCOUNTER 2023-11-27 11:42 | Emergency (ER) | payer OTHER ==
[~2023-11-27] VITALS: Ht 160 cm; Wt 63.5 kg
[~2023-11-27 11:42] MED LIST changes: +ALBU2.5V5 INH; +ATHLETE'S FOO35.4 GM TOP; +CLINDAGEL75 ML TOP; +KETO15TC TOP; +[UNRECOGNIZED DRUG - OTHER] PO
[2023-11-27 14:04] LABS: Source, Urine Foley catheter
[2023-11-27 14:09] LABS: Appearance, Urine Hazy (Clear); Bilirubin, Urine Neg (Neg); Blood, Urine 1+ (Neg); Color, Urine Yellow (P-Yellow); Glucose Qualitative, Urine Neg (Neg); Ketones, Urine Neg (Neg); Leukocyte Esterase, Urine 3+ (Neg); Nitrite, Urine Pos (Neg); Protein, Urine 2+ (Neg); Specific Gravity, Urine 1.015 (1.003-1.022); Urobilinogen, Urine NORM (Normal); pH, Urine 6.5 (5.0-8.0)
[2023-11-27] MEDS ORDERED: NS 1,000 ML IV SCH (14:15)
[2023-11-27 14:21] LABS: Calcium Oxalate Crystals Rare /hpf; White Blood Cells, Urine 50-100 /hpf (0-5)
[2023-11-27 14:22] LABS: Amorphous Light (0-Heavy)
[2023-11-27 14:23] LABS: Bacteria Many /hpf; Mucus Light (0-Heavy); Squamous Epithelial Cells Not Seen /hpf (Few)
[2023-11-27 15:04] LABS: BASOPHILS ABSOLUTE AUTO 0.04 K/mm3 (0.00-0.23); BASOPHILS PERCENT AUTO 0 % (0-2); EOSINOPHILS ABSOLUTE AUTO 0.31 K/mm3 (0.00-0.68); EOSINOPHILS PERCENT AUTO 3 % (0-6); Hematocrit 43.2 % (37.0-53.0); Hemoglobin 13.9 g/dL (13.5-17.5); IMMATURE GRAN ABSOLUTE AUTO 0.03 K/mm3 (0.00-0.10); IMMATURE GRAN PERCENT AUTO 0 % (0-1); LYMPHOCYTES ABSOLUTE AUTO 1.72 K/mm3 (0.84-5.20); LYMPHOCYTES PERCENT AUTO 15 % (21-46); MONOCYTES ABSOLUTE AUTO 0.65 K/mm3 (0.16-1.47); MONOCYTES PERCENT AUTO 6 % (4-13); Mean Corpuscular HGB Conc 32.2 g/dL (31.5-36.5); Mean Corpuscular Volume 84 fL (80-100); Mean Platelet Volume 9.7 fL (9.1-12.4); NEUTROPHILS ABSOLUTE AUTO 8.87 K/mm3 (1.96-9.15); NEUTROPHILS PERCENT AUTO 76 % (41-73); Platelet Count 265 K/mm3 (150-400); RDW Coefficient Variation 13.6 % (11.7-14.2); Red Blood Cell Count 5.15 M/mm3 (4.30-5.90); White Blood Cell Count 11.62 K/mm3 (4.00-11.30)
[2023-11-27 15:14] LABS: Albumin, Blood 3.7 g/dL (3.4-5.0); Albumin/Globulin Ratio 1.1 (0.8-1.8); Bilirubin, Total 0.4 mg/dL (0.1-1.0); Bun/Creatinine Ratio 12.1 (12.0-20.0); Creatinine, Blood 0.91 mg/dL (0.60-1.20); Globulin, Blood 3.5 g/dL (2.2-4.0); Magnesium, Blood 2.3 mg/dL (1.6-2.4); Potassium, Blood 4.2 mmol/L (3.5-5.5); Total Protein, Blood 7.2 g/dL (6.4-8.2)
[2023-11-27] MEDS ORDERED: Ertapenem Sodium 1,000 MG in NS 50 ML IV ONE (17:00)
[2023-11-27 17:30] VITALS: BP 111/94
== END 2023-11-27 18:09 | disposition home or self-care (01) ==
LOC: ER 11:42
PROVIDERS: Physician Assistant
DX: N39.0 Urinary tract infection, site not specified (principal); G40.909 Epilepsy, unspecified, not intractable, without status epilepticus; R62.50 Unspecified lack of expected normal physiological development in childhood; K21.9 Gastro-esophageal reflux disease without esophagitis; Z79.899 Other long term (current) drug therapy; Z91.011 Allergy to milk products; Z88.1 Allergy status to other antibiotic agents; Z88.8 Allergy status to other drugs, medicaments and biological substances
CPT/HCPCS: 51702; 80053; 81001; 83735; 85025; 87077; 87086; 87186; 96361-59; 96365-59; 99283-25; J1335; J7030

== ENCOUNTER 2023-11-29 07:35 | Day surgery (SDC) | payer OTHER ==
[~2023-11-29 07:35] MED LIST changes: +Ertapenem Sodium 1,000 MG in NS 50 ML IV SCH
[2023-11-29 13:26] VITALS: BP 113/79
== END 2023-11-29 14:20 | disposition home or self-care (01) ==
LOC: ATC 07:35
DX: N39.0 Urinary tract infection, site not specified (principal); Z88.1 Allergy status to other antibiotic agents; Z88.8 Allergy status to other drugs, medicaments and biological substances; Z91.011 Allergy to milk products
CPT/HCPCS: 96365; J1335

== ENCOUNTER 2023-11-30 08:00 | Day surgery (SDC) | payer OTHER ==
[2023-11-30 14:06] VITALS: BP 103/65
[2023-12-08] MEDS ORDERED: DIAZEPAM 2.5 MG PR (23:18)
[2023-12-08] MEDS ORDERED: GUAI600T33 PO (23:19)
[2023-12-08] MEDS ORDERED: Keppra PO (23:21)
[2023-12-08] MEDS ORDERED: OMEP20ER PO (23:22)
[2023-12-08] MEDS ORDERED: MIRALAX11910 PO (23:23)
[2023-12-08] MEDS ORDERED: FLOMAX0.4 MG PO (23:24)
[2023-12-08] MEDS ORDERED: Vitamin D PO (23:26)
== END 2023-12-03 23:10 | disposition home or self-care (01) ==
LOC: ATC 08:00
DX: N39.0 Urinary tract infection, site not specified (principal); G40.219 Localization-related (focal) (partial) symptomatic epilepsy and epileptic syndromes with complex partial seizures, intractable, without status epilepticus; G40.813 Lennox-Gastaut syndrome, intractable, with status epilepticus; Z88.8 Allergy status to other drugs, medicaments and biological substances
CPT/HCPCS: 96365; J1335

== ENCOUNTER 2023-12-01 14:27 | Day surgery (SDC) | payer OTHER ==
[2023-12-01 14:57] VITALS: BP 95/70
== END 2023-12-01 15:10 | disposition home or self-care (01) ==
LOC: ATC 14:27
DX: N39.0 Urinary tract infection, site not specified (principal); K21.9 Gastro-esophageal reflux disease without esophagitis; Z79.899 Other long term (current) drug therapy; Z88.8 Allergy status to other drugs, medicaments and biological substances; Z91.011 Allergy to milk products
CPT/HCPCS: 96365; J1335

== ENCOUNTER 2023-12-02 06:39 | Day surgery (SDC) | payer OTHER ==
[2023-12-02 12:47] VITALS: BP 96/66
--- NOTE | 2023-12-02 13:20 | NUR ---
CALLED DR PADRON'S OFFICE PER PT'S MOTHER'S REQUEST TO VERIFY THAT 7 DAYS OF ABX IS SUFFICIENT GIVEN PT'S RECURRENT UTI'S. MOTHER HAD HEARD SOME DR'S ORDER [address] PADRON'S OFFICE NOTIFIED THAT PT STARTED HAVING DIARRHEA THIS WEEKEND, THAT PT DOES NOT SEE INFECTIOUS DISEASE DR IN [place] UNTIL DEC 10, AND WOULD LIKE TO KNOW IF 14 DAYS OF ABX WOULD BE BETTER. DR PADRON'S OFFICE TO CALL BACK OR FAX [facility] WITH THEIR RECOMMENDATION.
== END 2023-12-02 23:54 | disposition home or self-care (01) ==
LOC: ATC 06:39
DX: N39.0 Urinary tract infection, site not specified (principal); G93.7 Reye's syndrome; G40.409 Other generalized epilepsy and epileptic syndromes, not intractable, without status epilepticus; K21.9 Gastro-esophageal reflux disease without esophagitis; G40.812 Lennox-Gastaut syndrome, not intractable, without status epilepticus; Z91.011 Allergy to milk products; Z88.8 Allergy status to other drugs, medicaments and biological substances; Z79.899 Other long term (current) drug therapy
CPT/HCPCS: J1335

== ENCOUNTER 2023-12-26 17:16 | Emergency (ER) | payer OTHER ==
[~2023-12-26] VITALS: Ht 160 cm; Wt 63.5 kg
[~2023-12-26 17:16] MED LIST changes: +DIAZEPAM 2.5 MG PR; +Diflucan100 MG PO; -Ertapenem Sodium 1,000 MG in NS 50 ML IV SCH; +FLOMAX0.4 MG PO; +Keppra PO; +MIRALAX11910 PO; +Vitamin D PO
[2023-12-26 20:46] LABS: Source, Urine Clean Catch
[2023-12-26 20:54] LABS: Bilirubin, Urine Neg (Neg); Blood, Urine 1+ (Neg); Glucose Qualitative, Urine Neg (Neg); Ketones, Urine Neg (Neg); Leukocyte Esterase, Urine 2+ (Neg); Nitrite, Urine Pos (Neg); Protein, Urine 1+ (Neg); Urobilinogen, Urine NORM (Normal)
[2023-12-26 20:59] LABS: Appearance, Urine Hazy (Clear); Color, Urine Pale Yellow (P-Yellow)
[2023-12-26 21:01] LABS: Amorphous Mod (0-Heavy); Bacteria Many /hpf; Squamous Epithelial Cells Few /hpf (Few); White Blood Cells, Urine 25-50 /hpf (0-5)
[2023-12-26 21:25] LABS: BASOPHILS ABSOLUTE AUTO 0.06 K/mm3 (0.00-0.23); BASOPHILS PERCENT AUTO 1 % (0-2); EOSINOPHILS ABSOLUTE AUTO 0.38 K/mm3 (0.00-0.68); EOSINOPHILS PERCENT AUTO 7 % (0-6); Hematocrit 41.2 % (37.0-53.0); IMMATURE GRAN ABSOLUTE AUTO 0.01 K/mm3 (0.00-0.10); IMMATURE GRAN PERCENT AUTO 0 % (0-1); LYMPHOCYTES ABSOLUTE AUTO 1.72 K/mm3 (0.84-5.20); LYMPHOCYTES PERCENT AUTO 33 % (21-46); MONOCYTES ABSOLUTE AUTO 0.38 K/mm3 (0.16-1.47); MONOCYTES PERCENT AUTO 7 % (4-13); Mean Corpuscular HGB 26.7 pg (26.0-34.0); Mean Corpuscular HGB Conc 31.6 g/dL (31.5-36.5); Mean Corpuscular Volume 85 fL (80-100); Mean Platelet Volume 9.7 fL (9.1-12.4); NEUTROPHILS ABSOLUTE AUTO 2.75 K/mm3 (1.96-9.15); NEUTROPHILS PERCENT AUTO 52 % (41-73); Platelet Count 331 K/mm3 (150-400); RDW Coefficient Variation 13.9 % (11.7-14.2); Red Blood Cell Count 4.86 M/mm3 (4.30-5.90)
[2023-12-26 21:44] LABS: Calcium, Blood 8.7 mg/dL (8.5-10.1); Creatinine, Blood 0.75 mg/dL (0.60-1.20); Potassium, Blood 4.1 mmol/L (3.5-5.5)
[2023-12-26] MEDS ORDERED: TOBRAMYCIN SULFATE IV ONE (22:20)
[2023-12-26] MEDS ORDERED: NS IV ONE (22:20)
[2023-12-27 03:02] VITALS: BP 133/70
== END 2023-12-27 03:05 | disposition home or self-care (01) ==
LOC: ER 17:16
PROVIDERS: Emergency Medicine; Physician Assistant
DX: N39.0 Urinary tract infection, site not specified (principal); K21.9 Gastro-esophageal reflux disease without esophagitis; Z79.899 Other long term (current) drug therapy; Z91.011 Allergy to milk products; Z88.1 Allergy status to other antibiotic agents; Z88.8 Allergy status to other drugs, medicaments and biological substances
CPT/HCPCS: 36415; 51702; 51798; 80048; 81001; 85025; 87077; 87086; 87186; 96365; 99283-25; J3260

== ENCOUNTER → 2024-01-28 | Outpatient (CLI) | payer OTHER ==
[~2024-01-28] MED LIST changes: -ALBU2.5V5 INH; +ALBU2.5V5 NEB; +EPIDIOLEX PO; +ERTAPENEM1 G6 IV; +TRAZ50 PO
[2024-01-28 17:48] LABS: Source, Urine Straight Cath
[2024-01-28 18:34] LABS: Appearance, Urine Hazy (Clear); Bilirubin, Urine Neg (Neg); Blood, Urine 3+ (Neg); Color, Urine Yellow (P-Yellow); Glucose Qualitative, Urine Neg (Neg); Ketones, Urine Neg (Neg); Leukocyte Esterase, Urine 3+ (Neg); Nitrite, Urine Neg (Neg); Protein, Urine 1+ (Neg); Specific Gravity, Urine 1.005 (1.003-1.022); Urobilinogen, Urine NORM (Normal)
[2024-01-28 19:11] LABS: Bacteria Mod /hpf; Squamous Epithelial Cells Not Seen /hpf (Few); White Blood Cells, Urine 25-50 /hpf (0-5)
== END | disposition home or self-care (01) ==
LOC: LAB 17:45 → LAB SHORT 17:45
PROVIDERS: Family Medicine
DX: N39.0 Urinary tract infection, site not specified (principal)
CPT/HCPCS: 81001; 87077; 87086; 87186

== ENCOUNTER 2024-01-31 05:11 | Inpatient (IN) | payer OTHER ==
[~2024-01-31] VITALS: Ht 157.5 cm; Wt 63.5 kg
[~2024-01-31 05:11] MED LIST changes: -EPIDIOLEX PO; -ERTAPENEM1 G6 IV; -TRAZ50 PO
[2024-01-31] MEDS ORDERED: LORazepam 2 MG/ML 1ML Injection ONE (05:19)
[2024-01-31] MEDS ORDERED: LORazepam 2 MG/ML 1ML Injection IV ONE (05:19)
[2024-01-31] MEDS ORDERED: levETIRAcetam 1,000 MG in NS 100 ML IV ONE (05:25)
[2024-01-31] MEDS ORDERED: Ketorolac Tromethamine 30mg Vial IV ONE (05:30)
[2024-01-31] MEDS ORDERED: NS 1,000 ML IV SCH (05:30)
[2024-01-31] MEDS ORDERED: Cefepime HCl 1,000 MG in NS 100 ML IV ONE (05:30)
[2024-01-31 05:38] LABS: BASOPHILS ABSOLUTE AUTO 0.03 K/mm3 (0.00-0.23); BASOPHILS PERCENT AUTO 0 % (0-2); EOSINOPHILS ABSOLUTE AUTO 0.04 K/mm3 (0.00-0.68); EOSINOPHILS PERCENT AUTO 0 % (0-6); Hematocrit 47.4 % (37.0-53.0); Hemoglobin 15.3 g/dL (13.5-17.5); IMMATURE GRAN ABSOLUTE AUTO 0.03 K/mm3 (0.00-0.10); IMMATURE GRAN PERCENT AUTO 0 % (0-1); LYMPHOCYTES ABSOLUTE AUTO 1.05 K/mm3 (0.84-5.20); LYMPHOCYTES PERCENT AUTO 9 % (21-46); MONOCYTES ABSOLUTE AUTO 0.73 K/mm3 (0.16-1.47); MONOCYTES PERCENT AUTO 6 % (4-13); Mean Corpuscular HGB 26.9 pg (26.0-34.0); Mean Corpuscular HGB Conc 32.3 g/dL (31.5-36.5); Mean Corpuscular Volume 83 fL (80-100); Mean Platelet Volume 9.5 fL (9.1-12.4); NEUTROPHILS ABSOLUTE AUTO 10.15 K/mm3 (1.96-9.15); NEUTROPHILS PERCENT AUTO 85 % (41-73); Platelet Count 443 K/mm3 (150-400); RDW Coefficient Variation 13.3 % (11.7-14.2); RDW Standard Deviation 39.9 fL (35.1-46.3); Red Blood Cell Count 5.69 M/mm3 (4.30-5.90); White Blood Cell Count 12.03 K/mm3 (4.00-11.30)
[2024-01-31 05:59] LABS: Albumin, Blood 3.8 g/dL (3.4-5.0); Bilirubin, Total 0.4 mg/dL (0.1-1.0); Bun/Creatinine Ratio 21.5 (12.0-20.0); Calcium, Blood 8.9 mg/dL (8.5-10.1); Creatinine, Blood 0.75 mg/dL (0.60-1.20); Magnesium, Blood 1.7 mg/dL (1.6-2.4); Phosphorus, Blood 2.3 mg/dL (2.5-4.9); Potassium, Blood 3.9 mmol/L (3.5-5.5); Thyroid Stimulating Hormone 0.536 uIU/mL (0.360-4.800); Total Protein, Blood 7.8 g/dL (6.4-8.2)
[2024-01-31 07:50] LABS: Source, Urine Foley catheter
[2024-01-31 07:53] LABS: Influenza A, PCR NEGATIVE (NEGATIVE); Influenza B, PCR NEGATIVE (NEGATIVE); Resp Syncytial Virus, PCR NEGATIVE (NEGATIVE); SARS-Cov-2 (COVID-19) PCR, MMC NEGATIVE (NEGATIVE)
[2024-01-31 08:11] LABS: Appearance, Urine Clear (Clear); Bilirubin, Urine Neg (Neg); Blood, Urine 4+ (Neg); Color, Urine Yellow (P-Yellow); Glucose Qualitative, Urine Neg (Neg); Ketones, Urine 3+ (Neg); Leukocyte Esterase, Urine 1+ (Neg); Nitrite, Urine Pos (Neg); Protein, Urine 1+ (Neg); Urobilinogen, Urine NORM (Normal)
[2024-01-31 08:17] LABS: Red Blood Cells, Urine 25-50 /hpf (0-2); Squamous Epithelial Cells Rare /hpf (Few)
[2024-01-31 08:18] LABS: White Blood Cells, Urine 25-50 /hpf (0-5)
[2024-01-31 08:20] LABS: Bacteria Few /hpf
[2024-01-31] MEDS ORDERED: FLU VACC TS2024-25(6MOS UP)/PF 45 MCG/0.5 ML SYRINGE IM SCH (09:00)
[2024-01-31] MEDS ORDERED: Piperacillin/Tazobactam Sod 4.5 GM in NS 100 ML IV ONE (09:05)
[2024-01-31] MEDS ORDERED: Acetaminophen 650 MG Supp PR PRN (09:30)
[2024-01-31] MEDS ORDERED: Acetaminophen 325 MG TABLET PO ONE (09:50)
[2024-01-31 10:45] VITALS: BP 132/88
[2024-01-31] MEDS ORDERED: EPIDIOLEX PO ×2 (13:58→13:59)
[2024-01-31] MEDS ORDERED: Ipratropium/Albuterol SulF 2.5-0.5MG/3 ML Amp INH PRN (14:00)
[2024-01-31] MEDS ORDERED: Bisacodyl 10 MG Supp PR PRN (14:05)
[2024-01-31] MEDS ORDERED: Albuterol 2.5 MG/3 ML VIAL INH PRN (14:05)
--- NOTE | 2024-01-31 14:15 | NUR ---
ADMISSION NOTE PATIENT ADMITTED FROM ED THIS MORNING AT 1030. PATIENT NONVERBAL WITH DEVELOPMENTAL DELAY. MOTHER, SEVERO, AT BEDSIDE. ADMISSION DOCUMENTATION COMPLETED. IV ANTIBIOTICS INFUSING UPON ADMISSION TO ROOM 306. SKIN INTACT, PATIENT WITH VAGUS NERVE STIMULATOR IMPLANT TO LEFT UPPER CHEST THAT IS PALPABLE. PATIENT IWHT NO SIGNS OF PAIN AT THIS TIME. REPORTED TO HAVE 7 MINUTES LONG SEIZURE AT HOME AND SEVERO REPORTS THAT PATIENT'S ROOMMATE AT HOME FOR THE HANDICAP WITH RESPIRATORY VIRUS. VIRAL SWAB COLLECTED IN ED, NEGATIVE. REPORTS OF N/V/D AT HOME AND FEVER. NON OBSERVED SINCE ADMISSION. TELEMETRY IN PLACE. NO OTHER CONCERNS AT THIS TIME.
[2024-01-31 14:29] VITALS: BP 111/84
[2024-01-31] MEDS ORDERED: LevETIRAcetam 500 MG Tab PO SCH ×2 (14:30→18:00)
[2024-01-31] MEDS ORDERED: Piperacillin/Tazobactam Sod 4.5 GM in NS 100 ML IV SCH (16:00)
[2024-01-31] MEDS ORDERED: NS 1,000 ML BAG IR PRN (16:20)
[2024-01-31] MEDS ORDERED: NS 250 ML IV SCH (16:30)
[2024-01-31] MEDS ORDERED: LamoTRIgine 100 MG Tab PO SCH ×2 (18:00)
[2024-01-31] MEDS ORDERED: LevETIRAcetam 100 MG/ML 5ML ORAL SYR PO SCH (18:00)
[2024-01-31] MEDS ORDERED: GuaiFENesin 200 MG IR Tab PO SCH (18:00)
[2024-01-31] MEDS ORDERED: EPIDIOLEX 100 MG/ML PO SCH (18:00)
[2024-01-31 19:21] VITALS: BP 93/73
[2024-01-31 20:14] VITALS: BP 100/57
[2024-01-31] MEDS ORDERED: ClonazePAM 1 MG Tab PO SCH (21:00)
[2024-01-31] MEDS ORDERED: PHENobarbital 64.8 MG Tab PO SCH (21:00)
[2024-02-01 03:14] VITALS: BP 101/87
[2024-02-01 05:25] LABS: BASOPHILS ABSOLUTE AUTO 0.03 K/mm3 (0.00-0.23); BASOPHILS PERCENT AUTO 1 % (0-2); EOSINOPHILS ABSOLUTE AUTO 0.33 K/mm3 (0.00-0.68); EOSINOPHILS PERCENT AUTO 6 % (0-6); Hematocrit 39.6 % (37.0-53.0); Hemoglobin 12.1 g/dL (13.5-17.5); IMMATURE GRAN ABSOLUTE AUTO 0.01 K/mm3 (0.00-0.10); IMMATURE GRAN PERCENT AUTO 0 % (0-1); LYMPHOCYTES ABSOLUTE AUTO 2.01 K/mm3 (0.84-5.20); LYMPHOCYTES PERCENT AUTO 35 % (21-46); MONOCYTES ABSOLUTE AUTO 0.44 K/mm3 (0.16-1.47); MONOCYTES PERCENT AUTO 8 % (4-13); Mean Corpuscular HGB 26.7 pg (26.0-34.0); Mean Corpuscular HGB Conc 30.6 g/dL (31.5-36.5); Mean Corpuscular Volume 87 fL (80-100); Mean Platelet Volume 9.1 fL (9.1-12.4); NEUTROPHILS ABSOLUTE AUTO 2.95 K/mm3 (1.96-9.15); NEUTROPHILS PERCENT AUTO 51 % (41-73); Platelet Count 307 K/mm3 (150-400); RDW Coefficient Variation 13.5 % (11.7-14.2); RDW Standard Deviation 43.4 fL (35.1-46.3); Red Blood Cell Count 4.54 M/mm3 (4.30-5.90); White Blood Cell Count 5.77 K/mm3 (4.00-11.30)
[2024-02-01 05:46] LABS: Albumin/Globulin Ratio 0.9 (0.8-1.8); Bilirubin, Total 0.3 mg/dL (0.1-1.0); Calcium, Blood 8.4 mg/dL (8.5-10.1); Creatinine, Blood 0.81 mg/dL (0.60-1.20); Globulin, Blood 3.5 g/dL (2.2-4.0); Potassium, Blood 3.9 mmol/L (3.5-5.5); Total Protein, Blood 6.5 g/dL (6.4-8.2)
[2024-02-01] MEDS ORDERED: Omeprazole 20 MG CapCR PO SCH (06:00)
--- NOTE | 2024-02-01 06:31 | NUR ---
PT STABLE, NO OBSERVABLE SEIZURES WITNESSED. VSS, SOFT BP. PT NON VERBAL, APPEARS COMFORTABLE AND RESTED THROUGHOUT THE NIGHT. BLADDER SCAN PERFORMED AROUND 0230, STRAIGHT CATH PERFORMED 0300, BLADDER SCAN Q6 - CHECK ORDERS. ABX ADMINISTERED.
[2024-02-01 07:52] VITALS: BP 103/87
[2024-02-01] MEDS ORDERED: LevETIRAcetam 100 MG/ML 5ML ORAL SYR PO SCH (08:00)
[2024-02-01] MEDS ORDERED: LevETIRAcetam 500 MG Tab PO SCH (08:00)
[2024-02-01] MEDS ORDERED: EPIDIOLEX 100 MG/ML PO SCH (09:00)
[2024-02-01] MEDS ORDERED: Tamsulosin HCl 0.4 MG Cap PO SCH (09:00)
[2024-02-01] MEDS ORDERED: Heparin Sodium,Porcine 5,000 UNIT/0.5 ML SDV SC SCH (09:00)
[2024-02-01] MEDS ORDERED: Cholecalciferol 1000 Unit Tablet (=25MCG) PO SCH (09:00)
[2024-02-01] MEDS ORDERED: Multivitamins 1 Tab PO SCH (09:00)
[2024-02-01 16:32] VITALS: BP 98/50
--- NOTE | 2024-02-01 17:31 | NUR ---
SHIFT SUMMARY: PT NON VERBAL AND DEVELOPMENTALLY DELAYED. NO SEIZURES RECORDED. PT TAKING PO KEPPRA IN THICKENED JUICE AND MEDS CRUSHED IN APPLESAUCE. PT VERY HARD SLEEPER AND NOT AROUSABLE BY SAND CUTTER OPERATOR. MEDS WERE HELD UNTIL THEY WOKE UP TO PREVENT RISK OF ASPIRATION. PT VOIDED IN BRIEF AND CHANGED. BLADDERSCAN FOUND TO BE WITHIN LIMIT TO AVOID STRAIGHT CATH. SAND CUTTER OPERATOR AT BEDSIDE ASSISTING WITH CHANGING AND FEEDINGS. BED IN LOWEST POSITION AND RAILS ARE UP. CONTINUING CARE.
--- NOTE | 2024-02-01 18:29 | NUR ---
THIS WRITERE HAS REVIEWED AND AGREES WITH ALL NOTES AND ASSESSMENTS BY MARTIR LYNCH.
[2024-02-01 20:15] VITALS: BP 101/57
[2024-02-02 02:52] VITALS: BP 108/73
[2024-02-02 05:36] LABS: BASOPHILS ABSOLUTE AUTO 0.03 K/mm3 (0.00-0.23); BASOPHILS PERCENT AUTO 1 % (0-2); EOSINOPHILS PERCENT AUTO 5 % (0-6); Hematocrit 37.2 % (37.0-53.0); Hemoglobin 11.5 g/dL (13.5-17.5); IMMATURE GRAN ABSOLUTE AUTO 0.01 K/mm3 (0.00-0.10); IMMATURE GRAN PERCENT AUTO 0 % (0-1); LYMPHOCYTES ABSOLUTE AUTO 2.48 K/mm3 (0.84-5.20); LYMPHOCYTES PERCENT AUTO 42 % (21-46); MONOCYTES PERCENT AUTO 7 % (4-13); Mean Corpuscular HGB 26.6 pg (26.0-34.0); Mean Corpuscular HGB Conc 30.9 g/dL (31.5-36.5); Mean Corpuscular Volume 86 fL (80-100); Mean Platelet Volume 9.4 fL (9.1-12.4); NEUTROPHILS ABSOLUTE AUTO 2.68 K/mm3 (1.96-9.15); NEUTROPHILS PERCENT AUTO 45 % (41-73); Platelet Count 339 K/mm3 (150-400); RDW Coefficient Variation 13.2 % (11.7-14.2); RDW Standard Deviation 40.8 fL (35.1-46.3); Red Blood Cell Count 4.33 M/mm3 (4.30-5.90)
[2024-02-02 06:14] LABS: Bun/Creatinine Ratio 18.8 (12.0-20.0); Calcium, Blood 9.2 mg/dL (8.5-10.1); Creatinine, Blood 0.74 mg/dL (0.60-1.20)
--- NOTE | 2024-02-02 06:48 | NUR ---
NO SEIZURES WITNESSED DURING SHIFT. PT PULLED IV, HARD STICK 4 ATTEMPTS WERE MADE, NEEDS ACCESS FOR IV ABX, MIDLINE PLACEMENT SUGGESTED PATRICIA FOR LATE ABX. BLADDER SCAN PERFORMED SHOWING 510, STRAIGHT CATH FOR 575 ML.
[2024-02-02 08:04] VITALS: BP 119/77
[2024-02-02] MEDS ORDERED: Piperacillin/Tazobactam Sod 4.5 GM in NS 100 ML IV SCH (09:00)
[2024-02-02] MEDS ORDERED: Polyethylene Glycol 3350 17 gm PO PRN (12:40)
[2024-02-02] MEDS ORDERED: Magnesium Hydroxide Conc 10 ML UDC PO PRN (12:40)
[2024-02-02 14:32] LABS: LAMOTRIGINE 6.1 ug/mL (3.0-15.0)
[2024-02-02 15:51] VITALS: BP 93/53
--- NOTE | 2024-02-02 17:39 | NUR ---
SHIFT SUMMARY: PT AMBULATED TO CHAIR WITH ASSISTANCE OF HYDROMETER TESTER. PUT INTO RECLINER AND SAT MORE UPRIGHT AND ABLE TO TAKE MEDICATIONS BETTER. POWER GLIDE INSERTED BY ANNABELLE. ANTIBIOTIC FROM 0400 WAS NOT ABLE TO BE GIVEN DUE TO NO IV ACCESS SO INSTRUCTED BY MD TO GIVE THE 0400 DOSE AND PUSH THE TIMES FORWARD. PT MOTHER CONCERNED WITH LACK OF BM SINCE HOSPITAL STAY. PT ON MIRALAX AT HOME. MD CALLED AND ORDERS FOR MIRALAX AND MILK OF MAGNESIA IN EMR. PT TRANSFERRED BACK TO BED AND RESTING. MOTHER AT BEDSIDE AND BED IN LOWEST POSITION WITH SEIZURE PRECAUTIONS IN PLACE.
--- NOTE | 2024-02-02 18:34 | NUR ---
THIS FINANCIAL SERVICES ASSISTANT HAS REVIEWED AND AGREES WITH ALL NOTES AND ASSESSMENTS BY MARTIR LYNCH.
[2024-02-02 20:35] VITALS: BP 99/62
[2024-02-03 03:30] VITALS: BP 133/67
--- NOTE | 2024-02-03 06:42 | NUR ---
NO ACUTE CHANGES OVERNIGHT, BLADDR SCAN <200, PT VOIDED IN BRIEF AT NEXT BLADDER SCAN CHECK TIME. ABX ADMINISTERED.
[2024-02-03 07:13] VITALS: BP 105/73
[2024-02-03 07:13] LABS: BASOPHILS ABSOLUTE AUTO 0.05 K/mm3 (0.00-0.23); BASOPHILS PERCENT AUTO 1 % (0-2); EOSINOPHILS ABSOLUTE AUTO 0.27 K/mm3 (0.00-0.68); EOSINOPHILS PERCENT AUTO 5 % (0-6); Hematocrit 36.3 % (37.0-53.0); Hemoglobin 11.6 g/dL (13.5-17.5); IMMATURE GRAN ABSOLUTE AUTO 0.01 K/mm3 (0.00-0.10); IMMATURE GRAN PERCENT AUTO 0 % (0-1); LYMPHOCYTES ABSOLUTE AUTO 2.47 K/mm3 (0.84-5.20); LYMPHOCYTES PERCENT AUTO 47 % (21-46); MONOCYTES ABSOLUTE AUTO 0.37 K/mm3 (0.16-1.47); MONOCYTES PERCENT AUTO 7 % (4-13); Mean Corpuscular Volume 84 fL (80-100); Mean Platelet Volume 9.2 fL (9.1-12.4); NEUTROPHILS ABSOLUTE AUTO 2.07 K/mm3 (1.96-9.15); NEUTROPHILS PERCENT AUTO 39 % (41-73); Platelet Count 308 K/mm3 (150-400); RDW Coefficient Variation 13.2 % (11.7-14.2); RDW Standard Deviation 40.8 fL (35.1-46.3); White Blood Cell Count 5.24 K/mm3 (4.00-11.30)
[2024-02-03 07:27] LABS: Bun/Creatinine Ratio 13.6 (12.0-20.0); Calcium, Blood 8.3 mg/dL (8.5-10.1); Creatinine, Blood 0.66 mg/dL (0.60-1.20); Potassium, Blood 3.8 mmol/L (3.5-5.5)
[2024-02-03] MEDS ORDERED: ERTAPENEM1 G6 IV (08:06)
--- NOTE | 2024-02-03 14:03 | NUR ---
DISCHARGE SUMMARY: PT COGNITIVELY AT BASELINE, NONVERBAL AND NOT ARROUSABLE BUT MOTHER ASSURED THAT THIS IS NORMAL. HELD SHANT. 3 PERSON ASSIST WITH VOCATIONAL REHABILITATION TEACHER AND MOTHER INTO WHEELCHAIR. EDUCATION PROVIDED BASED ON PRINT OUTS. PT CAREGIVER HAD OUTPATIENT INFECTIOUS DISEASE DOCTOR DR JENKINS. FAXED MEDS AND PT INFORMATION TO OFFICE. HAS FOLLOW UP AT [facility] AT 1330. DR JENKINS SUPPOSED TO TAKE OVER CARE OUT PATIENT. PT LEFT AT 1315. CORRECTION TAKING HIM IN VAN BACK TO HOME.
--- NOTE | 2024-02-03 14:53 | NUR ---
THIS BRICK AND BLOCK MASON HAS REVIEWED AND AGREES WITH ALL NOTES AND ASSESSMENTS BY MARTIR LYNCH.
[2024-02-04] MEDS ORDERED: TRAZ50 PO (11:53)
== END 2024-02-03 14:04 | disposition home or self-care (01) | DRG 871 ==
LOC: ER 05:11 → MEDS 09:17
PROVIDERS: Emergency Medicine; ADMIT Internal Medicine
DX: A41.9 Sepsis, unspecified organism (principal); G93.41 Metabolic encephalopathy; J18.9 Pneumonia, unspecified organism; N39.0 Urinary tract infection, site not specified; G40.812 Lennox-Gastaut syndrome, not intractable, without status epilepticus; Z16.29 Resistance to other single specified antibiotic; Z66 Do not resuscitate; K21.9 Gastro-esophageal reflux disease without esophagitis; N40.0 Benign prostatic hyperplasia without lower urinary tract symptoms; G40.909 Epilepsy, unspecified, not intractable, without status epilepticus; Z98.890 Other specified postprocedural states; Z88.8 Allergy status to other drugs, medicaments and biological substances; Z91.011 Allergy to milk products; Z79.899 Other long term (current) drug therapy; Z96.82 Presence of neurostimulator; Z87.442 Personal history of urinary calculi; G80.9 Cerebral palsy, unspecified
CPT/HCPCS: 0241U; 36415; 51701; 71045; 80048; 80053; 80175; 81001; 82550; 83605; 83735; 84100; 84145; 84443; 85025; 87040; 93005; 93010; 94760; 94762; 96365; 96368; 96375; 97110; 97161; 99285-25; A9270; C1751; J0692; J1644; J1885; J1953; J2060; J2543; J7030

== ENCOUNTER 2024-02-03 15:49 | Observation (INO) | payer OTHER ==
[~2024-02-03] VITALS: Ht 157.5 cm; Wt 63.2 kg
[~2024-02-03 15:49] MED LIST changes: +EPIDIOLEX PO; +ERTAPENEM1 G6 IV
--- NOTE | 2024-02-03 17:10 | NUR ---
PT ARRIVED BACK TO MEDICAL FLOOR AT 1405 VIA WHEELCHAIR FROM HOME. PT WAS A DIRECT ADMIT. DR GARCIA WAS NOTIFIED OF PT'S RETURN.PT WAS SETTLED INTO ROOM. SEIZURE PRECATION PADS APPLIED TO BED. CAREGIVER STATED PT RECIEVED HIS CLONIPIN DOSE AND KEPRRA PRIOR TO COMMING BACK TO HOSPITAL. BED ALARM IS IN PLACE AND CALL LIGHT IN REACH FOR PT'S MOTHER HE IS UNABLE TO USE.
[2024-02-03] MEDS ORDERED: FLU VACC TS2024-25(6MOS UP)/PF 45 MCG/0.5 ML SYRINGE IM SCH (17:15)
[2024-02-03] MEDS ORDERED: Piperacillin/Tazobactam Sod 4.5 GM in NS 100 ML IV SCH (18:00)
[2024-02-03] MEDS ORDERED: Albuterol 2.5 MG/3 ML VIAL INH PRN (18:05)
[2024-02-03] MEDS ORDERED: Bisacodyl 10 MG Supp PR PRN (18:05)
[2024-02-03] MEDS ORDERED: Acetaminophen 325 MG TABLET PO PRN (18:05)
[2024-02-03] MEDS ORDERED: NS 250 ML IV PRN (18:25)
--- NOTE | 2024-02-03 18:28 | NUR ---
REVIEWED ALL ASSESSENTS BY MARTIR LYNCH AND UTE.
[2024-02-03] MEDS ORDERED: GuaiFENesin 200 MG IR Tab PO ONE (19:00)
[2024-02-03] MEDS ORDERED: LevETIRAcetam 100 MG/ML 5ML ORAL SYR PO SCH (19:00)
[2024-02-03] MEDS ORDERED: GuaiFENesin 200 MG IR Tab PO PRN (19:00)
[2024-02-03 19:56] VITALS: BP 132/72
[2024-02-03] MEDS ORDERED: ClonazePAM 1 MG Tab PO SCH (21:00)
[2024-02-03] MEDS ORDERED: LamoTRIgine 100 MG Tab PO SCH (21:00)
[2024-02-03] MEDS ORDERED: CANNABIDIOL PO SCH (21:00)
[2024-02-03] MEDS ORDERED: EXTRACT PO SCH (21:00)
--- NOTE | 2024-02-03 21:02 | NUR ---
PT MEDICATED AT 1999 FOR SCHEDULED MEDICATIONS. ADMINISTERED VIA THICKENED LIQUIDS. PT HAS EXCESSIVE SALIVATION, NO ASPIRATION NOTED BUT SOME OF MEDICATED LIQUIDS DRIBBLED OUT WITH SALIVA.
[2024-02-04 03:48] VITALS: BP 97/79
--- NOTE | 2024-02-04 05:50 | NUR ---
SHIFT SUMMARY PT AxO TO NONE AND IS NONVERBAL. PT HAS INTELECTUAL DEFICIT. ON SEIZURE PRECAUTIONS. PT RECEIVED SCHEDULED MEDICATIONS IN THICKENED LIQUIDS. VSS, NO COMPLAINTS OF CP/PRESSURE OR SOB. PT SPENT MOST OF SHIFT IN BED WITH EYES CLOSED AND RESPIRATIONS EVEN AND UNLABORED. NO ACUTE EVENTS AT THIS TIME. PT REPOSITIONED Q2 HRS. PT LEFT IN A POSITION OF SAFETY WITH FALL PRECAUTIONS IN PLACE AND CALL LIGHT IN REACH.
[2024-02-04] MEDS ORDERED: Omeprazole 20 MG CapCR PO SCH (06:00)
[2024-02-04 07:33] VITALS: BP 132/70
[2024-02-04] MEDS ORDERED: LevETIRAcetam 100 MG/ML 5ML ORAL SYR PO SCH (08:00)
[2024-02-04] MEDS ORDERED: EXTRACT PO SCH (09:00)
[2024-02-04] MEDS ORDERED: CANNABIDIOL PO SCH (09:00)
[2024-02-04] MEDS ORDERED: Enoxaparin 40 MG/0.4 ML SYR SC SCH (09:00)
[2024-02-04] MEDS ORDERED: Multivitamins 1 Tab PO SCH (09:00)
[2024-02-04] MEDS ORDERED: TRAZ50 PO (11:53)
[2024-02-04] MEDS ORDERED: Loperamide HCl 2 MG Cap PO ONE (16:20)
[2024-02-04 16:40] VITALS: BP 98/66
--- NOTE | 2024-02-04 17:48 | NUR ---
DISCHARGE NOTE PATIENT ALERT AND NONVERBAL, DEVELOPEMENTALLY DELAYED. SLEEPING MOST OF THIS MORNING AND EARLY AFTERNOON. MOTHER, SEVERO, AT BEDSIDE ALL DAY. PLAN TO DISCHARGE AFTER COMPLETION OF IV ABX ZOSYN AT 1800. TRANSPORTATION FROM [facility] SCHEDULED TO ARRIVE AROUND 1900 TONIGHT. DISCHARGE PAPERWORK COMPLETED AND INSTURCTIONS PROVIDED TO PATIENT'S MOTHER, SEVERO. SEVERO WITH NO QUESTIONS AT TIME OF DISCHARGE. ATTEMPTED TO CALL ENEDINA AT PATIENT'S FACILITY, AND LEFT MESSAGE TO RETURN CALL FOR UPDATE ON PATIENT STATUS. PATIENT WITH MULTIPLE LOOSE STOOLS TODAY AND IMODIUM ORDERED AND ADMINSITERED PER DR. FOFANA. NO OTHER CONCERNS.
[2024-02-05] MEDS ORDERED: Ertapenem Sodium 1,000 MG in NS 50 ML IV SCH (01:00)
== END 2024-02-04 18:26 | disposition home health service (06) ==
LOC: MEDS 15:49
PROVIDERS: ADMIT Internal Medicine
DX: N39.0 Urinary tract infection, site not specified (principal); B96.5 Pseudomonas (aeruginosa) (mallei) (pseudomallei) as the cause of diseases classified elsewhere; J18.9 Pneumonia, unspecified organism; G40.812 Lennox-Gastaut syndrome, not intractable, without status epilepticus; N40.0 Benign prostatic hyperplasia without lower urinary tract symptoms; Z96.82 Presence of neurostimulator; Z66 Do not resuscitate
CPT/HCPCS: 96365; 96372; 96376; A9270; G0378; J1650; J2543; J7050

== ENCOUNTER 2024-02-27 11:09 | Emergency (ER) | payer OTHER ==
[~2024-02-27] VITALS: Ht 160 cm; Wt 63.5 kg
[~2024-02-27 11:09] MED LIST changes: +TRAZ50 PO
[2024-02-27] MEDS ORDERED: Lidocaine 2% Jelly Uro-Jet UR ONE (12:20)
[2024-02-27 12:37] LABS: Source, Urine Clean Catch
[2024-02-27 12:43] LABS: Influenza A, PCR NEGATIVE (NEGATIVE); Influenza B, PCR NEGATIVE (NEGATIVE); Resp Syncytial Virus, PCR NEGATIVE (NEGATIVE); SARS-Cov-2 (COVID-19) PCR, MMC NEGATIVE (NEGATIVE)
[2024-02-27 12:50] LABS: Appearance, Urine Hazy (Clear); Bilirubin, Urine Neg (Neg); Blood, Urine Neg (Neg); Color, Urine Yellow (P-Yellow); Glucose Qualitative, Urine Neg (Neg); Ketones, Urine Neg (Neg); Leukocyte Esterase, Urine 1+ (Neg); Nitrite, Urine Neg (Neg); Protein, Urine Neg (Neg); Specific Gravity, Urine 1.015 (1.003-1.022); Urobilinogen, Urine NORM (Normal)
[2024-02-27 13:06] LABS: BASOPHILS ABSOLUTE AUTO 0.04 K/mm3 (0.00-0.23); BASOPHILS PERCENT AUTO 1 % (0-2); EOSINOPHILS PERCENT AUTO 6 % (0-6); Hematocrit 38.8 % (37.0-53.0); Hemoglobin 12.5 g/dL (13.5-17.5); IMMATURE GRAN ABSOLUTE AUTO 0.01 K/mm3 (0.00-0.10); IMMATURE GRAN PERCENT AUTO 0 % (0-1); LYMPHOCYTES PERCENT AUTO 32 % (21-46); MONOCYTES PERCENT AUTO 8 % (4-13); Mean Corpuscular HGB 26.9 pg (26.0-34.0); Mean Corpuscular HGB Conc 32.2 g/dL (31.5-36.5); Mean Corpuscular Volume 83 fL (80-100); Mean Platelet Volume 9.3 fL (9.1-12.4); NEUTROPHILS ABSOLUTE AUTO 2.87 K/mm3 (1.96-9.15); NEUTROPHILS PERCENT AUTO 54 % (41-73); Platelet Count 300 K/mm3 (150-400); RDW Coefficient Variation 13.6 % (11.7-14.2); RDW Standard Deviation 41.1 fL (35.1-46.3); Red Blood Cell Count 4.65 M/mm3 (4.30-5.90); White Blood Cell Count 5.32 K/mm3 (4.00-11.30)
[2024-02-27 13:22] LABS: Red Blood Cells, Urine 0-2 /hpf (0-2)
[2024-02-27 13:23] LABS: Amorphous Mod (0-Heavy); Bacteria Few /hpf; Squamous Epithelial Cells Rare /hpf (Few)
[2024-02-27 13:26] LABS: Albumin, Blood 3.6 g/dL (3.4-5.0); Bilirubin, Total 0.3 mg/dL (0.1-1.0); Bun/Creatinine Ratio 16.2 (12.0-20.0); Calcium, Blood 9.2 mg/dL (8.5-10.1); Creatinine, Blood 0.74 mg/dL (0.60-1.20); Globulin, Blood 3.5 g/dL (2.2-4.0); Total Protein, Blood 7.1 g/dL (6.4-8.2)
[2024-02-27 14:37] VITALS: BP 113/66
== END 2024-02-27 15:03 | disposition home or self-care (01) ==
LOC: ER 11:09
PROVIDERS: Physician Assistant; Student in an Organized Health Care Education/Training Program
DX: R33.9 Retention of urine, unspecified (principal); K21.9 Gastro-esophageal reflux disease without esophagitis; Z87.19 Personal history of other diseases of the digestive system; Z79.899 Other long term (current) drug therapy; Z91.011 Allergy to milk products; Z88.8 Allergy status to other drugs, medicaments and biological substances
CPT/HCPCS: 0241U; 51701; 51798; 71045; 80053; 81001; 85025; 87077; 87086; 87186; 99283-25

== ENCOUNTER → 2024-03-02 | Outpatient (CLI) | payer OTHER ==
[2024-03-02 15:26] LABS: Source, Urine Straight Cath
[2024-03-02 17:45] LABS: Appearance, Urine Hazy (Clear); Bilirubin, Urine Neg (Neg); Blood, Urine Neg (Neg); Glucose Qualitative, Urine Neg (Neg); Ketones, Urine Neg (Neg); Leukocyte Esterase, Urine Neg (Neg); Nitrite, Urine Pos (Neg); Protein, Urine 1+ (Neg); Urobilinogen, Urine NORM (Normal)
[2024-03-02 17:54] LABS: Color, Urine Pale Yellow (P-Yellow)
[2024-03-02 17:55] LABS: Amorphous Light (0-Heavy); Bacteria Many /hpf; Squamous Epithelial Cells Rare /hpf (Few)
== END ==
LOC: LAB 15:24 → LAB SHORT 15:24
PROVIDERS: Internal Medicine Infectious Disease
DX: R33.9 Retention of urine, unspecified (principal)
CPT/HCPCS: 81001; 87077; 87086; 87186

== ENCOUNTER 2024-04-02 13:12 | Emergency (ER) | payer OTHER ==
[~2024-04-02] VITALS: Ht 152.4 cm; Wt 54.4 kg
[~2024-04-02 13:12] MED LIST changes: +MULTIPLE VITAM1 EACH PO
[2024-04-02 13:17] VITALS: BP 120/84
[2024-04-02] MEDS ORDERED: ClonazePAM 0.5 MG Tab PO ONE ×2 (13:25→13:30)
[2024-04-02] MEDS ORDERED: ClonazePAM 1 MG Tab PO ONE ×2 (13:25→13:30)
[2024-04-02] MEDS ORDERED: CLON1 PO (13:34)
== END 2024-04-02 13:43 | disposition home or self-care (01) ==
LOC: ER 13:12
DX: Z76.0 Encounter for issue of repeat prescription (principal); K21.9 Gastro-esophageal reflux disease without esophagitis; Z79.899 Other long term (current) drug therapy; Z88.1 Allergy status to other antibiotic agents; Z88.8 Allergy status to other drugs, medicaments and biological substances; Z91.011 Allergy to milk products
CPT/HCPCS: 99281; A9270

== ENCOUNTER 2024-04-02 18:14 | Inpatient (IN) | payer OTHER ==
[~2024-04-02] VITALS: Ht 167.6 cm; Wt 64.0 kg
[~2024-04-02 18:14] MED LIST changes: +Enoxaparin 40 MG/0.4 ML SYR SC SCH
[2024-04-02] MEDS ORDERED: levETIRAcetam 1,500 MG in NS 100 ML IV ONE (18:30)
[2024-04-02] MEDS ORDERED: LORazepam 2 MG/ML 1ML Injection IV ONE (18:30)
[2024-04-02 18:37] LABS: BASOPHILS ABSOLUTE AUTO 0.04 K/mm3 (0.00-0.23); BASOPHILS PERCENT AUTO 0 % (0-2); EOSINOPHILS ABSOLUTE AUTO 0.09 K/mm3 (0.00-0.68); EOSINOPHILS PERCENT AUTO 1 % (0-6); Hematocrit 48.7 % (37.0-53.0); Hemoglobin 15.1 g/dL (13.5-17.5); IMMATURE GRAN ABSOLUTE AUTO 0.02 K/mm3 (0.00-0.10); IMMATURE GRAN PERCENT AUTO 0 % (0-1); LYMPHOCYTES ABSOLUTE AUTO 0.85 K/mm3 (0.84-5.20); LYMPHOCYTES PERCENT AUTO 9 % (21-46); MONOCYTES ABSOLUTE AUTO 0.81 K/mm3 (0.16-1.47); MONOCYTES PERCENT AUTO 9 % (4-13); Mean Corpuscular HGB 26.5 pg (26.0-34.0); Mean Corpuscular Volume 85 fL (80-100); Mean Platelet Volume 9.7 fL (9.1-12.4); NEUTROPHILS ABSOLUTE AUTO 7.46 K/mm3 (1.96-9.15); NEUTROPHILS PERCENT AUTO 81 % (41-73); Platelet Count 312 K/mm3 (150-400); RDW Standard Deviation 39.8 fL (35.1-46.3); White Blood Cell Count 9.27 K/mm3 (4.00-11.30)
[2024-04-02 19:00] LABS: Albumin, Blood 3.6 g/dL (3.4-5.0); Albumin/Globulin Ratio 0.9 (0.8-1.8); Bilirubin, Total 0.4 mg/dL (0.1-1.0); Bun/Creatinine Ratio 23.3 (12.0-20.0); Calcium, Blood 8.5 mg/dL (8.5-10.1); Creatinine, Blood 0.64 mg/dL (0.60-1.20); Magnesium, Blood 2.4 mg/dL (1.6-2.4); Phosphorus, Blood 3.1 mg/dL (2.5-4.9); Potassium, Blood 4.3 mmol/L (3.5-5.5); Total Protein, Blood 7.6 g/dL (6.4-8.2)
[2024-04-02] MEDS ORDERED: NS 1,000 ML IV SCH ×2 (19:15→23:35)
[2024-04-02 21:04] LABS: Influenza A, PCR NEGATIVE (NEGATIVE); Influenza B, PCR NEGATIVE (NEGATIVE); Resp Syncytial Virus, PCR NEGATIVE (NEGATIVE); SARS-Cov-2 (COVID-19) PCR, MMC NEGATIVE (NEGATIVE)
[2024-04-02 21:18] LABS: Source, Urine Clean Catch
[2024-04-02 21:29] LABS: Bilirubin, Urine Neg (Neg); Blood, Urine 1+ (Neg); Glucose Qualitative, Urine Neg (Neg); Ketones, Urine Neg (Neg); Leukocyte Esterase, Urine 1+ (Neg); Nitrite, Urine Pos (Neg); Protein, Urine 2+ (Neg); Urobilinogen, Urine NORM (Normal)
[2024-04-02 21:40] LABS: Appearance, Urine Hazy (Clear); Color, Urine Yellow (P-Yellow)
[2024-04-02 21:41] LABS: Amorphous Heavy (0-Heavy); Bacteria Mod /hpf; Red Blood Cells, Urine 0-2 /hpf (0-2); Squamous Epithelial Cells Not Seen /hpf (Few)
[2024-04-02] MEDS ORDERED: Cefepime HCl 2,000 MG in NS 100 ML IV ONE (21:45)
[2024-04-02] MEDS ORDERED: Meropenem 1,000 MG in NS 100 ML IV ONE (21:50)
[2024-04-02] MEDS ORDERED: Ondansetron HCl 2 MG / ML 2ML Vial IV PRN (23:35)
[2024-04-02] MEDS ORDERED: FLU VACC TS2024-25(6MOS UP)/PF 45 MCG/0.5 ML SYRINGE IM ONE (23:35)
[2024-04-02] MEDS ORDERED: Acetaminophen 650 MG Supp PR PRN (23:40)
[2024-04-02] MEDS ORDERED: LORazepam 2 MG/ML 1ML Injection IV PRN (23:40)
[2024-04-02 23:54] LABS: U Amphetamine Screen Not Detected; U Barbituate Screen DETECTED; U Benzodiazapine Screen DETECTED; U Buprenorphine Screen Not Detected; U Cannabinoids Screen DETECTED; U Cocaine Screen Not Detected; U Methadone Screen Not Detected; U Methamphetamine Screen Not Detected; U Opiates Screen Not Detected; U Oxycodone Screen Not Detected; U Phencyclidine Screen Not Detected
[2024-04-03] MEDS ORDERED: NS 1,000 ML IV ONE (00:30)
[2024-04-03 00:36] VITALS: BP 112/87
[2024-04-03 03:37] LABS: Adenovirus F 40/41 Not Detected (NOT DETECT); Astrovirus Not Detected (NOT DETECT); Campylobacter Sp Not Detected (NOT DETECT); Cryptosporidium Not Detected (NOT DETECT); Cyclospora Cayetanensis Not Detected (NOT DETECT); E. Coli O157 Not Detected (NOT DETECT); Entamoeba Histolytica Not Detected (NOT DETECT); Enteroaggregative E. coli-EAEC Not Detected (NOT DETECT); Enteropathogenic E. coli-EPEC Not Detected (NOT DETECT); Enterotoxigenic E. coli-ETEC Not Detected (NOT DETECT); Giardia Lamblia Not Detected (NOT DETECT); Norovirus GI/GII Not Detected (NOT DETECT); Plesiomonas Shigelloides Not Detected (NOT DETECT); Rotavirus A Not Detected (NOT DETECT); Salmonella Sp Not Detected (NOT DETECT); Sapovirus Not Detected (NOT DETECT); Shiga Toxin-prod E. coli-STEC Not Detected (NOT DETECT); Shigella/Enteroin E. coli-EIEC Not Detected (NOT DETECT); Vibrio Cholerae Not Detected (NOT DETECT); Vibrio Sp Not Detected (NOT DETECT); Yersinia Enterocolitica Not Detected (NOT DETECT)
[2024-04-03] MEDS ORDERED: Ketorolac Tromethamine 15mg Vial IV PRN (04:25)
[2024-04-03 04:31] LABS: Hematocrit 48.5 % (37.0-53.0); Hemoglobin 15.4 g/dL (13.5-17.5); Mean Corpuscular HGB Conc 31.8 g/dL (31.5-36.5); Mean Corpuscular Volume 85 fL (80-100); Mean Platelet Volume 9.6 fL (9.1-12.4); Platelet Count 275 K/mm3 (150-400); RDW Coefficient Variation 13.2 % (11.7-14.2); RDW Standard Deviation 40.8 fL (35.1-46.3); Red Blood Cell Count 5.71 M/mm3 (4.30-5.90)
[2024-04-03 04:53] LABS: Albumin, Blood 3.5 g/dL (3.4-5.0); Albumin/Globulin Ratio 0.9 (0.8-1.8); Bilirubin, Total 0.5 mg/dL (0.1-1.0); Calcium, Blood 8.6 mg/dL (8.5-10.1); Creatinine, Blood 0.58 mg/dL (0.60-1.20); Globulin, Blood 3.7 g/dL (2.2-4.0); Potassium, Blood 4.1 mmol/L (3.5-5.5); Total Protein, Blood 7.2 g/dL (6.4-8.2)
[2024-04-03 05:00] LABS: BAND PERCENT MAN 32 % (0-8); BASOPHILS PERCENT MAN 0 % (0-2); EOSINOPHILS ABSOLUTE MAN 0.13 K/mm3 (0.00-0.68); EOSINOPHILS PERCENT MAN 2 % (0-6); LYMPHOCYTES ABSOLUTE MAN 1.42 K/mm3 (0.84-5.20); LYMPHOCYTES PERCENT MAN 21 % (21-46); METAMYELOCYTE ABSOLUTE MAN 0.06 K/mm3 (0.00-0.00); METAMYELOCYTE PERCENT MAN 1 % (0-0); MONOCYTES ABSOLUTE MAN 0.61 K/mm3 (0.16-1.47); MONOCYTES PERCENT MAN 9 % (4-13); NEUTROPHILS ABSOLUTE MAN 4.55 K/mm3 (1.96-9.15); SEG NEUTROPHILS PERCENT MAN 35 % (41-73); TOTAL CELLS COUNTED 100
[2024-04-03] MEDS ORDERED: Acyclovir 640 MG in Dextrose 5% 250 ML IV SCH (05:45)
[2024-04-03] MEDS ORDERED: Vancomycin HCL 1,500 MG in NS 250 ML IV ONE (05:50)
--- NOTE | 2024-04-03 06:01 | NUR ---
SHIFT SUMMARY PATIENT ALERT AND LOOKING AROUND, NONVERBAL AND DEVELOPMENTAL DELAY AT BASELINE. BP STABLE. PATIENT ON 2-3L NC WITH SPO2 >90%. ON TELE, SINUS TACH 120-130s DURING THE NIGHT. RECTAL TEMP PROBE PLACED FOR ACCURATE TEMPS, TMAX 103.1, TYLENOL AND TORADOL GIVEN PER EMAR. PATIENT MEDICATED FOR SEIZURE LIKE RETIVITY. SEIZURE LIKE ACTIVITY. PADS PLACED. INCONTINENT OF BOWEL AND BLADDER. MULTIPLE STOOLS DURING THE NIGHT, STOOL SAMPLE SENT. PATIENT PLACED IN ISOLATION PENDING XR GUIDED LUMBAR PUNCTURE. NO OTHER CHANGES, WILL REPORT TO DAY SHIFT RN.
[2024-04-03] MEDS ORDERED: LORazepam 2 MG/ML 1ML Injection IV PRN (06:20)
[2024-04-03 07:44] VITALS: BP 111/77
[2024-04-03] MEDS ORDERED: Meropenem 1,000 MG in NS 100 ML IV SCH (08:00)
[2024-04-03] MEDS ORDERED: LamoTRIgine 100 MG Tab PO SCH (09:00)
[2024-04-03] MEDS ORDERED: levETIRAcetam 1,500 MG in NS 100 ML IV SCH (09:00)
[2024-04-03] MEDS ORDERED: PHENobarbital 64.8 MG Tab PO SCH (09:00)
[2024-04-03] MEDS ORDERED: PHENobarbital Sodium 65MG / ML 1ML Vial IV SCH (09:00)
[2024-04-03] MEDS ORDERED: Vancomycin HCL 500 MG in NS 250 ML IV ONE (10:05)
[2024-04-03 10:50] LABS: International Normalized Ratio 1.05; Prothrombin Time Results 11.2 Sec (9.7-11.5)
--- NOTE | 2024-04-03 12:00 | NUR ---
Elevated Temp Pt temp max 102.9 MA. Pt medicated w/ PRN MA tylenol per EMAR & ice packs in place behind neck, armpits & groin as well as a cool wash cloth on forehead & fan on pt w/ no improvement. Cooling pad applied under pt & PRN IV toradol given per EMAR. w/ instruction to place cooling pad on top of pt as well.
[2024-04-03 12:48] VITALS: BP 96/64
[2024-04-03] MEDS ORDERED: ClonazePAM 1 MG Tab PO SCH (14:00)
[2024-04-03] MEDS ORDERED: Lactated Ringer's 1,000 ML IV SCH (14:20)
[2024-04-03 14:40] LABS: Automated CSF WBC Count 0.003 K/mm3 (0-5)
[2024-04-03 14:45] LABS: WBC Count, CSF 3 /mm3 (0-5)
--- NOTE | 2024-04-03 14:45 | NUR ---
Attempt to evaluate swallow Pt mother at bedside stating pt typically eats "minced & moist" diet & "moderately thick or honey thick liquids." Pt mother further states "he is like a bird. If you put something up to his mouth he'll take it, even with his eyes closed." This RN not comfortable trialing PO intake. Pt mother stating "he'll be able to swallow." Pt mother sitting pt up, but pt unable to hold head up w/ chin falling to chest. Pt mother holding pt head upright. This RN placed empty spoon to pt mouth & pt did in fact attempt to take bite from spoon that did not have contents. This RN then did place pea size amount of moderately thick liquid in spoon for pt to trial. Pt placed mouth over spoon, but did not remove contents from spoon. Pt mother stating "it's because it's whatever. He doesn't want that." This RN placed small amount of applesauce onto spoon w/ pt then not responding to spoonful of applesauce. This RN discontinued further attempts for PO intake & then suctioned/cleaned pt mouth.
[2024-04-03 14:55] LABS: RBC Count, CSF 356 /mm3 (0-0)
[2024-04-03 14:56] LABS: Appearance, CSF Clear (Clear); Color, CSF No Color (No Color)
[2024-04-03] MEDS ORDERED: Vancomycin HCL 1,500 MG in NS 250 ML IV SCH ×3 (16:00→20:00)
[2024-04-03 16:42] VITALS: BP 91/66
--- NOTE | 2024-04-03 18:20 | NUR ---
SHIFT SUMMARY PT ALERT. HE IS NONVERBAL AT BASELINE. HX OF SEIZURES, PT HAD A SEIZURE THIS AM, MEDICATED PER EMAR. HR IN THE 110'S, SINUS, PT WITH BP IN THE 90'S, PER PT MOTHER THIS IS HIS BASELINE BP. O2 >92% ON 1L VIA NC. PT WITH RECTAL PROBE FOR TEMP MONITORING, TEMP WAS 102 DEGREES THIS AM. TYLENOL GIVEN AND ICE PACKS APPLIED. PT CONTINUED TO HAVE ELEVATED TEMP OF 101 DEGREES. EXTERNAL COOLING BLANKET APPLIED TO PT. PT TEMP IS NOW AT 99.8 DEGREES. ANOTHER RN ATTEMPTED TO EVALUATE SWALLOWING. PT UNABLE TO HOLD HEAD UP OR INITIATE SWALLOW WITHOUT HIS MOM HOLDING HIS HEAD UP. BEDISDE LUMBAR PUNCTURED COMPLETED THIS AFTERNOON, AWAITING RESULTS. PT RECEIVING IV ABX. WILL CONTINUE TO MONITOR AND RPORT TO PREPRESS STRIPPER RN.
[2024-04-03 20:04] VITALS: BP 105/65
[2024-04-03 21:00] LABS: Escherichia Coli K1 Not Detected (NOT DETECT)
[2024-04-03] MEDS ORDERED: Misc. Oral Solution PO SCH (21:00)
[2024-04-03 21:01] LABS: Cryptococcus Neoformans/Gattii Not Detected (NOT DETECT); Enterovirus Not Detected (NOT DETECT); Haemophilus Influenza Not Detected (NOT DETECT); Herpes Simplex Virus 1 Not Detected (NOT DETECT); Herpes Simplex Virus 2 Not Detected (NOT DETECT); Human Herpesvirus 6 Not Detected (NOT DETECT); Human Parechovirus Not Detected (NOT DETECT); Listeria Monocytogenes Not Detected (NOT DETECT); Neisseria Meningitidis Not Detected (NOT DETECT); Streptococcus Agalactiae Not Detected (NOT DETECT); Streptococcus Pneumoniae Not Detected (NOT DETECT); Varicella Zoster Virus Not Detected (NOT DETECT)
[2024-04-04 00:20] VITALS: BP 82/57
[2024-04-04 05:07] VITALS: BP 95/60
[2024-04-04 05:11] LABS: Hematocrit 41.1 % (37.0-53.0); Hemoglobin 12.8 g/dL (13.5-17.5); Mean Corpuscular HGB 27.1 pg (26.0-34.0); Mean Corpuscular HGB Conc 31.1 g/dL (31.5-36.5); Mean Corpuscular Volume 87 fL (80-100); Mean Platelet Volume 9.6 fL (9.1-12.4); Platelet Count 203 K/mm3 (150-400); RDW Coefficient Variation 13.2 % (11.7-14.2); RDW Standard Deviation 42.1 fL (35.1-46.3); Red Blood Cell Count 4.73 M/mm3 (4.30-5.90); White Blood Cell Count 5.69 K/mm3 (4.00-11.30)
[2024-04-04 05:36] LABS: BAND PERCENT MAN 38 % (0-8); BASOPHILS PERCENT MAN 0 % (0-2); EOSINOPHILS ABSOLUTE MAN 0.68 K/mm3 (0.00-0.68); EOSINOPHILS PERCENT MAN 12 % (0-6); LYMPHOCYTES ABSOLUTE MAN 1.59 K/mm3 (0.84-5.20); LYMPHOCYTES PERCENT MAN 28 % (21-46); MONOCYTES ABSOLUTE MAN 0.28 K/mm3 (0.16-1.47); MONOCYTES PERCENT MAN 5 % (4-13); NEUTROPHILS ABSOLUTE MAN 3.12 K/mm3 (1.96-9.15); SEG NEUTROPHILS PERCENT MAN 17 % (41-73); TOTAL CELLS COUNTED 100
[2024-04-04 05:42] LABS: Calcium, Blood 8.2 mg/dL (8.5-10.1); Creatinine, Blood 0.87 mg/dL (0.60-1.20); Potassium, Blood 4.2 mmol/L (3.5-5.5)
--- NOTE | 2024-04-04 06:04 | NUR ---
SHIFT SUMMARY PATIENT LETHARGIC FOR MAJORITY OF NIGHT, BECAME MORE ALERT AROUND 0400. PATIENT NONVERBAL, UNABLE TO COMMUNICATE NEEDS. TMAX 100.8 DURING THE NIGHT. COOLING BLANKET OFF/ON. BP STABLE. PATIENT ON RA. TELE READING ST. BLADDER SCAN DONE, >800. STRAIGHT CATH x1 PERFORMED. ATTENDS IN PLACE D/T INCONTINENCE. NO OTHER CHANGES. WILL REPORT TO DAY SHIFT RN.
[2024-04-04 07:23] VITALS: BP 102/62
[2024-04-04] MEDS ORDERED: CANNABIDIOL 100 MG/ML PO SCH (09:00)
[2024-04-04 10:05] LABS: Vancomycin, Trough 35.2 ug/mL (5.0-10.0)
[2024-04-04 11:31] VITALS: BP 96/54
[2024-04-04 15:36] VITALS: BP 96/63
[2024-04-04 18:35] LABS: Vancomycin, Random 22.7 ug/mL
--- NOTE | 2024-04-04 18:37 | NUR ---
SHIFT SUMMARY PT ALERT, NONVERBAL AT BASELINE. PT MOM AT BEDSIDE T/O SHIFT. HR IN THE 80'S, SINUS RHYTHM, SBP SOFT, MAP >65. PT DESATED TO THE 80'S, 1L VIA NC PLACED ON PT. O2 >92% ON RA-1L T/O SHIFT. RECTAL PROBE THERMOMETER REPLACED THIS MORNING. COOLING BLANKET REMOVED THIS AM. PTS TEMP RANGING FROM 98.6-99.2. PT TEMP AROUND 98 DEGREES MAJORITY OF SHIFT, PT HAD BLANKETS COVERING HIM AND TEMP INCREASED TO 99.2, BLANKETS REMOVED. PROVIDER TO BEDSIDE TO DISCUSS PLAN OF CARE. PT TO REMAIN NPO AND NOT RECIEVE PO MEDICATIONS UNTIL SPEECH THERAPY EVAL. ORDER PLACED FOR ST EVAL. PT WITH NO URINE OUTPUT THIS SHIF, BLADDER SCAN COMPLETED, 372 ML'S. PRN BLADDER SCANS AND ORDER FOR STRAIGT CATH FOR BLADDER SCAN OF >450 ML'S OF URINE. WILL CONTINUE TO MONITOR PT AND REPORT TO BREAKER UP RN.
[2024-04-04 19:54] VITALS: BP 113/68
[2024-04-04] MEDS ORDERED: Vancomycin HCL 1,000 MG in NS 250 ML IV SCH (21:00)
[2024-04-05] VITALS (8 sets, daily range): BP systolic 87–152; BP diastolic 56–94
[2024-04-05 03:42] LABS: Hematocrit 38.6 % (37.0-53.0); Hemoglobin 12.1 g/dL (13.5-17.5); Mean Corpuscular HGB 26.8 pg (26.0-34.0); Mean Corpuscular HGB Conc 31.3 g/dL (31.5-36.5); Mean Corpuscular Volume 86 fL (80-100); Platelet Count 208 K/mm3 (150-400); RDW Coefficient Variation 12.6 % (11.7-14.2); RDW Standard Deviation 39.6 fL (35.1-46.3); Red Blood Cell Count 4.51 M/mm3 (4.30-5.90)
[2024-04-05 04:01] LABS: Bun/Creatinine Ratio 12.5 (12.0-20.0); Calcium, Blood 8.4 mg/dL (8.5-10.1); Creatinine, Blood 0.72 mg/dL (0.60-1.20); Potassium, Blood 3.9 mmol/L (3.5-5.5)
[2024-04-05 04:13] LABS: BAND PERCENT MAN 18 % (0-8); BASOPHILS PERCENT MAN 0 % (0-2); EOSINOPHILS ABSOLUTE MAN 0.13 K/mm3 (0.00-0.68); EOSINOPHILS PERCENT MAN 2 % (0-6); LYMPHOCYTES ABSOLUTE MAN 1.56 K/mm3 (0.84-5.20); LYMPHOCYTES PERCENT MAN 23 % (21-46); MONOCYTES ABSOLUTE MAN 0.68 K/mm3 (0.16-1.47); MONOCYTES PERCENT MAN 10 % (4-13); NEUTROPHILS ABSOLUTE MAN 4.42 K/mm3 (1.96-9.15); SEG NEUTROPHILS PERCENT MAN 47 % (41-73); TOTAL CELLS COUNTED 100
[2024-04-05] MEDS ORDERED: Dextrose 50% 50 ML Syringe ONE (04:16)
--- NOTE | 2024-04-05 04:29 | NUR ---
PT GLUCOSE WAS 63 ON AM LABS. RECHECKED AT BEDSIDE AND WAS 59. DR ROBLES NOTIFIED. PT GIVEN 1 AMP D50 PER MD ORDER AND FLUIDS CHANGED-SEE EMAR
[2024-04-05] MEDS ORDERED: D5W-1/2NS 1,000 ML IV SCH (04:30)
--- NOTE | 2024-04-05 05:51 | NUR ---
SHIFT SUMMERY PT HAS HAD NO SEIZURE ACTIVITY OVERNIGHT. HE HAS BEEN SR-ST ON THE ADVANCED QUALITY ENGINEER, BP HAS BEEN WNL. LOW GRADE FEVER TREATED W/TYLENOL PER EMAR. PT IS INCONTINENT OF BOWEL AND BLADDER. MAX CATH PLACED FOR URINARY RETENTION PER MD ORDER. PT IS NPO, AWAITING EVAL FROM SPEECH. PT HAD LOW BLOOD GLUCOSE THIS AM-SEE PRIOR NOTE. PT HAD NO CHANGES IN LOC AND LOW BLOOD GLUCOSE WAS RESOLVED W/TREATMENT.
[2024-04-05 06:31] LABS: Source, Urine Foley catheter
[2024-04-05 06:38] LABS: Appearance, Urine Clear (Clear); Bilirubin, Urine Neg (Neg); Blood, Urine 1+ (Neg); Glucose Qualitative, Urine Neg (Neg); Ketones, Urine 3+ (Neg); Leukocyte Esterase, Urine 2+ (Neg); Nitrite, Urine Neg (Neg); Protein, Urine Neg (Neg); Urobilinogen, Urine NORM (Normal)
[2024-04-05 07:09] LABS: Color, Urine Pale Yellow (P-Yellow)
[2024-04-05 07:12] LABS: Red Blood Cells, Urine 0-2 /hpf (0-2)
[2024-04-05 07:13] LABS: Bacteria Few /hpf; Hyaline Casts 0-2 /lpf (0-2); Mucus Heavy (0-Heavy); Squamous Epithelial Cells Rare /hpf (Few)
[2024-04-05] MEDS ORDERED: Vancomycin HCL 1,000 MG in NS 250 ML IV SCH (11:00)
[2024-04-05] MEDS ORDERED: Dextrose 50% 50 ML Syringe IV ONE (14:05)
[2024-04-05 16:57] LABS: Adenovirus Not Detected (NOT DETECT); Bordetella pertussis Not Detected (NOT DETECT); Chlamydophila pneumoniae Not Detected (NOT DETECT); Coronavirus 229E Not Detected (NOT DETECT); Coronavirus HKU1 Not Detected (NOT DETECT); Coronavirus NL63 Not Detected (NOT DETECT); Coronavirus OC43 Not Detected (NOT DETECT); Human Metapneumovirus Not Detected (NOT DETECT); Human Rhinovirus/Enterovirus Not Detected (NOT DETECT); Influenza A/2009-H1 Not Detected (NOT DETECT); Influenza A/H1 Not Detected (NOT DETECT); Influenza A/H3 Not Detected (NOT DETECT); Influenza B Not Detected (NOT DETECT); Mycoplasma pneumoniae Not Detected (NOT DETECT); Parainfluenza Virus 1 Not Detected (NOT DETECT); Parainfluenza Virus 2 Not Detected (NOT DETECT); Parainfluenza Virus 3 Not Detected (NOT DETECT); Parainfluenza Virus 4 Not Detected (NOT DETECT); Respiratory Syncytial Virus Not Detected (NOT DETECT); SARS-Cov-2 (COVID-19), BioFire Not Detected (NOT DETECT)
--- NOTE | 2024-04-05 17:15 | NUR ---
SHIFT SUMMARY: PT ALERT T/OUT THE MORNING, NONVERBAL W/DEVELOPMENTAL DELAY AT BASELINE, HAVING SEIZURES THAT PT's MOTHER STATES ARE MORE NORMAL FOR HIM IN SEVERITY BUT MORE OFTEN THAN USUAL, SEIZURES CONSIST OF JERKING MOTION OF EXTREMITIES AND/OR HEAD THAT LAST LESS THAN 10 SECONDS, NO POST ICTAL STAGE. BEDSIDE SWALLOW EVAL PERFORMED, PT ABLE TO SWALLOW NECTAR THICK LIQUIDS, MEDICATED PER EMAR W/HOME DOSE OF KLONOPIN, PT SLEEPS MOST OF THE AFTERNOON W/NO SEIZURE ACTIVITY. IV TORADOL x1 FOR RECTAL TEMP OF 100.8. O2 SATS MAINTAINED >93% ON RA. SR ON MONITOR W/RATE 90s-100 AT START OF SHIFT, TRENDING DOWN TO 70s. PT REPOSITIONED TOLERATED. 2 BM THIS SHIFT. INDWELLING MAX PATENT, DRAINING YELLOW COLORED URINE TO GRAVITY.
--- NOTE | 2024-04-05 19:15 | NUR ---
ASSUMPTION OF CARE: RECEIVED REPORT FROM SOPHIA MCMAHAN AT 1915. PT UNRESPONSIVE. DOES NOT WITHDRAW TO PAINFUL STIMULI OR RESPOND TO VERBAL STIMULI. ATTMEPTED TO STERNAL RUB AND APPLY NAILBED PRESSURE WITH NO RESPONSE. PUPILS PINPOINT AND SLUGGISH AT TIME OF ASSESSMENT. HOSPITALIST CALLED AND MADE AWARE, MARIAM AT BEDSIDE TO ASSESS PT, PT HAD VERY LITTLE RESPONSE. PT TAKEN FOR HEAD CT AND LABS ORDERED. HELD NIGHTTIME MEDS PER HOSPITALIST REQUEST. PT ON RA WITH SPO2 >92%. LUNGS CLEAR/COARSE. DEMO COORDINATOR IN PLACE, SBP 100'S, WITH HR 70'S. POWERGLIDE TO TYLER FLUSHES, DOES NOT DRAW BACK. PT HAS SPASTIC MOVEMENTS OF UPPER EXTREMETIES. MAX IN PLACE FOR RETENTION, DRAINING TO GRAVITY. ATTENDS IN PLACE FOR INCONTINENT BM'S. BED LOW AND LOCKED.
[2024-04-05 21:46] LABS: Base Excess Venous 2.6 mmol/L; Bicarbonate Venous 26.6 mmol/L (24.0-30.0); PCO2 Venous 36.4 mmHg (38-42); pH Blood Venous 7.47 (7.34-7.37)
--- NOTE | 2024-04-05 22:04 | NUR ---
UPDATE: PT MUCH MORE AWAKE AT THIS TIME. OPENS EYES AND MOVES SPONTANEOUSLY. PT NON-VERBAL AT BASELINE. PT VERY RESTLESS AND ATTMEPTING TO SIT UP OUT OF BED.
[2024-04-05 22:09] LABS: Albumin, Blood 2.4 g/dL (3.4-5.0); Albumin/Globulin Ratio 0.8 (0.8-1.8); Bilirubin, Total 0.3 mg/dL (0.1-1.0); Bun/Creatinine Ratio 6.8 (12.0-20.0); Calcium, Blood 7.9 mg/dL (8.5-10.1); Creatinine, Blood 0.74 mg/dL (0.60-1.20); Potassium, Blood 3.4 mmol/L (3.5-5.5); Total Protein, Blood 5.4 g/dL (6.4-8.2)
[2024-04-05] MEDS ORDERED: Potassium Chloride 40 MEQ IV ONE (22:15)
--- NOTE | 2024-04-05 22:15 | NUR ---
UPDATE: SPOKE WITH [facility] HOSPITAL[facility] REGARDING PT WAKING UP MORE AND TRYING TO SIT UP OUT OF THE BED AND CURRENT LABS. ORDER GIVEN FOR POTASSIUM CHLORIDE ONE TIME DOSE. PROVIDER WOULD ALSO LIKE THIS RN TO GIVE 2100 DOSE OF KEPPRA AND PHENOBARBITAL.
[2024-04-05] MEDS ORDERED: Potassium Chl 20MEQ/Water100ML 100 ML IV SCH (22:20)
[2024-04-06 00:52] LABS: LAMOTRIGINE 8.9 ug/mL (3.0-15.0)
[2024-04-06 00:53] LABS: KEPPRA (LEVETIRACETAM) 65 ug/mL (10-40)
[2024-04-06 03:37] VITALS: BP 120/75
[2024-04-06 04:17] LABS: BASOPHILS ABSOLUTE AUTO 0.02 K/mm3 (0.00-0.23); BASOPHILS PERCENT AUTO 0 % (0-2); EOSINOPHILS ABSOLUTE AUTO 0.04 K/mm3 (0.00-0.68); EOSINOPHILS PERCENT AUTO 1 % (0-6); Hematocrit 35.9 % (37.0-53.0); Hemoglobin 11.7 g/dL (13.5-17.5); IMMATURE GRAN ABSOLUTE AUTO 0.02 K/mm3 (0.00-0.10); IMMATURE GRAN PERCENT AUTO 0 % (0-1); LYMPHOCYTES ABSOLUTE AUTO 0.84 K/mm3 (0.84-5.20); LYMPHOCYTES PERCENT AUTO 14 % (21-46); MONOCYTES PERCENT AUTO 9 % (4-13); Mean Corpuscular HGB 27.3 pg (26.0-34.0); Mean Corpuscular HGB Conc 32.6 g/dL (31.5-36.5); Mean Corpuscular Volume 84 fL (80-100); Mean Platelet Volume 9.6 fL (9.1-12.4); NEUTROPHILS ABSOLUTE AUTO 4.46 K/mm3 (1.96-9.15); NEUTROPHILS PERCENT AUTO 76 % (41-73); Platelet Count 239 K/mm3 (150-400); RDW Coefficient Variation 12.7 % (11.7-14.2); RDW Standard Deviation 38.9 fL (35.1-46.3); Red Blood Cell Count 4.29 M/mm3 (4.30-5.90); White Blood Cell Count 5.88 K/mm3 (4.00-11.30)
[2024-04-06 04:32] LABS: Bun/Creatinine Ratio 4.5 (12.0-20.0); Calcium, Blood 8.5 mg/dL (8.5-10.1); Creatinine, Blood 0.66 mg/dL (0.60-1.20); Potassium, Blood 3.7 mmol/L (3.5-5.5)
[2024-04-06] MEDS ORDERED: LORazepam 2 MG/ML 1ML Injection IV ONE (05:00)
--- NOTE | 2024-04-06 05:32 | NUR ---
SHIFT SUMMARY: PT OPENS EYES SPONTANEOUSLY. TRACKS WHEN IN ROOM. PT VERY RESTLESS THIS AM, ATTEMPTING TO PULL AT LINES AND FREQUENTLY SITS UP AND THROWS LEGS OVER SIDE RAIL. MEDICATED WITH ONE TIME DOSE OF ATIVAN PER EMAR. PT APPEARS COMFORTABLE AT THIS TIME. PT ON RA WITH SPO2 >94%. SENSITOMETRIST IN PLACE, SR WITH HR 60-70'S. MAP >65. MAX IN PLACE, DRAINING TO GRAVITY. PT INCONTINENT OF BM. ATTENDS IN PLACE. POWERGLIDE TO TYLER, PATENT AND SALINE LOCKED. BED LOW AND LOCKED, CALL LIGHT IN REACH.
[2024-04-06 07:36] VITALS: BP 125/94
[2024-04-06 10:11] LABS: Vancomycin, Trough 18.6 ug/mL (5.0-10.0)
--- NOTE | 2024-04-06 10:17 | NUR ---
AM NOTE: ASSUMED CARE AT APPROX 0715 AFTER RECEIVING REPORT FROM MARTIR PAGAN. PT EASILY ALERT TO STAFF/FAMILY IN ROOM, TRACKING MOVEMENT AND MAINTAINING EYE CONTACT. PT SAT UP AND ATE ALL OF HIS BREAKFAST W/OUT DIFFICULTY. DISCUSSION HAD W/PROVIDER RE: PT BECOMING LETHARGIC AND SOMNOLENT AFTER RECEIVING PO HOME MEDICATIONS YESTERDAY AND PLAN FOR TODAY. OF NOW, PO HOME MEDICATIONS ARE HELD UNTIL PROVIDER IS ABLE TO SPEAK W/PT's NEUROLOGIST ABOUT PLAN. PT HAS HAD ONE SEIZURE THIS MORNING, AT APPROX 0930, HARD JERKING MOVEMENTS AND RIGID EXTREMITIES, LASTING LESS THAN 10 SECONDS, IV KEPPRA AND PHENOBARBITAL GIVEN PER EMAR. LS CLEAR/COARSE. SR ON MONITOR W/RATE 80s-90s. MAX PATENT, DRAINING TO GRAVITY. PT INCONTINENT OF STOOL x1 THIS AM. PT's MOTHER AT BEDSIDE, CALL LIGHT IN REACH.
[2024-04-06 11:12] VITALS: BP 126/80
[2024-04-06 12:53] LABS: Adenovirus Not Detected (NOT DETECT); Coronavirus 229E Not Detected (NOT DETECT); Coronavirus HKU1 Not Detected (NOT DETECT); Coronavirus NL63 Not Detected (NOT DETECT); Coronavirus OC43 Not Detected (NOT DETECT); SARS-Cov-2 (COVID-19), BioFire Not Detected (NOT DETECT)
[2024-04-06 12:54] LABS: Bordetella pertussis Not Detected (NOT DETECT); Chlamydophila pneumoniae Not Detected (NOT DETECT); Human Metapneumovirus Not Detected (NOT DETECT); Human Rhinovirus/Enterovirus Not Detected (NOT DETECT); Influenza A/2009-H1 Not Detected (NOT DETECT); Influenza A/H1 Not Detected (NOT DETECT); Influenza A/H3 Not Detected (NOT DETECT); Influenza B Not Detected (NOT DETECT); Mycoplasma pneumoniae Not Detected (NOT DETECT); Parainfluenza Virus 1 Not Detected (NOT DETECT); Parainfluenza Virus 2 Not Detected (NOT DETECT); Parainfluenza Virus 3 Not Detected (NOT DETECT); Parainfluenza Virus 4 Not Detected (NOT DETECT); Respiratory Syncytial Virus Not Detected (NOT DETECT)
[2024-04-06 15:58] VITALS: BP 117/74
--- NOTE | 2024-04-06 16:23 | NUR ---
PATIENT WAS ASLEEP DURING MY ROUNDS. HIS MOTHER WAS AT BEDSIDE. PROVIDED THERAPUTIC LISTENING SHE RELAYED RK RECENT MEDICAL HISTORY. SHE REPORTED THAT HE HAS BEEN STRUGGLING WITH KIDNEY STONES BUT THAT THE UROLOGIST CANT REMOVE THEM BECAUSE THEY ARE TOO SMALL AND NUMEROUS. SHE EXPRESSED THAT HE WAS HERE PREVIOUSLY WITH A UTI AND THERE IS CONCERN THAT IT MAY HAVE COLONIZED. HE IS BEING TREATED FOR AN INFECTION BUT PER MOTHER THE SOURCE IS UNKNOWN. WE DISCUSSED HIS DISTANT HISTORY AND HOW HE WAS ON HOSPICE AT ONE POINT DUE TO HIS SEIZURES. SHE REPORTED THAT HIS SEIZURE MEDICATION WERE INCREASED SIGNIFICANTLY SINCE THEN THEY HAVE IMPROVED AND HE GRADUATED OFF HOSPICE ABOUT A YEAR LATER. SHE REPORTED THAT HE HASNT WALKED SINCE THEN. SHE SAID DR. MARTINEZ WAS GOING TO TALK TO THE NEUROLOGIST ABOUT SEIZURE MEDICATION HE IS INTERMITENT WITH BEING ABLE TO TOLORATE PO INTAKE. HE LIVES IN A SKILLED NURSING. PC WILL CONTINUE TO FOLLOW
--- NOTE | 2024-04-06 17:28 | NUR ---
SHIFT SUMMARY/TRANSFER: SINCE THIS MORNING'S NOTE, PT HAD TWO MORE SEIZURES THAT LASTED LESS THAN 10 SECONDS AND CONSISTED OF QUICK, JERKY MOVEMENTS. OTHER THAN THAT, PT RESTS QUIETLY IN BED. RECTAL TEMP RANGE OF 100.0-100.7, CURRENTLY 100.4. O2 SATS MAINTAINED >93% ON RA. MAX PATENT. ATTENDS IN PLACE AND CHECKED FREQUENTLY. REPOSITIONING Q2H OR TOLERATED BY PT. PROVIDER HAS LEFT A MESSAGE FOR PT's NEUROLOGIST TEAM RE: CURRENT PLAN OF CARE, AWAITING CALL BACK, HOME PO MEDICATIONS CONTINUE ON HOLD UNTIL THEN. PT ADMISSION STATUS HAS BEEN CHANGED TO MEDICAL. PT RECEIVES NEW ROOM ASSIGNMENT AND WILL BE TRANSFERED AFTER REPORT GIVEN.
--- NOTE | 2024-04-06 18:42 | NUR ---
PT TRANSFERED FROM PCU 20 TO ROOM 343. PT NOTED TO BE NONVERBAL WITH DEVELOPEMENTAL DELAY. PT MOM SEVERO PRESENT AT BEDSIDE. IT WAS REPORTED TO THIS NURSE FROM THE PCU NURSE THAT WE ARE TO BE HOLDING PT ORAL MEDICATION PER DR MARTINEZ SHE IS AWAITING CALL BACK FROM HIS NEUROLOGIST. PT IS A PUREE DIET WITH NECTURE THICKED LIQUIDS. PT MOM REPORTS THAT PT TAKES HIS MEDS WHOLE IN APPLESAUCE WHEN HE TAKES THEM. PT NOTED TO BE DROWSI AND RESTING WITH HIS EYES CLOSED.
[2024-04-06 19:29] VITALS: BP 106/72
[2024-04-06] MEDS ORDERED: NS 250 ML BAG XX PRN (21:40)
[2024-04-06] MEDS ORDERED: MULTI-VITAMIN1 EAC2 PO (23:03)
[2024-04-06] MEDS ORDERED: THERA-D2000 UNIT PO (23:04)
[2024-04-07 04:40] VITALS: BP 127/69
--- NOTE | 2024-04-07 05:01 | NUR ---
pt non-verbal, will smile in response, vss, no indications of pain, repos for comfort, frequent cks (unable to express needs), oral home meds held per order, patient sleeping at this time, will cont to monitor until report given to oncoming nurse.
[2024-04-07 07:29] VITALS: BP 152/119
[2024-04-07 08:12] LABS: BASOPHILS ABSOLUTE AUTO 0.04 K/mm3 (0.00-0.23); BASOPHILS PERCENT AUTO 1 % (0-2); EOSINOPHILS ABSOLUTE AUTO 0.19 K/mm3 (0.00-0.68); EOSINOPHILS PERCENT AUTO 3 % (0-6); Hematocrit 38.8 % (37.0-53.0); Hemoglobin 12.6 g/dL (13.5-17.5); IMMATURE GRAN ABSOLUTE AUTO 0.02 K/mm3 (0.00-0.10); IMMATURE GRAN PERCENT AUTO 0 % (0-1); LYMPHOCYTES ABSOLUTE AUTO 1.95 K/mm3 (0.84-5.20); LYMPHOCYTES PERCENT AUTO 31 % (21-46); MONOCYTES ABSOLUTE AUTO 0.71 K/mm3 (0.16-1.47); MONOCYTES PERCENT AUTO 11 % (4-13); Mean Corpuscular HGB 26.9 pg (26.0-34.0); Mean Corpuscular HGB Conc 32.5 g/dL (31.5-36.5); Mean Corpuscular Volume 83 fL (80-100); Mean Platelet Volume 9.3 fL (9.1-12.4); NEUTROPHILS ABSOLUTE AUTO 3.44 K/mm3 (1.96-9.15); NEUTROPHILS PERCENT AUTO 54 % (41-73); Platelet Count 307 K/mm3 (150-400); RDW Coefficient Variation 12.7 % (11.7-14.2); RDW Standard Deviation 38.5 fL (35.1-46.3); Red Blood Cell Count 4.69 M/mm3 (4.30-5.90); White Blood Cell Count 6.35 K/mm3 (4.00-11.30)
[2024-04-07 08:29] LABS: Bun/Creatinine Ratio 9.6 (12.0-20.0); Calcium, Blood 8.8 mg/dL (8.5-10.1); Creatinine, Blood 0.73 mg/dL (0.60-1.20); Potassium, Blood 3.6 mmol/L (3.5-5.5)
[2024-04-07] MEDS ORDERED: Polyethylene Glycol 3350 17 gm PO PRN (09:10)
[2024-04-07] MEDS ORDERED: Docusate Sodium/Senna 1 Tab PO PRN (09:10)
[2024-04-07] MEDS ORDERED: Bisacodyl 5 MG TabEC PO PRN (09:15)
[2024-04-07] MEDS ORDERED: PHENobarbital 64.8 MG Tab PO SCH (09:30)
[2024-04-07] MEDS ORDERED: ClonazePAM 1 MG Tab PO SCH (14:00)
[2024-04-07 15:20] VITALS: BP 96/71
[2024-04-07 19:42] VITALS: BP 109/74
[2024-04-07] MEDS ORDERED: Lactobacil 2-S.Thermo-Bifido 1 1 Cap PO SCH (21:00)
[2024-04-07] MEDS ORDERED: LevETIRAcetam 500 MG Tab PO SCH (21:00)
[2024-04-08 03:09] VITALS: BP 121/79
--- NOTE | 2024-04-08 05:25 | NUR ---
non-verbal, no indications of pain this shift, afebrile, VSS, repositioned for comfort, slept t/o the night waking easily for cares, sleeping at this time, call light in reach, bed alarm active, will cont to monitor until report given to oncoming nurse.
[2024-04-08 06:01] LABS: Hematocrit 38.4 % (37.0-53.0); Hemoglobin 12.5 g/dL (13.5-17.5); Mean Corpuscular HGB Conc 32.6 g/dL (31.5-36.5); Mean Corpuscular Volume 83 fL (80-100); Mean Platelet Volume 9.5 fL (9.1-12.4); Platelet Count 323 K/mm3 (150-400); RDW Coefficient Variation 12.7 % (11.7-14.2); RDW Standard Deviation 38.5 fL (35.1-46.3); Red Blood Cell Count 4.63 M/mm3 (4.30-5.90); White Blood Cell Count 4.93 K/mm3 (4.00-11.30)
[2024-04-08 06:20] LABS: Bun/Creatinine Ratio 14.9 (12.0-20.0); Calcium, Blood 8.7 mg/dL (8.5-10.1); Creatinine, Blood 0.67 mg/dL (0.60-1.20); Potassium, Blood 3.7 mmol/L (3.5-5.5)
[2024-04-08 07:14] LABS: BASOPHILS PERCENT MAN 0 % (0-2); EOSINOPHILS ABSOLUTE MAN 0.19 K/mm3 (0.00-0.68); EOSINOPHILS PERCENT MAN 4 % (0-6); LYMPHOCYTES ABSOLUTE MAN 1.82 K/mm3 (0.84-5.20); LYMPHOCYTES PERCENT MAN 37 % (21-46); MONOCYTES ABSOLUTE MAN 0.78 K/mm3 (0.16-1.47); MONOCYTES PERCENT MAN 16 % (4-13); NEUTROPHILS ABSOLUTE MAN 2.11 K/mm3 (1.96-9.15); SEG NEUTROPHILS PERCENT MAN 43 % (41-73); TOTAL CELLS COUNTED 100
[2024-04-08 07:54] VITALS: BP 107/81
[2024-04-08] MEDS ORDERED: ClonazePAM 0.5 MG Tab PO SCH (14:00)
[2024-04-08 16:03] VITALS: BP 104/61
--- NOTE | 2024-04-08 18:23 | NUR ---
SHIFT SUMMARY PT HAS DEVELOPMENTAL DELAYS, NONVERBAL. MAX D/C'D THIS MORNING. PT NOT VOIDED SINCE DISCONTINUATION OF MAX. BLADDER SCANNED AT 1815, READING 154 ML IN BLADDER. NO SIGNS OR SYMTPOMS OF DISCOMFORT ASSESSED THROUGHOUT THIS SHIFT. PT'S MOTHER, JOOVN AT BEDSIDE THROUGHOUT THE SHIFT. PT CONTINUES ABX THERAPY. TOTAL CARE NEEDED FOR FEEDINGS, PT'S MOTHER HELPFUL IN PROVIDING CARE TO THE PT. NO SEIZURE ACTIVITY NOTED DURING THIS SHIFT.
[2024-04-08 20:12] VITALS: BP 104/67
[2024-04-08] MEDS ORDERED: Amoxicillin/Clavulanate K 875 MG Tab PO SCH (21:00)
[2024-04-09 02:41] VITALS: BP 109/66
--- NOTE | 2024-04-09 04:02 | NUR ---
SHIFT SUMMARY. PATIENT IS NON-VERBAL. PATIENT EASILY AROUSABLE. PATIENT SLEEPING T/O NIGHT. PATIENT IS COOPERATIVE WITH CARE. PATIENT IS BEDREST AT THIS TIME. PATIENT INCONTINENT-ATTENDS CHANGED NEEDED-PATIENT HAD MAX THAT WAS REMOVED ON 04/08/24-PATIENT HAS VOIDED ONCE THIS SHIFT AND HAS HAD SMALL SIPS OF THICKENED FLUIDS. BED EXIT ALARM ENGAGED FOR PATIENT SAFETY-ROUNDING DONE THIS SHIFT AND PATIENT REPOSITIONED. BED IS LOCKED IN THE LOWEST POSITION, SEIZURE PRECAUTIONS IN PLACE, CALL LIGHT IN REACH. CARE IS ONGOING.
[2024-04-09 07:35] VITALS: BP 125/78
[2024-04-09] MEDS ORDERED: AMOCLA875 PO (12:39)
--- NOTE | 2024-04-09 14:00 | NUR ---
PT DISCHARGED TO BACK TO NURSING HOME VIA TRANSPORT FROM THE NURSING HOME. MOTHER AT BEDSIDE AT TIME OF DISCHARGE. ALL VALUABLES RETURNED AND SENT WITH THE PATIENT.
--- NOTE | 2024-04-09 14:09 | NUR ---
DISCHARGE: PT D/C @ 1355 VIA WHEELCHAIR WITH MOTHER AND STAFF FROM PT HOME. POWERGLIDE REMOVED BY MARTIR THORNTON WITHOUT COMPLICATIONS. PT BELONGINGS AND MEDICATIONS SENT WITH FAMILY. NEW MEDICATIONS FAXED TO [facility]. FAMILY AND CAREGIVER AWARE OF FOLLOW-UP APPOINTMENT ON 04-16-24 @ 1200. NO QUESTIONS AT TIME OF DISCHARGE.
== END 2024-04-09 13:53 | disposition home or self-care (01) | DRG 100 ==
LOC: ER 18:14 → MEDS 22:08 → PCU 22:08 → ERHOLD 22:08 → PCU 04-03 00:02 → MEDS 04-06 18:08
PROVIDERS: Emergency Medicine; Family Medicine; Nurse Practitioner Acute Care; ADMIT Internal Medicine
DX: G40.919 Epilepsy, unspecified, intractable, without status epilepticus (principal); A41.9 Sepsis, unspecified organism; G40.812 Lennox-Gastaut syndrome, not intractable, without status epilepticus; Z66 Do not resuscitate; R62.50 Unspecified lack of expected normal physiological development in childhood; K21.9 Gastro-esophageal reflux disease without esophagitis; R33.9 Retention of urine, unspecified; D64.9 Anemia, unspecified; K59.00 Constipation, unspecified; Z79.899 Other long term (current) drug therapy; Z88.8 Allergy status to other drugs, medicaments and biological substances
CPT/HCPCS: 0202U; 0241U; 36415; 70450; 71045; 71260; 74177; 80048; 80053; 80175; 80177; 80202; 81001; 82565; 82803; 82945; 82947; 83605; 83735; 83880; 84100; 84145; 84157; 85025; 85610; 85730; 87040; 87070; 87086; 87205; 87483; 87507; 88108; 89051; 95819; 96365; 96375; 99285-25; A9270; C1751; J0133; J1650; J1885; J1953; J2060; J2185; J2560; J3370; J3480; J7030; J7042; J7050; J7060; J7120; Q9967

== ENCOUNTER 2024-05-13 20:14 | Emergency (ER) | payer OTHER ==
[~2024-05-13] VITALS: Ht 162.6 cm; Wt 61.2 kg
[~2024-05-13 20:14] MED LIST changes: -Enoxaparin 40 MG/0.4 ML SYR SC SCH; +MULTI-VITAMIN1 EAC2 PO
[2024-05-13 20:48] LABS: BASOPHILS ABSOLUTE AUTO 0.04 K/mm3 (0.00-0.23); BASOPHILS PERCENT AUTO 1 % (0-2); EOSINOPHILS ABSOLUTE AUTO 0.11 K/mm3 (0.00-0.68); EOSINOPHILS PERCENT AUTO 1 % (0-6); Hematocrit 42.6 % (37.0-53.0); Hemoglobin 13.8 g/dL (13.5-17.5); IMMATURE GRAN ABSOLUTE AUTO 0.02 K/mm3 (0.00-0.10); IMMATURE GRAN PERCENT AUTO 0 % (0-1); LYMPHOCYTES ABSOLUTE AUTO 1.27 K/mm3 (0.84-5.20); LYMPHOCYTES PERCENT AUTO 16 % (21-46); MONOCYTES ABSOLUTE AUTO 0.46 K/mm3 (0.16-1.47); MONOCYTES PERCENT AUTO 6 % (4-13); Mean Corpuscular HGB 26.8 pg (26.0-34.0); Mean Corpuscular HGB Conc 32.4 g/dL (31.5-36.5); Mean Corpuscular Volume 83 fL (80-100); Mean Platelet Volume 9.6 fL (9.1-12.4); NEUTROPHILS ABSOLUTE AUTO 6.22 K/mm3 (1.96-9.15); NEUTROPHILS PERCENT AUTO 77 % (41-73); Platelet Count 303 K/mm3 (150-400); RDW Coefficient Variation 13.6 % (11.7-14.2); Red Blood Cell Count 5.15 M/mm3 (4.30-5.90); White Blood Cell Count 8.12 K/mm3 (4.00-11.30)
[2024-05-13 21:10] LABS: Bilirubin, Total 0.3 mg/dL (0.1-1.0); Bun/Creatinine Ratio 15.7 (12.0-20.0); Calcium, Blood 9.3 mg/dL (8.5-10.1); Creatinine, Blood 0.76 mg/dL (0.60-1.20); Magnesium, Blood 2.1 mg/dL (1.6-2.4); Potassium, Blood 3.9 mmol/L (3.5-5.5)
[2024-05-13 21:26] LABS: CORONAVIRUS COVID-19 AG Negative (NEGATIVE); INFLUENZA A AG Negative (NEGATIVE); INFLUENZA B AG Negative (NEGATIVE)
[2024-05-13 22:39] LABS: Source, Urine Clean Catch
[2024-05-13 22:43] LABS: Bilirubin, Urine Neg (Neg); Blood, Urine 1+ (Neg); Glucose Qualitative, Urine Neg (Neg); Ketones, Urine Neg (Neg); Leukocyte Esterase, Urine 1+ (Neg); Nitrite, Urine Neg (Neg); Protein, Urine Neg (Neg); Urobilinogen, Urine NORM (Normal)
[2024-05-13 22:50] LABS: Appearance, Urine Clear (Clear); Color, Urine Pale Yellow (P-Yellow)
[2024-05-13 22:51] LABS: Bacteria Rare /hpf; Red Blood Cells, Urine 0-2 /hpf (0-2); Squamous Epithelial Cells Not Seen /hpf (Few)
[2024-05-13] MEDS ORDERED: Cephalexin Monohydrate 500 MG Cap PO ONE (23:15)
[2024-05-13] MEDS ORDERED: Ciprofloxacin 400MG/D5 200ML 200 ML IV ONE (23:30)
[2024-05-13] MEDS ORDERED: NS 1,000 ML IV SCH (23:45)
[2024-05-13] MEDS ORDERED: CIPR500 PO (23:47)
[2024-05-13] MEDS ORDERED: Ibuprofen600 MG PO (23:47)
[2024-05-14] MEDS ORDERED: LEVOFLOXACIN750 MG PO (00:09)
[2024-05-14] MEDS ORDERED: Acetaminophen 325 MG TABLET PO ONE (03:05)
[2024-05-14] MEDS ORDERED: Ibuprofen 600 MG Tab PO ONE (03:05)
[2024-05-14 03:19] VITALS: BP 105/70
== END 2024-05-14 03:26 | disposition home or self-care (01) ==
LOC: ER 20:14
PROVIDERS: Student in an Organized Health Care Education/Training Program
DX: N39.0 Urinary tract infection, site not specified (principal); G40.409 Other generalized epilepsy and epileptic syndromes, not intractable, without status epilepticus; I10 Essential (primary) hypertension; R73.9 Hyperglycemia, unspecified; K21.9 Gastro-esophageal reflux disease without esophagitis; Z88.8 Allergy status to other drugs, medicaments and biological substances; Z91.011 Allergy to milk products; Z79.899 Other long term (current) drug therapy
CPT/HCPCS: 51701; 71045; 80053; 81001; 83735; 85025; 87077; 87086; 87186; 87428-QW; 93005; 93010; 96365-59; 99284-25; A9270; J0744; J7030

== ENCOUNTER 2024-05-23 06:16 | Inpatient (IN) | payer OTHER ==
[~2024-05-23] VITALS: Ht 160 cm; Wt 52.2 kg
[~2024-05-23 06:16] MED LIST changes: +CIPR500 PO; -DIAZEPAM 2.5 MG PR; +Ibuprofen600 MG PO; +LEVOFLOXACIN750 MG PO
[2024-05-23] MEDS ORDERED: LORazepam 2 MG/ML 1ML Injection ONE (06:22)
[2024-05-23] MEDS ORDERED: NS 1,000 ML IV SCH (06:30)
[2024-05-23] MEDS ORDERED: Ketorolac Tromethamine 30mg Vial IV ONE (06:30)
[2024-05-23 06:51] LABS: BASOPHILS ABSOLUTE AUTO 0.05 K/mm3 (0.00-0.23); BASOPHILS PERCENT AUTO 0 % (0-2); EOSINOPHILS ABSOLUTE AUTO 0.07 K/mm3 (0.00-0.68); EOSINOPHILS PERCENT AUTO 1 % (0-6); Hematocrit 45.9 % (37.0-53.0); Hemoglobin 14.9 g/dL (13.5-17.5); IMMATURE GRAN ABSOLUTE AUTO 0.03 K/mm3 (0.00-0.10); IMMATURE GRAN PERCENT AUTO 0 % (0-1); LYMPHOCYTES ABSOLUTE AUTO 0.78 K/mm3 (0.84-5.20); LYMPHOCYTES PERCENT AUTO 7 % (21-46); MONOCYTES ABSOLUTE AUTO 0.62 K/mm3 (0.16-1.47); MONOCYTES PERCENT AUTO 6 % (4-13); Mean Corpuscular HGB 26.7 pg (26.0-34.0); Mean Corpuscular HGB Conc 32.5 g/dL (31.5-36.5); Mean Corpuscular Volume 82 fL (80-100); Mean Platelet Volume 9.4 fL (9.1-12.4); NEUTROPHILS ABSOLUTE AUTO 9.68 K/mm3 (1.96-9.15); NEUTROPHILS PERCENT AUTO 86 % (41-73); Platelet Count 277 K/mm3 (150-400); RDW Coefficient Variation 13.6 % (11.7-14.2); RDW Standard Deviation 40.3 fL (35.1-46.3); Red Blood Cell Count 5.58 M/mm3 (4.30-5.90); White Blood Cell Count 11.23 K/mm3 (4.00-11.30)
[2024-05-23 06:58] LABS: Source, Urine Straight Cath
[2024-05-23 07:09] LABS: Bilirubin, Urine Neg (Neg); Blood, Urine 3+ (Neg); Glucose Qualitative, Urine Neg (Neg); Ketones, Urine Neg (Neg); Leukocyte Esterase, Urine 2+ (Neg); Nitrite, Urine Neg (Neg); Protein, Urine 2+ (Neg); Urobilinogen, Urine NORM (Normal)
[2024-05-23 07:16] LABS: Appearance, Urine Hazy (Clear); Color, Urine Yellow (P-Yellow)
[2024-05-23 07:18] LABS: Bacteria Few /hpf; Squamous Epithelial Cells Few /hpf (Few); White Blood Cells, Urine 25-50 /hpf (0-5)
[2024-05-23 07:34] LABS: Free Thyroxine 0.97 ng/dL (0.70-1.60); Magnesium, Blood 1.8 mg/dL (1.6-2.4); Prolactin 8.8 ng/mL (2.5-17.4); Thyroid Stimulating Hormone 0.658 uIU/mL (0.360-4.800)
[2024-05-23 07:35] LABS: Albumin, Blood 3.9 g/dL (3.4-5.0); Bilirubin, Total 0.4 mg/dL (0.1-1.0); Bun/Creatinine Ratio 22.4 (12.0-20.0); Calcium, Blood 8.7 mg/dL (8.5-10.1); Creatinine, Blood 0.67 mg/dL (0.60-1.20); Globulin, Blood 3.8 g/dL (2.2-4.0); Potassium, Blood 3.7 mmol/L (3.5-5.5); Total Protein, Blood 7.7 g/dL (6.4-8.2)
[2024-05-23] MEDS ORDERED: Piperacillin/Tazobactam Sod 3.375 GM in NS 100 ML IV ONE (07:35)
[2024-05-23] MEDS ORDERED: LevETIRAcetam 500 MG Tab PO ONE (07:40)
[2024-05-23] MEDS ORDERED: PHENobarbital 64.8 MG Tab PO ONE (07:40)
[2024-05-23] MEDS ORDERED: ClonazePAM 1 MG Tab PO ONE (07:40)
[2024-05-23] MEDS ORDERED: LamoTRIgine 25 MG Tab PO ONE (07:40)
[2024-05-23] MEDS ORDERED: LamoTRIgine 100 MG Tab PO ONE (07:50)
[2024-05-23] MEDS ORDERED: Lactated Ringer's 1,000 ML IV SCH (08:45)
[2024-05-23] MEDS ORDERED: FLU VACC TS2024-25(6MOS UP)/PF 45 MCG/0.5 ML SYRINGE IM SCH (08:45)
[2024-05-23] MEDS ORDERED: LORazepam 2 MG/ML 1ML Injection IV PRN (08:50)
[2024-05-23] MEDS ORDERED: Lactobacil 2-S.Thermo-Bifido 1 1 Cap PO SCH (09:00)
[2024-05-23 09:13] LABS: CORONAVIRUS COVID-19 AG Negative (NEGATIVE); INFLUENZA A AG Negative (NEGATIVE); INFLUENZA B AG Negative (NEGATIVE)
[2024-05-23] MEDS ORDERED: Piperacillin/Tazobactam Sod 3.375 GM in NS 100 ML IV SCH (12:00)
[2024-05-23 16:49] VITALS: BP 124/69
[2024-05-23] MEDS ORDERED: [UNRECOGNIZED DRUG - OTHER] PO (18:04)
[2024-05-23] MEDS ORDERED: LevETIRAcetam 500 MG Tab PO SCH (18:05)
[2024-05-23] MEDS ORDERED: PHENO60 PO (18:05)
[2024-05-23] MEDS ORDERED: LAMO100 PO (18:07)
[2024-05-23] MEDS ORDERED: Keppra PO (18:08)
--- NOTE | 2024-05-23 18:25 | NUR ---
SHIFT SUMMARY PATIENT ADMIT TO MEDICAL FLOOR FROM ED. CALLED DR BEST TO UPDATE HOME MEDS PER MED REC, NEW ORDERS RECEIVED. SEIZURE PADS SET ON BED BOTH SIDES. MOM IN ROOM WITH PATIENT, ABLE TO PROVIDE HEALTH INFORMATION. NON-VERBAL AT BASELINE, HASN'T GIVEN ANY KIND OF RESPONSES OR ENGAGED WITH STAFF, DID ALLOW CARES. ON 4 LITERS NC, STATES HE USES OXYGEN OCCASIONALLY AT NOC. SKIN INTACT, 2 BRUISES NOTED, MOM STATES THEY HAPPENED BY HITTING HIS LEGS ON THE METAL ON HIS WC AT HOME. CALL LIGHT IN REACH, MOM STATES HE WON'T USE IT. NOT ABLE TO MAKE NEEDS KNOWN. PLAN FOR FREQUENT CHECKS. CARES ONGOING
[2024-05-23] MEDS ORDERED: LamoTRIgine 100 MG Tab PO SCH ×2 (21:00)
[2024-05-23] MEDS ORDERED: PHENobarbital 64.8 MG Tab PO SCH (21:00)
[2024-05-23] MEDS ORDERED: CANNABIDIOL 100 MG/ML PO SCH (21:00)
[2024-05-23] MEDS ORDERED: ClonazePAM 0.5 MG Tab PO SCH (21:00)
[2024-05-23] MEDS ORDERED: levETIRAcetam 750 MG TABLET PO SCH (21:00)
[2024-05-23 21:26] VITALS: BP 112/86
[2024-05-24] MEDS ORDERED: NS 250 ML IV PRN (00:20)
--- NOTE | 2024-05-24 02:09 | NUR ---
ASSUMPTION OF CARE ASSUMED CARE OF PT AT 1900,BEDSIDE REPORT COMPLETED WITH PREVIOUS NURSE.PT'S MOTHER AT BEDSIDE.PLAN OF CARE REVIEWED WITH PT'S MOTHER.NO S/S OF PAIN/DISCOMFORT NOTED.WILL CONTINUE TO MONITOR.
[2024-05-24 04:18] VITALS: BP 101/72
--- NOTE | 2024-05-24 06:32 | NUR ---
PT SLEPT ON/OFF THROUGHOUT THE NIGHT.OXYGEN SPOT CHECKS >98% ON RA.NO SEIZURE ACTIVITY NOTED THIS SHIFT.REPOSITIONED Q2H.NO S/S OF PAIN/DISCOMFORT NOTED.APPEARS TO BE SLEEPING AT THIS TIME.WILL REPORT TO INCOMING NURSE.
[2024-05-24 07:39] VITALS: BP 104/66
[2024-05-24] MEDS ORDERED: CANNABIDIOL 100 MG/ML PO SCH (09:00)
[2024-05-24 14:43] VITALS: BP 92/59
--- NOTE | 2024-05-24 15:02 | NUR ---
PHYSICIAN CONTACT [address] GONZALEZ TO INFORM HIM THAT PATIENT NOT ALERT ENOUGH TO TAKE MEDS. HAVE ATTEMPTED MULTIPLE TIMES, MOM ATTEMPTING TO WAKE HIM WELL. INQUIRED ABOUT IV KEPPRA PT HAS SEIZURE CONDITION, DECLINED NEW ORDERS AT THIS TIME. 1430 PATIENT MORE ALERT THIS AFTERNOON, CALLED DR GONZALEZ TO SEE IF HE WANTED MORNING DOSES OF ANTISEIZURE MEDS GIVEN, STATED THE TIMING OF MEDS WOULD BE TOO CLOSE MOST MEDS ARE BID AND TO WAIT UNTIL NEXT DOSING TIME. MOM INFORMED OF THESE PHONE CALLS, TEARFUL AND STATING CONCERN FOR INCREASED RISK OF SEIZURE ACTIVITY WITHOUT MEDS. DECLINED NEED FOR DR GONZALEZ TO SPEAK WITH HER ABOUT THIS. REASSURED MOM THAT RN WOULD CONTNUE WITH FREQUENT ROUNDING AND ABOUT PRN MEDICATIONS IV FOR BREAKTHROUGH SEIZURES. CALL LIGHT IN REACH OF MOM.
--- NOTE | 2024-05-24 17:20 | NUR ---
SHIFT SUMMARY PATIENT IN BED ALL SHIFT, NOT ALERT OR RESPONSIVE MINUS ABOUT A 15 MINUTE PERIOD. MOM AT BEDSIDE DURATION OF SHIFT, REPORTING MULTIPLE EPISODES OF SEIZURE LIKE ACTIVITY, SMALL EYE MOVEMENTS LIKE SPASM OR RAPID BLINKING. DOC AWARE OF NOT BEING ABLE TO SAFELY ADMINISTER ORAL MEDS, DECLINED TO ORDER IV MEDS, SEE PREVIOUS NOTES. PATIENT NOT ABLE TO MAKE NEEDS KNOWN. INCONTINENT OF URINE SEVERAL TIMES WHICH IS BASELINE. CARES ONGOING.
[2024-05-24 20:12] VITALS: BP 96/61
[2024-05-25 03:29] VITALS: BP 110/65
--- NOTE | 2024-05-25 04:36 | NUR ---
SHIFT SUMMARY: PT AOX0 NONVERBAL COGNITION AT BASELINE. SOME TWITCHING AND SMALL SEIZURES THAT MOTHER SAID WERE NORMAL, ESPECIALLY AFTER MISSING MORNING DOSES OF KEPPRA. TOLERATED MEDS CRUSHED IN APPLESAUCE FOR THIS RN AND BEGAN TO SETTLE DOWN. INTERMITTENTLY SLEPT THROUGH THE NIGHT OCCASIONALLY SITTING UP ON HIS OWN. INCONTINENT OF URINE AND CHANGED, NO BM. PT TOLERATING IV ANTIBIOTICS WELL. PT IS RESTING IN BED, BED IN LOWEST POSITION, CALL LIGHT IN REACH. CONTINUING CARE.
[2024-05-25 07:45] VITALS: BP 96/56
[2024-05-25 15:07] VITALS: BP 99/67
--- NOTE | 2024-05-25 16:18 | NUR ---
NO CHANGES IN PT STATUS. PT WAS ABLE TO TAKE MEDICATIONS SAFLEY ND EFFECTIVLY WITH MOTHER AT BEDSIDE ALL DAY. PT HAD NO SIGN OF DISCOMOFRT THROUGH THE SHIFT. MOM HAD NO QUESTIONS OR CONCERNS AT THIS TIME
[2024-05-25 19:37] VITALS: BP 104/62
[2024-05-26 04:20] VITALS: BP 115/65
--- NOTE | 2024-05-26 04:56 | NUR ---
SHIFT SUMMARY: PT AOX0 NON VERBAL AT BASELINE. WAS ABLE TO TOLERATE MEDS CRUSHED IN APPLESAUCE AT START OF SHIFT. SLEPT MOST OF THE NIGHT WITH SOME SMALL SIEZURES/ SPACTICITY THAT CAME AND WENT. NOTHING LASTING LONGER THAN A FEW SECONDS AT MOST. PT VOIDED AND CHANGED, NO BM. NO ACUTE EVENTS OVER NIGHT. PT RESTING IN BED, BED IN LOWEST POSITION, CALL LIGHT IN REACH. CONTINUING CARE.
[2024-05-26 05:40] LABS: BASOPHILS ABSOLUTE AUTO 0.04 K/mm3 (0.00-0.23); BASOPHILS PERCENT AUTO 1 % (0-2); EOSINOPHILS ABSOLUTE AUTO 0.32 K/mm3 (0.00-0.68); EOSINOPHILS PERCENT AUTO 4 % (0-6); Hemoglobin 12.3 g/dL (13.5-17.5); IMMATURE GRAN ABSOLUTE AUTO 0.01 K/mm3 (0.00-0.10); IMMATURE GRAN PERCENT AUTO 0 % (0-1); LYMPHOCYTES ABSOLUTE AUTO 1.93 K/mm3 (0.84-5.20); LYMPHOCYTES PERCENT AUTO 26 % (21-46); MONOCYTES ABSOLUTE AUTO 0.46 K/mm3 (0.16-1.47); MONOCYTES PERCENT AUTO 6 % (4-13); Mean Corpuscular HGB 26.2 pg (26.0-34.0); Mean Corpuscular HGB Conc 31.5 g/dL (31.5-36.5); Mean Corpuscular Volume 83 fL (80-100); Mean Platelet Volume 9.6 fL (9.1-12.4); NEUTROPHILS ABSOLUTE AUTO 4.75 K/mm3 (1.96-9.15); NEUTROPHILS PERCENT AUTO 63 % (41-73); Platelet Count 298 K/mm3 (150-400); RDW Coefficient Variation 13.5 % (11.7-14.2); RDW Standard Deviation 41.2 fL (35.1-46.3); Red Blood Cell Count 4.69 M/mm3 (4.30-5.90); White Blood Cell Count 7.51 K/mm3 (4.00-11.30)
[2024-05-26 06:40] LABS: Magnesium, Blood 2.3 mg/dL (1.6-2.4)
[2024-05-26 06:41] LABS: Albumin, Blood 3.8 g/dL (3.4-5.0); Bilirubin, Total 0.4 mg/dL (0.1-1.0); Bun/Creatinine Ratio 18.4 (12.0-20.0); Calcium, Blood 9.2 mg/dL (8.5-10.1); Creatinine, Blood 0.65 mg/dL (0.60-1.20); Globulin, Blood 3.8 g/dL (2.2-4.0); Phosphorus, Blood 3.3 mg/dL (2.5-4.9); Potassium, Blood 3.7 mmol/L (3.5-5.5); Total Protein, Blood 7.6 g/dL (6.4-8.2)
[2024-05-26 09:07] VITALS: BP 104/64
[2024-05-26] MEDS ORDERED: Bisacodyl 10 MG Supp PR PRN (09:20)
[2024-05-26] MEDS ORDERED: Magnesium Hydroxide Conc 10 ML UDC PO ONE (10:00)
[2024-05-26] MEDS ORDERED: Magnesium Hydroxide Conc 10 ML UDC PO PRN (10:00)
[2024-05-26] MEDS ORDERED: Polyethylene Glycol 3350 17 gm PO SCH (10:00)
[2024-05-26 16:26] VITALS: BP 104/62
[2024-05-26] MEDS ORDERED: Methenamine 1 GM TAB PO SCH (17:00)
--- NOTE | 2024-05-26 17:23 | NUR ---
NO CHANGES IN PT STATUS. PT WAS LETHARGIC AND SLEEPY AFTER EACH MEAL. 2 UNWITTNESSED SEAIZURES ACCURED FROM MOM REPORTING THEM AFTER THEY HAPPNED. NO CHANGES IN VS.
[2024-05-26 19:22] VITALS: BP 112/79
[2024-05-26] MEDS ORDERED: Cranberry Extract 250MG W/30 MG Vitamin C Tab PO SCH (21:00)
[2024-05-27 04:43] VITALS: BP 119/88
--- NOTE | 2024-05-27 06:06 | NUR ---
SHIFT SUMMARY: PT AOX0 AT BASELINE MENTATION. TOLERATED MEDICATIONS WELL CRUSHED IN APPLESAUCE. IV WENT BAD NEW ONE STARTED AND IV MEDICATONS TOLERATED WELL. SLEPT THROUGH MOST OF THE NIGHT WITH SOME WAKE UP SPELLS OF MOVING AROUND. NO ACUTE EVENTS OVERNIGHT. PT RESTING IN BED, BED IN LOWEST POSITION, CALL LIGHT IN REACH. CONTINUING CARE.
[2024-05-27 08:20] VITALS: BP 110/92
[2024-05-27] MEDS ORDERED: AZO CRANBERRY PO (11:47)
[2024-05-27] MEDS ORDERED: METHENAMINE MAND1 GM PO (11:48)
--- NOTE | 2024-05-27 15:04 | NUR ---
DISCHARGE NOTE ASSUMED CARE FOR MR BILLY AT 0930HRS. HIS MOTHER SEVERO HAS BEEN AT HIS SIDE TODAY. HE HAD 2 LARGE BOWEL MOVEMENTS. SEVERO GAVE HIM HIS MEDICATIONS IN APPLESAUCE. VERIFIED WITH [facility] PHARMACIST THAT METHENAMINE HIPPURATE CAN BE CRUSHED WHICH SHE SAID IT CAN BE. SEVERO VERBALISED UNDERSTANDING OF WRITTEN AND VERBAL DISCHARGE INSTRUCTIONS. PIV REMOVED. RESIDENTIAL MOLD WASHER TRANSFERED HIM BACK HOME AT 1505HRS. NO NEW CONCERNS FROM SEVERO PRIOR TO DISCHARGE. PT CONDITION REMAINS STABLE/NON VERBAL.
== END 2024-05-27 15:13 | disposition home or self-care (01) | DRG 871 ==
LOC: ER 06:16 → ERHOLD 08:40 → MEDS 08:40 → ENPENDDIS 05-27 11:20 → MEDS 05-27 15:13
PROVIDERS: Hospitalist; Student in an Organized Health Care Education/Training Program; ADMIT Family Medicine
DX: A41.52 Sepsis due to Pseudomonas (principal); G93.7 Reye's syndrome; N39.0 Urinary tract infection, site not specified; G40.814 Lennox-Gastaut syndrome, intractable, without status epilepticus; Z66 Do not resuscitate; R65.20 Severe sepsis without septic shock; R62.59 Other lack of expected normal physiological development in childhood; K21.9 Gastro-esophageal reflux disease without esophagitis; N40.0 Benign prostatic hyperplasia without lower urinary tract symptoms; G47.00 Insomnia, unspecified; N20.0 Calculus of kidney; K59.00 Constipation, unspecified; Z88.8 Allergy status to other drugs, medicaments and biological substances; Z91.011 Allergy to milk products; Z79.899 Other long term (current) drug therapy; Z98.890 Other specified postprocedural states
CPT/HCPCS: 36415; 51701; 71045; 80053; 81001; 83605; 83735; 84100; 84145; 84146; 84439; 84443; 85025; 87040; 87077; 87086; 87186; 87428-QW; 93005; 93010; 96365; 96375; 99285-25; A9270; J1885; J2060; J2543; J7030; J7050

== ENCOUNTER 2024-06-11 07:43 | Emergency (ER) | payer OTHER ==
[~2024-06-11] VITALS: Ht 160 cm; Wt 62.6 kg
[~2024-06-11 07:43] MED LIST changes: +AZO CRANBERRY PO; +METHENAMINE MAND1 GM PO; +[UNRECOGNIZED DRUG - OTHER] PO
[2024-06-11] MEDS ORDERED: NS 1,000 ML IV SCH (08:25)
[2024-06-11] MEDS ORDERED: Ondansetron HCl 2 MG / ML 2ML Vial IV ONE (08:25)
[2024-06-11 09:40] LABS: BASOPHILS ABSOLUTE AUTO 0.05 K/mm3 (0.00-0.23); BASOPHILS PERCENT AUTO 1 % (0-2); EOSINOPHILS ABSOLUTE AUTO 0.15 K/mm3 (0.00-0.68); EOSINOPHILS PERCENT AUTO 3 % (0-6); Hematocrit 39.9 % (37.0-53.0); Hemoglobin 12.9 g/dL (13.5-17.5); IMMATURE GRAN ABSOLUTE AUTO 0.01 K/mm3 (0.00-0.10); IMMATURE GRAN PERCENT AUTO 0 % (0-1); LYMPHOCYTES ABSOLUTE AUTO 1.23 K/mm3 (0.84-5.20); LYMPHOCYTES PERCENT AUTO 24 % (21-46); MONOCYTES PERCENT AUTO 6 % (4-13); Mean Corpuscular HGB 26.8 pg (26.0-34.0); Mean Corpuscular HGB Conc 32.3 g/dL (31.5-36.5); Mean Corpuscular Volume 83 fL (80-100); Mean Platelet Volume 9.7 fL (9.1-12.4); NEUTROPHILS ABSOLUTE AUTO 3.49 K/mm3 (1.96-9.15); NEUTROPHILS PERCENT AUTO 67 % (41-73); Platelet Count 320 K/mm3 (150-400); RDW Coefficient Variation 13.8 % (11.7-14.2); RDW Standard Deviation 41.5 fL (35.1-46.3); Red Blood Cell Count 4.82 M/mm3 (4.30-5.90); White Blood Cell Count 5.23 K/mm3 (4.00-11.30)
[2024-06-11 09:51] LABS: Source, Urine Foley catheter
[2024-06-11 09:55] LABS: Appearance, Urine Hazy (Clear); Bilirubin, Urine Neg (Neg); Blood, Urine 1+ (Neg); Color, Urine Yellow (P-Yellow); Glucose Qualitative, Urine Neg (Neg); Ketones, Urine Neg (Neg); Leukocyte Esterase, Urine 2+ (Neg); Nitrite, Urine Pos (Neg); Protein, Urine 1+ (Neg); Urobilinogen, Urine NORM (Normal)
[2024-06-11 10:04] LABS: Influenza A, PCR NEGATIVE (NEGATIVE); Influenza B, PCR NEGATIVE (NEGATIVE); Resp Syncytial Virus, PCR NEGATIVE (NEGATIVE); SARS-Cov-2 (COVID-19) PCR, MMC NEGATIVE (NEGATIVE)
[2024-06-11 10:06] LABS: Albumin, Blood 3.7 g/dL (3.4-5.0); Bilirubin, Total 0.3 mg/dL (0.1-1.0); Bun/Creatinine Ratio 16.5 (12.0-20.0); Calcium, Blood 9.2 mg/dL (8.5-10.1); Creatinine, Blood 0.67 mg/dL (0.60-1.20); Globulin, Blood 3.7 g/dL (2.2-4.0); Potassium, Blood 4.2 mmol/L (3.5-5.5); Total Protein, Blood 7.4 g/dL (6.4-8.2)
[2024-06-11 10:08] LABS: Bacteria Many /hpf; Squamous Epithelial Cells Not Seen /hpf (Few); White Blood Cells, Urine TNTC /hpf (0-5)
[2024-06-11] MEDS ORDERED: LORA10ER PO (10:09)
[2024-06-11] MEDS ORDERED: NS IV ONE (11:00)
[2024-06-11] MEDS ORDERED: TOBRAMYCIN SULFATE IV ONE (11:00)
[2024-06-11 12:02] VITALS: BP 117/76
== END 2024-06-11 12:45 | disposition home or self-care (01) ==
LOC: ER 07:43
PROVIDERS: Emergency Medicine
DX: G40.812 Lennox-Gastaut syndrome, not intractable, without status epilepticus (principal); N39.0 Urinary tract infection, site not specified; B96.5 Pseudomonas (aeruginosa) (mallei) (pseudomallei) as the cause of diseases classified elsewhere; R62.50 Unspecified lack of expected normal physiological development in childhood; K21.9 Gastro-esophageal reflux disease without esophagitis; Z91.011 Allergy to milk products; Z88.8 Allergy status to other drugs, medicaments and biological substances; Z79.899 Other long term (current) drug therapy
CPT/HCPCS: 0241U; 51701; 71045; 80053; 81001; 83605; 84145; 85025; 87077; 87086; 87186; 96365; 96375; 99284-25; J2405; J3260; J7030

== ENCOUNTER 2024-07-08 09:22 | Inpatient (IN) | payer OTHER ==
[~2024-07-08] VITALS: Ht 167.6 cm; Wt 62.0 kg
[~2024-07-08 09:22] MED LIST changes: -AZO CRANBERRY PO; +CEFDINIR300 M4 PO; +CRANBERRY450 M1 PO; +LORA10ER PO
[2024-07-08 10:10] LABS: BASOPHILS ABSOLUTE AUTO 0.05 K/mm3 (0.00-0.23); BASOPHILS PERCENT AUTO 1 % (0-2); EOSINOPHILS ABSOLUTE AUTO 0.16 K/mm3 (0.00-0.68); EOSINOPHILS PERCENT AUTO 3 % (0-6); Hematocrit 44.7 % (37.0-53.0); Hemoglobin 14.4 g/dL (13.5-17.5); IMMATURE GRAN ABSOLUTE AUTO 0.01 K/mm3 (0.00-0.10); IMMATURE GRAN PERCENT AUTO 0 % (0-1); LYMPHOCYTES ABSOLUTE AUTO 1.62 K/mm3 (0.84-5.20); LYMPHOCYTES PERCENT AUTO 28 % (21-46); MONOCYTES ABSOLUTE AUTO 0.47 K/mm3 (0.16-1.47); MONOCYTES PERCENT AUTO 8 % (4-13); Mean Corpuscular HGB 26.9 pg (26.0-34.0); Mean Corpuscular HGB Conc 32.2 g/dL (31.5-36.5); Mean Corpuscular Volume 83 fL (80-100); NEUTROPHILS ABSOLUTE AUTO 3.43 K/mm3 (1.96-9.15); NEUTROPHILS PERCENT AUTO 60 % (41-73); RDW Coefficient Variation 13.9 % (11.7-14.2); Red Blood Cell Count 5.36 M/mm3 (4.30-5.90); White Blood Cell Count 5.74 K/mm3 (4.00-11.30)
[2024-07-08 10:26] LABS: Albumin, Blood 4.1 g/dL (3.4-5.0); Albumin/Globulin Ratio 1.1 (0.8-1.8); Bilirubin, Total 0.2 mg/dL (0.1-1.0); Bun/Creatinine Ratio 15.9 (12.0-20.0); Creatinine, Blood 0.75 mg/dL (0.60-1.20); Globulin, Blood 3.7 g/dL (2.2-4.0); Potassium, Blood 3.9 mmol/L (3.5-5.5); Total Protein, Blood 7.8 g/dL (6.4-8.2)
[2024-07-08 11:26] LABS: Source, Urine Straight Cath
[2024-07-08 11:29] LABS: Appearance, Urine Hazy (Clear); Bilirubin, Urine Neg (Neg); Blood, Urine 1+ (Neg); Color, Urine Yellow (P-Yellow); Glucose Qualitative, Urine Neg (Neg); Ketones, Urine Neg (Neg); Leukocyte Esterase, Urine 2+ (Neg); Nitrite, Urine Pos (Neg); Protein, Urine 2+ (Neg); Urobilinogen, Urine NORM (Normal)
[2024-07-08 11:46] LABS: Squamous Epithelial Cells Few /hpf (Few); White Blood Cells, Urine 25-50 /hpf (0-5)
[2024-07-08 11:47] LABS: Bacteria Few /hpf
[2024-07-08] MEDS ORDERED: levETIRAcetam 1,500 MG in NS 100 ML IV ONE (12:25)
[2024-07-08] MEDS ORDERED: PHENobarbital Sodium 65MG / ML 1ML Vial IV ONE (12:25)
[2024-07-08] MEDS ORDERED: FLU VACC TS2024-25(6MOS UP)/PF 45 MCG/0.5 ML SYRINGE IM SCH (12:55)
[2024-07-08] MEDS ORDERED: LORazepam 2 MG/ML 1ML Injection IV PRN (12:55)
[2024-07-08] MEDS ORDERED: Acetaminophen 325 MG TABLET PO PRN (13:00)
[2024-07-08] MEDS ORDERED: Albuterol 2.5 MG/3 ML VIAL INH PRN (13:00)
[2024-07-08 13:19] LABS: Mean Platelet Volume 9.9 fL (9.1-12.4); Platelet Count 289 K/mm3 (150-400)
[2024-07-08] MEDS ORDERED: Piperacillin/Tazobactam Sod 4.5 GM in NS 100 ML IV SCH (13:30)
[2024-07-08] MEDS ORDERED: ClonazePAM 1 MG Tab PO SCH (14:00)
[2024-07-08 15:28] VITALS: BP 112/69
[2024-07-08] MEDS ORDERED: Tamsulosin HCl 0.4 MG Cap PO SCH (18:00)
[2024-07-08] MEDS ORDERED: LevETIRAcetam 500 MG Tab PO SCH (18:00)
[2024-07-08] MEDS ORDERED: NS 250 ML IV PRN (18:10)
--- NOTE | 2024-07-08 18:33 | NUR ---
SHIFT SUMMARY PT ADMIT TO ROOM AT 1530. PT NON VERBAL, BUT ALERT WHICH IS HIS BASELINE, VSS, BEDRIDDEN, TOLERATING PO W/ FEED ASSIST FROM MOTHER, AND VOIDED X1. IV ABX AND KEPPRA GIVEN. CALL LIGHT WITHIN REACH, MOTHER AT BEDSIDE ASSISTING W/ CARE.
[2024-07-08 19:29] VITALS: BP 99/72
[2024-07-08] MEDS ORDERED: Polyethylene Glycol 3350 17 gm PO SCH (21:00)
[2024-07-08] MEDS ORDERED: Misc. Oral Solution PO SCH (21:00)
[2024-07-08] MEDS ORDERED: PHENobarbital 64.8 MG Tab PO SCH (21:00)
[2024-07-08] MEDS ORDERED: LamoTRIgine 100 MG Tab PO SCH (21:00)
[2024-07-08 23:15] VITALS: BP 103/66
[2024-07-09 03:12] VITALS: BP 179/166
[2024-07-09 04:40] VITALS: BP 113/64
--- NOTE | 2024-07-09 05:00 | NUR ---
SHIFT SUMMARY; PATIENT AWAKE OFTEN, MOVING SOME IN THE BED. ONLY MILD SEIZURE ACTIV ACTIVITY NOTED. IV INFUSING TKO AND ABX GIVEN. TELE SR 83.
[2024-07-09 05:55] LABS: BASOPHILS ABSOLUTE AUTO 0.07 K/mm3 (0.00-0.23); BASOPHILS PERCENT AUTO 1 % (0-2); EOSINOPHILS ABSOLUTE AUTO 0.19 K/mm3 (0.00-0.68); EOSINOPHILS PERCENT AUTO 2 % (0-6); Hematocrit 40.9 % (37.0-53.0); Hemoglobin 13.4 g/dL (13.5-17.5); IMMATURE GRAN ABSOLUTE AUTO 0.02 K/mm3 (0.00-0.10); IMMATURE GRAN PERCENT AUTO 0 % (0-1); LYMPHOCYTES ABSOLUTE AUTO 1.96 K/mm3 (0.84-5.20); LYMPHOCYTES PERCENT AUTO 23 % (21-46); MONOCYTES ABSOLUTE AUTO 0.58 K/mm3 (0.16-1.47); MONOCYTES PERCENT AUTO 7 % (4-13); Mean Corpuscular HGB Conc 32.8 g/dL (31.5-36.5); Mean Corpuscular Volume 83 fL (80-100); Mean Platelet Volume 9.6 fL (9.1-12.4); NEUTROPHILS ABSOLUTE AUTO 5.72 K/mm3 (1.96-9.15); NEUTROPHILS PERCENT AUTO 67 % (41-73); Platelet Count 315 K/mm3 (150-400); RDW Standard Deviation 41.1 fL (35.1-46.3); Red Blood Cell Count 4.96 M/mm3 (4.30-5.90); White Blood Cell Count 8.54 K/mm3 (4.00-11.30)
[2024-07-09] MEDS ORDERED: Omeprazole 20 MG CapCR PO SCH (06:00)
[2024-07-09 06:21] LABS: Bun/Creatinine Ratio 19.8 (12.0-20.0); Calcium, Blood 8.6 mg/dL (8.5-10.1); Creatinine, Blood 0.76 mg/dL (0.60-1.20); Potassium, Blood 3.7 mmol/L (3.5-5.5)
[2024-07-09 07:56] VITALS: BP 136/78
[2024-07-09] MEDS ORDERED: LevETIRAcetam 500 MG Tab PO SCH (08:00)
[2024-07-09] MEDS ORDERED: Enoxaparin 40 MG/0.4 ML SYR SC SCH (09:00)
[2024-07-09] MEDS ORDERED: Misc. Oral Solution PO SCH (09:00)
[2024-07-09] MEDS ORDERED: Cholecalciferol 1000 Unit Tablet (=25MCG) PO SCH (09:00)
[2024-07-09] MEDS ORDERED: Bisacodyl 10 MG Supp PR PRN (09:00)
[2024-07-09] MEDS ORDERED: Loratadine 10 MG Tab PO SCH (09:00)
[2024-07-09] MEDS ORDERED: LamoTRIgine 100 MG Tab PO ONE (10:45)
[2024-07-09 15:11] VITALS: BP 115/78
[2024-07-09] MEDS ORDERED: Mucus Relief400 MG PO (17:45)
[2024-07-09] MEDS ORDERED: PROBIOTIC1 EA13 PO (17:49)
[2024-07-09] MEDS ORDERED: CRANBERRY450 M1 PO (17:51)
[2024-07-09 19:29] VITALS: BP 107/70
--- NOTE | 2024-07-09 20:14 | NUR ---
SHIFT SUMMARY PATIENT AROUSES, FOLLOWS SIMPLE COMMANDS. PATIENT ABLE TO STAND AT BEDSIDE WITH MOTHER ALLOWING HIM TO HUG HER. PATIENT NOTED TO BE HAVING MULTIPLE SHORT SEIZURES. REVIEWED SEIZURE MEDICATIONS WITH MOTHER AND OBTAINED ORDERS TO INCREASE LAMICTAL TO PATIENT'S HOME DOSE. SEIZURES DECLINED TO ALMOST NONE AFTER INCREASING TO HOME DOSE. MOTHER REPORTS THAT PATIENT WEARS O2 AT NIGHT AT FACILITY. PATIENT NOTED TO HAVE BIOX 87% WHILE SLEEPING ON RA. 02 APPLIED AND BIOX INCREASED TO GREATER THAN 95. MOTHER ALSO REPORTED THAT HE TAKES MUCINEX IN THE EVENINGS FOR CHEST CONGESTION. WILL UPDATE HOME MED LIST. MOTHER ASSISTING WITH FEEDING MEALS. PATIENT TAKING MEDS CRUSHED IN APPLESAUCE.
[2024-07-09] MEDS ORDERED: LamoTRIgine 100 MG Tab PO SCH (21:00)
[2024-07-10 00:04] VITALS: BP 101/67
[2024-07-10 03:32] VITALS: BP 103/56
[2024-07-10 06:21] LABS: BASOPHILS ABSOLUTE AUTO 0.05 K/mm3 (0.00-0.23); BASOPHILS PERCENT AUTO 1 % (0-2); EOSINOPHILS ABSOLUTE AUTO 0.22 K/mm3 (0.00-0.68); EOSINOPHILS PERCENT AUTO 4 % (0-6); Hematocrit 38.4 % (37.0-53.0); Hemoglobin 12.3 g/dL (13.5-17.5); IMMATURE GRAN ABSOLUTE AUTO 0.01 K/mm3 (0.00-0.10); IMMATURE GRAN PERCENT AUTO 0 % (0-1); LYMPHOCYTES ABSOLUTE AUTO 1.99 K/mm3 (0.84-5.20); LYMPHOCYTES PERCENT AUTO 35 % (21-46); MONOCYTES ABSOLUTE AUTO 0.46 K/mm3 (0.16-1.47); MONOCYTES PERCENT AUTO 8 % (4-13); Mean Corpuscular HGB 26.6 pg (26.0-34.0); Mean Corpuscular Volume 83 fL (80-100); Mean Platelet Volume 9.5 fL (9.1-12.4); NEUTROPHILS ABSOLUTE AUTO 2.89 K/mm3 (1.96-9.15); NEUTROPHILS PERCENT AUTO 51 % (41-73); Platelet Count 278 K/mm3 (150-400); RDW Standard Deviation 42.5 fL (35.1-46.3); Red Blood Cell Count 4.62 M/mm3 (4.30-5.90); White Blood Cell Count 5.62 K/mm3 (4.00-11.30)
--- NOTE | 2024-07-10 06:24 | NUR ---
SHIFT SUMMARY PT ALERT AND ORIENTED TIMES 2. PT ADMITTED FOR INCREASED SEIZURE ACTIVITY. PT IS ON 2L O2 DURING THE NIGHT. PT HAD WHAT APPEARED TO BE TWO SMALL SEIZURES LASTING APPROX 20 SEC. PT APPEARED TO SLEEP THROUGH THE NIGHT ON AND OFF.. CALL LIGHT WITHIN REACH, RAILS TIMES 2, BED IN LOW POSITION.
[2024-07-10 06:47] LABS: Bun/Creatinine Ratio 16.1 (12.0-20.0); Calcium, Blood 8.3 mg/dL (8.5-10.1); Creatinine, Blood 0.81 mg/dL (0.60-1.20); Potassium, Blood 3.5 mmol/L (3.5-5.5)
[2024-07-10 07:23] VITALS: BP 109/71
[2024-07-10 16:19] VITALS: BP 130/66
--- NOTE | 2024-07-10 18:30 | NUR ---
SHIFT SUMMARY PATIENT SLEPT MOST OF THE MORNING. AM MEDICATIONS GIVEN LATE. MOTHER PRESENT MOST OF THE DAY. PATIENT STOOD AT BEDSIDE MULTIPLE TIMES WITH MOTHER. NO REPEATED SEIZURES SEEN TODAY. PATIENT AROUSED MID DAY AND SMILING WHEN AWAKE. PATIENT HAD BM AT END OF SHIFT.
[2024-07-10 19:28] VITALS: BP 111/63
[2024-07-10 23:18] VITALS: BP 102/70
[2024-07-11 03:49] VITALS: BP 116/69
[2024-07-11 07:23] LABS: BASOPHILS ABSOLUTE AUTO 0.07 K/mm3 (0.00-0.23); BASOPHILS PERCENT AUTO 1 % (0-2); EOSINOPHILS ABSOLUTE AUTO 0.26 K/mm3 (0.00-0.68); EOSINOPHILS PERCENT AUTO 5 % (0-6); Hematocrit 38.4 % (37.0-53.0); Hemoglobin 12.1 g/dL (13.5-17.5); IMMATURE GRAN PERCENT AUTO 0 % (0-1); LYMPHOCYTES ABSOLUTE AUTO 2.15 K/mm3 (0.84-5.20); LYMPHOCYTES PERCENT AUTO 44 % (21-46); MONOCYTES ABSOLUTE AUTO 0.42 K/mm3 (0.16-1.47); MONOCYTES PERCENT AUTO 9 % (4-13); Mean Corpuscular HGB 26.7 pg (26.0-34.0); Mean Corpuscular HGB Conc 31.5 g/dL (31.5-36.5); Mean Corpuscular Volume 85 fL (80-100); Mean Platelet Volume 9.7 fL (9.1-12.4); NEUTROPHILS ABSOLUTE AUTO 1.97 K/mm3 (1.96-9.15); NEUTROPHILS PERCENT AUTO 41 % (41-73); Platelet Count 262 K/mm3 (150-400); RDW Coefficient Variation 13.8 % (11.7-14.2); RDW Standard Deviation 42.8 fL (35.1-46.3); Red Blood Cell Count 4.54 M/mm3 (4.30-5.90); White Blood Cell Count 4.87 K/mm3 (4.00-11.30)
[2024-07-11 07:37] VITALS: BP 100/78
[2024-07-11 07:50] LABS: Bun/Creatinine Ratio 19.9 (12.0-20.0); Calcium, Blood 8.6 mg/dL (8.5-10.1); Creatinine, Blood 0.75 mg/dL (0.60-1.20); Potassium, Blood 3.6 mmol/L (3.5-5.5)
[2024-07-11 16:25] VITALS: BP 116/69
--- NOTE | 2024-07-11 18:36 | NUR ---
SHIFT SUMMARY PT AO TO SELF/PERSON (HIS MOM). NON VERBAL AT BASELINE. SLEEPS MOST OF THE SHIFT, SHIFTS AROUND AFTER MEALS. NO ACUTE ISSUES THIS SHIFT. PT REPOSITIONED THROUGHOUT THE SHIFT. MOTHER AT THE BS ALL DAY. SHE ASSISTS WITH MEALS AND REPOSITIONING. NO EVENTS PER TELE. CALL LIGHT WITHIN REACH, BED LOCKED AND IN THE LOWEST POSITION. WILL REPORT TO ONCOMING NURSE.
[2024-07-11 20:56] VITALS: BP 102/53
[2024-07-11] MEDS ORDERED: Lactobacil 2-S.Thermo-Bifido 1 1 Cap PO SCH (21:00)
--- NOTE | 2024-07-12 03:56 | NUR ---
SHIFT SUMMARY PT ALERT AND ORIENTED TIMES 2. PT ADMITTED FOR INCREASED SEIZURE ACTIVITY AND UTI. PT IS ON 2L O2. PT TOOK HS MEDICATION LATER THAN USUAL WAS DIFFICULT TO WAKE FOR MEDICATION PASS. PT APPEARED TO SLEEP THROUGH THE NIGHT ON AND OFF.. CALL LIGHT WITHIN REACH, RAILS TIMES 2, BED IN LOW POSITION.
[2024-07-12 05:56] VITALS: BP 125/90
[2024-07-12 08:02] VITALS: BP 119/84
[2024-07-12 10:38] LABS: BASOPHILS ABSOLUTE AUTO 0.07 K/mm3 (0.00-0.23); BASOPHILS PERCENT AUTO 1 % (0-2); EOSINOPHILS ABSOLUTE AUTO 0.32 K/mm3 (0.00-0.68); EOSINOPHILS PERCENT AUTO 6 % (0-6); Hematocrit 39.8 % (37.0-53.0); Hemoglobin 12.6 g/dL (13.5-17.5); IMMATURE GRAN PERCENT AUTO 0 % (0-1); LYMPHOCYTES PERCENT AUTO 41 % (21-46); MONOCYTES ABSOLUTE AUTO 0.44 K/mm3 (0.16-1.47); MONOCYTES PERCENT AUTO 8 % (4-13); Mean Corpuscular HGB 26.5 pg (26.0-34.0); Mean Corpuscular HGB Conc 31.7 g/dL (31.5-36.5); Mean Corpuscular Volume 84 fL (80-100); Mean Platelet Volume 9.7 fL (9.1-12.4); NEUTROPHILS ABSOLUTE AUTO 2.49 K/mm3 (1.96-9.15); NEUTROPHILS PERCENT AUTO 44 % (41-73); Platelet Count 278 K/mm3 (150-400); RDW Coefficient Variation 13.4 % (11.7-14.2); RDW Standard Deviation 41.1 fL (35.1-46.3); Red Blood Cell Count 4.76 M/mm3 (4.30-5.90); White Blood Cell Count 5.62 K/mm3 (4.00-11.30)
[2024-07-12 11:01] LABS: Bun/Creatinine Ratio 18.8 (12.0-20.0); Calcium, Blood 8.8 mg/dL (8.5-10.1); Creatinine, Blood 0.74 mg/dL (0.60-1.20); Potassium, Blood 3.5 mmol/L (3.5-5.5)
--- NOTE | 2024-07-12 17:26 | NUR ---
SHIFT SUMMARY PT AO TO SELF/PERSON. REPOSITIONED THROUGHOUT THE SHIFT, ALSO REPOSITIONS SELF AND HIS MOTHER ASSISTS. SHE HAS BEEN AT THE BS ALL SHIFT. NO ACUTE ISSUES, PT HAS HAD NO PAIN. SMALL SEIZURES PER THE MOTHER, DR. GARCIA NOTIFIED. NO NEW ORDERS. ADVISED NOT TO GIVE THE ATIVAN FOR THE SMALL SEIZURES BY THE PROVIDER. LARGE BM THIS SHIFT. NO EVENTS PER TELE. CALL LIGHT WITHIN REACH, BED LOCKED AND IN THE LOWEST POSITION. WILL REPORT TO ONCOMING NURSE.
--- NOTE | 2024-07-12 18:24 | NUR ---
NOTE: SPOKE WITH THE PHARMACIST, TAHMINA, ABOUT CRUSHING PT'S KEPPRA. SHE SAID OKAY TO CRUSH, REASON FOR NO CRUSH IS THE BITTER TASTE. PT AND MOTHER PREFERS CRUSHED KEPPRA OPPOSED TO LIQUID SUSPENSION. PHARMACIST FAMILIAR WITH THE PT AND GIVE OKAY TO CRUSH IN APPLESAUCE.
[2024-07-12 23:53] VITALS: BP 109/67
[2024-07-13 04:27] VITALS: BP 106/72
--- NOTE | 2024-07-13 05:12 | NUR ---
SHIFT SUMMARY PATIENT IS ALERT AND ORIENTED TO SELF/PLACE. PATIENT HAS HAD NO ACUTE EVENTS THIS SHIFT. VITAL SIGNS REVIEWED. PATIENT HAS HAD A SMALL SEIZURE WITH NO ACUTE EVENTS POST SEIZURE. PATIENT HAS BEEN SLEEPING MOST OF SHIFT. PATIENT HAS HAD NO COMPLAINTS OF SOB, NAUSEA, VOMITTING OR PAIN THIS SHIFT. BED IN LOCKED AND LOWEST POSITION. SEIZURE PADS IN PLACE. BED IN LOCKED AND LOWEST POSITION. CALL LIGHT IN PLACE.
[2024-07-13 07:33] VITALS: BP 115/67
[2024-07-13 08:53] LABS: BASOPHILS ABSOLUTE AUTO 0.06 K/mm3 (0.00-0.23); BASOPHILS PERCENT AUTO 1 % (0-2); EOSINOPHILS ABSOLUTE AUTO 0.25 K/mm3 (0.00-0.68); EOSINOPHILS PERCENT AUTO 4 % (0-6); Hemoglobin 13.2 g/dL (13.5-17.5); IMMATURE GRAN ABSOLUTE AUTO 0.01 K/mm3 (0.00-0.10); IMMATURE GRAN PERCENT AUTO 0 % (0-1); LYMPHOCYTES ABSOLUTE AUTO 2.33 K/mm3 (0.84-5.20); LYMPHOCYTES PERCENT AUTO 37 % (21-46); MONOCYTES ABSOLUTE AUTO 0.39 K/mm3 (0.16-1.47); MONOCYTES PERCENT AUTO 6 % (4-13); Mean Corpuscular HGB 26.9 pg (26.0-34.0); Mean Corpuscular HGB Conc 32.2 g/dL (31.5-36.5); Mean Corpuscular Volume 84 fL (80-100); Mean Platelet Volume 9.8 fL (9.1-12.4); NEUTROPHILS ABSOLUTE AUTO 3.31 K/mm3 (1.96-9.15); NEUTROPHILS PERCENT AUTO 52 % (41-73); Platelet Count 296 K/mm3 (150-400); RDW Coefficient Variation 13.5 % (11.7-14.2); Red Blood Cell Count 4.91 M/mm3 (4.30-5.90); White Blood Cell Count 6.35 K/mm3 (4.00-11.30)
[2024-07-13 11:38] LABS: Bun/Creatinine Ratio 15.6 (12.0-20.0); Calcium, Blood 8.9 mg/dL (8.5-10.1); Creatinine, Blood 0.83 mg/dL (0.60-1.20); Potassium, Blood 3.3 mmol/L (3.5-5.5)
[2024-07-13 12:44] VITALS: BP 102/68
[2024-07-13 16:05] VITALS: BP 105/72
--- NOTE | 2024-07-13 18:18 | NUR ---
NO CHANGES FOR PT TODAY. CONTINUE ABX TREATMENT
[2024-07-13 20:25] VITALS: BP 102/78
[2024-07-14 01:11] VITALS: BP 107/63
[2024-07-14 07:43] VITALS: BP 104/73
[2024-07-14 11:39] VITALS: BP 106/76
[2024-07-14 15:16] LABS: Source, Urine Straight Cath
[2024-07-14 15:22] LABS: Appearance, Urine Hazy (Clear); Bilirubin, Urine Neg (Neg); Blood, Urine 5+ (Neg); Color, Urine Yellow (P-Yellow); Glucose Qualitative, Urine Neg (Neg); Ketones, Urine Neg (Neg); Leukocyte Esterase, Urine 1+ (Neg); Nitrite, Urine Neg (Neg); Protein, Urine 2+ (Neg); Urobilinogen, Urine NORM (Normal)
[2024-07-14 15:25] VITALS: BP 103/61
[2024-07-14 15:31] LABS: Bacteria Few /hpf; Red Blood Cells, Urine 50-100 /hpf (0-2); Squamous Epithelial Cells Not Seen /hpf (Few)
--- NOTE | 2024-07-14 18:04 | NUR ---
STRAIGHT CATHED PT FOR CLEAN CATCH FOR UA ON MD ORDERS. PT WILL BE DISCHARGED TOMORROW AFTER ABX TREATMENT PER MD ORDERS.
[2024-07-14 19:51] VITALS: BP 111/76
[2024-07-15 00:24] VITALS: BP 103/70
--- NOTE | 2024-07-15 04:12 | NUR ---
SHIFT SUMMARY: PATIENT ALERT, NONVERBAL. PATIENT HAS HAD COUPLE EPISODE OF JERKY MOVEMENT THAT LASTED A SECOND AND RESOLVED THIS SHIFT. PATIENT ON TELE, SR HR IN THE 60'S BPM c 1ST DHB. PATIENT RECEIVED IV ABX/SCHEDULED MEDS PER EMAR. PATIENT INCONTINENT OF BLADDER, NANDA CARE, ATTENDS CHANGED AND REPOSTIONED T/O SHIFT. VITAL SIGNS REVIEWED. SEIZURE PADS IN PLACED. BED ALARM ON FOR SAFETY. CALL LIGHT IN REACH.
[2024-07-15 04:22] VITALS: BP 114/72
[2024-07-15 07:54] VITALS: BP 110/73
--- NOTE | 2024-07-15 10:57 | NUR ---
PT WAS DISCHARGED BACK TO SNF. PT MOM HAD NO QUESTIONS OR CONCERNS. HOME MEDICATION RETURNED BACK TO PT. ALL PIV'S REMOVED
== END 2024-07-15 10:43 | DRG 101 ==
LOC: ER 09:22 → ERHOLD 12:51 → MEDS 15:32
PROVIDERS: Emergency Medicine; Family Medicine; ADMIT Internal Medicine
DX: G40.801 Other epilepsy, not intractable, with status epilepticus (principal); N39.0 Urinary tract infection, site not specified; Z16.20 Resistance to unspecified antibiotic; G40.811 Lennox-Gastaut syndrome, not intractable, with status epilepticus; B96.5 Pseudomonas (aeruginosa) (mallei) (pseudomallei) as the cause of diseases classified elsewhere; N40.0 Benign prostatic hyperplasia without lower urinary tract symptoms; Z66 Do not resuscitate; G31.9 Degenerative disease of nervous system, unspecified; Z88.8 Allergy status to other drugs, medicaments and biological substances; Z91.011 Allergy to milk products
CPT/HCPCS: 36415; 51701; 80048; 80053; 81001; 83605; 84132; 84484; 85025; 87077; 87086; 87186; 94760; 99285; A9270; J1650; J1953; J2543; J7050

== ENCOUNTER 2024-08-06 16:05 | Inpatient (IN) | payer OTHER ==
[~2024-08-06] VITALS: Ht 160 cm; Wt 66.2 kg
[~2024-08-06 16:05] MED LIST changes: +Mucus Relief400 MG PO; +PROBIOTIC1 EA13 PO
[2024-08-06] MEDS ORDERED: Acetaminophen 500 MG Tab PO ONE (16:35)
[2024-08-06] MEDS ORDERED: NS 1,000 ML IV SCH (16:50)
[2024-08-06] MEDS ORDERED: LORazepam 2 MG/ML 1ML Injection IV SCH (16:50)
[2024-08-06 17:16] LABS: Source, Urine Straight Cath
[2024-08-06 17:24] LABS: Appearance, Urine Hazy (Clear); Bilirubin, Urine Neg (Neg); Blood, Urine 1+ (Neg); Color, Urine Yellow (P-Yellow); Glucose Qualitative, Urine Neg (Neg); Ketones, Urine Neg (Neg); Leukocyte Esterase, Urine 2+ (Neg); Nitrite, Urine Pos (Neg); Protein, Urine 1+ (Neg); Specific Gravity, Urine 1.015 (1.003-1.022); Urobilinogen, Urine NORM (Normal)
[2024-08-06 17:43] LABS: White Blood Cells, Urine 50-100 /hpf (0-5)
[2024-08-06 17:45] LABS: Bacteria Mod /hpf; Squamous Epithelial Cells Rare /hpf (Few)
[2024-08-06 17:46] LABS: Renal Epithelial Rare /hpf (0-Rare)
[2024-08-06 17:49] LABS: BASOPHILS ABSOLUTE AUTO 0.05 K/mm3 (0.00-0.23); BASOPHILS PERCENT AUTO 0 % (0-2); EOSINOPHILS ABSOLUTE AUTO 0.02 K/mm3 (0.00-0.68); EOSINOPHILS PERCENT AUTO 0 % (0-6); Hematocrit 43.3 % (37.0-53.0); IMMATURE GRAN ABSOLUTE AUTO 0.02 K/mm3 (0.00-0.10); IMMATURE GRAN PERCENT AUTO 0 % (0-1); LYMPHOCYTES ABSOLUTE AUTO 0.54 K/mm3 (0.84-5.20); LYMPHOCYTES PERCENT AUTO 4 % (21-46); MONOCYTES ABSOLUTE AUTO 0.76 K/mm3 (0.16-1.47); MONOCYTES PERCENT AUTO 6 % (4-13); Mean Corpuscular HGB 26.9 pg (26.0-34.0); Mean Corpuscular HGB Conc 32.3 g/dL (31.5-36.5); Mean Corpuscular Volume 83 fL (80-100); NEUTROPHILS ABSOLUTE AUTO 11.99 K/mm3 (1.96-9.15); NEUTROPHILS PERCENT AUTO 90 % (41-73); Platelet Count 324 K/mm3 (150-400); RDW Coefficient Variation 13.2 % (11.7-14.2); RDW Standard Deviation 39.8 fL (35.1-46.3); White Blood Cell Count 13.38 K/mm3 (4.00-11.30)
[2024-08-06 18:00] LABS: Albumin, Blood 4.1 g/dL (3.4-5.0); Bilirubin, Total 0.4 mg/dL (0.1-1.0); Bun/Creatinine Ratio 15.3 (12.0-20.0); Calcium, Blood 9.2 mg/dL (8.5-10.1); Creatinine, Blood 0.72 mg/dL (0.60-1.20); Potassium, Blood 3.5 mmol/L (3.5-5.5); Total Protein, Blood 8.1 g/dL (6.4-8.2)
[2024-08-06] MEDS ORDERED: Cefepime HCl 2,000 MG in NS 100 ML IV ONE (18:30)
[2024-08-06] MEDS ORDERED: Ketorolac Tromethamine 15mg Vial IV ONE (18:35)
[2024-08-06] MEDS ORDERED: Lactated Ringer's 1,000 ML IV SCH (20:10)
[2024-08-06] MEDS ORDERED: LORazepam 2 MG/ML 1ML Injection IV PRN (20:10)
[2024-08-06] MEDS ORDERED: Acetaminophen 325 MG TABLET PO PRN (20:10)
[2024-08-06] MEDS ORDERED: Ondansetron HCl 2 MG / ML 2ML Vial IV PRN (20:10)
[2024-08-06] MEDS ORDERED: Albuterol 2.5 MG/3 ML VIAL INH PRN (20:15)
[2024-08-06] MEDS ORDERED: Ketorolac Tromethamine 15mg Vial IV PRN (20:30)
[2024-08-06] MEDS ORDERED: LevETIRAcetam 500 MG Tab PO SCH (21:00)
[2024-08-06] MEDS ORDERED: ClonazePAM 0.5 MG Tab PO SCH (21:00)
[2024-08-06] MEDS ORDERED: LamoTRIgine 100 MG Tab PO SCH (21:00)
[2024-08-06 21:40] VITALS: BP 93/56
[2024-08-06 22:00] VITALS: BP 95/56
[2024-08-07] MEDS ORDERED: Meropenem 2,000 MG in NS 250 ML IV SCH
[2024-08-07] MEDS ORDERED: PROBIOTIC1 EA15 PO (01:29)
[2024-08-07] MEDS ORDERED: LORA10ER PO (01:43)
[2024-08-07] MEDS ORDERED: ALEVAZOL56.7 G1 TOP (01:48)
[2024-08-07] MEDS ORDERED: GUAI200 PO (01:53)
--- NOTE | 2024-08-07 03:11 | NUR ---
ASSUMPTION OF CARE: REPORT RECEIVED FROM MARTIR MAHONEY AT 2201.PATIENT'S MOM AT BEDSIDE DURING ARRIVAL TO UNIT. PATIENT ALERT WITH DEVELOPMENTAL DELAY. TELE SINUS RYTHM IN THE 80'S. NONVERBAL. BP SOFT, WITH MAP> 65. ON LR CONTINUOUS INFUSION. MOTHER ASSISTING WITH HISTORY AND MED REC. POWER GLIDE ESTABLISHED IN RIGHT UPPER ARM. BED ALARM ON FOR SAFETY. BED IN LOWEST POSITION AND CALL LIGHT IS WITHIN REACH.
[2024-08-07 03:34] VITALS: BP 95/52
[2024-08-07 04:19] LABS: BASOPHILS ABSOLUTE AUTO 0.03 K/mm3 (0.00-0.23); BASOPHILS PERCENT AUTO 0 % (0-2); EOSINOPHILS ABSOLUTE AUTO 0.13 K/mm3 (0.00-0.68); EOSINOPHILS PERCENT AUTO 1 % (0-6); Hematocrit 34.5 % (37.0-53.0); IMMATURE GRAN ABSOLUTE AUTO 0.04 K/mm3 (0.00-0.10); IMMATURE GRAN PERCENT AUTO 0 % (0-1); LYMPHOCYTES ABSOLUTE AUTO 1.71 K/mm3 (0.84-5.20); LYMPHOCYTES PERCENT AUTO 14 % (21-46); MONOCYTES ABSOLUTE AUTO 0.71 K/mm3 (0.16-1.47); MONOCYTES PERCENT AUTO 6 % (4-13); Mean Corpuscular HGB Conc 31.9 g/dL (31.5-36.5); Mean Corpuscular Volume 85 fL (80-100); Mean Platelet Volume 9.8 fL (9.1-12.4); NEUTROPHILS ABSOLUTE AUTO 9.54 K/mm3 (1.96-9.15); NEUTROPHILS PERCENT AUTO 79 % (41-73); Platelet Count 261 K/mm3 (150-400); RDW Coefficient Variation 13.3 % (11.7-14.2); RDW Standard Deviation 41.6 fL (35.1-46.3); Red Blood Cell Count 4.08 M/mm3 (4.30-5.90); White Blood Cell Count 12.16 K/mm3 (4.00-11.30)
[2024-08-07 04:46] LABS: Magnesium, Blood 1.9 mg/dL (1.6-2.4)
[2024-08-07 04:55] LABS: Bilirubin, Total 0.4 mg/dL (0.1-1.0); Bun/Creatinine Ratio 20.9 (12.0-20.0); Creatinine, Blood 0.67 mg/dL (0.60-1.20)
[2024-08-07] MEDS ORDERED: Omeprazole 20 MG CapCR PO SCH (06:00)
--- NOTE | 2024-08-07 06:47 | NUR ---
SEIZURE PRECAUTION MAINTAINED.
[2024-08-07 07:00] VITALS: BP 106/65
[2024-08-07] MEDS ORDERED: Enoxaparin 40 MG/0.4 ML SYR SC SCH (09:00)
[2024-08-07] MEDS ORDERED: Misc. Oral Solution PO SCH ×2 (09:00→21:00)
[2024-08-07] MEDS ORDERED: LevETIRAcetam 500 MG Tab PO SCH (09:00)
[2024-08-07] MEDS ORDERED: levETIRAcetam 500 MG in NS 100 ML IV SCH (10:30)
--- NOTE | 2024-08-07 10:31 | NUR ---
THIS RN CALLED DR. GARCIA BECAUSE THE PT IS UNABLE TO TAKE HIS ORAL MEDICATIONS D/T BEING SLEEPY AND NOT WAKING UP. THIS IS NOT UNCOMMON FOR THE PT PER PT'S MOTHER SEVERO. DR. GARCIA CHANGED THE 0900 AND 1200 KEPPRA TO IV. FIRST DOSE NOW AND SECOND AT 1200. SEE NOTES FOR UPDATES.
[2024-08-07 11:41] VITALS: BP 101/56
--- NOTE | 2024-08-07 15:14 | NUR ---
THIS RN CALLED DR. GARCIA ABOUT URINARY RETENTION >400. THE PT HAS A HX OF RETENTION AND SEE'S UROLOGY OUT PT. THE PT'S MOM SEVERO STATED THAT THE UROLOGIST SET UP A PLAN TO HAVE THE PT STRAIGHT CATH'D FOR A MONTH TO SEE IF THAT WILL HELP REGULATE HIM, THEN REASSESS THE NEED FOR A MAX. WITH THIS INFORMATION, DR. GARCIA WANT'S THE PT TO HAVE A MAX FOR RETENTION, BUT BEFORE DISCHARGE THE MAX WILL HAVE TO BE D/C'D AND THE PT WILL FOLLOW UP OUT PT WITH HIS UROLOGIST. SEE NOTES FOR ANY UPDATES.
[2024-08-07 15:42] VITALS: BP 118/71
--- NOTE | 2024-08-07 17:42 | NUR ---
END OF SHIFT SUMMARY THE PT WAS DROWSY AND HARD TO AROUSE THIS MORNING, WHICH IS COMMON FOR THE PT WHEN HE IS SICK PER PT'S MOM. THIS AFTERNOON HE WAS MORE ALERT AND FOLLOWING MORE COMMANDS. PT WAS ABLE TO TAKE AFTERNOON ORAL MEDICATIONS AND ATE LUNCH. THE PT IS BEDREST WITH LIFT TX/2P STAND AND PIVOT. THE PT HAS BEEN IN BED THIS SHIFT WITH MIN Q2 TURNS. WHILE AWAKE THE PT IS VERY ACTIVE AND MOVES AROUND FREQUENTLY IN BED. ON TELE HE HAS BEEN SR. BP STABLE. HE HAS BEEN ON RA WHILE AWAKE BUT WAS PLACED ON 2LNC WHILE ASLEEP. THE PT USES 2L NC AT BASELINE WHILE ASLEEP. NO PAIN OR DISCOMFORT NOTED FROM THE PT'S BODY GESTURES. THE PT HAD NOT VOIDED THIS SHIFT AND A MAX WAS PLACED FOR CHRONIC RETENTION. SEE PREVIOUS NOTE. PT HAS VOIDED 1100 POST MAX INSERTION. HE REMAINS A FEEDER W/ MINCED AND MOIST DIET, MOD THICK LIQUIDS, AND MEDICATIONS CRUSHED IN APPLE SAUCE. HIS MOM, SEVERO, HAS BEEN AT BEDSIDE AND UPDATED ON CARE. BED IN LOW, CALL LIGHT IN REACH, SIDE RAILS UP PER PT'S MOM REQUEST. NO ACUTE EVENTS. SEE NOTES FOR UPDATES.
[2024-08-07 19:33] VITALS: BP 104/69
[2024-08-07 23:39] VITALS: BP 106/68
[2024-08-08 04:40] VITALS: BP 99/70
--- NOTE | 2024-08-08 05:52 | NUR ---
SHIFT SUMMURY: PATIENT SAT UP IN BED BEFORE BEDTIME AND HAD SOME THICKENED APPLE JUICE EXHIBITED AND HAD SOME FACIAL GRIMACES. MEDICATED FOR PAIN PER EMR.SLEPT COMFORTABLY. HR NORMAL SINUS TO SINUS CARLYLE 56-58. VS MAP >65. SATURATION >90. REPOSITIONED. SEIZURE PRECAUTION MAINTAINED. MAX CATHERTER PATENT AND DRAIING YELLOW URINE VIA GRAVITY. CONTINUOS LACTATED RINGERS INFUSING. CALL LIGHT IS WITHIN REACH AND BED IS AT THE LOWEST POSITION.
[2024-08-08] MEDS ORDERED: Polyethylene Glycol 3350 17 gm PO PRN (07:25)
[2024-08-08 07:27] VITALS: BP 97/66
[2024-08-08 07:30] LABS: BASOPHILS ABSOLUTE AUTO 0.04 K/mm3 (0.00-0.23); BASOPHILS PERCENT AUTO 1 % (0-2); EOSINOPHILS ABSOLUTE AUTO 0.19 K/mm3 (0.00-0.68); EOSINOPHILS PERCENT AUTO 4 % (0-6); Hematocrit 33.2 % (37.0-53.0); Hemoglobin 10.6 g/dL (13.5-17.5); IMMATURE GRAN PERCENT AUTO 0 % (0-1); LYMPHOCYTES ABSOLUTE AUTO 0.99 K/mm3 (0.84-5.20); LYMPHOCYTES PERCENT AUTO 19 % (21-46); MONOCYTES ABSOLUTE AUTO 0.38 K/mm3 (0.16-1.47); MONOCYTES PERCENT AUTO 7 % (4-13); Mean Corpuscular HGB 26.8 pg (26.0-34.0); Mean Corpuscular HGB Conc 31.9 g/dL (31.5-36.5); Mean Corpuscular Volume 84 fL (80-100); Mean Platelet Volume 9.5 fL (9.1-12.4); NEUTROPHILS ABSOLUTE AUTO 3.61 K/mm3 (1.96-9.15); NEUTROPHILS PERCENT AUTO 69 % (41-73); Platelet Count 211 K/mm3 (150-400); RDW Coefficient Variation 13.2 % (11.7-14.2); RDW Standard Deviation 40.7 fL (35.1-46.3); Red Blood Cell Count 3.96 M/mm3 (4.30-5.90); White Blood Cell Count 5.21 K/mm3 (4.00-11.30)
[2024-08-08 07:48] LABS: Bun/Creatinine Ratio 11.1 (12.0-20.0); Calcium, Blood 8.2 mg/dL (8.5-10.1); Creatinine, Blood 0.63 mg/dL (0.60-1.20)
[2024-08-08] MEDS ORDERED: PHENobarbital 64.8 MG Tab PO SCH (10:00)
[2024-08-08] MEDS ORDERED: LevETIRAcetam 500 MG Tab PO ONE (10:00)
[2024-08-08] MEDS ORDERED: levETIRAcetam 1,500 MG in NS 100 ML IV SCH (10:05)
[2024-08-08] MEDS ORDERED: LevETIRAcetam 100 MG/ML 5ML ORAL SYR PO ONE (10:20)
[2024-08-08 11:59] VITALS: BP 104/71
[2024-08-08] MEDS ORDERED: LevETIRAcetam 100 MG/ML 5ML ORAL SYR PO SCH ×2 (12:00→21:00)
[2024-08-08 15:45] VITALS: BP 113/68
--- NOTE | 2024-08-08 17:07 | NUR ---
END OF SHIFT SUMMARY THE PATIENT WAS AWAKE AND ALERT THROUGHOUT THE SHIFT AND IS ORIENTED TO SELF AND MOM, SEVERO; CHRONICALLY NONVERBAL. PATIENT IS BEDREST WITH LIFT/2 PERSON STAND AND PIVOT, WHICH IS BASE LINE. PATIENT IS ACTIVE AND MOVES INDEPENDENTLY IN BED. HX OF DEVELOPMENTAL DELAY AND SEIZURES. PATIENT HAD INCREASED CLONIC SEIZURES THIS MORNING. JADE MCMAHAN REVIEWED PATIENTS MEDICATION LIST WITH PATIENTS MOM, MEDICATIONS WERE UPDATED TO WHAT THE PATIENT TAKES PER DR. GARCIA. SEIZURES IMPROVED SINCE DOSE CORRECTION. PATIENT MAINTAINES O2 >93% ON ROOM AIR BUT DOES REQUIRE 2L VIA NC AT HS, WHICH IS BASE LINE. BREATH SOUNDS REMAINED CLEAR THROUGHOUT SHIFT WITH DIMINISHED RLL BREATH SOUNDS. PATIENT IS ON TELE SINUS ARRYTHMIA <-> SR 40'S TO 70'S, DR. GARCIA AWARE. BLOOD PRESSURES REMAINE STABLE THROUGHOUT SHIFT WITHOUT ACUTE EPISODES. PATIENT'S DIET MM AND DRINKS MODERATLY THICK LIQUIDS. PATIENT CONTINUES TO HAVE A MAX CATHETER IN PLACE DUE TO RETENTION, FLOWING TO GRAVITY. HIS MOM REMAINS AT BEDSIDE, BED IS AT LOWEST POSITION WITH BEDRAILS UP AND CALL LIGHT IN REACH. SEE NOTES FOR ANY UPDATES.
[2024-08-08 19:42] VITALS: BP 110/73
[2024-08-08 23:05] VITALS: BP 90/56
[2024-08-09 03:28] VITALS: BP 98/65
[2024-08-09 03:57] LABS: BASOPHILS ABSOLUTE AUTO 0.04 K/mm3 (0.00-0.23); BASOPHILS PERCENT AUTO 1 % (0-2); EOSINOPHILS ABSOLUTE AUTO 0.31 K/mm3 (0.00-0.68); EOSINOPHILS PERCENT AUTO 6 % (0-6); Hematocrit 33.3 % (37.0-53.0); Hemoglobin 10.7 g/dL (13.5-17.5); IMMATURE GRAN ABSOLUTE AUTO 0.01 K/mm3 (0.00-0.10); IMMATURE GRAN PERCENT AUTO 0 % (0-1); LYMPHOCYTES ABSOLUTE AUTO 1.48 K/mm3 (0.84-5.20); LYMPHOCYTES PERCENT AUTO 27 % (21-46); MONOCYTES ABSOLUTE AUTO 0.42 K/mm3 (0.16-1.47); MONOCYTES PERCENT AUTO 8 % (4-13); Mean Corpuscular HGB 26.8 pg (26.0-34.0); Mean Corpuscular HGB Conc 32.1 g/dL (31.5-36.5); Mean Corpuscular Volume 84 fL (80-100); Mean Platelet Volume 9.7 fL (9.1-12.4); NEUTROPHILS ABSOLUTE AUTO 3.28 K/mm3 (1.96-9.15); NEUTROPHILS PERCENT AUTO 59 % (41-73); Platelet Count 248 K/mm3 (150-400); RDW Coefficient Variation 13.2 % (11.7-14.2); RDW Standard Deviation 40.2 fL (35.1-46.3); Red Blood Cell Count 3.99 M/mm3 (4.30-5.90); White Blood Cell Count 5.54 K/mm3 (4.00-11.30)
[2024-08-09 04:18] LABS: Bun/Creatinine Ratio 7.1 (12.0-20.0); Calcium, Blood 8.1 mg/dL (8.5-10.1); Creatinine, Blood 0.71 mg/dL (0.60-1.20); Potassium, Blood 3.8 mmol/L (3.5-5.5)
--- NOTE | 2024-08-09 04:52 | NUR ---
SHIFT SUMMARY PATIENT ALERT, SEEMS TO BE AT HIS BASELINE. BP SOFT. ON RA DURING THE NIGHT, SPO2 >90%. TELE READING SB-SR. MAX IN PLACE DRAINING CLEAR YELLOW URINE TO GRAVITY. INCONTINENT OF BOWEL. ATTENDS ON. PATIENT MOVING SELF IN BED. BED ALARM ON FOR SAFETY. NO OTHER CHANGES DURING THE NIGHT, WILL REPORT TO DAY SHIFT RN.
[2024-08-09 07:59] VITALS: BP 122/69
[2024-08-09 12:24] VITALS: BP 117/84
--- NOTE | 2024-08-09 13:22 | NUR ---
THIS RN SPOKE TO DR. GARCIA ABOUT PLAN FOR THE PT'S MXA; WHEN BEFORE DISCHARGE HE WOULD LIKE IT PULLED. DR. GARCIA STATED TO LEAVE IT FOR NOW. THE PT WILL BE HERE A TOTAL OF 5-7 DAY WITH IV ABX, AND HE IS GOING TO HAVE DR. MARTINEZ CALL THE PT'S UROLOGIST AND SEE IF THEY WANT US TO LEAVE IT IN AT DISCHARGE. ALSO, WHILE THIS RN WAS TALKING TO DR. GARCIA, HE WAS MADE AWARE OF URINE CULTURE RESULTS.
[2024-08-09 15:26] VITALS: BP 108/77
--- NOTE | 2024-08-09 16:40 | NUR ---
END OF SHIFT REPORT THE PATIENT WAS AWAKE AND ALERT THROUGHOUT THE SHIFT AND IS ORIENTED TO SELF AND MOM, SEVERO; CHRONICALLY NONVERBAL. PATIENT IS BEDREST WITH 2 PERSON STAND AND PIVOT/LIFT, WHICH IS BASELINE. PATIENT IS ACTIVE AND MOVES INDEPENDENTLY IN BED. HX OF DEVELOPMENTAL DELAY AND DAILY SEIZURES. PATIENTS SEIZURE ACTIVITY HAS BEEN BASELINE THROUGHOUT SHIFT. PATIENT HAS MAINTAINED O2 >93% ON ROOM AIR BUT DOES REQUIRE 2L NC AT [facility], WHICH IS BASELINE. BREATH SOUNDS REMAINED CLEAR THROUGHOUT SHIFT. PATIENT WAS DC'D FROM TELE MONITOR PER DR. GARCIA. NO CARDIAC EVENTS. PATIENT REMAINED IN SR 60'S TO 70'S WHILE ON TELE. BLOOD PRESSURE REMAINED STABLE THROUGHOUT SHIFT WITHOUT ACUTE EPISODES. PATIENT'S DIET MM AND DRINKS MODERATLY THICK LIQUIDS. PATIENT CONTINUES TO HAVE A MAX CATHETER IN PLACE DUE TO URINARY RETENTION, FLOWING TO GRAVITY. SEE PREVIOUS NOTE FOR PLAN OF CARE WITH MAX. HIS MOM REMAINS AT BEDSIDE, BED IS AT LOWEST POSITION WITH BEDRAILS UP AND CALL LIGHT IN REACH. SEE NOTES FOR ANY UPDATES.
[2024-08-09 19:39] VITALS: BP 113/70
[2024-08-09] MEDS ORDERED: Lactobacil 2-S.Thermo-Bifido 1 1 Cap PO SCH (21:00)
[2024-08-10 03:46] VITALS: BP 103/72
--- NOTE | 2024-08-10 06:27 | NUR ---
SHIFT SUMMARY: PT ALERT, DEVELOPMENTAL DELAY, AND NONVERBAL. PT DOES NOT FOLLOW COMMANDS. VSS ON RA, O2 SATS >93% T/O SHIFT. PT IS ACTIVE IN BED AND FREQUENTLY REPOSITIONS SELF. NOOB THIS SHIFT. PT TOLERATING A MINCED AND MOIST DIET WITH MODERATELY THICK FLUIDS, PILLS CRUSHED IN APPLESAUCE. MAX CATHETER DRAINING LARGE AMOUNTS OF CLEAR, LIGHT YELLOW URINE TO GRAVITY. NO BM THIS SHIFT. BRIEF IN PLACE. MAINTAINED SEIZURE PRECATIONS. BED IN LOWEST POSITION, CALL LIGHT WITHIN REACH. BED ALARM SET FOR PT'S SAFETY.
[2024-08-10 08:10] VITALS: BP 104/64
[2024-08-10] MEDS ORDERED: LevETIRAcetam 500 MG Tab PO SCH ×2 (12:00→18:00)
[2024-08-10 16:56] VITALS: BP 102/83
--- NOTE | 2024-08-10 18:17 | NUR ---
PT IS ALERT, NONVERBAL, AND DEVELOPMENTALLY DELAYED. MOTHER AT BEDSIDE HELPING WITH CARE. PT DOES NOT FOLLOW COMMANDS BUT WAS CALM. VSS ON RA. O2 100%. 2 PERSON ASSIST STAND AND PIVOT. PT DID NOT TOLERATE TAKING MORNING KEPPRA SOLUTION WITH APPLE SAUCE. PT VOMITTED SHORTLY AFTER TAKING MEDICATIONS. CONSULTED WITH PROVIDER AND SWITCHED TO KEPPRA PO CRUSHED IN APPLE SAUCE. PT TOLERATED TAKING PM KEPPRA PO WELL. MAX IN PLACE DRAINING CLEAR, YELLOW URINE. NO S/S OF INFECTION. BM THIS SHIFT. BED LINEN AND GOWN CHANGE WITH BED BATH. CONTACT AND SEIZURE PRECAUTIONS. BED LOCKED AND LOW WITH ALARM ON. CALL LIGHT WITHIN REACH.
[2024-08-10 20:13] VITALS: BP 127/66
--- NOTE | 2024-08-11 00:35 | NUR ---
PT TRANSFERRED FROM PCU TO [facility]. ASSUMPTION OF CARE. PT SITTING IN BED. NONVERBAL. NO S/S OF DISCOMFORT OR DISTRESS. MAX PATENT DRAINGIN YELLOW URINE. BED IN LOWEST POSITION. SEIZURE PRECAUTIONS IN PLACE.
[2024-08-11] MEDS ORDERED: NS 250 ML IV PRN (01:05)
--- NOTE | 2024-08-11 03:28 | NUR ---
TRANSFER NOTE PT ALERT, DEVELOPMENTAL DELAY, AND NONVERBAL. PT DOES NOT FOLLOW COMMANDS. VSS ON RA. PT IS ACTIVE IN BED AND FREQUENTLY REPOSITIONS SELF. NOOB THIS SHIFT. PT TOLERATING A MINCED AND MOIST DIET WITH MODERATELY THICK FLUIDS, PILLS CRUSHED IN APPLESAUCE. MAX CATHETER DRAINING LARGE AMOUNTS OF CLEAR, LIGHT YELLOW URINE TO GRAVITY. NO BM THIS SHIFT. BRIEF IN PLACE. MAINTAINED SEIZURE PRECATIONS. CALLED REPORT TO LATASHA Donahue TRANSFERED PT IN BED WITH ALL HIS BELONGINGS AT 0030 TO ROOM [id number].
[2024-08-11 03:41] VITALS: BP 111/68
--- NOTE | 2024-08-11 05:44 | NUR ---
SUBSTATION OPERATOR CONVERSION SUMMARY: PT ALERT AND NON-VERBAL. DOES NOT FOLLOW COMMANDS. PER REPORT, PT WILL BITE HAND WHEN IN PAIN / DISCOMFORT. PT NOTED TO BITE HAND DURING LINEN CHANGE. MEDICATED X1 PER EMAR ORDER FOR S/S OF PAIN; EFFECTIVE. PT 2 PERSON ASSIST WITH TURINING FOR NANDA CARE. MAX CATHETER IN PLACE DRAINING CLEAR YELLOW URINE. CONTACT AND SEIZURE PRECAUTIONS IN PLACE. BED IN LOWEST POSITION. BED ALARM ON. CARES ONGOING ORDERED.
[2024-08-11 07:29] VITALS: BP 110/72
[2024-08-11 16:28] VITALS: BP 106/69
[2024-08-11 20:03] VITALS: BP 105/60
[2024-08-12 06:12] VITALS: BP 128/71
--- NOTE | 2024-08-12 06:44 | NUR ---
Shift Summary No acute changes. [place] in place, patent. Pt takes meds crushed in soy yogurt from home well. Pt appeared comfortable t/o the night resting quietly. I did not give his AM Omeprazole as he takes pills crushed and that medication cannot be crushed. I'm not sure if he would chew the pill or not. 1x incontinent BM.
[2024-08-12 07:38] VITALS: BP 127/80
[2024-08-12 20:42] VITALS: BP 109/66
--- NOTE | 2024-08-13 02:54 | NUR ---
SHIFT SUMMARY NO ACUTE EVENTS DURING THIS SHIFT. HS MEDICATIONS ADMINISTERED WITH APPLESAUCE/CRUSHED, PT TOLERATED WELL. MAX DRAINING TO GRAVITY. PT RESTING WELL T/O THE NIGHT HRS. @HS MOTHER BY THE BEDSIDE. BED ALARM AND PADS AROUND THE SIDERAILS. BED AT THE LOWEST POSITION, CALL LIGHT W/I REACH. FREQUENT CHECKS BY THE BEDSIDE. IV ABX INFUSED ORDERED.
[2024-08-13 04:39] VITALS: BP 108/63
[2024-08-13 08:12] VITALS: BP 93/59
--- NOTE | 2024-08-13 16:11 | NUR ---
DISCHARGE NOTE FAMILY EDUCATED ON DISCHARGE PACKET AND INSTRUCTIONS. NEW NEW PRESCRIPTIONS. RETURNING TO ALF WHERE HE RESIDES WITH HOME HEALTH. MOM AT BEDSIDE. POWERGLIDE TO TYLER REMOVED. SOMEONE FROM ALF BROUGHT WHEECHAIR AND MAP COLORER ESCORTED PATIENT'S SECOND WHEELCHAIR WITH ALL BELONGINGS DOWNSTAIRS WITH MOM PUSHING NUSRAT. FOLLOW UP WITH PCP AND UROLOGIST REVIWED. NO NEW QUESTIONS OR CONCERNS PRIOR TO DC.
== END 2024-08-13 16:49 | DRG 872 ==
LOC: ER 16:05 → PCU 20:07 → ERHOLD 20:07 → MEDS 20:07 → PCU 22:38 → MEDS 08-11 00:23
PROVIDERS: Internal Medicine; Nurse Practitioner Acute Care; Student in an Organized Health Care Education/Training Program; ADMIT Internal Medicine
PROC: 3E03329 Introduction of Other Anti-infective into Peripheral Vein, Percutaneous Approach (ICD-10-PCS; 2024-08-07)
PROC: 0T9B70Z Drainage of Bladder with Drainage Device, Via Natural or Artificial Opening (ICD-10-PCS; principal; 2024-08-09)
DX: A41.9 Sepsis, unspecified organism (principal); N39.0 Urinary tract infection, site not specified; Z16.24 Resistance to multiple antibiotics; K21.9 Gastro-esophageal reflux disease without esophagitis; Z96.611 Presence of right artificial shoulder joint; G40.909 Epilepsy, unspecified, not intractable, without status epilepticus; N40.1 Benign prostatic hyperplasia with lower urinary tract symptoms; R33.8 Other retention of urine; B96.5 Pseudomonas (aeruginosa) (mallei) (pseudomallei) as the cause of diseases classified elsewhere; Z88.8 Allergy status to other drugs, medicaments and biological substances; Z79.899 Other long term (current) drug therapy; Z91.011 Allergy to milk products; Z79.51 Long term (current) use of inhaled steroids; Z87.442 Personal history of urinary calculi; Z87.19 Personal history of other diseases of the digestive system; Z98.890 Other specified postprocedural states; Z86.69 Personal history of other diseases of the nervous system and sense organs
CPT/HCPCS: 36415; 51701; 51702; 71045; 80048; 80053; 81001; 83605; 83735; 84484; 85025; 87040; 87077; 87086; 87186; 93005; 93010; 94760; 94762; 96361; 96365; 96375; 99285-25; A9270; J0692; J1650; J1885; J1953; J2060; J2185; J7030; J7050; J7120

== ENCOUNTER 2024-08-22 13:14 | Inpatient (IN) | payer OTHER ==
[~2024-08-22] VITALS: Ht 160 cm; Wt 64.3 kg
[~2024-08-22 13:14] MED LIST changes: +ALEVAZOL56.7 G1 TOP; +PROBIOTIC1 EA15 PO
[2024-08-22] MEDS ORDERED: NS 1,000 ML IV SCH (14:00)
[2024-08-22 14:43] LABS: BASOPHILS ABSOLUTE AUTO 0.07 K/mm3 (0.00-0.23); BASOPHILS PERCENT AUTO 1 % (0-2); EOSINOPHILS ABSOLUTE AUTO 0.13 K/mm3 (0.00-0.68); EOSINOPHILS PERCENT AUTO 1 % (0-6); Hematocrit 43.6 % (37.0-53.0); IMMATURE GRAN ABSOLUTE AUTO 0.04 K/mm3 (0.00-0.10); IMMATURE GRAN PERCENT AUTO 0 % (0-1); LYMPHOCYTES ABSOLUTE AUTO 1.23 K/mm3 (0.84-5.20); LYMPHOCYTES PERCENT AUTO 9 % (21-46); MONOCYTES ABSOLUTE AUTO 0.81 K/mm3 (0.16-1.47); MONOCYTES PERCENT AUTO 6 % (4-13); Mean Corpuscular HGB 26.7 pg (26.0-34.0); Mean Corpuscular HGB Conc 32.1 g/dL (31.5-36.5); Mean Corpuscular Volume 83 fL (80-100); NEUTROPHILS ABSOLUTE AUTO 11.22 K/mm3 (1.96-9.15); NEUTROPHILS PERCENT AUTO 83 % (41-73); Platelet Count 357 K/mm3 (150-400); RDW Coefficient Variation 13.1 % (11.7-14.2); RDW Standard Deviation 39.2 fL (35.1-46.3); Red Blood Cell Count 5.24 M/mm3 (4.30-5.90)
[2024-08-22 15:07] LABS: Albumin/Globulin Ratio 1.1 (0.8-1.8); Bilirubin, Total 0.3 mg/dL (0.1-1.0); Bun/Creatinine Ratio 23.5 (12.0-20.0); Calcium, Blood 8.9 mg/dL (8.5-10.1); Creatinine, Blood 0.64 mg/dL (0.60-1.20); Globulin, Blood 3.8 g/dL (2.2-4.0); Potassium, Blood 3.9 mmol/L (3.5-5.5); Total Protein, Blood 7.8 g/dL (6.4-8.2)
[2024-08-22 15:44] LABS: Source, Urine Foley catheter
[2024-08-22 15:51] LABS: Appearance, Urine Hazy (Clear); Bilirubin, Urine Neg (Neg); Blood, Urine 5+ (Neg); Color, Urine Amber (P-Yellow); Glucose Qualitative, Urine Neg (Neg); Ketones, Urine Neg (Neg); Leukocyte Esterase, Urine 3+ (Neg); Nitrite, Urine Pos (Neg); Protein, Urine 3+ (Neg); Specific Gravity, Urine 1.015 (1.003-1.022); Urobilinogen, Urine NORM (Normal); pH, Urine 6.5 (5.0-8.0)
[2024-08-22 15:57] LABS: White Blood Cells, Urine 50-100 /hpf (0-5)
[2024-08-22 15:58] LABS: Bacteria Many /hpf; Calcium Oxalate Crystals Mod /hpf; Renal Epithelial Rare /hpf (0-Rare); Squamous Epithelial Cells Rare /hpf (Few)
[2024-08-22] MEDS ORDERED: Acetaminophen 325 MG TABLET PO PRN (17:25)
[2024-08-22] MEDS ORDERED: Bisacodyl 10 MG Supp PR PRN (17:25)
[2024-08-22] MEDS ORDERED: Albuterol 2.5 MG/3 ML VIAL INH PRN (17:30)
[2024-08-22] MEDS ORDERED: CLON2 PO (17:47)
[2024-08-22 17:54] VITALS: BP 114/76
[2024-08-22] MEDS ORDERED: TOBRAMYCIN IV PRN (17:55)
[2024-08-22] MEDS ORDERED: Tamsulosin HCl 0.4 MG Cap PO SCH (18:00)
[2024-08-22] MEDS ORDERED: LevETIRAcetam 500 MG Tab PO SCH (18:00)
[2024-08-22] MEDS ORDERED: TOBRAMYCIN SULFATE IV ONE (18:15)
[2024-08-22] MEDS ORDERED: NS IV ONE (18:15)
[2024-08-22 19:22] VITALS: BP 128/81
[2024-08-22] MEDS ORDERED: NS 250 ML IV PRN (19:30)
--- NOTE | 2024-08-22 19:36 | NUR ---
SHIFT SUMMARY ARRIVED TO FLOOR ABOUT 1800, MOTHER ACCOMPANYING HIM. NON-VERBAL AT BASELINE. SKIN INTACT, VANNESSA 2ND RN SKIN CHECK. DIET DOWNGRADED TO MINCED/MOIST AND NECTAR THICK LIQUIDS PER MOTHER. MAX IN PLACE, DRAINING JOSE ODOROUS URINE TO GRAVITY. LAST BM STATED 08/21. CALL LIGHT IN REACH, NOT ABLE TO MAKE NEEDS KNOWN.
[2024-08-22] MEDS ORDERED: Cranberry Extract 250MG W/30 MG Vitamin C Tab PO SCH (21:00)
[2024-08-22] MEDS ORDERED: LamoTRIgine 100 MG Tab PO SCH (21:00)
[2024-08-22] MEDS ORDERED: GuaiFENesin 200 MG IR Tab PO SCH (21:00)
[2024-08-22] MEDS ORDERED: Lactobacil 2-S.Thermo-Bifido 1 1 Cap PO SCH (21:00)
[2024-08-22] MEDS ORDERED: Clotrimazole 1% Cream 15 GM Tube TOP SCH (21:00)
[2024-08-22] MEDS ORDERED: PHENobarbital 64.8 MG Tab PO SCH (21:00)
[2024-08-22] MEDS ORDERED: CANNABIDIOL 100 MG/ML PO SCH (21:00)
[2024-08-22] MEDS ORDERED: ClonazePAM 0.5 MG Tab PO SCH (21:00)
[2024-08-23 01:32] VITALS: BP 150/87
--- NOTE | 2024-08-23 04:47 | NUR ---
SHIFT SUMMARY NOC PT A/O TO FAMILY., NON VERBAL. HR ON TELE SINUS TACH IN LOW 100'S. FIRST DOSE TOBRAMYCIN GIVEN. PT HAS SEIZURE PADS/PREACAUTIONS IN PLACE ON BED. PT HAS MAX IN PLACE WITH DARK YELLOW URINE DRAINING TO GRAVITY. PT CURRENTLY RESTING WITH BED ALARM ON, BED IN LOWEST POSITION, AND CALL LIGHT WITHIN REACH.
[2024-08-23 04:52] VITALS: BP 102/61
[2024-08-23 05:51] LABS: Tobramycin, Random 2.5 ug/mL
[2024-08-23] MEDS ORDERED: LevETIRAcetam 500 MG Tab PO SCH (06:00)
[2024-08-23] MEDS ORDERED: Omeprazole 20 MG CapCR PO SCH (06:00)
[2024-08-23 06:32] LABS: BASOPHILS ABSOLUTE AUTO 0.07 K/mm3 (0.00-0.23); BASOPHILS PERCENT AUTO 1 % (0-2); EOSINOPHILS ABSOLUTE AUTO 0.37 K/mm3 (0.00-0.68); EOSINOPHILS PERCENT AUTO 3 % (0-6); Hemoglobin 12.5 g/dL (13.5-17.5); IMMATURE GRAN ABSOLUTE AUTO 0.04 K/mm3 (0.00-0.10); IMMATURE GRAN PERCENT AUTO 0 % (0-1); LYMPHOCYTES PERCENT AUTO 12 % (21-46); MONOCYTES ABSOLUTE AUTO 1.01 K/mm3 (0.16-1.47); MONOCYTES PERCENT AUTO 8 % (4-13); Mean Corpuscular HGB 26.5 pg (26.0-34.0); Mean Corpuscular HGB Conc 32.1 g/dL (31.5-36.5); Mean Corpuscular Volume 83 fL (80-100); Mean Platelet Volume 10.3 fL (9.1-12.4); NEUTROPHILS ABSOLUTE AUTO 10.08 K/mm3 (1.96-9.15); NEUTROPHILS PERCENT AUTO 77 % (41-73); Platelet Count 326 K/mm3 (150-400); RDW Coefficient Variation 13.3 % (11.7-14.2); RDW Standard Deviation 40.2 fL (35.1-46.3); Red Blood Cell Count 4.72 M/mm3 (4.30-5.90); White Blood Cell Count 13.07 K/mm3 (4.00-11.30)
[2024-08-23 06:42] LABS: Bun/Creatinine Ratio 21.6 (12.0-20.0); Calcium, Blood 8.7 mg/dL (8.5-10.1); Creatinine, Blood 0.6 mg/dL (0.60-1.20); Potassium, Blood 4.1 mmol/L (3.5-5.5)
[2024-08-23 07:40] VITALS: BP 144/87
[2024-08-23] MEDS ORDERED: [UNRECOGNIZED DRUG - OTHER] PO SCH (09:00)
[2024-08-23] MEDS ORDERED: Enoxaparin 40 MG/0.4 ML SYR SC SCH (09:00)
[2024-08-23 14:48] VITALS: BP 103/60
[2024-08-23] MEDS ORDERED: ClonazePAM 0.5 MG Tab PO ONE (15:30)
[2024-08-23] MEDS ORDERED: SODIUM CHLORIDE IR SCH (18:00)
[2024-08-23] MEDS ORDERED: GENTAMICIN SULFATE XX SCH (18:00)
[2024-08-23] MEDS ORDERED: SODIUM CHLORIDE XX SCH (18:00)
[2024-08-23] MEDS ORDERED: GENTAMICIN SULFATE IR SCH (18:00)
--- NOTE | 2024-08-23 19:20 | NUR ---
SHIFT SUMMARY PATIENT IN BED THIS SHIFT, RESTING WITH EYES CLOSED MOSTLY. MOTHER IN ROOM MOST OF SHIFT, ASSISTING WITH MEALS AND CARES. BLADDER INSTILLED WITH ABX VIA MAX CATH FOR FIRST DOSE THIS SHIFT, TOLERATED WELL. MAX INTACT, DRAINING YELLOW URINE TO GRAVITY. AFEBRILE. NON-VERBAL AT BASELINE. NO BM. CALL LIGHT IN REACH, NOT ABLE TO MAKE NEEDS KNOWN. CARES ONGOING.
[2024-08-23 19:54] VITALS: BP 102/58
[2024-08-23] MEDS ORDERED: NS IV SCH (21:00)
[2024-08-23] MEDS ORDERED: TOBRAMYCIN SULFATE IV SCH (21:00)
[2024-08-23] MEDS ORDERED: ClonazePAM 1 MG Tab PO SCH (21:00)
[2024-08-24 00:04] VITALS: BP 98/65
--- NOTE | 2024-08-24 06:15 | NUR ---
SHIFT SUMMARY NOC PT A/O TO MOTHER, NON VERBAL AND UNABLE TO MAKE NEEDS KNOWN. BP 98/65 (76). PT CONTINUES TO BE DROWSY POST MEDICATION PASS FROM YESTERDAY, PT MOVES ARMS WHEN TAKING VS AND GROANS WHEN CARE PROVIDED, BUT SEEMS TO JUST WANT TO SLEEP AFTER BEING UP THE ENTIRETY OF PRIOR CLOSING SUPERVISOR. BEDTIME RX HELD DUE TO LETHARGY AND ASPIRATION RISK. PT HAS MAX IN PLACE DRAINING YELLOW URINE TO GRAVITY. PT ON TELE SINUS RHYTHM IN 70'S. PT RECEIVE FIRST DOSE OF GENTIMYCIN VIA MAX PORT YESTERDAY AND WILL RECIEVE NEXT DOSE TOMORROW. PT CURRENTLY RESTING WITH BED ALARM ON, BED IN LOWEST POSITION, AND CALL LIGHT WITHIN REACH.
[2024-08-24 06:23] LABS: BASOPHILS ABSOLUTE AUTO 0.06 K/mm3 (0.00-0.23); BASOPHILS PERCENT AUTO 1 % (0-2); EOSINOPHILS ABSOLUTE AUTO 0.56 K/mm3 (0.00-0.68); EOSINOPHILS PERCENT AUTO 5 % (0-6); Hematocrit 40.5 % (37.0-53.0); Hemoglobin 12.9 g/dL (13.5-17.5); IMMATURE GRAN ABSOLUTE AUTO 0.03 K/mm3 (0.00-0.10); IMMATURE GRAN PERCENT AUTO 0 % (0-1); LYMPHOCYTES ABSOLUTE AUTO 2.89 K/mm3 (0.84-5.20); LYMPHOCYTES PERCENT AUTO 25 % (21-46); MONOCYTES ABSOLUTE AUTO 0.98 K/mm3 (0.16-1.47); MONOCYTES PERCENT AUTO 8 % (4-13); Mean Corpuscular HGB 26.6 pg (26.0-34.0); Mean Corpuscular HGB Conc 31.9 g/dL (31.5-36.5); Mean Corpuscular Volume 84 fL (80-100); Mean Platelet Volume 9.9 fL (9.1-12.4); NEUTROPHILS ABSOLUTE AUTO 7.21 K/mm3 (1.96-9.15); NEUTROPHILS PERCENT AUTO 61 % (41-73); Platelet Count 323 K/mm3 (150-400); RDW Coefficient Variation 13.3 % (11.7-14.2); RDW Standard Deviation 40.7 fL (35.1-46.3); Red Blood Cell Count 4.85 M/mm3 (4.30-5.90); White Blood Cell Count 11.73 K/mm3 (4.00-11.30)
[2024-08-24 07:03] LABS: Bun/Creatinine Ratio 23.7 (12.0-20.0); Calcium, Blood 8.8 mg/dL (8.5-10.1); Creatinine, Blood 0.63 mg/dL (0.60-1.20); Potassium, Blood 3.7 mmol/L (3.5-5.5)
[2024-08-24] MEDS ORDERED: ClonazePAM 0.5 MG Tab PO SCH (09:00)
[2024-08-24 11:54] VITALS: BP 94/50
[2024-08-24 15:45] LABS: Tobramycin, Trough <0.3 ug/mL (0.0-1.9)
[2024-08-24 19:37] VITALS: BP 106/92
[2024-08-24 23:57] VITALS: BP 88/55
[2024-08-25 05:00] VITALS: BP 102/61
[2024-08-25 05:38] LABS: BASOPHILS ABSOLUTE AUTO 0.05 K/mm3 (0.00-0.23); BASOPHILS PERCENT AUTO 1 % (0-2); EOSINOPHILS ABSOLUTE AUTO 0.43 K/mm3 (0.00-0.68); EOSINOPHILS PERCENT AUTO 6 % (0-6); Hematocrit 37.9 % (37.0-53.0); Hemoglobin 12.3 g/dL (13.5-17.5); IMMATURE GRAN ABSOLUTE AUTO 0.01 K/mm3 (0.00-0.10); IMMATURE GRAN PERCENT AUTO 0 % (0-1); LYMPHOCYTES PERCENT AUTO 31 % (21-46); MONOCYTES ABSOLUTE AUTO 0.67 K/mm3 (0.16-1.47); MONOCYTES PERCENT AUTO 9 % (4-13); Mean Corpuscular HGB 26.9 pg (26.0-34.0); Mean Corpuscular HGB Conc 32.5 g/dL (31.5-36.5); Mean Corpuscular Volume 83 fL (80-100); Mean Platelet Volume 10.6 fL (9.1-12.4); NEUTROPHILS ABSOLUTE AUTO 4.01 K/mm3 (1.96-9.15); NEUTROPHILS PERCENT AUTO 54 % (41-73); Platelet Count 317 K/mm3 (150-400); RDW Standard Deviation 39.2 fL (35.1-46.3); Red Blood Cell Count 4.57 M/mm3 (4.30-5.90); White Blood Cell Count 7.47 K/mm3 (4.00-11.30)
[2024-08-25 06:10] LABS: Bun/Creatinine Ratio 23.6 (12.0-20.0); Calcium, Blood 8.9 mg/dL (8.5-10.1); Creatinine, Blood 0.64 mg/dL (0.60-1.20); Potassium, Blood 3.5 mmol/L (3.5-5.5)
--- NOTE | 2024-08-25 06:46 | NUR ---
SHIFT SUMMARY PT ALERT NONVERBAL WHICH IS HIS BASELINE. NO SEIZURE ACTIVITY THIS SHIFT. MAX CATHETER INTACT DRAINING YELLOW URINE REMAINS ON TELEMETRY AT NSR AT 76. HIS BP WAS AT 88/55 BUT THE LAST ONE WAS AT 102/61. HES GETTING GENTAMICIN QOD INTO HIS BLADDER. 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 HE TAKES HIS MEDS CRUSHED AND TOOK ALL HIS MEDS LAST NIGHT. HES INC OF BOWEL. RESTING IN BED AT THIS TIME
[2024-08-25 07:47] VITALS: BP 87/55
[2024-08-25 11:11] VITALS: BP 100/61
[2024-08-25] MEDS ORDERED: AMOX-CLAV 875-1 EAC1 PO (15:40)
[2024-08-25] MEDS ORDERED: VITAMIN D31000 UNI1 PO (15:41)
--- NOTE | 2024-08-25 16:30 | NUR ---
SHIFT SUMMARY AND DISCHARGE PATIENT ALERT AT TIMES. MOTHER AT BEDSIDE AND STATES THAT HE IS PRETTY MUCH AT HIS BASELINE. PATIENT ABLE TO TAKE MEDS CRUSHED IN APPLESAUCE. PATIENT TO DISCHARGE BACK TO HALFWAY. DISCHARGE INSTRUCTIONS REVIEWED WITH MOTHER. PATIENT TRANSPORTED OUT IN PERSONAL WHEELCHAIR TO TRANSPORT VAN. ROOM CHECK DONE PRIOR TO DISCHARGE AND BELONGINGS SENT WITH PATIENT AND MOM.
== END 2024-08-25 16:15 | DRG 101 ==
LOC: ER 13:14 → MEDS 15:21
PROVIDERS: Emergency Medicine; Family Medicine; ADMIT Internal Medicine
DX: G40.811 Lennox-Gastaut syndrome, not intractable, with status epilepticus (principal); I82.611 Acute embolism and thrombosis of superficial veins of right upper extremity; N30.90 Cystitis, unspecified without hematuria; K21.9 Gastro-esophageal reflux disease without esophagitis; Z66 Do not resuscitate; N20.0 Calculus of kidney; G80.9 Cerebral palsy, unspecified; R33.9 Retention of urine, unspecified; Z87.440 Personal history of urinary (tract) infections; Z88.8 Allergy status to other drugs, medicaments and biological substances; Z96.82 Presence of neurostimulator
CPT/HCPCS: 36415; 36416; 71045; 76770; 80048; 80053; 80200; 81001; 83605; 85025; 87086; 93971; 94760; 99285-25; A9270; J1580; J1650; J3260; J7030; J7050

== ENCOUNTER 2024-09-08 06:51 | Inpatient (IN) | payer OTHER ==
[~2024-09-08] VITALS: Ht 167.6 cm; Wt 59.9 kg
[~2024-09-08 06:51] MED LIST changes: +AMOX-CLAV 875-1 EAC1 PO; +VITAMIN D31000 UNI1 PO
[2024-09-08 07:12] LABS: BASOPHILS ABSOLUTE AUTO 0.05 K/mm3 (0.00-0.23); BASOPHILS PERCENT AUTO 0 % (0-2); EOSINOPHILS ABSOLUTE AUTO 0.27 K/mm3 (0.00-0.68); EOSINOPHILS PERCENT AUTO 2 % (0-6); Hematocrit 44.3 % (37.0-53.0); Hemoglobin 14.1 g/dL (13.5-17.5); IMMATURE GRAN ABSOLUTE AUTO 0.02 K/mm3 (0.00-0.10); IMMATURE GRAN PERCENT AUTO 0 % (0-1); LYMPHOCYTES ABSOLUTE AUTO 2.26 K/mm3 (0.84-5.20); LYMPHOCYTES PERCENT AUTO 20 % (21-46); MONOCYTES PERCENT AUTO 7 % (4-13); Mean Corpuscular HGB 26.2 pg (26.0-34.0); Mean Corpuscular HGB Conc 31.8 g/dL (31.5-36.5); Mean Corpuscular Volume 82 fL (80-100); Mean Platelet Volume 9.7 fL (9.1-12.4); NEUTROPHILS ABSOLUTE AUTO 8.04 K/mm3 (1.96-9.15); NEUTROPHILS PERCENT AUTO 70 % (41-73); Platelet Count 289 K/mm3 (150-400); RDW Coefficient Variation 13.4 % (11.7-14.2); RDW Standard Deviation 40.1 fL (35.1-46.3); Red Blood Cell Count 5.39 M/mm3 (4.30-5.90); White Blood Cell Count 11.44 K/mm3 (4.00-11.30)
[2024-09-08 07:22] LABS: Source, Urine Clean Catch
[2024-09-08] MEDS ORDERED: levETIRAcetam 1,500 MG in NS 100 ML IV ONE (07:25)
[2024-09-08 07:26] LABS: Appearance, Urine Turbid (Clear); Bilirubin, Urine Neg (Neg); Blood, Urine 4+ (Neg); Color, Urine Yellow (P-Yellow); Glucose Qualitative, Urine Neg (Neg); Ketones, Urine Neg (Neg); Leukocyte Esterase, Urine 3+ (Neg); Nitrite, Urine Pos (Neg); Protein, Urine 3+ (Neg); Urobilinogen, Urine NORM (Normal)
[2024-09-08 07:29] LABS: Albumin, Blood 3.4 g/dL (3.4-5.0); Albumin/Globulin Ratio 0.9 (0.8-1.8); Bilirubin, Total 0.4 mg/dL (0.1-1.0); Bun/Creatinine Ratio 25.1 (12.0-20.0); Calcium, Blood 8.6 mg/dL (8.5-10.1); Creatinine, Blood 0.76 mg/dL (0.60-1.20); Globulin, Blood 3.7 g/dL (2.2-4.0); Potassium, Blood 3.9 mmol/L (3.5-5.5); Total Protein, Blood 7.1 g/dL (6.4-8.2)
[2024-09-08 07:33] LABS: Red Blood Cells, Urine 25-50 /hpf (0-2); White Blood Cells, Urine 50-100 /hpf (0-5)
[2024-09-08 07:34] LABS: Bacteria Many /hpf; Squamous Epithelial Cells Not Seen /hpf (Few)
[2024-09-08] MEDS ORDERED: TOBRAMYCIN IV PRN (07:45)
[2024-09-08] MEDS ORDERED: NS IV ONE (08:10)
[2024-09-08] MEDS ORDERED: TOBRAMYCIN SULFATE IV ONE (08:10)
[2024-09-08] MEDS ORDERED: Acetaminophen 325 MG TABLET PO PRN (09:55)
[2024-09-08] MEDS ORDERED: Piperacillin/Tazobactam Sod 3.375 GM in NS 100 ML IV SCH (11:00)
[2024-09-08 11:37] VITALS: BP 141/114
[2024-09-08] MEDS ORDERED: NS 1,000 ML IV SCH (11:55)
[2024-09-08] MEDS ORDERED: LORazepam 2 MG/ML 1ML Injection IV PRN (11:55)
[2024-09-08] MEDS ORDERED: PHENobarbital 64.8 MG Tab PO SCH (11:56)
[2024-09-08] MEDS ORDERED: LamoTRIgine 100 MG Tab PO SCH (11:59)
[2024-09-08] MEDS ORDERED: ClonazePAM 1 MG Tab PO SCH ×2 (12:00→21:00)
[2024-09-08] MEDS ORDERED: LevETIRAcetam 500 MG Tab PO SCH ×2 (12:00→18:00)
[2024-09-08 12:07] LABS: Source, Urine Foley catheter
[2024-09-08 12:14] LABS: Appearance, Urine Cloudy (Clear); Bilirubin, Urine Neg (Neg); Blood, Urine 4+ (Neg); Color, Urine Yellow (P-Yellow); Glucose Qualitative, Urine Neg (Neg); Ketones, Urine Neg (Neg); Leukocyte Esterase, Urine 3+ (Neg); Nitrite, Urine Pos (Neg); Protein, Urine 3+ (Neg); Specific Gravity, Urine 1.015 (1.003-1.022); Urobilinogen, Urine NORM (Normal)
[2024-09-08 12:24] LABS: Squamous Epithelial Cells Not Seen /hpf (Few)
[2024-09-08 12:25] LABS: Bacteria Many /hpf; Red Blood Cells, Urine 25-50 /hpf (0-2); White Blood Cells, Urine 50-100 /hpf (0-5)
[2024-09-08 15:49] VITALS: BP 108/72
[2024-09-08 17:11] LABS: Adenovirus F 40/41 Not Detected (NOT DETECT); Astrovirus Not Detected (NOT DETECT); Campylobacter Sp Not Detected (NOT DETECT); Cryptosporidium Not Detected (NOT DETECT); Cyclospora Cayetanensis Not Detected (NOT DETECT); E. Coli O157 Not Detected (NOT DETECT); Entamoeba Histolytica Not Detected (NOT DETECT); Enteroaggregative E. coli-EAEC Not Detected (NOT DETECT); Enteropathogenic E. coli-EPEC Not Detected (NOT DETECT); Enterotoxigenic E. coli-ETEC Detected (NOT DETECT); Giardia Lamblia Not Detected (NOT DETECT); Norovirus GI/GII Not Detected (NOT DETECT); Plesiomonas Shigelloides Not Detected (NOT DETECT); Rotavirus A Not Detected (NOT DETECT); Salmonella Sp Not Detected (NOT DETECT); Sapovirus Not Detected (NOT DETECT); Shiga Toxin-prod E. coli-STEC Not Detected (NOT DETECT); Shigella/Enteroin E. coli-EIEC Not Detected (NOT DETECT); Vibrio Cholerae Not Detected (NOT DETECT); Vibrio Sp Not Detected (NOT DETECT); Yersinia Enterocolitica Not Detected (NOT DETECT)
[2024-09-08] MEDS ORDERED: Tamsulosin HCl 0.4 MG Cap PO SCH (18:00)
--- NOTE | 2024-09-08 18:35 | NUR ---
CHARTED ASSESSMENT, HISTORY AND MED REC WITH MARS ANSARI, STUDENT NURSE AND I AGREE WITH HER DOCUMENTATION FOR THIS PATIENT.
[2024-09-08 20:13] VITALS: BP 90/45
[2024-09-08] MEDS ORDERED: EPIDIOLEX 100 MG/ML PO SCH (21:00)
[2024-09-08] MEDS ORDERED: GuaiFENesin 200 MG IR Tab PO SCH (21:00)
[2024-09-08] MEDS ORDERED: Cranberry Extract 250MG W/30 MG Vitamin C Tab PO SCH (21:00)
[2024-09-08] MEDS ORDERED: Lactobacil 2-S.Thermo-Bifido 1 1 Cap PO SCH (21:00)
[2024-09-08] MEDS ORDERED: Polyethylene Glycol 3350 17 gm PO SCH (21:00)
[2024-09-09 02:37] VITALS: BP 106/59
[2024-09-09 02:58] LABS: Base Excess Venous 0.8 mmol/L; Bicarbonate Venous 24.6 mmol/L (24.0-30.0); PCO2 Venous 48.6 mmHg (38-42); pH Blood Venous 7.35 (7.34-7.37)
[2024-09-09 02:59] LABS: BASOPHILS ABSOLUTE AUTO 0.04 K/mm3 (0.00-0.23); BASOPHILS PERCENT AUTO 1 % (0-2); EOSINOPHILS ABSOLUTE AUTO 0.47 K/mm3 (0.00-0.68); EOSINOPHILS PERCENT AUTO 5 % (0-6); Hemoglobin 12.5 g/dL (13.5-17.5); IMMATURE GRAN ABSOLUTE AUTO 0.02 K/mm3 (0.00-0.10); IMMATURE GRAN PERCENT AUTO 0 % (0-1); LYMPHOCYTES PERCENT AUTO 26 % (21-46); MONOCYTES ABSOLUTE AUTO 0.59 K/mm3 (0.16-1.47); MONOCYTES PERCENT AUTO 7 % (4-13); Mean Corpuscular HGB 26.4 pg (26.0-34.0); Mean Corpuscular HGB Conc 31.3 g/dL (31.5-36.5); Mean Corpuscular Volume 84 fL (80-100); Mean Platelet Volume 9.9 fL (9.1-12.4); NEUTROPHILS ABSOLUTE AUTO 5.38 K/mm3 (1.96-9.15); NEUTROPHILS PERCENT AUTO 61 % (41-73); Platelet Count 263 K/mm3 (150-400); RDW Coefficient Variation 13.3 % (11.7-14.2); RDW Standard Deviation 41.1 fL (35.1-46.3); Red Blood Cell Count 4.74 M/mm3 (4.30-5.90)
[2024-09-09 03:26] LABS: Bun/Creatinine Ratio 23.3 (12.0-20.0); Calcium, Blood 8.4 mg/dL (8.5-10.1); Creatinine, Blood 0.69 mg/dL (0.60-1.20); Potassium, Blood 3.7 mmol/L (3.5-5.5)
--- NOTE | 2024-09-09 04:03 | NUR ---
PATIENT FOUND WITH SATS ON RA AT 70%, NOT RESPONDING TO DEEP STERNAL RUB, ARMS NOT CONTRACTED, REPORTED TO DR DE LA GARZA, CXRAY AND ABG DONE, CO2 INCREASED, PATIENT HAS A HISTORY OF BECOMING NONRESPONSIVE ON PREVIOUS ADMITS AND THEN WAKES. PATIENT SATS 100% ON 2L O2 NC, NOT SOB, BREATHING WITH MOUTH OPEN. PUPILS PIN POINT, NO NEW MEDICATIONS GIVEN, DOSES REVEIWED, WILL RELAY TO AM RN
[2024-09-09] MEDS ORDERED: Omeprazole 20 MG CapCR PO SCH (06:00)
[2024-09-09 07:26] VITALS: BP 107/67
[2024-09-09] MEDS ORDERED: Cholecalciferol 1000 Unit Tablet (=25MCG) PO SCH (09:00)
[2024-09-09] MEDS ORDERED: Multivitamins 1 Tab PO SCH (09:00)
[2024-09-09] MEDS ORDERED: Enoxaparin 40 MG/0.4 ML SYR SC SCH (09:00)
[2024-09-09] MEDS ORDERED: EPIDIOLEX 100 MG/ML PO SCH (09:00)
--- NOTE | 2024-09-09 14:00 | NUR ---
MET WITH PATIENT AND HIS MOTHER. THERAPUTIC CONVERSATION. DISCUSSED CODE STATUS AND POLST ON FILE FROM 2019 THAT STATED DNR AND LIMITED. MOTHER RELAYED THAT SHE HAS A NEWER POLST THAT RELAYED FULL CODE AND LIMITED INTERVENTIONS. DISCUSSED HER WISHES, SHE REQUESTS DNR AND LIMITED INTERVENTIONS, SHE STATED THAT SHE HAD DISCUSSED THESE WISHES WITH PROVIDER THIS MORNING. TOUCHED BASE WITH PROVIDER AND SHE HAD ALREADY CHANGED HIS CODE STATUS ORDER. FILLED OUT NEW POLST REFLECTING HER WISHES AND WILL REVIEW WITH PATIENTS MOTHER.
[2024-09-09 16:08] VITALS: BP 88/54
--- NOTE | 2024-09-09 18:24 | NUR ---
PATIENT SLEPT MOST OF THE DAY TODAY. WOKE TO EAT BREAKFAST AND DINNER. MOTHER JOVON AT BEDSIDE ALL DAY ASSISTING WITH CARE. SATS >92% ON RA. SKIN INTACT. MAX DRAINING YELLOW CLOUDY URINE TO GRAVITY. CONTINUES WITH ZOSYN Q6 HOURS. FALL PRECAUTIONS IN PLACE.
[2024-09-09 19:28] VITALS: BP 87/53
[2024-09-09] MEDS ORDERED: Lactated Ringer's 1,000 ML IV SCH (19:40)
[2024-09-09] MEDS ORDERED: Lactated Ringer's 1,000 ML IV ONE (19:40)
--- NOTE | 2024-09-09 19:41 | NUR ---
DURING HS VS PT BP 87/53 AFTER MULTIPLE ATTEMPTS. HOSPITALIST NOTIFIED AND CONCERN FOR SEPSIS NOTED. STAT LACTIC ACID AND 1L LR BOLUS ORDERED WELL CONTINOUS INFUSION OF LR @ 100 ML/HR.
[2024-09-09 21:08] VITALS: BP 94/53
[2024-09-09] MEDS ORDERED: NS 250 ML IV PRN (23:55)
[2024-09-10] MEDS ORDERED: LORazepam 2 MG/ML 1ML Injection IV PRN ×2 (00:25→09:30)
[2024-09-10 03:52] VITALS: BP 120/70
[2024-09-10 05:24] LABS: BASOPHILS ABSOLUTE AUTO 0.05 K/mm3 (0.00-0.23); BASOPHILS PERCENT AUTO 1 % (0-2); EOSINOPHILS ABSOLUTE AUTO 0.34 K/mm3 (0.00-0.68); EOSINOPHILS PERCENT AUTO 5 % (0-6); Hematocrit 36.7 % (37.0-53.0); Hemoglobin 11.7 g/dL (13.5-17.5); IMMATURE GRAN ABSOLUTE AUTO 0.01 K/mm3 (0.00-0.10); IMMATURE GRAN PERCENT AUTO 0 % (0-1); LYMPHOCYTES ABSOLUTE AUTO 2.59 K/mm3 (0.84-5.20); LYMPHOCYTES PERCENT AUTO 39 % (21-46); MONOCYTES ABSOLUTE AUTO 0.49 K/mm3 (0.16-1.47); MONOCYTES PERCENT AUTO 7 % (4-13); Mean Corpuscular HGB 26.8 pg (26.0-34.0); Mean Corpuscular HGB Conc 31.9 g/dL (31.5-36.5); Mean Corpuscular Volume 84 fL (80-100); Mean Platelet Volume 9.8 fL (9.1-12.4); NEUTROPHILS ABSOLUTE AUTO 3.17 K/mm3 (1.96-9.15); NEUTROPHILS PERCENT AUTO 48 % (41-73); Platelet Count 228 K/mm3 (150-400); RDW Standard Deviation 39.6 fL (35.1-46.3); Red Blood Cell Count 4.36 M/mm3 (4.30-5.90); White Blood Cell Count 6.65 K/mm3 (4.00-11.30)
--- NOTE | 2024-09-10 05:36 | NUR ---
SHIFT SUMMARY NOC PT A/O X SELF. PLEASANTLY CONFUSED. BP 87/53, HOSPITALIST NOTIFIED AND ORDERS FOR LACTIC ACID WHICH WAS 0.9 AFTER DRAW AND BOLUS OF 1.5L LR GIVEN, ALONG WITH INFUSION OF LR @ 100 ML/HR. BP IMPROVED TO 94/53 AND 120/70. PT WAS EXTREMELY LETHARGIC AND HARD TO AROUSE, SO EVENING RX HELD. IV ATIVAN ORDEREDD FOR SEIZURE COVERAGE PRN. PT RECEIVED ONE DOSE 2MG IV ATIVAN FOR TONIC CLONIC SEIZURE ACTIVITY WHICH RELIEVED SEIZURE ACTIVITY. PT SPO2 HAS MAINTAINED >95% AND IS CONTINOUS BIOX TO MONITOR SPO2. PT HAS MAX IN PLACE WITH GOOD OUTPUT. PT CURRENTLY RESTING WITH BED IN LOWEST POSITION, AND CALL LIGHT WITHIN REACH.
[2024-09-10 05:50] LABS: Bun/Creatinine Ratio 12.6 (12.0-20.0); Calcium, Blood 8.5 mg/dL (8.5-10.1); Creatinine, Blood 0.56 mg/dL (0.60-1.20); Potassium, Blood 3.2 mmol/L (3.5-5.5)
[2024-09-10 07:42] VITALS: BP 108/62
[2024-09-10] MEDS ORDERED: Potassium Chloride 20 MEQ TabCR PO ONE (09:25)
[2024-09-10] MEDS ORDERED: SODIUM CHLORIDE XX SCH (14:00)
[2024-09-10] MEDS ORDERED: GENTAMICIN SULFATE XX SCH (14:00)
[2024-09-10 15:55] VITALS: BP 101/67
--- NOTE | 2024-09-10 19:14 | NUR ---
SHIFT SUMMARY PT IS A/O TO MOTHER AND SELF. NO ACUTE CHANGES THROUGHOUT THIS SHIFT. CONTINUING IV ANTIBIOTICS. GENTAMICIN IRRIGATION STARTED THIS AFTERNOON. PT'S MOTHER INSTRUCTED AND DEMONSTRATED HOW TO COMPLETE. CHRONIC MAX IN PLACE, PATENT AND DRAINING YELLOW URINE. MOTHER AT BEDSIDE THROUGHOUT THIS SHIFT.
[2024-09-10 19:53] VITALS: BP 85/50
[2024-09-10 19:55] VITALS: BP 88/55
[2024-09-10] MEDS ORDERED: Lactated Ringer's 500 ML IV ONE (20:15)
[2024-09-10] MEDS ORDERED: LevETIRAcetam 100 MG/ML 5ML ORAL SYR PO SCH (21:30)
[2024-09-10 22:19] VITALS: BP 104/48
[2024-09-11 02:48] VITALS: BP 123/64
--- NOTE | 2024-09-11 05:14 | NUR ---
SHIFT SUMMARY NOC PT A/O TO SELF. PLEASANT AND COOPERATIVE WITH CARE. BP STILL SOFT 88/55 MAP (66), HOSPITALIST NOTIFIED AND ONE TIME BOLUS LR 500 ML GIVEN AND BP 104/48 MAP (66). PT STILL VERY LETHARGIC AND DIFFICULT TO AROUSE TO GIVE PO MEDICATION, HOSPITALIST GAVE ORDER TO HOLD KLONOPIN, BUT TO GIVE OTHER PO RX IF ABLE. PT SPONTANEOUSLY WOKE UP FOR A BRIEF TIME AND WAS ABLE TO TAKE BEDTIME MEDICATION CRUSHED IN APPLESAUCE. KEPPRA CHANGED TO ORAL SOLUTIION BECAUSE THEY CAN NOT BE CRUSHED. PT ON CONTINOUS BIOX SPO2 >98% ON RA, BUT HR DOES DIP DOWN INTO MID 40'S WHEN PT IS SOUNDLY ASLEEP. PT HAS MAX IN PLACE DRAINING HAZY URINE TO GRAVITY. SEIZURE PRECAUTIONS IN PLACE. PT CURRENTLY RESTING WITH BED ALARM ON, BED IN LOWEST POSITION, AND CALL LIGHT WITHIN REACH.
[2024-09-11 05:29] LABS: BASOPHILS ABSOLUTE AUTO 0.06 K/mm3 (0.00-0.23); BASOPHILS PERCENT AUTO 1 % (0-2); EOSINOPHILS ABSOLUTE AUTO 0.28 K/mm3 (0.00-0.68); EOSINOPHILS PERCENT AUTO 5 % (0-6); Hematocrit 35.2 % (37.0-53.0); Hemoglobin 11.1 g/dL (13.5-17.5); IMMATURE GRAN ABSOLUTE AUTO 0.01 K/mm3 (0.00-0.10); IMMATURE GRAN PERCENT AUTO 0 % (0-1); LYMPHOCYTES ABSOLUTE AUTO 2.08 K/mm3 (0.84-5.20); LYMPHOCYTES PERCENT AUTO 36 % (21-46); MONOCYTES ABSOLUTE AUTO 0.48 K/mm3 (0.16-1.47); MONOCYTES PERCENT AUTO 8 % (4-13); Mean Corpuscular HGB 26.4 pg (26.0-34.0); Mean Corpuscular HGB Conc 31.5 g/dL (31.5-36.5); Mean Corpuscular Volume 84 fL (80-100); NEUTROPHILS ABSOLUTE AUTO 2.91 K/mm3 (1.96-9.15); NEUTROPHILS PERCENT AUTO 50 % (41-73); Platelet Count 259 K/mm3 (150-400); RDW Coefficient Variation 13.1 % (11.7-14.2); RDW Standard Deviation 39.8 fL (35.1-46.3); White Blood Cell Count 5.82 K/mm3 (4.00-11.30)
[2024-09-11 05:53] LABS: Bun/Creatinine Ratio 11.4 (12.0-20.0); Calcium, Blood 8.7 mg/dL (8.5-10.1); Creatinine, Blood 0.61 mg/dL (0.60-1.20); Potassium, Blood 3.5 mmol/L (3.5-5.5)
--- NOTE | 2024-09-11 06:11 | NUR ---
DURING FINAL ROUNDING CATHETER CARE BEUBG PERFORMED. PT BEGAN AGGRESSIVELY TRYING TO PULL AT MAX CATHETER AND WOULD NOT RESPOND TO REDIRECTION AND ATTEMPTED TO BITE NURSING STAFF. ORDER FOR BILATERAL MITTS OBTAINED UNTIL PT STOPS ATTEMPTING TO PULL AT MAX.
[2024-09-11 07:53] VITALS: BP 110/63
[2024-09-11] MEDS ORDERED: LevETIRAcetam 100 MG/ML 5ML ORAL SYR PO SCH (09:00)
[2024-09-11 12:52] VITALS: BP 106/72
[2024-09-11 16:45] VITALS: BP 94/54
--- NOTE | 2024-09-11 18:28 | NUR ---
1824- THIS RN NOTIFIED MD MARTINEZ OF MOISTURE-ASSOCIATED REDNESS IN PT'S GROIN. RN TO PLACE MICONAZOLE POWDER BID.
--- NOTE | 2024-09-11 18:32 | NUR ---
SUMMARY- RN UNABLE TO TEST ORIENTATION. PT KNOWS HIS MOTHER, SEVERO. SEVERO WAS HERE IN THE HOSPITAL ALL SHIFT HELPING WITH PT'S CARE. PT ON RA ALL SHIFT. PT SHOWED NO SIGNS OF PAIN. PT HAD GOOD APPETITE FOR BREAKFAST AND LUNCH, BUT BECAME LETHARGIC FOR DINNER (MOTHER DESCRIBES THIS BEHAVIOR NORMAL FOR PT OCASSIONALLY). PT WAS AWAKE FOR MOST OF THE SHIFT. NO ACUTE EVENTS THIS SHIFT. PT'S CATHETER SEEMS TO BE LEAKING SMALL AMOUNTS. MAX IS PROPERLY INFLATED.
[2024-09-11 20:20] VITALS: BP 90/55
[2024-09-11] MEDS ORDERED: Miconazole Nitrate 2% 85 GM PWD TOP SCH (21:00)
[2024-09-12 02:42] VITALS: BP 89/67
[2024-09-12 04:21] VITALS: BP 94/53
--- NOTE | 2024-09-12 04:40 | NUR ---
HAND COMPOSITOR SUMMARY: PT RESTING IN BED. UNABLE TO ASSESS ORIENTATION. RESPONDS TO NAME. NO S/S OF PAIN OR ACUTE DISTRESS. BP'S HAVE BEEN SOFT, HOSPITALIST NOTIFIED. NEW ORDER TO START NS @ 75ML/HR GIVE [id number] ML X1. PT PULSE IS NOTED TO BE CARLYLE WHILE ASLEEP. CONTINUOUS BIOX IN PLACE, SATS ABOVE 92% ON RA. MAX DRAINING YELLOW URINE TO GRAVITY. BED IN LOWEST POSITION. BED ALARM IN PLACE. CARES ONGOING ORDERED.
[2024-09-12] MEDS ORDERED: NS 1,000 ML IV SCH (04:55)
[2024-09-12 05:39] LABS: BASOPHILS ABSOLUTE AUTO 0.05 K/mm3 (0.00-0.23); BASOPHILS PERCENT AUTO 1 % (0-2); EOSINOPHILS PERCENT AUTO 5 % (0-6); Hematocrit 36.1 % (37.0-53.0); Hemoglobin 11.8 g/dL (13.5-17.5); IMMATURE GRAN ABSOLUTE AUTO 0.01 K/mm3 (0.00-0.10); IMMATURE GRAN PERCENT AUTO 0 % (0-1); LYMPHOCYTES ABSOLUTE AUTO 2.21 K/mm3 (0.84-5.20); LYMPHOCYTES PERCENT AUTO 39 % (21-46); MONOCYTES ABSOLUTE AUTO 0.44 K/mm3 (0.16-1.47); MONOCYTES PERCENT AUTO 8 % (4-13); Mean Corpuscular HGB 27.2 pg (26.0-34.0); Mean Corpuscular HGB Conc 32.7 g/dL (31.5-36.5); Mean Corpuscular Volume 83 fL (80-100); Mean Platelet Volume 9.8 fL (9.1-12.4); NEUTROPHILS PERCENT AUTO 46 % (41-73); Platelet Count 292 K/mm3 (150-400); RDW Standard Deviation 39.1 fL (35.1-46.3); Red Blood Cell Count 4.34 M/mm3 (4.30-5.90); White Blood Cell Count 5.61 K/mm3 (4.00-11.30)
[2024-09-12 06:10] LABS: Bun/Creatinine Ratio 12.6 (12.0-20.0); Calcium, Blood 8.5 mg/dL (8.5-10.1); Creatinine, Blood 0.64 mg/dL (0.60-1.20); Potassium, Blood 3.5 mmol/L (3.5-5.5)
[2024-09-12 08:28] VITALS: BP 108/68
[2024-09-12] MEDS ORDERED: ClonazePAM 1 MG Tab PO SCH (09:00)
[2024-09-12] MEDS ORDERED: ClonazePAM 0.5 MG Tab PO SCH (09:00)
[2024-09-12 20:14] VITALS: BP 104/64
--- NOTE | 2024-09-13 05:31 | NUR ---
SHIFT SUMMARY PT ADMITTED FOR INCREASED SEIZURE ACTIVITY. PT IS ALERT AND ORIENTED TIMES 2 . PT SLEPT ON AND OFF. PT GOT OUT OF BED BUT WAS ABLE TO BE REDIRECTED BACK TO BED AFTER GIVING NURSE LOTS OF HUGS. PT DID NOT APPEAR TO HAVE ANY SEIZURES DURING THE NIGHT. PT S BED IS IN LOW POSITION, RAILS TIMES TWO, AND CALL LIGHT IS WITHIN REACH.
[2024-09-13 05:39] VITALS: BP 100/61
[2024-09-13 07:26] VITALS: BP 93/52
--- NOTE | 2024-09-13 17:56 | NUR ---
SHIFT SUMMARY PATIENT IN BED THIS SHIFT. STANDING AT BEDSIDE WITH MOM. MOM ASSISTING WITH FEEDINGS. TOLERATING IV ABX WELL. NON-VERBAL AT BASELINE, BUT SMILING AND VERY AWAKE THIS SHIFT. CALL LIGHT IN REACH, PATIENT IS NOT ABLE TO MAKE NEEDS KNOWN. SEIZURE PRECAUTIONS IN PLACE
[2024-09-13 20:05] VITALS: BP 92/46
[2024-09-14 04:14] VITALS: BP 97/56
--- NOTE | 2024-09-14 04:57 | NUR ---
SHIFT SUMMARY: PT AOX0, ALERT AT TIMES AND UNAROUSABLE AT OTHERS, WHICH IS CONSISTENT WITH BEHAVIOR ON PREVIOUS ADMISSIONS. PT IS UNABLE TO CALL APPRORPAITELY OR MAKE NEEDS KNOWN. NONVERBAL AND DOESNT COMMUNICATE AT ALL. PT TOLERATING MEDICATIONS WELL CRUSHED IN APPLESAUCE TAKING WHILE AWAKE. GOOD OUT PUT INTO MAX. PT SEEMS COMFORTABLE ALTHOUGH IS FIDGETY IN BED AT TIMES. ABLE TO ASSIST WITH TURNS AND MOVEMENT WHILE AWAKE. NO ACUTE EVENTS OVERNIGHT. PT IN BED SLEEPING, BED IN LOWEST POSITION, CALL LIGHT IN REACH. CONTINUING CARE.
[2024-09-14 07:37] VITALS: BP 132/74
[2024-09-14 16:37] VITALS: BP 100/66
--- NOTE | 2024-09-14 16:57 | NUR ---
SHIFT SUMMARY PT IS A/Ox0. HAS BEEN IN AND OUT OF SLEEPING T/O SHIFT. PT IS DEVELOPMENTALLY DELAYED AND UNABLE TO VERBALLY RESPOND. CAN FOLLOW SOME COMMANDS WHEN IT COMES TO EATING/TRANSFERRING. 1PA FOR TRANSFERS D/T UNSTEADY GAIT. PATIENT IS BED/CHAIR BOUND. PT IS CURRENTLY BEING AMBULATED AROUND HOSPITAL IN HIS CHAIR BY HIS MOM. NO ACUTE NEEDS AT THIS TIME, PLAN OF CARE ONGOING.
--- NOTE | 2024-09-14 17:39 | NUR ---
PLEASE REFER TO STUDENT NOTES FOR SHIFT SUMMARY THIS COPY PREPARER HAS REVIEWED AND AGREES.
[2024-09-14 19:34] VITALS: BP 86/45
[2024-09-15 04:20] VITALS: BP 92/56
--- NOTE | 2024-09-15 05:00 | NUR ---
SHIFT SUMMARY: PT AOX0 WITH DEVELOPMENTAL DELAYS. PT TOLERATING MEDS WELL CRUSHED IN APPLESAUCE. MAX DRAINING WELL. NO ACUTE OVERNIGHT EVENTS. PT DIFFICULT TO AROUSE WHILE SLEEPING BUT WILL SIT UP INTERMITTENTLY AND IS ALERT. PT IN BED RESTING, BED IN LOWEST POSITION, CALL LIGHT IN REACH. BED ALARM IN PLACE. CONTINUING CARE.
[2024-09-15 07:00] VITALS: BP 102/50
[2024-09-15] MEDS ORDERED: ZINC OXIDE/PETROLATUM, YELLOW 1 APPLIC/71 GM PASTE TOP PRN (10:35)
[2024-09-15] MEDS ORDERED: GENTAMICIN (10:36)
[2024-09-15] MEDS ORDERED: ZINCTRAL57 GM TOP (10:39)
--- NOTE | 2024-09-15 14:06 | NUR ---
DISCHARGE NOTE PT D/C HOME AT 1245. PT'S MOTHER PROVIDED W/ VERBAL AND WRITTEN INSTRUCTIONS AND REPORTED UNDERSTANDING. PT ALERT NOT ORIENTED-BASELINE, VSS, BEDRIDDEN, TOLERATING PO, VOIDING, AND NO PAIN. BELONGINGS WERE RETURNED. HOME MED GIVEN TO PT'S MOTHER. MAX REMAINED IN PLACE. PT ESCOURTED OUT VIA W/C BY TRANSPORT.
== END 2024-09-15 12:45 | disposition home or self-care (01) | DRG 100 ==
LOC: ER 06:51 → MEDS 06:52 → ENPENDDIS 09-15 12:52
PROVIDERS: Student in an Organized Health Care Education/Training Program; ADMIT Family Medicine
DX: G40.812 Lennox-Gastaut syndrome, not intractable, without status epilepticus (principal); J96.01 Acute respiratory failure with hypoxia; N39.0 Urinary tract infection, site not specified; T83.511A Infection and inflammatory reaction due to indwelling urethral catheter, initial encounter; Z16.24 Resistance to multiple antibiotics; A04.4 Other intestinal Escherichia coli infections; B96.5 Pseudomonas (aeruginosa) (mallei) (pseudomallei) as the cause of diseases classified elsewhere; Y73.2 Prosthetic and other implants, materials and accessory gastroenterology and urology devices associated with adverse incidents; Z66 Do not resuscitate; K21.9 Gastro-esophageal reflux disease without esophagitis; R40.0 Somnolence; I95.9 Hypotension, unspecified; D64.9 Anemia, unspecified; E87.6 Hypokalemia; Z88.8 Allergy status to other drugs, medicaments and biological substances; Z87.440 Personal history of urinary (tract) infections; Z96.82 Presence of neurostimulator
CPT/HCPCS: 36415; 51702; 71045; 80048; 80053; 81001; 82803; 83605; 83690; 85025; 87077; 87086; 87186; 87507; 94760; 94762; 96365-59; 96366; 96367-59; 96372; 96375; 96376; 99285-25; A9270; G0378; J1580; J1650; J1953; J2060; J2543; J3260; J7030; J7050; J7120

== ENCOUNTER 2024-09-27 10:37 | Inpatient (IN) | payer OTHER ==
[~2024-09-27] VITALS: Ht 160 cm; Wt 60.5 kg
[~2024-09-27 10:37] MED LIST changes: +GENTAMICIN; +ZINCTRAL57 GM TOP
[2024-09-27] MEDS ORDERED: FentaNYL Citrate 50 MCG/ML 2 ML Injection IV ONE (10:55)
[2024-09-27] MEDS ORDERED: NS 1,000 ML IV SCH (10:55)
[2024-09-27 12:20] LABS: BASOPHILS ABSOLUTE AUTO 0.03 K/mm3 (0.00-0.23); BASOPHILS PERCENT AUTO 0 % (0-2); EOSINOPHILS ABSOLUTE AUTO 0.02 K/mm3 (0.00-0.68); EOSINOPHILS PERCENT AUTO 0 % (0-6); Hematocrit 43.9 % (37.0-53.0); Hemoglobin 13.7 g/dL (13.5-17.5); IMMATURE GRAN ABSOLUTE AUTO 0.01 K/mm3 (0.00-0.10); IMMATURE GRAN PERCENT AUTO 0 % (0-1); LYMPHOCYTES ABSOLUTE AUTO 0.58 K/mm3 (0.84-5.20); LYMPHOCYTES PERCENT AUTO 7 % (21-46); MONOCYTES ABSOLUTE AUTO 0.48 K/mm3 (0.16-1.47); MONOCYTES PERCENT AUTO 6 % (4-13); Mean Corpuscular HGB 26.2 pg (26.0-34.0); Mean Corpuscular HGB Conc 31.2 g/dL (31.5-36.5); Mean Corpuscular Volume 84 fL (80-100); Mean Platelet Volume 9.6 fL (9.1-12.4); NEUTROPHILS ABSOLUTE AUTO 7.48 K/mm3 (1.96-9.15); NEUTROPHILS PERCENT AUTO 87 % (41-73); Platelet Count 275 K/mm3 (150-400); RDW Coefficient Variation 13.8 % (11.7-14.2); RDW Standard Deviation 42.3 fL (35.1-46.3); Red Blood Cell Count 5.23 M/mm3 (4.30-5.90)
[2024-09-27 12:41] LABS: Albumin, Blood 3.5 g/dL (3.4-5.0); Albumin/Globulin Ratio 0.9 (0.8-1.8); Bilirubin, Total 0.3 mg/dL (0.1-1.0); Bun/Creatinine Ratio 17.3 (12.0-20.0); Calcium, Blood 8.8 mg/dL (8.5-10.1); Creatinine, Blood 0.69 mg/dL (0.60-1.20); Globulin, Blood 3.7 g/dL (2.2-4.0); Magnesium, Blood 1.7 mg/dL (1.6-2.4); Phosphorus, Blood 3.2 mg/dL (2.5-4.9); Potassium, Blood 3.8 mmol/L (3.5-5.5); Total Protein, Blood 7.2 g/dL (6.4-8.2)
[2024-09-27 12:58] LABS: Source, Urine Clean Catch
[2024-09-27 13:02] LABS: Appearance, Urine Clear (Clear); Bilirubin, Urine Neg (Neg); Blood, Urine 1+ (Neg); Color, Urine Yellow (P-Yellow); Glucose Qualitative, Urine Neg (Neg); Ketones, Urine Neg (Neg); Leukocyte Esterase, Urine 3+ (Neg); Nitrite, Urine Pos (Neg); Protein, Urine 3+ (Neg); Urobilinogen, Urine NORM (Normal)
[2024-09-27 13:11] LABS: White Blood Cells, Urine 25-50 /hpf (0-5)
[2024-09-27 13:12] LABS: Bacteria Many /hpf; Hyaline Casts 0-2 /lpf (0-2); Mucus Light (0-Heavy); Renal Epithelial Rare /hpf (0-Rare); Squamous Epithelial Cells Mod /hpf (Few)
[2024-09-27] MEDS ORDERED: Piperacillin/Tazobactam Sod 3.375 GM in NS 100 ML IV ONE (13:25)
[2024-09-27] MEDS ORDERED: Acetaminophen 650 MG Supp PR ONE (13:25)
[2024-09-27] MEDS ORDERED: Lactated Ringer's 1,000 ML IV SCH (14:50)
[2024-09-27] MEDS ORDERED: Albuterol 2.5 MG/3 ML VIAL INH PRN (14:55)
[2024-09-27] MEDS ORDERED: LORazepam 2 MG/ML 1ML Injection IV PRN (14:55)
[2024-09-27] MEDS ORDERED: Acetaminophen 325 MG TABLET PO PRN (15:00)
[2024-09-27] MEDS ORDERED: CLON2 PO (17:05)
[2024-09-27 17:10] VITALS: BP 106/67
[2024-09-27 17:40] LABS: Adenovirus Not Detected (NOT DETECT); Coronavirus 229E Not Detected (NOT DETECT); Coronavirus HKU1 Not Detected (NOT DETECT); Coronavirus NL63 Not Detected (NOT DETECT); Coronavirus OC43 Not Detected (NOT DETECT)
[2024-09-27 17:41] LABS: Bordetella pertussis Not Detected (NOT DETECT); Chlamydophila pneumoniae Not Detected (NOT DETECT); Human Metapneumovirus Not Detected (NOT DETECT); Human Rhinovirus/Enterovirus Not Detected (NOT DETECT); Influenza A/2009-H1 Not Detected (NOT DETECT); Influenza A/H1 Not Detected (NOT DETECT); Influenza A/H3 Not Detected (NOT DETECT); Influenza B Not Detected (NOT DETECT); Mycoplasma pneumoniae Not Detected (NOT DETECT); Parainfluenza Virus 1 Not Detected (NOT DETECT); Parainfluenza Virus 2 Not Detected (NOT DETECT); Parainfluenza Virus 3 Not Detected (NOT DETECT); Parainfluenza Virus 4 Not Detected (NOT DETECT); Respiratory Syncytial Virus Not Detected (NOT DETECT); SARS-Cov-2 (COVID-19), BioFire Not Detected (NOT DETECT)
[2024-09-27] MEDS ORDERED: Tamsulosin HCl 0.4 MG Cap PO SCH (18:00)
[2024-09-27] MEDS ORDERED: Piperacillin/Tazobactam Sod 3.375 GM in NS 100 ML IV SCH (18:00)
[2024-09-27] MEDS ORDERED: LevETIRAcetam 500 MG Tab PO SCH (18:00)
[2024-09-27] MEDS ORDERED: LevETIRAcetam 100 MG/ML 5ML ORAL SYR PO SCH (18:00)
--- NOTE | 2024-09-27 18:33 | NUR ---
PT ADMITTED TO ROOM FROM ER. MOTHER IN ROOM. MUCH ASSISTANCE. VSS. H/R REG, NO MURMUR NOTED. NO TELE. LUNGS CLEAR, DIM BASES. ON 2L O2. BT X4 LAST BM NOT KNOWN. VOIDING MAX CATH TO GRAVITY. YELLOW FLUID IN COLLECTION BAG. CALLED ER MARIAM, COVERING FOR EFM DR. RAMIREZ UPDATING KLONOPIN TO HOME DOSE TIMES. ALSO SWITCHING KEPPRA TO LIQUID. BED IN LOW POSITION, CALL LITE IN REACH PT NONVERBAL AT BASELINE. DOES NOT FOLLOW COMMANDS. MOTHER AT BEDSIDE.
[2024-09-27] MEDS ORDERED: ClonazePAM 1 MG Tab PO SCH ×2 (18:35→21:00)
[2024-09-27 19:48] VITALS: BP 104/73
[2024-09-27] MEDS ORDERED: Lactobacil 2-S.Thermo-Bifido 1 1 Cap PO SCH (21:00)
[2024-09-27] MEDS ORDERED: Polyethylene Glycol 3350 17 gm PO SCH (21:00)
[2024-09-27] MEDS ORDERED: PHENobarbital 64.8 MG Tab PO SCH (21:00)
[2024-09-27] MEDS ORDERED: LamoTRIgine 100 MG Tab PO SCH (21:00)
[2024-09-27] MEDS ORDERED: GuaiFENesin 200 MG IR Tab PO SCH (21:00)
[2024-09-27] MEDS ORDERED: Cranberry Extract 250MG W/30 MG Vitamin C Tab PO SCH (21:00)
[2024-09-27] MEDS ORDERED: CANNABIDIOL 100 MG/ML PO SCH (21:00)
--- NOTE | 2024-09-28 04:27 | NUR ---
PT SLEPT BETWEEN CARES, DID NOT WISH TO TURN OVER, BECAME AGITATED IF STAFF TRIED, PROPED UP WITH PILLOWS, O2 AT 2L/NC, VS WNL, MAX IN PLACE WITH UOP WNL. NONVERBAL BUT WILL REACT WITH EYES AND SMILES. PT REMAINS ON IVF AND IVABX. ALL ORAL FOOD MUST BE SOFT, AND LIQUIDS MUST BE THICKENED, EVEN LIQUID MEDS LIKE HIS KEPRA. PT DID NOT TOLERATE THE SCD'S. DOES NOT UTILIZE CALL SYSTEM AND MOM REQUESTED ALL SIDE RAILS UP.
[2024-09-28 04:31] VITALS: BP 96/49
--- NOTE | 2024-09-28 05:22 | NUR ---
PT GIVEN MEDS THIS AM JUST MOM INSTRUCTED WITH YOUSIF, NOTED COUGHING AFTER, WILL MONITOR.
[2024-09-28 06:00] LABS: BASOPHILS ABSOLUTE AUTO 0.04 K/mm3 (0.00-0.23); BASOPHILS PERCENT AUTO 0 % (0-2); EOSINOPHILS ABSOLUTE AUTO 0.24 K/mm3 (0.00-0.68); EOSINOPHILS PERCENT AUTO 2 % (0-6); Hematocrit 35.2 % (37.0-53.0); Hemoglobin 11.1 g/dL (13.5-17.5); IMMATURE GRAN ABSOLUTE AUTO 0.02 K/mm3 (0.00-0.10); IMMATURE GRAN PERCENT AUTO 0 % (0-1); LYMPHOCYTES PERCENT AUTO 19 % (21-46); MONOCYTES ABSOLUTE AUTO 0.62 K/mm3 (0.16-1.47); MONOCYTES PERCENT AUTO 6 % (4-13); Mean Corpuscular HGB 26.7 pg (26.0-34.0); Mean Corpuscular HGB Conc 31.5 g/dL (31.5-36.5); Mean Corpuscular Volume 85 fL (80-100); Mean Platelet Volume 10.4 fL (9.1-12.4); NEUTROPHILS ABSOLUTE AUTO 7.73 K/mm3 (1.96-9.15); NEUTROPHILS PERCENT AUTO 73 % (41-73); Platelet Count 258 K/mm3 (150-400); RDW Standard Deviation 43.1 fL (35.1-46.3); Red Blood Cell Count 4.16 M/mm3 (4.30-5.90); White Blood Cell Count 10.65 K/mm3 (4.00-11.30)
[2024-09-28] MEDS ORDERED: Omeprazole 20 MG CapCR PO SCH (06:00)
[2024-09-28] MEDS ORDERED: ClonazePAM 1 MG Tab PO SCH (06:00)
[2024-09-28 06:43] LABS: Bun/Creatinine Ratio 17.1 (12.0-20.0); Calcium, Blood 8.5 mg/dL (8.5-10.1); Creatinine, Blood 0.7 mg/dL (0.60-1.20); Potassium, Blood 3.8 mmol/L (3.5-5.5)
[2024-09-28 07:53] VITALS: BP 93/60
[2024-09-28] MEDS ORDERED: LevETIRAcetam 100 MG/ML 5ML ORAL SYR PO SCH (08:00)
[2024-09-28] MEDS ORDERED: LevETIRAcetam 500 MG Tab PO SCH (08:00)
[2024-09-28] MEDS ORDERED: Enoxaparin 40 MG/0.4 ML SYR SC SCH (09:00)
[2024-09-28] MEDS ORDERED: EPIDIOLEX 100 MG/ML PO SCH (09:00)
[2024-09-28] MEDS ORDERED: Multivitamins/Minerals 1 Tab PO SCH (09:00)
[2024-09-28] MEDS ORDERED: Cholecalciferol 1000 Unit Tablet (=25MCG) PO SCH (09:00)
[2024-09-28 13:51] VITALS: BP 104/59
[2024-09-28] MEDS ORDERED: NS IV SCH (16:00)
[2024-09-28] MEDS ORDERED: GENTAMICIN SULFATE IV SCH (16:00)
[2024-09-28 17:07] VITALS: BP 100/56
--- NOTE | 2024-09-28 19:21 | NUR ---
SHIFT SUMMARY: PATIENT ORIENTED TO SELF AND TO HIS MOTHER--MOTHER IS AT BEDSIDE THROUGHOUT THE DAY. PATIENT HAS BEEN PLEASANT, COOPERATIVE, AND HAS HAD A GOOD APPETITE. TAKES MEDS CRUSHED IN APPLESAUCE. ADMINISTERED KEPPRA WITH TWO THICKENER PACKETS IN A SMALL CUP SUGGESTED BY HIS MOTHER. PATIENT TOLERATED MEDICATIONS WELL. NO ACUTE EVENTS TODAY. MOTHER CURRENTLY AT BEDSIDE, CALL LIGHT WITHIN REACH. BED ALARM SET.
[2024-09-28 19:58] VITALS: BP 90/55
[2024-09-28] MEDS ORDERED: NS 250 ML IV PRN (23:10)
--- NOTE | 2024-09-29 03:33 | NUR ---
SHIFT SUMMARY NO ACUTE EVENTS DURING THIS SHIFT. PT NOT SHOWING VERBAL OR NON-VERBAL SIGNS OF PAIN ORM DISCOMFORT. IV ABX INFUSED ORDERED. MEDS CRUSHED IN APPLE SAUCE. MOTHER BY THE BEDSIDE AT . MAX DRAINING YELLOW COLOR URINE TO GRAVITY. AFEBRILE. BED AT THE LOWEST POSITION, CALL LIGHT W/I REACH. PT IS NOT ABLE TO MAKE HIS NEEDS KNOWN. BED ALARM FOR SAFETY, SEIZURE PADS ON BED RAILS. FREQUENT ROUNDING BY THE BEDSIDE. PT RESTING WELL W/O ACUTE DISTRESS. O2 PRN @2L VIA NASAL CANNULA.
[2024-09-29 04:17] VITALS: BP 95/46
[2024-09-29 05:49] LABS: BASOPHILS ABSOLUTE AUTO 0.05 K/mm3 (0.00-0.23); BASOPHILS PERCENT AUTO 1 % (0-2); EOSINOPHILS ABSOLUTE AUTO 0.34 K/mm3 (0.00-0.68); EOSINOPHILS PERCENT AUTO 6 % (0-6); Hematocrit 35.4 % (37.0-53.0); Hemoglobin 11.2 g/dL (13.5-17.5); IMMATURE GRAN ABSOLUTE AUTO 0.01 K/mm3 (0.00-0.10); IMMATURE GRAN PERCENT AUTO 0 % (0-1); LYMPHOCYTES ABSOLUTE AUTO 1.73 K/mm3 (0.84-5.20); LYMPHOCYTES PERCENT AUTO 29 % (21-46); MONOCYTES ABSOLUTE AUTO 0.44 K/mm3 (0.16-1.47); MONOCYTES PERCENT AUTO 7 % (4-13); Mean Corpuscular HGB 26.4 pg (26.0-34.0); Mean Corpuscular HGB Conc 31.6 g/dL (31.5-36.5); Mean Corpuscular Volume 84 fL (80-100); Mean Platelet Volume 9.7 fL (9.1-12.4); NEUTROPHILS ABSOLUTE AUTO 3.44 K/mm3 (1.96-9.15); NEUTROPHILS PERCENT AUTO 57 % (41-73); Platelet Count 255 K/mm3 (150-400); RDW Coefficient Variation 13.6 % (11.7-14.2); RDW Standard Deviation 41.6 fL (35.1-46.3); Red Blood Cell Count 4.24 M/mm3 (4.30-5.90); White Blood Cell Count 6.01 K/mm3 (4.00-11.30)
[2024-09-29 06:12] LABS: Bun/Creatinine Ratio 13.5 (12.0-20.0); Calcium, Blood 8.9 mg/dL (8.5-10.1); Creatinine, Blood 0.67 mg/dL (0.60-1.20); Potassium, Blood 3.6 mmol/L (3.5-5.5)
[2024-09-29 07:38] VITALS: BP 99/60
[2024-09-29 14:14] VITALS: BP 90/53
[2024-09-29] MEDS ORDERED: GENTAMICIN BLADIN (16:41)
--- NOTE | 2024-09-29 19:18 | NUR ---
SHIFT SUMMARY PATIENT ALERT, NONVERBAL AT BASELINE. PLEASANT AND COOERATIVE WITH CARE. ABLE TO FOLLOW SIMPLE DIRECTIONS FOR CARE. IV ABX INFUSED PER JUL, SEIZURE PRECAUTIONS IN PLACE. PATIENT'S MOTHER, SEVERO, AT BEDSIDE ALL SHIFT AND ASSISTS WITH PATIENT CARE. PATIENT WITH GOOD PO INTAKE DURING MEALS. BLOOD PRESSURES REMAIN SOFT 90s SBP. 1-2 ASSIST AND WAS ABLE TO GET UP FOR LUNCH THIS SHIFT. MAX CATHETER IN PLACE. TYLENOL ADMINISTERED PER JUL THIS AFTERNOON FOR BACK PAIN, NO OTHER CONCERNS AT THIS TIME. BEDSIDE SHIFT REPORT PROVIDED TO CERTIFIED SKI PATROLLER RN.
[2024-09-29 19:44] VITALS: BP 106/80
[2024-09-30 04:41] LABS: BASOPHILS ABSOLUTE AUTO 0.05 K/mm3 (0.00-0.23); BASOPHILS PERCENT AUTO 1 % (0-2); EOSINOPHILS ABSOLUTE AUTO 0.33 K/mm3 (0.00-0.68); EOSINOPHILS PERCENT AUTO 6 % (0-6); Hematocrit 36.8 % (37.0-53.0); Hemoglobin 11.7 g/dL (13.5-17.5); IMMATURE GRAN ABSOLUTE AUTO 0.01 K/mm3 (0.00-0.10); IMMATURE GRAN PERCENT AUTO 0 % (0-1); LYMPHOCYTES ABSOLUTE AUTO 1.98 K/mm3 (0.84-5.20); LYMPHOCYTES PERCENT AUTO 38 % (21-46); MONOCYTES ABSOLUTE AUTO 0.38 K/mm3 (0.16-1.47); MONOCYTES PERCENT AUTO 7 % (4-13); Mean Corpuscular HGB 26.5 pg (26.0-34.0); Mean Corpuscular HGB Conc 31.8 g/dL (31.5-36.5); Mean Corpuscular Volume 83 fL (80-100); Mean Platelet Volume 9.8 fL (9.1-12.4); NEUTROPHILS PERCENT AUTO 47 % (41-73); Platelet Count 279 K/mm3 (150-400); RDW Coefficient Variation 13.5 % (11.7-14.2); RDW Standard Deviation 41.1 fL (35.1-46.3); Red Blood Cell Count 4.42 M/mm3 (4.30-5.90); White Blood Cell Count 5.15 K/mm3 (4.00-11.30)
[2024-09-30 04:44] VITALS: BP 98/57
[2024-09-30 05:05] LABS: Bun/Creatinine Ratio 12.9 (12.0-20.0); Calcium, Blood 9.1 mg/dL (8.5-10.1); Creatinine, Blood 0.7 mg/dL (0.60-1.20); Potassium, Blood 3.6 mmol/L (3.5-5.5)
[2024-09-30 07:19] VITALS: BP 98/56
[2024-09-30] MEDS ORDERED: AMOCLA875 PO (10:00)
--- NOTE | 2024-09-30 11:41 | NUR ---
RESENT SYEDA MCKINLEY TO MEDICAL RECORDS
--- NOTE | 2024-09-30 13:37 | NUR ---
DISCHARGE NOTE: PT DISCHARGED BACK TO [facility]. EDUCATION AND INSTRUCTION PROVIDED TO MOM BARBARA. PT WAS GIVEN ATTENDS CHANGE; BEDBATH; DRESSED; AND IV REMOVED AND TOLERATED WELL. PT WAS ASSISTED UP TO HIS PRIVATE WC. MOM, BARBARA, WALKD HIM OUTSIDE FOR INSTRUCTIONAL DEVELOPER FROM [facility]. ALL MEDICATIONS WERE FAXED TO [facility] AND DISCHARGE PAPERWORK SIGNED AND GIVEN TO BARBARA.
== END 2024-09-30 13:33 | disposition home or self-care (01) | DRG 871 ==
LOC: ER 10:37 → MEDS 10:38
PROVIDERS: Internal Medicine; Student in an Organized Health Care Education/Training Program; ADMIT Family Medicine
PROC: 3E03329 Introduction of Other Anti-infective into Peripheral Vein, Percutaneous Approach (ICD-10-PCS; principal; 2024-09-27)
PROC: 0T2BX0Z Change Drainage Device in Bladder, External Approach (ICD-10-PCS; 2024-09-27)
DX: A41.9 Sepsis, unspecified organism (principal); G93.41 Metabolic encephalopathy; J18.9 Pneumonia, unspecified organism; J96.01 Acute respiratory failure with hypoxia; T83.511A Infection and inflammatory reaction due to indwelling urethral catheter, initial encounter; Z16.24 Resistance to multiple antibiotics; G40.812 Lennox-Gastaut syndrome, not intractable, without status epilepticus; Z66 Do not resuscitate; K21.9 Gastro-esophageal reflux disease without esophagitis; G80.9 Cerebral palsy, unspecified; R33.9 Retention of urine, unspecified; G31.9 Degenerative disease of nervous system, unspecified; Z96.611 Presence of right artificial shoulder joint; Z91.011 Allergy to milk products; Z88.8 Allergy status to other drugs, medicaments and biological substances; Z79.899 Other long term (current) drug therapy; Z86.69 Personal history of other diseases of the nervous system and sense organs; Z79.51 Long term (current) use of inhaled steroids; Z87.442 Personal history of urinary calculi; Z98.890 Other specified postprocedural states; Z41.1 Encounter for cosmetic surgery
CPT/HCPCS: 0202U; 36415; 51702; 71045; 80048; 80053; 81001; 83605; 83735; 84100; 84484; 85025; 87040; 87070; 87077; 87086; 87186; 87205; 93005; 93010; 94760; 96361; 96365; 96375; 99285-25; A9270; J1580; J1650; J2543; J3010; J7030; J7050; J7120

== ENCOUNTER → 2024-11-13 | Outpatient (CLI) | payer OTHER ==
[~2024-11-13] MED LIST changes: +GENTAMICIN BLADIN; +Zyvox600 MG PO
== END | disposition home or self-care (01) ==
LOC: LAB 14:46 → LAB SHORT 14:46
DX: L08.9 Local infection of the skin and subcutaneous tissue, unspecified (principal)
CPT/HCPCS: 87070; 87077; 87147; 87186; 87205

== ENCOUNTER 2024-11-18 13:47 | Emergency (ER) | payer OTHER ==
[~2024-11-18] VITALS: Ht 160 cm; Wt 59.9 kg
[~2024-11-18 13:47] MED LIST changes: -Zyvox600 MG PO
[2024-11-18 13:54] VITALS: BP 108/61
[2024-11-18] MEDS ORDERED: Zyvox600 MG PO (14:24)
[2024-11-19] MEDS ORDERED: LEVE500 (22:49)
[2024-11-19] MEDS ORDERED: CLON1 (22:52)
[2024-11-19] MEDS ORDERED: TERB250 (22:53)
[2024-11-19] MEDS ORDERED: Acetaminophen650 M1 PO (23:14)
[2024-11-19] MEDS ORDERED: ALBU2.5V5 INH (23:15)
== END 2024-11-18 14:38 | disposition home or self-care (01) ==
LOC: ER 13:47
DX: L02.31 Cutaneous abscess of buttock (principal); B95.62 Methicillin resistant Staphylococcus aureus infection as the cause of diseases classified elsewhere; Z91.011 Allergy to milk products; Z88.8 Allergy status to other drugs, medicaments and biological substances; Z79.899 Other long term (current) drug therapy
CPT/HCPCS: 99282

== ENCOUNTER 2024-11-19 17:54 | Inpatient (IN) | payer OTHER ==
[~2024-11-19] VITALS: Ht 160 cm; Wt 59.5 kg
[~2024-11-19 17:54] MED LIST changes: +Zyvox600 MG PO
[2024-11-19 18:51] LABS: Alanine Aminotransfer (ALT/SGP 48.0 U/L (12-78); Albumin, Blood 3.8 g/dL (3.4-5.0); Albumin/Globulin Ratio 0.9 (0.8-1.8); Anion Gap 5.0 mmol/L (3-11); Aspartate Aminotrans (AST/SGOT 32.0 U/L (12-37); Bilirubin, Total 0.3 mg/dL (0.1-1.0); Blood Urea Nitrogen 10.0 mg/dL (8-24); CO2, Blood 32.0 mmol/L (21-32); Calcium, Blood 8.9 mg/dL (8.5-10.1); Chloride, Blood 103.0 mmol/L (98-108); Creatinine, Blood 0.92 mg/dL (0.60-1.20); Globulin, Blood 4.1 g/dL (2.2-4.0); Glucose, Blood 107.0 mg/dL (70-99); Magnesium, Blood 2.1 mg/dL (1.6-2.4); Phosphorus, Blood 3.3 mg/dL (2.5-4.9); Potassium, Blood 4.1 mmol/L (3.5-5.5); Sodium, Blood 136.0 mmol/L (136-145); Total Protein, Blood 7.9 g/dL (6.4-8.2)
[2024-11-19 18:56] LABS: BASOPHILS ABSOLUTE AUTO 0.04 K/mm3 (0.00-0.23); BASOPHILS PERCENT AUTO 1 % (0-2); EOSINOPHILS ABSOLUTE AUTO 0.16 K/mm3 (0.00-0.68); EOSINOPHILS PERCENT AUTO 4 % (0-6); Hematocrit 41.1 % (37.0-53.0); Hemoglobin 12.9 g/dL (13.5-17.5); IMMATURE GRAN ABSOLUTE AUTO 0.00 K/mm3 (0.00-0.10); IMMATURE GRAN PERCENT AUTO 0 % (0-1); LYMPHOCYTES ABSOLUTE AUTO 1.01 K/mm3 (0.84-5.20); LYMPHOCYTES PERCENT AUTO 24 % (21-46); MONOCYTES ABSOLUTE AUTO 0.28 K/mm3 (0.16-1.47); MONOCYTES PERCENT AUTO 7 % (4-13); Mean Corpuscular HGB Conc 31.4 g/dL (31.5-36.5); Mean Corpuscular Volume 83 fL (80-100); NEUTROPHILS ABSOLUTE AUTO 2.69 K/mm3 (1.96-9.15); NEUTROPHILS PERCENT AUTO 64 % (41-73); NRBC ABSOLUTE 0.00 K/mm3 (0.00-0.02); NRBC Auto 0.0 /100 WBC (0.0-0.2); Platelet Count 353 K/mm3 (150-400); RDW Coefficient Variation 14.2 % (11.7-14.2); RDW Standard Deviation 42.4 fL (35.1-46.3)
[2024-11-19 20:00] LABS: Source, Urine Clean Catch
[2024-11-19 20:09] LABS: Bilirubin, Urine Neg (Neg); Color, Urine Yellow (P-Yellow); Glucose Qualitative, Urine Neg (Neg); Ketones, Urine Neg (Neg); Leukocyte Esterase, Urine 2+ (Neg); Protein, Urine 1+ (Neg); Specific Gravity, Urine 1.010 (1.003-1.022); Urobilinogen, Urine NORM (Normal)
[2024-11-19 20:18] LABS: White Blood Cells, Urine 25-50 /hpf (0-5)
[2024-11-19 20:19] LABS: Yeast/Fungi Urine Few /hpf
[2024-11-19] MEDS ORDERED: GENTAMICIN IV PRN (21:25)
[2024-11-19] MEDS ORDERED: Diazepam 5 MG / ML 2ML SYR IV PRN ×2 (22:45→23:15)
[2024-11-19] MEDS ORDERED: LEVE500 PO ×3 (22:49→22:50)
[2024-11-19] MEDS ORDERED: CLON1 PO (22:52)
[2024-11-19] MEDS ORDERED: TERB250 (22:53)
[2024-11-19] MEDS ORDERED: LAMO100 PO (22:54)
[2024-11-19] MEDS ORDERED: PHENO60 PO (22:55)
[2024-11-19] MEDS ORDERED: Magnesium Hydroxide Conc 10 ML UDC PO PRN (23:10)
[2024-11-19] MEDS ORDERED: Polyethylene Glycol 3350 17 gm PO PRN (23:10)
[2024-11-19] MEDS ORDERED: TAMS.4ER PO (23:11)
[2024-11-19] MEDS ORDERED: OMEP20ER PO (23:13)
[2024-11-19] MEDS ORDERED: MIRALAX17 GM PO (23:13)
[2024-11-19] MEDS ORDERED: Acetaminophen650 M1 PO ×2 (23:14)
[2024-11-19] MEDS ORDERED: ALBU2.5V5 INH (23:15)
[2024-11-19] MEDS ORDERED: THERA-D2000 UNIT PO (23:19)
[2024-11-20 00:17] VITALS: BP 118/83
[2024-11-20] MEDS ORDERED: PROBIOTIC1 EA13 PO (02:13)
[2024-11-20] MEDS ORDERED: GUAI200 PO (02:17)
[2024-11-20] MEDS ORDERED: MULTI-VITAMIN1 EAC2 PO (02:18)
[2024-11-20 03:39] VITALS: BP 105/63
[2024-11-20 05:36] LABS: BASOPHILS ABSOLUTE AUTO 0.05 K/mm3 (0.00-0.23); BASOPHILS PERCENT AUTO 1 % (0-2); EOSINOPHILS ABSOLUTE AUTO 0.26 K/mm3 (0.00-0.68); EOSINOPHILS PERCENT AUTO 4 % (0-6); Hematocrit 39.1 % (37.0-53.0); Hemoglobin 12.5 g/dL (13.5-17.5); IMMATURE GRAN ABSOLUTE AUTO 0.01 K/mm3 (0.00-0.10); IMMATURE GRAN PERCENT AUTO 0 % (0-1); LYMPHOCYTES ABSOLUTE AUTO 1.85 K/mm3 (0.84-5.20); LYMPHOCYTES PERCENT AUTO 26 % (21-46); MONOCYTES ABSOLUTE AUTO 0.43 K/mm3 (0.16-1.47); MONOCYTES PERCENT AUTO 6 % (4-13); Mean Corpuscular HGB Conc 32.0 g/dL (31.5-36.5); Mean Corpuscular Volume 84 fL (80-100); NEUTROPHILS ABSOLUTE AUTO 4.44 K/mm3 (1.96-9.15); NEUTROPHILS PERCENT AUTO 63 % (41-73); NRBC ABSOLUTE 0.00 K/mm3 (0.00-0.02); NRBC Auto 0.0 /100 WBC (0.0-0.2); Platelet Count 308 K/mm3 (150-400); RDW Coefficient Variation 14.4 % (11.7-14.2); RDW Standard Deviation 43.2 fL (35.1-46.3)
[2024-11-20 06:08] LABS: Alanine Aminotransfer (ALT/SGP 45.0 U/L (12-78); Albumin, Blood 3.4 g/dL (3.4-5.0); Albumin/Globulin Ratio 0.9 (0.8-1.8); Anion Gap 7.0 mmol/L (3-11); Aspartate Aminotrans (AST/SGOT 33.0 U/L (12-37); Bilirubin, Total 0.3 mg/dL (0.1-1.0); Blood Urea Nitrogen 11.0 mg/dL (8-24); CO2, Blood 26.0 mmol/L (21-32); Calcium, Blood 8.7 mg/dL (8.5-10.1); Chloride, Blood 106.0 mmol/L (98-108); Creatinine, Blood 0.83 mg/dL (0.60-1.20); Globulin, Blood 3.9 g/dL (2.2-4.0); Glucose, Blood 100.0 mg/dL (70-99); Magnesium, Blood 2.0 mg/dL (1.6-2.4); Potassium, Blood 4.1 mmol/L (3.5-5.5); Sodium, Blood 135.0 mmol/L (136-145); Total Protein, Blood 7.3 g/dL (6.4-8.2)
--- NOTE | 2024-11-20 06:44 | NUR ---
SHIFT SUMMARY PT ARRIVED FROM ER AROUND MIDNIGHT. PT NON-VERBAL BUT MOM AT BEDSIDE TO GIVE HISTORY. CALL LIGHT PLACED NEXT TO PT WITH JERAMIE DARDEN ON, PT'S FAVORITE KATALINA PER MOM. MEDICATED FOR PAIN UPON ARIVAL PER EMAR. SMALL SORE ON LEFT BUTTOCK. PICTURE TAKEN AND MEPALEX PLACED. PT ARRIVED WITH CHRONIC MAX THAT HAD NOT BEEN CHANGED IN ER SO NEW MAX PLACED. PT CONTINUES TO HAVE OCCASIONAL SEIZURE LASTING NO MORE THAN 10 SECONDS. VALUM GIVEN PER ORDER. PT PLACED ON 2L OF OXYGEN D/T SATS DROPPING. PER MOM PT USES OXYGEN AT NIGHT PRN. SUCTION ALSO SET UP AT BEDSIDE FOR DROOLING AND CONGESTION. SCD'S IN USE. SEIZURE PADS IN PLACE. BED ALARM ON. BED IN LOWEST POSITION AND CALL LIGHT IN REACH.
[2024-11-20 07:22] VITALS: BP 113/70
[2024-11-20] MEDS ORDERED: LevETIRAcetam 100 MG/ML 5ML ORAL SYR PO SCH ×2 (08:00→18:00)
[2024-11-20] MEDS ORDERED: Lactobacil 2-S.Thermo-Bifido 1 1 Cap PO SCH (09:00)
[2024-11-20] MEDS ORDERED: Cholecalciferol 1000 Unit Tablet (=25MCG) PO SCH (09:00)
[2024-11-20] MEDS ORDERED: GENTAMICIN SULFATE IV SCH (10:00)
[2024-11-20] MEDS ORDERED: NS IV SCH (10:00)
[2024-11-20 15:13] VITALS: BP 107/70
[2024-11-20] MEDS ORDERED: Misc. Oral Solution PO SCH (16:00)
--- NOTE | 2024-11-20 17:53 | NUR ---
SHIFT SUMMARY PT CONT LEVEL OF CARE. PT IS NONVERBAL AT BASELINE. PT MOM SEVERO AT BEDSIDE THIS SHIFT AND HELPS WITH CARE OF PT. PT NOTED TO CONT TO HAVE SEIZURES PERIODICALLY THROUGHOUT THIS SHIFT PT HAS BEEN MEDICATED WITH PRN IV VALIUM X1 THIS SHIFT WHEN MULTIPLE SEIZURES WHERE NOTED IN A SHORT TIME FRAME. PT LONGEST SEIZURE NOTED TO LAST ABOUT 15SEC. PT STARTED ON ROUTINE HOME MEDICATION THIS SHIFT. PT CONT WITH CHRONIC MAX D/T RECURRENT UTI. MAX NOTED TO BE PATENT AND DRAINING URINE YELLOW IN COLOR.
[2024-11-20 19:21] VITALS: BP 106/63
[2024-11-21 03:13] VITALS: BP 113/82
--- NOTE | 2024-11-21 04:36 | NUR ---
PATIENT IS VERY LATHARGIC AND HARD TO AROUSE ENTIRE SHIFT. ONLY ABLE TO WAKE ENOUGH TO TAKE MEDS VIA CRUSHED IN APPLESAUSE. TURNED PATIENT EVERY TWO HOURS. NOTIFIED [address] OF CRITICAL LAB GRAM POSITIVE WITH CLUSTERS. VITALS REMAIN WNL.
[2024-11-21] MEDS ORDERED: Misc. Oral Solution PO SCH (06:00)
[2024-11-21 07:36] VITALS: BP 117/86
--- NOTE | 2024-11-21 08:07 | NUR ---
ICE CHIPSD PT MOTHER IS GIVING PT ICE CHIPS. PT ON A THICKENED LIQUID DIET. CLARIFIED WITH MOTHER. ICE CHIPS BY HER ONLY. CARE ONGOING.
[2024-11-21 12:22] LABS: BASOPHILS ABSOLUTE AUTO 0.04 K/mm3 (0.00-0.23); BASOPHILS PERCENT AUTO 1 % (0-2); EOSINOPHILS ABSOLUTE AUTO 0.27 K/mm3 (0.00-0.68); EOSINOPHILS PERCENT AUTO 3 % (0-6); Hematocrit 40.6 % (37.0-53.0); Hemoglobin 13.1 g/dL (13.5-17.5); IMMATURE GRAN ABSOLUTE AUTO 0.01 K/mm3 (0.00-0.10); IMMATURE GRAN PERCENT AUTO 0 % (0-1); LYMPHOCYTES ABSOLUTE AUTO 1.43 K/mm3 (0.84-5.20); LYMPHOCYTES PERCENT AUTO 18 % (21-46); MONOCYTES ABSOLUTE AUTO 0.41 K/mm3 (0.16-1.47); MONOCYTES PERCENT AUTO 5 % (4-13); Mean Corpuscular HGB Conc 32.3 g/dL (31.5-36.5); Mean Corpuscular Volume 83 fL (80-100); NEUTROPHILS ABSOLUTE AUTO 5.77 K/mm3 (1.96-9.15); NEUTROPHILS PERCENT AUTO 73 % (41-73); NRBC ABSOLUTE 0.00 K/mm3 (0.00-0.02); NRBC Auto 0.0 /100 WBC (0.0-0.2); Platelet Count 323 K/mm3 (150-400); RDW Coefficient Variation 14.2 % (11.7-14.2); RDW Standard Deviation 42.5 fL (35.1-46.3)
[2024-11-21 12:45] LABS: Alanine Aminotransfer (ALT/SGP 40.0 U/L (12-78); Albumin, Blood 3.7 g/dL (3.4-5.0); Albumin/Globulin Ratio 0.9 (0.8-1.8); Anion Gap 5.0 mmol/L (3-11); Aspartate Aminotrans (AST/SGOT 21.0 U/L (12-37); Bilirubin, Total 0.4 mg/dL (0.1-1.0); Blood Urea Nitrogen 9.0 mg/dL (8-24); CO2, Blood 31.0 mmol/L (21-32); Calcium, Blood 9.1 mg/dL (8.5-10.1); Chloride, Blood 105.0 mmol/L (98-108); Creatinine, Blood 0.62 mg/dL (0.60-1.20); Globulin, Blood 3.9 g/dL (2.2-4.0); Glucose, Blood 107.0 mg/dL (70-99); Potassium, Blood 3.8 mmol/L (3.5-5.5); Sodium, Blood 137.0 mmol/L (136-145); Total Protein, Blood 7.6 g/dL (6.4-8.2)
--- NOTE | 2024-11-21 16:34 | NUR ---
NOTE PT RESTING. HE AWAKENS WHEN HIS MOTHER IS AT BEDSIDE. HE CONTINUES TO HAVE SEIZURES FREQUENTLY. VALIUM 10MG IV GIVEN X2. DR TABARES AWARE. MOTHER CONCERNED ABOUT PT HEART RATE SLOWLY INCREASING. RESTING HEART RATE 90'S. WHENHE HAS A SEIZURE IT GOES UP TO 110BPM. MOTHER RELATED RTHAT HIS HEART RATE USUALLY GOES DOWN WHEN HE HAS A SEIZURE. [facility] HAS CONCERNS ABOUT LOW HEART RATE NOT HIGH. MOTHER TALKED WITH DR TABARES ABOUT HEART RATE. PT TURNED Q2H FOR SKIN PROTECTION. MAX PATENT. MAX CARE DONE. MOTHER ASKED THAT MEDCIATIONS BE COMBINED FOR DINNER. PT RESTING. CARE ONGOING.
[2024-11-21 17:03] VITALS: BP 106/75
--- NOTE | 2024-11-21 18:04 | NUR ---
KLONOIQRA KLONOPIN LATE D/T PHARAMCY NEEDING TO CRUSH UNDER THE SELBY. CARE ONGOING.
[2024-11-21 19:48] VITALS: BP 118/71
--- NOTE | 2024-11-22 05:25 | NUR ---
SUMMERY NOC SHIFT PT ADMITTED FOR RECURRENT SEIZURES. PT IS NON VERBAL . PT S MOTHER VISITING TODAY. PT HAS MAX CATH. PT TURNED Q2, WITH ORAL CARE. PT NOT ABLE TO MAKE NEEDS KNOWN. PT TAKES MEDICATION CRUSHED IN APPLESAUCE. PT IS ALERT OR ORIENTED TO SELF AND PERSON PT HAS VAGAL NERVE STIMULATION DEVICE PLACED FOR SEIZURE ACTIVITY. BED IS IN LOW POSITION, RAILS TIMES TWO, AND CALL LIGHT IS WITHIN REACH.
[2024-11-22 05:39] VITALS: BP 105/61
[2024-11-22 05:42] LABS: BASOPHILS ABSOLUTE AUTO 0.06 K/mm3 (0.00-0.23); BASOPHILS PERCENT AUTO 1 % (0-2); EOSINOPHILS ABSOLUTE AUTO 0.30 K/mm3 (0.00-0.68); EOSINOPHILS PERCENT AUTO 2 % (0-6); Hematocrit 40.8 % (37.0-53.0); Hemoglobin 13.3 g/dL (13.5-17.5); IMMATURE GRAN ABSOLUTE AUTO 0.03 K/mm3 (0.00-0.10); IMMATURE GRAN PERCENT AUTO 0 % (0-1); LYMPHOCYTES ABSOLUTE AUTO 1.44 K/mm3 (0.84-5.20); LYMPHOCYTES PERCENT AUTO 11 % (21-46); MONOCYTES ABSOLUTE AUTO 0.63 K/mm3 (0.16-1.47); MONOCYTES PERCENT AUTO 5 % (4-13); Mean Corpuscular HGB Conc 32.6 g/dL (31.5-36.5); Mean Corpuscular Volume 82 fL (80-100); NEUTROPHILS ABSOLUTE AUTO 10.51 K/mm3 (1.96-9.15); NEUTROPHILS PERCENT AUTO 81 % (41-73); NRBC ABSOLUTE 0.00 K/mm3 (0.00-0.02); NRBC Auto 0.0 /100 WBC (0.0-0.2); Platelet Count 341 K/mm3 (150-400); RDW Coefficient Variation 14.2 % (11.7-14.2); RDW Standard Deviation 42.1 fL (35.1-46.3)
[2024-11-22 06:01] LABS: Alanine Aminotransfer (ALT/SGP 35.0 U/L (12-78); Albumin, Blood 3.7 g/dL (3.4-5.0); Albumin/Globulin Ratio 0.9 (0.8-1.8); Anion Gap 8.0 mmol/L (3-11); Aspartate Aminotrans (AST/SGOT 18.0 U/L (12-37); Bilirubin, Total 0.6 mg/dL (0.1-1.0); Blood Urea Nitrogen 10.0 mg/dL (8-24); CO2, Blood 29.0 mmol/L (21-32); Calcium, Blood 8.8 mg/dL (8.5-10.1); Chloride, Blood 104.0 mmol/L (98-108); Creatinine, Blood 0.66 mg/dL (0.60-1.20); Globulin, Blood 3.9 g/dL (2.2-4.0); Glucose, Blood 103.0 mg/dL (70-99); Potassium, Blood 3.7 mmol/L (3.5-5.5); Sodium, Blood 137.0 mmol/L (136-145); Total Protein, Blood 7.6 g/dL (6.4-8.2)
[2024-11-22 07:31] VITALS: BP 123/86
--- NOTE | 2024-11-22 08:36 | NUR ---
NOTE PT AT SHIFT CHANGE IS AWAKE, INTERACTIVE, SITTING UP AND SMILING. BED/ATTENDS CHANGED. SKIN CARE DONE. MAX CARE DONE. HOB 45 DEGREES READY FOR BREAKFAST. MOTHER ARRIVES A COUPLE MINUTES LATER AND PT IS FLAT, NOT INTERACTING, NO EYE CONTACT. SHE LAYS HIM FLAT, TURNS HIM ON HIS LEFT SIDE AND STARTS GIVING HIM LIQUIDS LAYING FLAT. REVIEWED ASPIRATION PRECAUTIONS WITH HER. PT REPOSTIONED TO [facility] UP FOR ORAL INTAKE. CARE ONGOING.
[2024-11-22] MEDS ORDERED: CefTRIAXone Sodium 1,000 MG in NS 100 ML IV SCH (11:01)
[2024-11-22] MEDS ORDERED: NS 250 ML IV PRN (11:10)
[2024-11-22] MEDS ORDERED: Albuterol 2.5 MG/3 ML VIAL INH PRN (14:40)
--- NOTE | 2024-11-22 15:01 | NUR ---
NOTE SINCE REMOVAL OF DEEP BRAIN STIMULATOR MAGNET FROM PT MOTHERS CONTROL THERE HAVE BEEN 4 SEIZURES. AT 1031, 1035, 1205, 1251. PT IS MORE ALERT AND INNERACTIVE. HE IS WATCHING TV AND TRYING TO SIT UP. IMTIAZ IS IN A ZIP LOCK WITH PT NAME TAG IN IT ON THE DOOR FRAME TO HIS ROOM. CARE ONGOING.
[2024-11-22 15:57] VITALS: BP 113/83
--- NOTE | 2024-11-22 18:18 | NUR ---
NOTE PT AWAKE. MOTHER CONTINUES TO TRY AND FEED HIM LAYING DOWN. VALIUM GIVEN FOR SEIZURE ACTIVITY THIS EVENING. HEART RATE IS TRENDING DOWN INTO THE 70-80'S. STIMULATOR MAGNET IS ON THE DOOR FRAME TO PT ROOM. PT IS MORE INTERACTIVE. HE IS PLAYING WITH HIS DOLLS, TRYING TO SIT UP AND SMILING AT STAFF. CHANGED PT MEPILEX ON HIS BUTTOCKS. MOTHER VIEWED WOUND WHICH IS SLIGHT ABOUT 1CM LONG AND UNDRAINING. THERE IS NO FLUID POCKET NOTED UPON PALPATION. DRY MEPELEX APPLIED OVER WOUND. MOTHER AGGRESSIVELY PROBED THE WOUND WITH HER GLOVED FINGER. REPOSITIONING PT Q2H AND SUPPORTED WITH PILLOWS TO PROTECT HIS SKIN. MOTHER REPOSITIONS HIM ONTO HIS LEFT SIDE. SHE IS KEEPING THE HOB ELEVATED AT 30 DEGREES. VSS. CARE ONGOING.
[2024-11-22 20:07] VITALS: BP 106/88
[2024-11-22] MEDS ORDERED: GuaiFENesin 100 MG/5 ML 5ML UDC PO SCH (21:00)
[2024-11-22] MEDS ORDERED: GuaiFENesin 200 MG IR Tab PO SCH (21:00)
--- NOTE | 2024-11-23 05:41 | NUR ---
PT HAS BEEN TURNED Q2 HR T/O THIS SHIFT, HE HAS BEEN TURNING HIMSELF IN BED AND CROSSING AND UNCROSSING HIS LEGS. HE TOOK PM MEDICATIONS WITHOUT COMPLICATIONS. PT IS NONVERBAL AND DOES NOT FOLLOW DIRECTIONS. NO ACUTE CHANGES NOTED. NO SEIZURES NOTED T/O THIS SHIFT. PT SLEPT T /O [place] NIGHT AWAKENS EASILY TO HIS NAME.
[2024-11-23 05:58] VITALS: BP 116/88
--- NOTE | 2024-11-23 06:00 | NUR ---
PT DID NOT WAKE UP ENOUGH TO SAFETLY TAKE HIS MEDS. MEDS HELD FOR ASPIRATION RISK DUE TO DROWSINESS.
[2024-11-23 06:41] LABS: BASOPHILS ABSOLUTE AUTO 0.04 K/mm3 (0.00-0.23); BASOPHILS PERCENT AUTO 1 % (0-2); EOSINOPHILS ABSOLUTE AUTO 0.30 K/mm3 (0.00-0.68); EOSINOPHILS PERCENT AUTO 5 % (0-6); Hematocrit 40.9 % (37.0-53.0); Hemoglobin 13.1 g/dL (13.5-17.5); IMMATURE GRAN ABSOLUTE AUTO 0.01 K/mm3 (0.00-0.10); IMMATURE GRAN PERCENT AUTO 0 % (0-1); LYMPHOCYTES ABSOLUTE AUTO 1.94 K/mm3 (0.84-5.20); LYMPHOCYTES PERCENT AUTO 30 % (21-46); MONOCYTES ABSOLUTE AUTO 0.48 K/mm3 (0.16-1.47); MONOCYTES PERCENT AUTO 8 % (4-13); Mean Corpuscular HGB Conc 32.0 g/dL (31.5-36.5); Mean Corpuscular Volume 83 fL (80-100); NEUTROPHILS ABSOLUTE AUTO 3.65 K/mm3 (1.96-9.15); NEUTROPHILS PERCENT AUTO 57 % (41-73); NRBC ABSOLUTE 0.00 K/mm3 (0.00-0.02); NRBC Auto 0.0 /100 WBC (0.0-0.2); Platelet Count 289 K/mm3 (150-400); RDW Coefficient Variation 14.2 % (11.7-14.2); RDW Standard Deviation 42.9 fL (35.1-46.3)
[2024-11-23 07:00] LABS: Alanine Aminotransfer (ALT/SGP 30.0 U/L (12-78); Albumin, Blood 3.4 g/dL (3.4-5.0); Albumin/Globulin Ratio 0.8 (0.8-1.8); Anion Gap 8.0 mmol/L (3-11); Aspartate Aminotrans (AST/SGOT 14.0 U/L (12-37); Bilirubin, Total 0.4 mg/dL (0.1-1.0); Blood Urea Nitrogen 8.0 mg/dL (8-24); CO2, Blood 29.0 mmol/L (21-32); Calcium, Blood 8.7 mg/dL (8.5-10.1); Chloride, Blood 104.0 mmol/L (98-108); Creatinine, Blood 0.6 mg/dL (0.60-1.20); Globulin, Blood 4.3 g/dL (2.2-4.0); Glucose, Blood 88.0 mg/dL (70-99); Potassium, Blood 3.6 mmol/L (3.5-5.5); Sodium, Blood 137.0 mmol/L (136-145); Total Protein, Blood 7.7 g/dL (6.4-8.2)
--- NOTE | 2024-11-23 07:29 | NUR ---
ASSUMPTION OF CARE: THIS RN ASSUMED CARE OF PATIENT. ASLEEP DURING SHIFT CHANGE REPORT. LYING IN BED ON BACK c HEAD TURNED TO LEFT, PROPPED AGAINST A PILLOW. MAX PATENT AND DRAINING YELLOW URINE TO GRAVITY. BREATHING EVEN AND UNLABORED. MAINTAINING SPO2 >92% c RA PER CONTINUOUS PULSE OX. BED IN LOWEST POSITION. CALL LIGHT WITHIN REACH. ACUTE NEEDS MET.
[2024-11-23 08:08] VITALS: BP 99/77
[2024-11-23] MEDS ORDERED: Multivitamins 1 Tab PO SCH (09:00)
[2024-11-23 15:30] VITALS: BP 98/71
[2024-11-23] MEDS ORDERED: CLON2 PO (16:34)
[2024-11-23] MEDS ORDERED: GENTAMICIN BLADIN (16:40)
[2024-11-23] MEDS ORDERED: [UNRECOGNIZED DRUG - OTHER] PO ×2 (16:41)
--- NOTE | 2024-11-23 18:13 | NUR ---
DISCHARGE SUMMARY: DROWSY, BUT ROUSES TO PAINFUL AND VERBAL STIMULI; ORIENTED TO SELF AND MOTHER AND KNOWS HE IS NOT HOME. MOM AT BEDSIDE MOST OF DAY. PT VERY FATIGUED; MOM ATTRIBUTES THIS TO THE MULTIPLE SZs HE HAD YESTERDAY. MAX PATENT AND DRAINING YELLOW URINE TO GRAVITY. BREATHING EVEN AND UNLABORED, MAINTAINING SPO2 >92% c RA PER CONTINUOUS PULSE OX. PATIENT PROVIDED WITH COPY OF DISCHARGE PLAN AND MEDICATION LIST. MED REC FA[facility]ED TO [facility]. INSTRUCTED TO FOLLOW-UP WITH HEAVENLY MCCORMACK ON 11/26/24. ALL OF MOM'S QUESTIONS ANSWERED TO THE ABILITY OF DISCHARGING NURSE AND PATIENT MOTHER VOICED UNDERSTANDING OF DISCHARGE PLAN. IV REMOVED AND PRESSURE DRESSING PLACED. LEFT FLOOR WITH ALL BELONGINGS AND DISCHARGE PACKET, ESCORTED BY MOTHER AND [facility] CAREGIVER. TRANSPORTATION PROVIDED BY [facility].
== END 2024-11-23 18:34 | disposition home or self-care (01) | DRG 101 ==
LOC: ER 17:54 → MEDS 17:55 → ER 11-20 00:03 → MEDS 11-20 00:08
PROVIDERS: Emergency Medicine; Internal Medicine; ADMIT Student in an Organized Health Care Education/Training Program
DX: G40.812 Lennox-Gastaut syndrome, not intractable, without status epilepticus (principal); L02.31 Cutaneous abscess of buttock; K21.9 Gastro-esophageal reflux disease without esophagitis; Z96.611 Presence of right artificial shoulder joint; R33.9 Retention of urine, unspecified; Z66 Do not resuscitate; L89.159 Pressure ulcer of sacral region, unspecified stage; B95.2 Enterococcus as the cause of diseases classified elsewhere; B96.5 Pseudomonas (aeruginosa) (mallei) (pseudomallei) as the cause of diseases classified elsewhere; Z91.011 Allergy to milk products; Z88.8 Allergy status to other drugs, medicaments and biological substances; Z79.899 Other long term (current) drug therapy; Z79.2 Long term (current) use of antibiotics; Z79.51 Long term (current) use of inhaled steroids; Z87.442 Personal history of urinary calculi; Z98.890 Other specified postprocedural states; Z86.19 Personal history of other infectious and parasitic diseases; Z87.01 Personal history of pneumonia (recurrent); B95.62 Methicillin resistant Staphylococcus aureus infection as the cause of diseases classified elsewhere
CPT/HCPCS: 36415; 71045; 80053; 81001; 83605; 83735; 84100; 85025; 87040; 87077; 87086; 87185; 87186; 94762; 96365; 96375; 96376; 99282; 99285-25; A9270; G0378; J0696; J1580; J1953; J3360; J7050

== ENCOUNTER 2024-12-14 20:50 | Inpatient (IN) | payer OTHER ==
[~2024-12-14] VITALS: Ht 152.4 cm; Wt 61.2 kg
[~2024-12-14 20:50] MED LIST changes: +ALBU2.5V5 INH; +Acetaminophen650 M1 PO; +TERB250
[2024-12-14 21:03] LABS: BASOPHILS ABSOLUTE AUTO 0.05 K/mm3 (0.00-0.23); BASOPHILS PERCENT AUTO 0 % (0-2); EOSINOPHILS ABSOLUTE AUTO 0.22 K/mm3 (0.00-0.68); EOSINOPHILS PERCENT AUTO 2 % (0-6); Hematocrit 43.1 % (37.0-53.0); Hemoglobin 13.7 g/dL (13.5-17.5); IMMATURE GRAN ABSOLUTE AUTO 0.04 K/mm3 (0.00-0.10); IMMATURE GRAN PERCENT AUTO 0 % (0-1); LYMPHOCYTES ABSOLUTE AUTO 1.54 K/mm3 (0.84-5.20); LYMPHOCYTES PERCENT AUTO 13 % (21-46); MONOCYTES ABSOLUTE AUTO 0.85 K/mm3 (0.16-1.47); MONOCYTES PERCENT AUTO 7 % (4-13); Mean Corpuscular HGB Conc 31.8 g/dL (31.5-36.5); Mean Corpuscular Volume 83 fL (80-100); NEUTROPHILS ABSOLUTE AUTO 9.08 K/mm3 (1.96-9.15); NEUTROPHILS PERCENT AUTO 77 % (41-73); NRBC ABSOLUTE 0.00 K/mm3 (0.00-0.02); NRBC Auto 0.0 /100 WBC (0.0-0.2); Platelet Count 361 K/mm3 (150-400); RDW Coefficient Variation 14.5 % (11.7-14.2); RDW Standard Deviation 43.8 fL (35.1-46.3)
[2024-12-14 21:22] LABS: Alanine Aminotransfer (ALT/SGP 18.0 U/L (12-78); Albumin, Blood 3.5 g/dL (3.4-5.0); Albumin/Globulin Ratio 0.9 (0.8-1.8); Anion Gap 5.0 mmol/L (3-11); Aspartate Aminotrans (AST/SGOT 13.0 U/L (12-37); Bilirubin, Total 0.4 mg/dL (0.1-1.0); Blood Urea Nitrogen 16.0 mg/dL (8-24); CO2, Blood 29.0 mmol/L (21-32); Calcium, Blood 8.9 mg/dL (8.5-10.1); Chloride, Blood 105.0 mmol/L (98-108); Creatinine, Blood 0.74 mg/dL (0.60-1.20); Globulin, Blood 3.8 g/dL (2.2-4.0); Glucose, Blood 129.0 mg/dL (70-99); Potassium, Blood 3.9 mmol/L (3.5-5.5); Sodium, Blood 135.0 mmol/L (136-145); Total Protein, Blood 7.3 g/dL (6.4-8.2)
[2024-12-14] MEDS ORDERED: Ketorolac Tromethamine 15mg Vial IV ONE (22:45)
[2024-12-15] VITALS (44 sets, daily range): BP systolic 79–124; BP diastolic 33–79
[2024-12-15] MEDS ORDERED: Lidocaine 2% Jelly Uro-Jet UR ONE ×3 (01:05→02:45)
[2024-12-15] MEDS ORDERED: Morphine Sulfate 4 MG/1 ML Injection IV ONE (02:45)
[2024-12-15 04:06] LABS: Source, Urine Clean Catch
[2024-12-15 04:08] LABS: Bilirubin, Urine Neg (Neg); Glucose Qualitative, Urine Neg (Neg); Ketones, Urine Neg (Neg); Leukocyte Esterase, Urine 3+ (Neg); Protein, Urine 3+ (Neg); Specific Gravity, Urine 1.015 (1.003-1.022); Urobilinogen, Urine NORM (Normal)
[2024-12-15 04:12] LABS: Color, Urine Brown (P-Yellow)
[2024-12-15 04:14] LABS: Red Blood Cells, Urine TNTC /hpf (0-2); White Blood Cells, Urine 25-50 /hpf (0-5)
[2024-12-15] MEDS ORDERED: Lactobacil 2-S.Thermo-Bifido 1 1 Cap PO SCH ×2 (09:00)
[2024-12-15] MEDS ORDERED: Enoxaparin 40 MG/0.4 ML SYR SC SCH (09:00)
--- NOTE | 2024-12-15 10:32 | NUR ---
ADMIT NOTE: ADMIT TO PCU 09 AT 0840. USED SLIDE SHEET TO TRANSFER. PATIENT NONVERBAL AT BASELINE BUT DOES MAKE SOUNDS. AMELIA ELKINS AT BEDSIDE TO HELP WITH HISTORY. PERRLA, OPENING EYES TO VOICE AND TOUCH. MOVING ALL EXTREMITIES. ELY ROM IN LEFT SHOULDER DUE TO HISTORY OF INJURY. AMELIA ELKINS STATES PATIENT DOES LIKE TO STAND ASSISTED BUT DOES NOT AMBULATE AND USES WHEELCHAIR AT BASELINE. ON ROOM AIR SATING ABOVE 95%. LUNG SOUNDS CLEAR AND DIM IN BASES. EVEN AND UNNLABORED RESPIRATIONS. TELE SHOWING SINUS RHYTHM WITH HR 80-90'S. SBP 90'S. PPP. IV ABX INFUSED AND SALINE LOCKED. NO EDEMA NOTED. BOWEL TONES PRESENT. LAST BOWEL MOVEMENT YESTERDAY. ATTENDS IN PLACE. MAX CATH CHANGED IN ED BY UROLOGIST. SLIGHT BLEEDING NOTED FROM URETHRA FROM PLACEMENT. MAX CATH DRAINING YELLOW URINE TO GRAVITY. PATIENT ON MINCED AND MOIST DIET AND THICKENED LIQUIDS. PATIENT IS FEEDER. MEDS CRUSHED IN APPLESAUCE. SUCTION AT BEDSIDE. SKIN PALE WITH NONBLANCHABLE REDNESS TO COCCYX. OLD PRESSURE WOUND THAT IS PEA SIZED ON RIGHT BUTTOCK IN FINAL STAGES OF HEALING. NO OPEN WOUND. SEE CHART PHOTOS. LEFT GROIN SKIN BREAKDOWN FROM PRIOR MAX STAT LOCK PLACEMENT, SEE CHART PHOTO. AMELIA ELKINS AT BEDSIDE. COPY OF HOME MED LIST IN CHART AND UPDATED ON COMPUTER. PATIENT RESTING IN BED AT THIS TIME. BED ALARM IN PLACE. CALL LIGHT IN REACH.
[2024-12-15] MEDS ORDERED: PHENO60 PO (10:49)
[2024-12-15] MEDS ORDERED: CRANBERRY450 M1 PO (10:54)
[2024-12-15] MEDS ORDERED: DIAZEPAM PR (10:57)
--- NOTE | 2024-12-15 11:19 | NUR ---
DR. GARCIA UPDATED ON PATIENT BLOOD PRESSURE TRENDS. SEE CHARTED VITALS. ORDERS FOR 500ML NORMAL SALINE BOLUS X1 NOW FOLLOWED BY CONTINUOUS NORMAL SALINE AT 100ML/HR.
[2024-12-15] MEDS ORDERED: NS 500 ML IV ONE ×2 (11:20→14:15)
[2024-12-15] MEDS ORDERED: NS 1,000 ML IV SCH (11:25)
[2024-12-15] MEDS ORDERED: NS 500 ML IV SCH (13:25)
--- NOTE | 2024-12-15 15:10 | NUR ---
TRANSFER TO ICU: REPORT CALLED TO JANETT MCMAHAN. PATIENT BLOOD PRESSURES CONSISTENTLY LOW DESPITE FLUID BOLUSES. ORDER FOR PO MIDODRINE ALTHOUGH PATIENT UNABLE TO WAKE ENOUGH TO SAFELY TAKE. DR. GARCIA TO BEDSIDE IN PCU AND ORDERS FOR ICU TRANFER FOR LEVOPHED. AMELIA ELKINS AT BEDSIDE FOR TRANSFER. PATIENT TRANSFERRED WITH ALL PERSONAL BELONGINGS AND HOME MEDICATION.
--- NOTE | 2024-12-15 15:15 | NUR ---
ARRIVAL TO ICU PT ARRIVED TO ICU 12 VIA PCU BED AT 1425 AND TRANSFERED OVER TO ICU BED VIA SLIDE SHEET. HE TRANSFERED OVER TO ICU D/T HYPOTENSION. HE APPEARS TO BE IN A "DEEP SLEEP" WHICH HIS MOTHER STATES CAN OCCUR; HE IS NOT RESPONSIVE TO VERBAL STIMULI BUT REACTIVE TO PAINFUL STIMULI; HE HAS A COUGH AND GAG. SPO2 >95% ON RA. NSR WITH RATE 60-70'S. SBP 80-90'S; MAP 58-70. CHRONIC MAX IN PLACE AND DRAINING TO GRAVITY. NS INFUSING AT 100ML/HR VIA PIV IN LW WRIST; CHALLENGING ESTABLISHING ACCESS. CALL MADE TO DR GARCIA REGADING DIFFERENT ACCESS, BOTH DR GARCIA AND PT MOTHER AGREED TO PICC LINE PLACEMENT. LEVOPHED TO BE STARTED AFTER PICC PLACED. SEE SHIFT ASSESSMENT FOR FULL ASSESSMENT.
[2024-12-15] MEDS ORDERED: Misc. Oral Solution PO SCH (16:00)
--- NOTE | 2024-12-15 18:45 | NUR ---
END OF SHIFT SUMMARY AFTER PICC PLACED, LEVOPHED STARTED SHORTLY AFTERWARDS FOR MAP <65; SEE FLOWSHEET FOR TITRATIONS. PT CONT TO BE SOMNULENT; WHILE HIS MOTHER WAS AT BEDSIDE, HE WAS SLIGHTLY MORE AROUSABLE BUT HIS MOTHER REPORTED THAT THE PT HAD BEEN AWAKE FOR OVER 24HOURS BEFORE COMING TO THE HOSPITAL. SPO2 >98% ON 2L OXYMASK; OCCATIONAL PERIODS OF APNEA NOTED. HR 60'S. SBP 80-100 WITH LEVOPHED INFUSING. MAX IN PLACE AND DRAINING TO GRAVITY. NS INFUSING AT 100ML/HR. PT MOTHER WENT HOME FOR THE NIGHT. WILL REPORT TO PM RN WHEN AVAILABLE.
--- NOTE | 2024-12-15 20:44 | NUR ---
ASSUMED CARE AT 1900 PATIENT REPSONDS TO TOUCH, GROANS BUT DOES NOT OPEN EYES, MOVES EXTREMETIES. UNABLE TO GET PATIENT TO WAKE UP ENOUGH TO FOLLOW ANY COMMANDS. ALSO UNABLE TO GIVE PO MEDICATIONS DUE TO PATIENT BEING TOO LETHARGIC. SP02 100% ON 2L VIA MASK, PER DAYSHIFT PATIENT HAS PERIODS OF APNEA WHILE SLEEPING, LS DIMINISHED. HR SB 48-50s, BP HYPOTENSIVE, LEVOPHED INFUSING AND BEING TITRATED UP TO MAINTAIN A MAP >65. MAX IS PATENT AND DRAINING TO GRAVITY. PATIENT REPOSITIONED AND CALL LIGHT IN REACH
[2024-12-16] VITALS (58 sets, daily range): BP systolic 85–149; BP diastolic 50–115
[2024-12-16 03:45] LABS: BASOPHILS ABSOLUTE AUTO 0.05 K/mm3 (0.00-0.23); BASOPHILS PERCENT AUTO 1 % (0-2); EOSINOPHILS ABSOLUTE AUTO 0.27 K/mm3 (0.00-0.68); EOSINOPHILS PERCENT AUTO 4 % (0-6); Hematocrit 35.9 % (37.0-53.0); Hemoglobin 11.3 g/dL (13.5-17.5); IMMATURE GRAN ABSOLUTE AUTO 0.01 K/mm3 (0.00-0.10); IMMATURE GRAN PERCENT AUTO 0 % (0-1); LYMPHOCYTES ABSOLUTE AUTO 1.01 K/mm3 (0.84-5.20); LYMPHOCYTES PERCENT AUTO 15 % (21-46); MONOCYTES ABSOLUTE AUTO 0.44 K/mm3 (0.16-1.47); MONOCYTES PERCENT AUTO 7 % (4-13); Mean Corpuscular HGB Conc 31.5 g/dL (31.5-36.5); Mean Corpuscular Volume 84 fL (80-100); NEUTROPHILS ABSOLUTE AUTO 4.81 K/mm3 (1.96-9.15); NEUTROPHILS PERCENT AUTO 73 % (41-73); NRBC ABSOLUTE 0.00 K/mm3 (0.00-0.02); NRBC Auto 0.0 /100 WBC (0.0-0.2); Platelet Count 273 K/mm3 (150-400); RDW Coefficient Variation 13.9 % (11.7-14.2); RDW Standard Deviation 42.6 fL (35.1-46.3)
[2024-12-16 04:06] LABS: Alanine Aminotransfer (ALT/SGP 13.0 U/L (12-78); Albumin, Blood 2.8 g/dL (3.4-5.0); Albumin/Globulin Ratio 0.9 (0.8-1.8); Anion Gap 8.0 mmol/L (3-11); Aspartate Aminotrans (AST/SGOT 11.0 U/L (12-37); Bilirubin, Total 0.5 mg/dL (0.1-1.0); Blood Urea Nitrogen 6.0 mg/dL (8-24); CO2, Blood 28.0 mmol/L (21-32); Calcium, Blood 7.7 mg/dL (8.5-10.1); Chloride, Blood 107.0 mmol/L (98-108); Creatinine, Blood 0.54 mg/dL (0.60-1.20); Globulin, Blood 3.2 g/dL (2.2-4.0); Glucose, Blood 90.0 mg/dL (70-99); Potassium, Blood 3.8 mmol/L (3.5-5.5); Sodium, Blood 139.0 mmol/L (136-145); Total Protein, Blood 6.0 g/dL (6.4-8.2)
[2024-12-16] MEDS ORDERED: Misc. Oral Solution PO SCH (06:00)
--- NOTE | 2024-12-16 06:08 | NUR ---
PATIENT MORE ALERT THIS MORNING, FOLLOWING SOME SIMPLE COMMANDS. MEDS WITH APPLESAUCE. LEVOPHED TITRATED OFF. REPOSITONED Q2 HOURS. CALL LIGHT IN REACH
[2024-12-16] MEDS ORDERED: Diazepam 5 MG / ML 2ML SYR IV PRN (10:45)
--- NOTE | 2024-12-16 11:06 | NUR ---
ASSUMED CARE AT 0700 PT LAYING IN BED WATCHING TV AT SHIFT CHANGE. HE IS MORE ALERT THAN PREVIOUS DAY; HIS EYES ARE OPEN AND HE FATIMA; PT MOTHER AT BEDSIDE AND STATED THAT PT IS NON-VERBAL AT BASELINE AND DOES NOT AMBULATE; CURRENTLY HAVING FREQUENT SMALL "JERKING" MOVEMENTS THAT THE PT MOTHER STATES ARE SEIZURES. SPO2 >94% ON RA. AFEBRILE. HR LOW 100'S. SBP 110-120'S WITH MAP >65; LEVOPHED ON SB SINCE NOC SHIFT. TOLERATING DIET WELL. CHRONIC MAX IN PLACE AND DRAINING TO GRAVITY. NS INFUSING AT 100ML/HR. PICC TO RUE PATENT WITH DRESSING C/D/I. SEE SHIFT ASSESSMENT FOR FULL ASSESSMENT.
--- NOTE | 2024-12-16 18:33 | NUR ---
END OF SHIFT SUMMARY PT VERY ALERT AND INTERACTIVE THIS SHIFT. THIS AM, PT HAD FREQUENT "JERKY" MOVEMENTS, CALL MADE TO DR GARCIA WHO PROVIDED NEW ORDER FOR PRN DIAZEPAM, PT RESPONDED WELL TO PRN DOSE; MOTHER AT BEDSIDE FOR MOST OF THE DAY AND STATED THAT HE WAS AT BASELINE BEHAVIOR THIS AFTERNOON; HE WAS ABLE TO STAND AND PIVOT TO A RECLINE THAT HE TOLERATED FOR ABOUT AN HOUR. SPO2 >92% ON RA. AFEBRILE. HR 90-115. SBP 90-110; LEVOPHED OFF ALL SHIFT. PT TOLERATING PO INTAKE WELL WHEN ASSISTED. CHRONIC MAX IN PLACE AND DRAINING TO GRAVITY. PICC TO RUE PATENT WITH DRESSING CHANGED THIS SHIFT. NS INFUSING AT 100ML/HR. WILL REPORT TO PM RN WHEN AVAILABLE.
[2024-12-17 00:21] VITALS: BP 98/63
[2024-12-17] MEDS ORDERED: Vancomycin (Pharmacy Consult) IV SCH (03:15)
[2024-12-17 03:38] LABS: BASOPHILS ABSOLUTE AUTO 0.02 K/mm3 (0.00-0.23); BASOPHILS PERCENT AUTO 0 % (0-2); EOSINOPHILS ABSOLUTE AUTO 0.18 K/mm3 (0.00-0.68); EOSINOPHILS PERCENT AUTO 4 % (0-6); Hematocrit 34.0 % (37.0-53.0); Hemoglobin 10.7 g/dL (13.5-17.5); IMMATURE GRAN ABSOLUTE AUTO 0.01 K/mm3 (0.00-0.10); IMMATURE GRAN PERCENT AUTO 0 % (0-1); LYMPHOCYTES ABSOLUTE AUTO 1.52 K/mm3 (0.84-5.20); LYMPHOCYTES PERCENT AUTO 33 % (21-46); MONOCYTES ABSOLUTE AUTO 0.46 K/mm3 (0.16-1.47); MONOCYTES PERCENT AUTO 10 % (4-13); Mean Corpuscular HGB Conc 31.5 g/dL (31.5-36.5); Mean Corpuscular Volume 85 fL (80-100); NEUTROPHILS ABSOLUTE AUTO 2.46 K/mm3 (1.96-9.15); NEUTROPHILS PERCENT AUTO 53 % (41-73); NRBC ABSOLUTE 0.00 K/mm3 (0.00-0.02); NRBC Auto 0.0 /100 WBC (0.0-0.2); Platelet Count 228 K/mm3 (150-400); RDW Coefficient Variation 14.2 % (11.7-14.2); RDW Standard Deviation 44.3 fL (35.1-46.3)
[2024-12-17 03:59] LABS: Anion Gap 6.0 mmol/L (3-11); Blood Urea Nitrogen 6.0 mg/dL (8-24); CO2, Blood 30.0 mmol/L (21-32); Calcium, Blood 7.8 mg/dL (8.5-10.1); Chloride, Blood 109.0 mmol/L (98-108); Creatinine, Blood 0.58 mg/dL (0.60-1.20); Glucose, Blood 84.0 mg/dL (70-99); Potassium, Blood 3.6 mmol/L (3.5-5.5); Sodium, Blood 141.0 mmol/L (136-145)
[2024-12-17 04:41] VITALS: BP 109/70
--- NOTE | 2024-12-17 06:11 | NUR ---
SHIFT SUMMARY PATIENT ARRIVED TO PCU 10 FROM ICU 12 THIS MORNING. PATIENT IS NONVERBAL AT BASELINE, DOES NOT FOLLOW DIRECTIONS WELL. HE IS ON ROOM AIR WITH SPO2 >90%. VITAL SIGNS STABLE. PATIENT DID NOT SHOW ANY SIGNS OF PAIN OR DIFFICULTY BREATHING. WILL CONTINUE TO MONITOR. CALL LIGHT WITHIN REACH.
[2024-12-17 07:42] VITALS: BP 96/53
[2024-12-17] MEDS ORDERED: LevETIRAcetam 100 MG/ML 5ML ORAL SYR PO SCH ×2 (09:00→21:00)
[2024-12-17 11:03] VITALS: BP 103/71
--- NOTE | 2024-12-17 14:00 | NUR ---
PT TRANSFERRED TO 304 WITH MOM AT THE BEDSIDE UPON TRANSFER AWARE OF THE PLAN OF CARE. VITALS HAS BEEN STABLE FOR THE SHIFT. PT REMAINED LETHARGIC REQUIRING A LOT OF STIMULATION BY MOM AT BEDSIDE WHICH SHE REPORTS BASELINE PER PT DUE TO MULTIPLE ANTI SEIZURE MEDS IN THE MORNING. PT ABLE TO WAKE UP AND EAT MEALS AND MEDS CRUSHED WITH APPLESAUCE. PT HAD A BOWEL MOVEMENT FOR THE SHIFT, PT HAS BEEN CHANGED AND REPOSITIONED, COCCYX RED BLANCHABLE BARRIER CREMA APPLIED, MAX DRAINING YELLOW URINE WITH SOME SEDIMENTS. REPORT GIVEN TO MIRANDA MCMAHAN, ALL BELONGINGS SENT WITH THE PT
--- NOTE | 2024-12-17 15:59 | NUR ---
ROUNDED ON PATIENT. MOM BARBARA WAS AT BEDSIDE. THERAPUTIC CONVERSATION. SHE REPORTED THAT RICHIE IS IMPROVING AND WE DISCUSSED HIS PAST MEDICAL HISTORY. RICHIE IS ON PALLIATIVE CARE SERVICES THROUGH [employer]. HE LIVES AT [facility] WITH TWO OTHER RESIDENTS. PATIENT IS SLEEPING THROUGH MY VISIT. PROVIDED EMOTIONAL SUPPORT FOR PATIENT MOM.
--- NOTE | 2024-12-17 18:04 | NUR ---
PT WAS PCU TRANSFER. THIS NURSE AGREES WITH PREVIOUS NURSE ASSESSMENT
[2024-12-17 20:17] VITALS: BP 95/58
[2024-12-18 04:49] LABS: BASOPHILS ABSOLUTE AUTO 0.04 K/mm3 (0.00-0.23); BASOPHILS PERCENT AUTO 1 % (0-2); EOSINOPHILS ABSOLUTE AUTO 0.29 K/mm3 (0.00-0.68); EOSINOPHILS PERCENT AUTO 6 % (0-6); Hematocrit 35.7 % (37.0-53.0); Hemoglobin 11.3 g/dL (13.5-17.5); IMMATURE GRAN ABSOLUTE AUTO 0.00 K/mm3 (0.00-0.10); IMMATURE GRAN PERCENT AUTO 0 % (0-1); LYMPHOCYTES ABSOLUTE AUTO 1.80 K/mm3 (0.84-5.20); LYMPHOCYTES PERCENT AUTO 38 % (21-46); MONOCYTES ABSOLUTE AUTO 0.48 K/mm3 (0.16-1.47); MONOCYTES PERCENT AUTO 10 % (4-13); Mean Corpuscular HGB Conc 31.7 g/dL (31.5-36.5); Mean Corpuscular Volume 84 fL (80-100); NEUTROPHILS ABSOLUTE AUTO 2.13 K/mm3 (1.96-9.15); NEUTROPHILS PERCENT AUTO 45 % (41-73); NRBC ABSOLUTE 0.00 K/mm3 (0.00-0.02); NRBC Auto 0.0 /100 WBC (0.0-0.2); Platelet Count 256 K/mm3 (150-400); RDW Coefficient Variation 14.1 % (11.7-14.2); RDW Standard Deviation 43.7 fL (35.1-46.3)
[2024-12-18 05:14] LABS: Anion Gap 6.0 mmol/L (3-11); Blood Urea Nitrogen 5.0 mg/dL (8-24); CO2, Blood 30.0 mmol/L (21-32); Calcium, Blood 7.9 mg/dL (8.5-10.1); Chloride, Blood 109.0 mmol/L (98-108); Creatinine, Blood 0.53 mg/dL (0.60-1.20); Glucose, Blood 81.0 mg/dL (70-99); Potassium, Blood 3.8 mmol/L (3.5-5.5); Sodium, Blood 141.0 mmol/L (136-145)
[2024-12-18 05:30] VITALS: BP 114/57
--- NOTE | 2024-12-18 06:39 | NUR ---
PATIENT WAS RESTLESS UP IN BED TRYING TO GET OUT OF BED. DIDNT FALL ASLEEP UNTILL 4 AM. NO OBSERVED PAIN OR DISCOMFORT.
[2024-12-18 08:02] VITALS: BP 113/70
[2024-12-18] MEDS ORDERED: CefTRIAXone Sodium 1,000 MG in NS 100 ML IV SCH (12:00)
--- NOTE | 2024-12-18 13:59 | NUR ---
DISCHARGE NOTE PATIENT ALERT , NONVERBAL. PLEASANT AND COOPERATIVE WITH CARE. IV ANTIBIOTICS UNFUSED PER MAR. PATIENT WITH DSICHARGE FOLLOW UP APPOINTMENT SCHEDULED WITH [facility] FOR IV ANTIBIOTICS. PICC TO RIGHT ARM IN PLACE AT DISCHARGE, IV REMOVED TO LEFT WRIST/FA. DR. FOFANA STATES WILL RE ORDER MIDODRINE FOR DISCHARGE, AWAITING ORDER TO FAX TO [facility]. WILL CALL FACILITY WHEN ORDERS ARE RECIEVED TO INFORM THEM. NO OTHER CONCERNS. PATIENT'S FACILITY TRANSPORTATION ARRIVED AND WAS ASSISTED TO VEHICLE VIA PERSONAL WHEELCHAIR.
== END 2024-12-18 13:57 | disposition home health service (06) | DRG 698 ==
LOC: ER 20:50 → PCU 12-15 05:14 → ERHOLD 12-15 05:14 → MEDS 12-15 05:14 → ICUE 12-15 05:14 → PCU 12-15 08:28 → ICUE 12-15 14:23 → ER 12-15 23:09 → ICUE 12-16 00:15 → PCU 12-17 04:03 → MEDS 12-17 15:09 → ENPENDDIS 12-18 11:04 → MEDS 12-18 13:57
PROVIDERS: Internal Medicine; Student in an Organized Health Care Education/Training Program; ADMIT Student in an Organized Health Care Education/Training Program
PROC: 3E03329 Introduction of Other Anti-infective into Peripheral Vein, Percutaneous Approach (ICD-10-PCS; principal; 2024-12-15)
PROC: 0TPBX0Z Removal of Drainage Device from Bladder, External Approach (ICD-10-PCS; 2024-12-15)
PROC: 0T9B70Z Drainage of Bladder with Drainage Device, Via Natural or Artificial Opening (ICD-10-PCS; 2024-12-15)
PROC: 3E033XZ Introduction of Vasopressor into Peripheral Vein, Percutaneous Approach (ICD-10-PCS; 2024-12-15)
PROC: 02HV33Z Insertion of Infusion Device into Superior Vena Cava, Percutaneous Approach (ICD-10-PCS; 2024-12-15)
DX: T83.511A Infection and inflammatory reaction due to indwelling urethral catheter, initial encounter (principal); A41.9 Sepsis, unspecified organism; R65.21 Severe sepsis with septic shock; G40.812 Lennox-Gastaut syndrome, not intractable, without status epilepticus; N30.01 Acute cystitis with hematuria; N99.820 Postprocedural hemorrhage of a genitourinary system organ or structure following a genitourinary system procedure; Z16.24 Resistance to multiple antibiotics; R33.8 Other retention of urine; L89.326 Pressure-induced deep tissue damage of left buttock; Z66 Do not resuscitate; G31.89 Other specified degenerative diseases of nervous system; K21.9 Gastro-esophageal reflux disease without esophagitis; Y84.6 Urinary catheterization as the cause of abnormal reaction of the patient, or of later complication, without mention of misadventure at the time of the procedure; Z88.8 Allergy status to other drugs, medicaments and biological substances; Z87.440 Personal history of urinary (tract) infections; Z96.82 Presence of neurostimulator; Y73.2 Prosthetic and other implants, materials and accessory gastroenterology and urology devices associated with adverse incidents
CPT/HCPCS: 36415; 36569; 51702; 80048; 80053; 81001; 82947; 83605; 85025; 87040; 87077; 87086; 87186; 93005; 93010; 96374; 96375; 99285-25; A9270; C1751; J0696; J1650; J1885; J2185; J2270; J3360; J3373; J7030; J7040; J7050; J7120

== ENCOUNTER 2024-12-19 00:28 | Day surgery (SDC) | payer OTHER ==
[~2024-12-19 00:28] MED LIST changes: +DIAZEPAM PR
[2024-12-19] MEDS ORDERED: CefTRIAXone Sodium 1,000 MG in NS 100 ML IV SCH (06:00)
== END 2024-12-19 10:57 | disposition home or self-care (01) ==
LOC: ATC 00:28
DX: N30.20 Other chronic cystitis without hematuria (principal); K21.9 Gastro-esophageal reflux disease without esophagitis; G40.812 Lennox-Gastaut syndrome, not intractable, without status epilepticus; Z66 Do not resuscitate; Z79.899 Other long term (current) drug therapy; Z88.8 Allergy status to other drugs, medicaments and biological substances; Z91.011 Allergy to milk products
CPT/HCPCS: 96365; J0696

== ENCOUNTER 2024-12-21 01:34 | Day surgery (SDC) | payer OTHER ==
[2024-12-21] MEDS ORDERED: CefTRIAXone Sodium 1,000 MG in NS 100 ML IV SCH (06:00)
[2024-12-21 10:23] VITALS: BP 93/64
== END 2024-12-21 10:49 | disposition home or self-care (01) ==
LOC: ATC 01:34
DX: N30.20 Other chronic cystitis without hematuria (principal); K21.9 Gastro-esophageal reflux disease without esophagitis; G40.812 Lennox-Gastaut syndrome, not intractable, without status epilepticus; Z66 Do not resuscitate; Z79.899 Other long term (current) drug therapy; Z91.011 Allergy to milk products; Z88.8 Allergy status to other drugs, medicaments and biological substances
CPT/HCPCS: 96365; J0696

== ENCOUNTER 2024-12-22 01:23 | Day surgery (SDC) | payer OTHER ==
[2024-12-22] MEDS ORDERED: CefTRIAXone Sodium 1,000 MG in NS 100 ML IV SCH (06:00)
[2024-12-22 10:26] VITALS: BP 122/70
== END 2024-12-22 11:00 | disposition home or self-care (01) ==
LOC: ATC 01:23
DX: N30.20 Other chronic cystitis without hematuria (principal); G40.812 Lennox-Gastaut syndrome, not intractable, without status epilepticus; K21.9 Gastro-esophageal reflux disease without esophagitis; Z66 Do not resuscitate; Z79.899 Other long term (current) drug therapy; Z88.8 Allergy status to other drugs, medicaments and biological substances; Z91.011 Allergy to milk products
CPT/HCPCS: 96365; J0696

== ENCOUNTER 2025-03-31 10:27 | Emergency (ER) | payer OTHER ==
[~2025-03-31] VITALS: Ht 160 cm; Wt 59.0 kg
[2025-03-31 11:32] VITALS: BP 94/63
[2025-03-31] MEDS ORDERED: Lidocaine 2% Jelly Uro-Jet UR ONE (13:55)
[2025-03-31] MEDS ORDERED: Morphine Sulfate 4 MG/1 ML Injection IM ONE (14:00)
[2025-03-31] MEDS ORDERED: Morphine Sulfate 20 MG/1ML 1 ML Oral Syringe SL ONE (14:20)
[2025-03-31 15:47] LABS: Calcium, Ionized (POC) 1.18 mmol/L (1.10-1.46); Chloride (POC) 105 mmol/L (98-108); Creatinine (POC) 0.8 mg/dL (0.8-1.3); Glucose (ISTAT POC) 83 mg/dL (70-99); Hematocrit (POC) 35.0 % (41.0-53.0); Hemoglobin (POC) 11.9 g/dL (13.5-17.5); Potassium (POC) 4.0 mmol/L (3.5-5.5); Sodium (POC) 142 mmol/L (135-148); Total CO2 (POC) 30 mmol/L (21-32)
[2025-03-31 16:07] LABS: Source, Urine Foley catheter
[2025-03-31 16:47] LABS: Bilirubin, Urine Neg (Neg); Color, Urine Yellow (P-Yellow); Glucose Qualitative, Urine Neg (Neg); Ketones, Urine Neg (Neg); Leukocyte Esterase, Urine 2+ (Neg); Protein, Urine 3+ (Neg); Specific Gravity, Urine 1.020 (1.003-1.022); Urobilinogen, Urine NORM (Normal)
[2025-03-31 17:04] LABS: Red Blood Cells, Urine TNTC /hpf (0-2); White Blood Cells, Urine TNTC /hpf (0-5)
== END 2025-03-31 17:47 | disposition home or self-care (01) ==
LOC: ER 10:27
PROVIDERS: Family Medicine; Student in an Organized Health Care Education/Training Program
DX: T83.091A Other mechanical complication of indwelling urethral catheter, initial encounter (principal); Z79.899 Other long term (current) drug therapy; Z91.0110 Allergy to milk products, unspecified; Z88.1 Allergy status to other antibiotic agents; Z88.8 Allergy status to other drugs, medicaments and biological substances
CPT/HCPCS: 36415; 51702; 80047; 81001; 85014; 87077; 87086; 87186; 99283-25; A9270